=== PATIENT | female | born 1935 | race Caucasian/White ===

== ENCOUNTER 2017-10-02 20:32 | Inpatient (IN) | payer MEDICARE ==
[2017-10-02] MEDS ORDERED: Meclizine TAB* 12.5 MG PO PRN (23:34)
[2017-10-02] MEDS ORDERED: CMCS: Melatonin (NF) 3 MG TAB PO PRN (23:41)
[2017-10-02] MEDS ORDERED: Albuterol 2.5 MG/3 ML NEB.SOL* (0.083%) INH PRN (23:43)
[2017-10-02] MEDS ORDERED: Acetaminophen TAB* 325 MG PO PRN (23:43)
--- NOTE | 2017-10-03 03:09 | HP ---
CC: Dr. Rojelio Mcnulty * HISTORY AND PHYSICAL: DATE OF ADMISSION: 10/02/17 PRIMARY CARE PROVIDER: Dr. Rojelio Mcnulty. ATTENDING PHYSICIAN: Dr. Blanca Handley * (dictated by Renate Mathews NP). CHIEF COMPLAINT: Not feeling well, intermittent chest discomfort for several weeks. HISTORY OF PRESENT ILLNESS: Ms. 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 She decribes this chest discomfort as a "heavy feeling". She also reported right lateral rib discomfort. She decided to call Dr. Lo's office, who recommended she be seen by her primary care provider. She was unable to get into her primary care provider's office, but was able to get into the walk-in clinic at [facility]. She presented to the walk-in clinic at [facility], she was found to be afebrile with no leukocytosis, but had a chest x-ray showing a right upper and lower lobe pneumonia and a new small right-sided pleural effusion. Due to these findings, it was decided to admit the patient for IV antibiotics for her pneumonia. She received ceftriaxone and azithromycin. While at [facility], the patient reported complaints of a sternal chest discomfort. It was suspected this was likely indigestion, they checked an EKG and found that she was in an atrial fibrillation with an RVR. The patient also had troponins checked and her initial troponin was 0.1 followed by a repeat troponin of 3.1. Due to this, it was decided to have the patient via direct admit transfer to [facility]. The patient reports that intermittently for the past few weeks, she has been having intermittent sternal chest discomfort most notably after meals. She states she uses a CPAP at home with 2 - 3 L of oxygen. She reports intermittently having a fluttering feeling in her chest over the last few weeks and states that she has had some subjective fevers, chills. She has an occasional cough. She has had shortness of breath with exertion since yesterday. She denies any nausea, vomiting, diarrhea, diaphoresis, or urinary symptoms. PAST MEDICAL HISTORY: 1. Obstructive sleep apnea, on CPAP, with 2 to 3 L of oxygen. 2. Hypertension. 3. Mitral valve regurgitation. 4. COPD. 5. Hyperlipidemia. 6. Osteoarthritis. PAST SURGICAL HISTORY: Status post back surgeries x2. MEDICATIONS: The patient is not clear on all of her home medications, but states she is taking the following medications accordingly: 1. Aspirin 81 mg oral daily. 2. Biotin 10 mg oral daily. 3. Calcium 500 plus D3 two tablets oral twice daily. 4. Carvedilol 25 mg oral twice daily. 5. Colace 240 mg oral daily at bedtime. 6. Lexapro 20 mg oral daily. 7. Lactobacillus 2 capsules oral every morning. 8. Lisinopril 10 mg oral every morning. 9. Meclizine 25 to 50 mg orally every 6 hours as needed for vertigo. 10. Spiriva Respimat 2 puffs inhalation every morning. 11. CoQ10 200 mg oral daily. Current medications from [facility] include: 1. Lexapro 20 mg oral daily. 2. Colace 200 mg oral daily at bedtime. 3. Sertraline 250 mg oral twice daily. 4. Lovenox 60 mg subcutaneous every 12 hours. 5. Nitroglycerin 0.4 mg sublingual every 5 minutes as needed for chest pain. 6. Prilosec 20 mg oral daily. 7. Lisinopril 10 mg oral daily. 8. Carvedilol 25 mg oral twice daily. 9. Aspirin 81 mg oral daily. 10. Melatonin 1 mg oral at bedtime as needed for sleep. 11. Fleet Enema as needed for constipation daily. 12. Solu-Medrol 60 mg IV every 6 hours. 13. Milk of magnesia 30 mL oral daily as needed for constipation. 14. Mucinex 1200 mg oral every 12 hours. 15. Ceftriaxone 1 g IV every 24 hours. 16. Dulcolax suppository 10 mg per rectum daily as needed for constipation. 17. Tessalon Perles 200 mg oral every 6 hours as needed for cough. 18. Azithromycin 500 mg IV every 24 hours. 19. Albuterol/ipratropium nebs every 4 hours inhalation as needed for shortness of breath or wheeze. 20. Acetaminophen 650 mg oral every 4 hours as needed for fever or pain. ALLERGIES: NIACIN. FAMILY HISTORY: The patient's father had a history of coronary artery disease. The patient's brother passed at age 49 from an SD. Her mother had a history of a cerebrovascular accident. She denies any family history of diabetes mellitus and she had a grandfather with a history of renal carcinoma. SOCIAL HISTORY: The patient is a former smoker. She reports quitting 30 to 40 years ago. Prior to that, she had a 15- to 20-year 1- to 5-oqiy-i-day smoking history. She occasionally drinks alcohol. She denies recreational drug use. Her , Garry Baxter, will be her surrogate decision maker in the event she is unable to make decisions for herself. REVIEW OF SYSTEMS: I performed an 11-point review of systems. All the pertinent positives and negatives are mentioned in the history of present illness and remaining review of systems is negative. PHYSICAL EXAMINATION GENERAL APPEARANCE: The patient is alert, pleasant, and appears to be in no acute distress. HEENT: Normocephalic, atraumatic. Pupils are equal and reactive to light. Extraocular movements are intact. RESPIRATORY: There is no accessory muscle use. The lungs are clear to auscultation on the left side and on the right, she has crackles scattered throughout. CARDIOVASCULAR: Regular rate and rhythm. S1, S2 present. There are no murmurs , rubs, or gallops heard. ABDOMEN: Soft, nontender, nondistended. Bowel sounds present x4. EXTREMITIES: There is no lower extremity edema. DP and PT pulses are 2+ and symmetric. MUSCULOSKELETAL: There is no clubbing or cyanosis noted. The patient exhibits good strength in all extremities. NEUROLOGIC: The patient is alert and oriented x4. Cranial nerves II through XII are grossly intact. PSYCHOLOGICAL: The patient is calm and cooperative. SKIN: There are no rashes or abnormalities seen. DIAGNOSTIC STUDIES/LAB DATA: From today at [facility] revealed a white blood cell count of 4.6, hemoglobin 11.8, hematocrit 37, platelet count 252. She had a troponin of 0.10 followed by 3.133. TSH of 0.26. EKG from [facility] shows an atrial fibrillation rate of 123. There is ST depression in leads V3 through V6 and T-wave insertion in V2. When compared to previous EKG in our system from 06/19/17, all of the ST depression is new with the exception of in lead V5, which was previously present and the patient was in sinus rhythm at that time. IMPRESSION: Ms. Baxter is an 82-year-old female with past medical history significant for obstructive sleep apnea, hypertension, mitral valve regurgitation, chronic obstructive pulmonary disease, hyperlipidemia, and osteoarthritis, who initially presented to [facility] with complaints of heavy feeling in her chest and right lateral rib pain. She was admitted there for pneumonia and she had complaints of chest pain, was found to be in a new atrial fibrillation with elevated troponins. The patient was then transferred to as a direct admission to [facility]. She was admitted at [facility] as an inpatient for pneumonia and chest pain. ASSESSMENT/PLAN: 1. Hypertroponinemia. I question if this is secondary to demand ischemia in the setting of pneumonia and atrial fibrillation with rapid ventricular response. At this time, the patient is currently chest pain free. I am going to start to continue to retrend her troponin here. We will trend them until they peak. She will be placed on telemetry. I am going to hold off on a stress test in the setting of her acute pneumonia. She should probably have stress test once she is recovered from her pneumonia. In the meantime though, I will get an echo to evaluate her heart wall motion for any abnormalities and continue her carvedilol. She is already on an aspirin. I am going to check her fasting lipids in the morning and start statin accordingly. 2. New-onset atrial fibrillation. Does not appear that the patient has a history of atrial fibrillation. We will get an echocardiogram in the morning, she will be continued on carvedilol. At this point, she has converted to sinus rhythm. For now, we will continue her on Lovenox 1 mg/kg every 12 hours. She has a CHADS-Vasc score of 4 points, placing her stroke risk at 4.8% per year for greater than 90,000 patients and 6.7% risk of stroke, TIAs, systemic embolus. This should be further discussed with the patient. As she has converted to sinus rhythm, she might not need to be anticoagulated, but again, this should be further discussed with the patient. 3. Right upper and lower lobe pneumonia. Continue the patient on ceftriaxone, azithromycin. Recheck a CBC in the morning as she is currently afebrile and had no leukocytosis at [facility]. I am going to hold on any further steroids as she does not have any wheezing. 4. Hypertension. The patient will be continued on her home carvedilol and lisinopril. 5. Obstructive sleep apnea. The patient will be continued on her home CPAP with oxygen. 6. Chronic obstructive pulmonary disease. I do not believe the patient has chronic obstructive pulmonary disease exacerbation, we will continue her on her home Spiriva. She will have albuterol nebulizers available as needed for her shortness of breath. 7. Hyperlipidemia. The patient is not currently on any medications that she is aware of. We will check a fasting lipid in the morning and start a statin accordingly. 8. Fluids, electrolytes, and nutrition. The patient will be on a heart- healthy diet. 9. Code status. Do not resuscitate. The patient's will bring in her MOLST from home tomorrow. 10. DVT prophylaxis. The patient is at highest risk. She will have TEDs and be continued on Lovenox for now. DISPOSITION: Inpatient. TIME SPENT: Time for this admission was approximately 60 minutes, greater than half of that was spent with the patient discussing medications, past medical history, and the events leading up to her arrival today and performing physical examination. The case has been reviewed with the attending, Dr. Handley, who agrees with the plan of care. Reviewed by DIEGO MARTINEZ 10/08/17 1819 [id number]/[facility] #: [id number] AKASH
[2017-10-03] MEDS ORDERED: LORazepam TAB(*) 0.5 MG PO ONE (04:57)
[2017-10-03] MEDS: Omeprazole CAP* 20 MG PO SCH (05:04)
[2017-10-03 06:35] LABS: ABS Basophils 0 10^3/ul (0-0.2); ABS Eosinophils 0 10^3/ul (0-0.6); ABS Lymphocytes 0.9 10^3/ul (1.0-4.8); ABS Monocytes 0.5 10^3/ul (0-0.8); ABS Neutrophils 10.3 10^3/ul (1.5-7.7); ABS Nucleated RBC 0 10^3/ul; Eosinophil % 0 % (0-6); Hematocrit 35 % (35-47); Hemoglobin 11.4 g/dl (12.0-16.0); Lymphocyte % 7.5 % (25-47); Mean Corpuscular HGB Conc 33 g/dl (31-36); Mean Corpuscular Hemoglobin 31 pg (27-31); Mean Corpuscular Volume 95 fL (80-97); Mean Platelet Volume 8 um3 (7.4-10.4); Nucleated Red Blood Cells % 0; Platelet Count 310 10^3/ul (150-450); Red Blood Count 3.66 10^6/ul (4.0-5.4); Red Cell Distribution Width 15 % (10.5-15); White Blood Count 11.6 10^3/ul (3.5-10.8)
[2017-10-03 06:55] LABS: EGFR Non-African American 77.5 (>60)
[2017-10-03] MEDS: Enoxaparin(*) 60 MG/0.6 ML SYR SUBCUT SCH ×2 (08:15→20:41)
[2017-10-03] MEDS: CMCS: Escitalopram (NF) 10 MG TAB PO SCH (08:16)
[2017-10-03] MEDS: guaiFENesin ER TAB 600 MG PO SCH ×2 (08:17→20:42)
[2017-10-03] MEDS: Lisinopril TAB* 10 MG PO SCH (08:17)
[2017-10-03] MEDS: Aspirin Low Dose CHEW TAB* 81 MG PO SCH (08:17)
[2017-10-03] MEDS: Docusate CAP* 100 MG PO SCH (08:17)
[2017-10-03] MEDS: Carvedilol TAB* 25 MG PO SCH ×2 (08:17→20:42)
[2017-10-03] MEDS ORDERED: predniSONE TAB* 50 MG PO SCH (09:00)
[2017-10-03] MEDS ORDERED: Aspirin Low Dose CHEW TAB* 81 MG PO ONE (12:17)
--- NOTE | 2017-10-03 12:17 | ECHO ---
Patient: HARMEET ADLER [facility] Rec#: [id number] : 1935 Date: 10/03/2017 Age: 82y Height: 154.9 cm / 61.0 in Weight: 60.8 kg / 134.0 lbs Sex: F BSA: 1.59 Room#: ICU 11 Admit Date#: 10/02/2017 Type: Inpatient Referring: Renate Cintron NP Reading: Yogi Lo MD Mix Maker: Mikaela Coleman RN RDCS CC: Rojelio Mcnulty DO Transthoracic Echocardiogram Indication: New A. fib, chest pain BP: 174/92 HR: 80 Rhythm: NSR Findings History: HTN, mitral regurgitation, HLD, YONY, COPD, former smoker Technical Comments: The study quality is fair. The study is technically limited due to the patient's history of COPD. The study is technically limited due to the patient's smoking history. The study was technically limited due to the patient's inability to lay in the left lateral decubitus position. Completed at 0935. Left Ventricle: There is no left ventricular hypertrophy. There is a focal wall motion abnormality present.basal inferior wall hypokinesis. There is mild to moderately decreased left ventricular systolic function. The estimated ejection fraction is 40-45%. Abnormal left ventricular diastolic function is observed. The patient was unable to perform a Valsalva maneuver. Left Atrium: The left atrium is mildly dilated. Right Ventricle: The right ventricular cavity size is normal. The right ventricular global systolic function is low normal. Right Atrium: The right atrium is mildly dilated. Aortic Valve: The aortic valve is trileaflet. The aortic valve leaflets are mildly thickened. There is mild to moderate aortic regurgitation. There is no evidence of aortic stenosis. Mitral Valve: The mitral valve leaflets are mildly thickened. There is moderate to severe mitral regurgitation. There is no evidence of mitral stenosis. Tricuspid Valve: The tricuspid valve leaflets are normal. There is mild tricuspid regurgitation. There is evidence of severe pulmonary hypertension. There is no tricuspid stenosis. Pulmonic Valve: The pulmonic valve structure is not well visualized. There is mild pulmonic regurgitation. There is no pulmonic stenosis. Pericardium: There is no significant pericardial effusion. A pericardial fat pad is visualized. Aorta: There is no dilatation of the ascending aorta. The aortic arch is not well visualized. There is no dilation of the aortic root. Pulmonary Artery: The main pulmonary artery is not well visualized. Venous: The inferior vena cava appears normal in size. There is less than 50% respiratory change in the inferior vena cava dimension. Summary: There are changes noted when compared to the previous study done on 06/18/2017, LV EF is borderline less now, AI is mild-moderate instead of mild then. Conclusions The study is technically limited due to the patient's history of COPD. There is a focal wall motion abnormality present.basal inferior wall hypokinesis. There is mild to moderately decreased left ventricular systolic function. The estimated ejection fraction is 40-45%. The left atrium is mildly dilated. The right atrium is mildly dilated. There is mild to moderate aortic regurgitation. There is moderate to severe mitral regurgitation. There is mild tricuspid regurgitation. There is mild pulmonic regurgitation. Measurements Name Value Normal Range RVDdMajor (2D) 2.3 cm (2.2 - 4.4) RAd ISD 4CH 5.3 cm (3.4 - 4.9) RA (A4C)W 3.9 cm (2.9 - 4.6) IVSd (2D) 0.9 cm (0.6 - 1) LVPWd (2D) 1 cm (0.6 - 1) LVIDd (2D) 4.8 cm (3.6 - 5.4) LVIDs (2D) 3.7 cm - LV FS (2D) 23 % (25 - 45) EF Teichholz (2D) 46 % - Aortic Annulus 2 cm (1.4 - 2.6) Ao root diameter (2D) 2.5 cm (2.1 - 3.5) Ascending Ao 2.6 cm (2.1 - 3.4) LA dimension (AP) 2D 4 cm (2.3 - 3.8) LAd ISD 4CH 5.9 cm (2.9 - 5.3) LA ISD 4CH W 4 cm (2.5 - 4.5) Aortic root diameter (2D1.28 cm/m2 - Name Value Normal Range LA ESV SP 4CH (A/L) 54 ml - LA ESV SP 2CH (A/L) 64 ml - LA ESV BP (A/L) 61 ml - LA ESV BP (A/L) index 38 ml/m2 - LA ESV SP 4CH (MOD) 52 ml - LA ESV SP 2CH (MOD) 62 ml - Name Value Normal Range MV E-wave Vmax 1.7 m/sec - MV deceleration time 139 msec - MV A-wave Vmax 0.54 m/sec - MV E:A ratio 3.1 ratio - LV septal e' Vmax 0.05 m/sec - LV lateral e' Vmax 0.09 m/sec - LV E:e' septal ratio 34 ratio - LV E:e' lateral ratio 18.9 ratio - Name Value Normal Range AV Vmax 1.2 m/sec - AV VTI 22.9 cm - AV peak gradient 5.6 mmHg - AV mean gradient 3.2 mmHg - LVOT Vmax 1 m/sec - LVOT VTI 17.2 cm - LVOT peak gradient 4.2 mmHg - LVOT mean gradient 2.1 mmHg - DOI (VTI) 0.76 ratio - DOI (Vmax) 0.87 ratio - AR PHT 400 msec - Name Value Normal Range MV Vmax 1.7 m/sec - MV VTI 31 cm - MV peak gradient 12 mmHg - MV mean gradient 3.5 mmHg - MV PHT 61 msec - MR Vmax 5.76 m/sec - MR VTI 175 cm - MR volume (PISA) 29.75 ml - MR flow (PISA) 98 ml/sec - MR ERO 0.17 cm2 - MR PISA radius 0.7 cm - MR alias Vmax 32 cm/sec - MVA (PHT) 3.6 cm2 - Name Value Normal Range TR Vmax 4 m/sec - TR peak gradient 64 mmHg - RAP 8 mmHg - RVSP 72 mmHg - IVC diameter 2 cm - Name Value Normal Range PV Vmax 0.58 m/sec -
[2017-10-03] MEDS ORDERED: Ondansetron INJ* 2 MG/ML VIAL ONE (13:07)
[2017-10-03] MEDS: Ondansetron INJ* 2 MG/ML VIAL IV PRN ×2 (13:10→19:40)
--- NOTE | 2017-10-03 14:06 | RAD ---
HISTORY: Pneumonia COMPARISONS: June 19, 2017 VIEWS: 1: frontal portable view of the chest at 12:20 PM FINDINGS: LINES AND TUBES: None. CARDIOMEDIASTINAL SILHOUETTE: The cardiomediastinal silhouette is stable. PLEURA: There is blunting of the costophrenic angles bilaterally. LUNG PARENCHYMA: There is patchy alveolar opacification of the right upper lung and left lower lung ABDOMEN: The upper abdomen is clear. There is no subphrenic gas. BONES AND SOFT TISSUES: No bone or soft tissue abnormalities are noted. IMPRESSION: BILATERAL MULTIFOCAL CONSOLIDATION WITH SMALL BILATERAL PLEURAL EFFUSIONS. RECOMMEND FOLLOW-UP UNTIL RESOLUTION TO EXCLUDE UNDERLYING PULMONARY PARENCHYMAL PATHOLOGY.
[2017-10-03] MEDS ORDERED: cefTRIAXone(*) 1 GM in NS 0.9% 50 ML* 50 ML IVPB SCH (17:00)
[2017-10-03] MEDS ORDERED: Atorvastatin* 40 MG TAB PO SCH (17:00)
[2017-10-03] MEDS: Atorvastatin* 80 MG TAB PO SCH (17:37)
[2017-10-03] MEDS: Spironolactone TAB* 25 MG PO SCH (17:37)
[2017-10-03] MEDS: Azithromycin IV(*) 500 MG in NS 0.9% 250 ML* 250 ML IVPB SCH (18:30)
--- NOTE | 2017-10-03 19:16 | PN ---
Subjective Date of Service: 10/03/17 Interval History: "Anxiety" attack in AM, improved with ativan. Shortness of breath and nausea. Trop peaked at 6.2. ST depressions inferiorly. Denies current chest pressure. Aspirin full dose, statin added. Cardiology consulted. Consideration for LHC. on lovenox 1mg/kg. ECHO EF 40-45% with moderate to severe MVR, inferior wall motion abnormalities. reportedly left heart cath about 15 years ago at [facility]. Objective Active Medications: Acetaminophen (Tylenol Tab*) 650 mg PO Q4H PRN PRN Reason: FEVER/PAIN Albuterol (Ventolin 2.5 Mg/3 Ml Neb.Tatyana*) 2.5 mg INH Q4H PRN PRN Reason: SOB/WHEEZING Last Admin: 10/03/17 00:26 Dose: 2.5 mg Aspirin (Aspirin Low Dose Tab*) 81 mg PO DAILY [facility] Last Admin: 10/03/17 08:17 Dose: 81 mg Atorvastatin Calcium (Lipitor*) 80 mg PO 1700 [facility] Last Admin: 10/03/17 17:37 Dose: 80 mg Carvedilol (Coreg Tab*) 25 mg PO BID [facility] Last Admin: 10/03/17 08:17 Dose: 25 mg Docusate Sodium (Colace Cap*) 100 mg PO DAILY [facility] Last Admin: 10/03/17 08:17 Dose: 100 mg Enoxaparin Sodium (Lovenox(*)) 60 mg SUBCUT Q12H [facility] Last Admin: 10/03/17 08:15 Dose: 60 mg Escitalopram Oxalate (Lexapro (Nf)) 20 mg PO DAILY [facility] Last Admin: 10/03/17 08:16 Dose: 20 mg Furosemide (Lasix Tab*) 20 mg PO 1800 [facility] Guaifenesin (Mucinex*) 600 mg PO BID [facility] Last Admin: 10/03/17 08:17 Dose: 600 mg Azithromycin 500 mg/ Sodium (Chloride) 250 mls @ 250 mls/hr IVPB Q24H [facility] Last Admin: 10/03/17 18:30 Dose: 250 mls/hr Ceftriaxone Sodium 1 gm/ (Sodium Chloride) 50 mls @ 200 mls/hr IVPB Q24H [facility] Last Admin: 10/03/17 17:37 Dose: 200 mls/hr Isosorbide Dinitrate (Isordil Tab*) 5 mg PO TID [facility] Lisinopril (Prinivil Tab*) 10 mg PO DAILY [facility] Last Admin: 10/03/17 08:17 Dose: 10 mg Lorazepam (Ativan Tab(*)) 0.5 mg PO Q6H PRN PRN Reason: ANXIETY Meclizine HCl (Antivert Tab*) 25 mg PO Q6H PRN PRN Reason: DIZZINESS Melatonin (Melatonin (Nf)) 3 mg PO BEDTIME PRN PRN Reason: INSOMNIA Omeprazole (Prilosec Cap*) 20 mg PO 0600 [facility] Last Admin: 10/03/17 05:04 Dose: 20 mg Ondansetron HCl (Zofran Inj*) 4 mg IV Q4H PRN PRN Reason: NAUSEA Last Admin: 10/03/17 13:10 Dose: 4 mg Spironolactone (Aldactone Tab*) 25 mg PO 1700 [facility] Last Admin: 10/03/17 17:37 Dose: 25 mg Vital Signs - 8 hr 10/03/17 10/03/17 10/03/17 12:00 12:01 13:00 Temperature 97.2 F Pulse Rate 79 78 76 Respiratory 24 23 26 Rate Blood Pressure 153/93 161/91 (mmHg) O2 Sat by Pulse 92 93 91 Oximetry 10/03/17 10/03/17 10/03/17 13:01 14:00 14:01 Temperature Pulse Rate 77 75 76 Respiratory 26 22 23 Rate Blood Pressure 165/89 (mmHg) O2 Sat by Pulse 92 92 93 Oximetry 10/03/17 10/03/17 10/03/17 15:00 16:00 17:00 Temperature 98.3 F Pulse Rate 75 72 81 Respiratory 24 26 28 Rate Blood Pressure 150/92 165/98 (mmHg) O2 Sat by Pulse 93 93 93 Oximetry 10/03/17 10/03/17 17:01 18:00 Temperature Pulse Rate 76 78 Respiratory 23 30 Rate Blood Pressure 150/96 150/68 (mmHg) O2 Sat by Pulse 95 95 Oximetry Oxygen Devices in Use Now: Nasal Cannula Appearance: NAD, slightly anxious. Ears/Nose/Mouth/Throat: NL Teeth, Lips, Gums, Mucous Membranes Moist Neck: NL Appearance and Movements; NL JVP Respiratory: Symmetrical Chest Expansion and Respiratory Effort, - - coarse rhonchi at left base. Cardiovascular: NL Sounds; No Murmurs; No JVD, RRR Extremities: No Edema Skin: No Rash or Ulcers, No Nodules or Sclerosis Neurological: Alert and Oriented x 3, NL Sensation, NL Muscle Strength and Tone Nutrition: Taking PO's Result Diagrams: 10/03/17 06:05 10/03/17 06:05 Additional Lab and Data: Laboratory Results - last 24 hr 10/03/17 10/03/17 10/03/17 00:20 03:10 06:05 WBC 11.6 H RBC 3.66 L Hgb 11.4 L Hct 35 MCV 95 MCH 31 MCHC 33 RDW 15 Plt Count 310 MPV 8 Neut % (Auto) 88.5 H Lymph % (Auto) 7.5 L Mcdowell % (Auto) 3.9 Eos % (Auto) 0 Baso % (Auto) 0.1 Absolute Neuts (auto) 10.3 H Absolute Lymphs (auto) 0.9 L Absolute Monos (auto) 0.5 Absolute Eos (auto) 0 Absolute Basos (auto) 0 Absolute Nucleated RBC 0 Nucleated RBC % 0 Sodium Potassium Chloride Carbon Dioxide Anion Gap BUN Creatinine Est GFR ( Amer) Est GFR (Non-Af Amer) BUN/Creatinine Ratio Glucose Calcium Troponin I 6.20 H* 5.32 H* Triglycerides 116 Cholesterol 157 LDL Cholesterol 100 HDL Cholesterol 34.0 10/03/17 06:05 WBC RBC Hgb Hct MCV MCH MCHC RDW Plt Count MPV Neut % (Auto) Lymph % (Auto) Mcdowell % (Auto) Eos % (Auto) Baso % (Auto) Absolute Neuts (auto) Absolute Lymphs (auto) Absolute Monos (auto) Absolute Eos (auto) Absolute Basos (auto) Absolute Nucleated RBC Nucleated RBC % Sodium 135 Potassium 3.7 Chloride 105 Carbon Dioxide 21 L Anion Gap 9 BUN 26 H Creatinine 0.72 Est GFR ( Amer) 99.7 Est GFR (Non-Af Amer) 77.5 BUN/Creatinine Ratio 36.1 H Glucose 178 H Calcium 8.4 L Troponin I 3.69 H* Triglycerides Cholesterol LDL Cholesterol HDL Cholesterol Assess/Plan/Problems-Billing Assessment: 82 yo female PMH COPD, HTN, YONY on CPAP, HLD p/w LOMBARDI occ cough. Initially [place] pna 2/12 then chest pressure and NSTEMI (troponin peak 6.2, inferior depressions on EKG). EF 40-45% with inferior wma. Cardiology consulted, possible LHC 10/04. - Patient Problems (1) NSTEMI (non-ST elevated myocardial infarction) Current Visit: Yes Status: Acute Code(s): I21.4 - NON-ST ELEVATION (NSTEMI) MYOCARDIAL INFARCTION SNOMED Code(s): 122837770 Comment: Troponin peaked 6.2. Inferior ST depressions and deepening TWI. V6 ST depression. on lovenox 1mg/kg on admission. Continue aspirin 81mg daily, gave an extra 243mg today. Appreciate cardiology recs. Adding isodril continue coreg 25mg bid added atorvastatin 80mg daily. Possible LHC 10/04. will place npo midnight. (2) Acute respiratory failure with hypoxia Current Visit: No Status: Acute Code(s): J96.01 - ACUTE RESPIRATORY FAILURE WITH HYPOXIA SNOMED Code(s): 02986426 Comment: 5L. in setting of NSTEMI and possible pneumonia. CXR with b/l basilar consolidation. f/u cultures if any obtained at [place]. Will add sputum cx here. spiriva added back. lasix and spironolactone added. (3) COPD (chronic obstructive pulmonary disease) Current Visit: No Status: Acute Code(s): J44.9 - CHRONIC OBSTRUCTIVE PULMONARY DISEASE, UNSPECIFIED SNOMED Code(s): 53183931 Comment: not currently bronchospastic. continue ceftriaxone and azithromycin. restart spiriva. (4) CHF (congestive heart failure) Current Visit: Yes Status: Acute Code(s): I50.9 - HEART FAILURE, UNSPECIFIED SNOMED Code(s): 28817091 Comment: EF 40-45% with moderate to severe MVR. new wma. LHC diuresis as above. BB, ACEI (5) YONY (obstructive sleep apnea) Current Visit: No Status: Acute Code(s): G47.33 - OBSTRUCTIVE SLEEP APNEA ( ADULT) (PEDIATRIC) SNOMED Code(s): 75898986 Comment: CPAP (6) Pneumonia Current Visit: No Status: Acute Code(s): J18.9 - PNEUMONIA, UNSPECIFIED ORGANISM SNOMED Code(s): 706018564 Comment: plan as above. (7) Afib Current Visit: Yes Status: Acute Code(s): I48.91 - UNSPECIFIED ATRIAL FIBRILLATION SNOMED Code(s): 64456891 Comment: observed at [facility]. back to NSR here. replete lytes prn. in setting of infection and NSTEMI. Status and Disposition: medicine inpatient. Attending: Robinson Oneil
[2017-10-03] MEDS ORDERED: LORazepam TAB(*) 1 MG ONE (20:36)
[2017-10-03] MEDS: Isosorbide Dinitrate TAB* 5 MG PO SCH (20:42)
[2017-10-03] MEDS: LORazepam TAB(*) 0.5 MG PO PRN (20:43)
--- NOTE | 2017-10-03 23:08 | CONS ---
CC: Rojelio Mcnulty DO; Dr. Lo; Hospitalist * CARDIOLOGY CONSULTATION: DATE OF CONSULT: 10/03/17 REASON FOR CONSULT: Elevated troponins and chest pressure. CHIEF COMPLAINT: Shortness of breath and chest pressure. HISTORY OF PRESENT ILLNESS: Mrs. Baxter is an 82-year-old woman followed by my partner, Dr. Lo, with a history of mitral insufficiency, mild cardiomyopathy, atherosclerotic risk, and abnormal stress test in 2015. The patient had an episode of pneumonia in June. She was examined in the presence of family members and they all concurred that after the pneumonia, her breathing never really went back to baseline. She always sleeps with a head of the bed up, often has to get out of bed and sit in a chair at night. About 2 weeks ago, things seem to worsen again and she became progressively short of breath and yesterday, it was severe enough that she sought medical attention. She originally presented to [facility] and her troponins there were mildly elevated and started to rise, so she was transferred here to our center for further evaluation. The patient states her breathing is better than yesterday and the chest pressure has resolved, although earlier today she had some nausea, which responded to medication given by the nurses. PAST MEDICAL HISTORY: 1. 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 2. Valvular heart disease: Moderate to severe mitral insufficiency, mild aortic insufficiency. 3. Hypertension. 4. Dyslipidemia. 5. COPD. 6. Obstructive sleep apnea, wears CPAP and oxygen at night. 7. Degenerative arthritis. 8. Recurrent pneumonia. INPATIENT MEDICATIONS: Include: 1. Tylenol p.r.n. 2. Albuterol inhaler p.r.n. 3. Aspirin 81 mg a day. 4. Lipitor 40 mg a day. 5. Azithromycin IV. 6. Coreg 25 mg b.i.d. 7. Ceftriaxone. 8. Colace. 9. Lovenox 60 mg q.12 hours. 10. Lexapro 20 mg a day. 11. Mucinex 600 mg b.i.d. 12. Prinivil 10 mg a day. 13. Antivert p.r.n. 14. Melatonin 3 mg q.h.s. 15. Prilosec 20 mg a day. 16. Zofran p.r.n. nausea. ALLERGIES: She is allergic to NIACIN. FAMILY HISTORY: Positive for coronary artery disease, her brother of a heart attack at age 49, mother had a history of stroke. SOCIAL HISTORY: The patient is a former smoker, but quit 30 to 40 years ago, occasional alcohol intake. No history of recreational drug use. She lives with her , Mr. Garry Baxter, who is present. REVIEW OF SYSTEMS: Significant for recent chest pressure coming and going for 2 weeks, progressive dyspnea for 2 weeks, worsening of chronic orthopnea and PND for 2 weeks. She states her Prinivil dose was increased several months ago by Dr. Mcnulty. She admits to eating salty foods such as lunch meats and others, but does not add salt. The patient denies fevers, chills, sweats or productive sputum and there has been no recent travel. No change in bowel or bladder habits and all other 14- point review of systems unremarkable. PHYSICAL EXAM: The patient is 5 feet 1 inch, weighs 134 pounds, giving her a BMI of 26. Vitals: Blood pressure 165/89, pulse is 74 and regular, respiratory rate is 22, oxygen saturation on 2 L is 92%, T-max is 99.2. General Appearance: Elderly woman, seated in bed about 60 degrees, oxygen on, talking with her family, appears comfortable in this position. Psychologically , pleasant and cooperative. Neurologically, awake, alert, oriented to person and place, slightly hard of hearing, but cranial nerves are grossly intact. Speech is articulate. Comprehension is good and she follow commands well. Skin : Age appropriate changes, no appreciable cyanosis. HEENT: Pupils are equal and round. Mucous membranes moist. Neck without thyromegaly or lymphadenopathy. Breath sounds were diminished in the bases, but no wheezes, rales or rhonchi. Coronary: S1, S2. Regular without appreciable murmurs. Abdomen: Without appreciable hepatomegaly and lower extremities were free of edema and warm. DIAGNOSTIC STUDIES/LAB DATA: 1. A 12-lead ECG from 10/02/17 shows normal sinus rhythm, 80 beats a minute, QRS axis +30, normal AV and IV conduction times. Some mild sinus arrhythmia and ST depression in the inferior leads II, III, aVF and lateral leads V5, V6. When compared to her most recent EKG of 06/19/17, the ST depression is more pronounced and when compared with her EKG in the office 06/26/17, the ST depression in the inferior lateral leads is new. 2. The patient's chest x-ray from today shows bilateral multifocal consolidation with small bilateral pleural effusions. 3. Echocardiogram from today 10/03/17 shows an ejection fraction of 40% to 45% with the base of the inferior wall relatively hypokinetic and abnormal diastolic filling. Biatrial enlargement, mild to moderate aortic insufficiency. Moderate to severe mitral insufficiency, mild tricuspid and mild pulmonic insufficiency and PA pressure estimated at 72 mmHg, severe. 4. Outpatient studies include a nuclear study from 07/12/16 at [facility] showing stress-induced ischemia of the apical and mid anteroseptal segments, new compared with 2013. Labs show a white count 11.6, hemoglobin 11.4, hematocrit 35 and platelets 310. Sodium 135, potassium 3.7, chloride 105, bicarb 21, BUN 26, creatinine 0.72. Glucose 178. Total cholesterol 157, triglycerides 116, LDL cholesterol 100 and HDL cholesterol 34. Troponins via Shailesh initially minimally elevated, #2 was approximately 3, #4 was 6.20, #5 was 5.35, and #6 was 3.69. IMPRESSION AND PLAN: In summary, Areli Baxter is an 82-year-old woman presenting with a couple of weeks of intermittent chest pressure and progressive shortness of breath found to be in congestive heart failure by echo and chest x-ray with significant mitral insufficiency, elevated troponins and recurrent ischemic ST changes on her EKG. I am concerned that the patient's mitral insufficiency may have an ischemic component to it and she does appear to have underlying atherosclerotic heart disease. The patient has declined aggressive management in the past based on Dr. Lo's notes. I talked to the patient and the family today about undergoing a heart catheterization to determine if she has significant blockages in the blood vessels and if she did and if she would benefit from intervention and she and the family wanted to think about this, but were not completely negative. In terms of optimizing medical management, I would aim on optimizing ischemia. I would either double her Lipitor from 40 to 80 or start her on Crestor 40 to get her LDL at or below 70. I would continue her Coreg. I would initiate nitrates for symptomatic relief as well as ischemia. I would consider adding a low dose diuretics, perhaps alternating hydrochlorothiazide or a loop diuretic with Aldactone. I would optimize diet and medications if indicated for diabetes. Again even though the patient is elderly, her quality of life may benefit with heart cath and potential interventional management of any underlying ischemia, but we will follow up with the patient. In the interim, we will check EKGs and see how she fares with the above medical management. [id number]/[facility] #: [id number] AKASH
[2017-10-03] MEDS: TIOTROPIUM 2.5 MCG INH SCH (23:49)
[2017-10-04 06:34] LABS: ABS Basophils 0 10^3/ul (0-0.2); ABS Eosinophils 0 10^3/ul (0-0.6); ABS Monocytes 0.6 10^3/ul (0-0.8); ABS Neutrophils 8.5 10^3/ul (1.5-7.7); ABS Nucleated RBC 0 10^3/ul; Eosinophil % 0 % (0-6); Hematocrit 32 % (35-47); Hemoglobin 10.5 g/dl (12.0-16.0); Lymphocyte % 9.5 % (25-47); Mean Corpuscular HGB Conc 34 g/dl (31-36); Mean Corpuscular Hemoglobin 32 pg (27-31); Mean Corpuscular Volume 94 fL (80-97); Mean Platelet Volume 8 um3 (7.4-10.4); Nucleated Red Blood Cells % 0; Platelet Count 265 10^3/ul (150-450); Red Blood Count 3.34 10^6/ul (4.0-5.4); Red Cell Distribution Width 14 % (10.5-15); White Blood Count 10.1 10^3/ul (3.5-10.8)
[2017-10-04] MEDS: Omeprazole CAP* 20 MG PO SCH (06:36)
[2017-10-04] MEDS: TIOTROPIUM 2.5 MCG INH SCH (08:06)
[2017-10-04] MEDS: Ondansetron INJ* 2 MG/ML VIAL IV PRN (08:08)
[2017-10-04] MEDS: Carvedilol TAB* 25 MG PO SCH ×2 (08:45→20:03)
[2017-10-04] MEDS: CMCS: Escitalopram (NF) 10 MG TAB PO SCH (08:45)
[2017-10-04] MEDS: Aspirin Low Dose CHEW TAB* 81 MG PO SCH (08:45)
[2017-10-04] MEDS: Lisinopril TAB* 10 MG PO SCH (08:46)
[2017-10-04] MEDS: Isosorbide Dinitrate TAB* 5 MG PO SCH ×3 (08:46→20:03)
[2017-10-04] MEDS ORDERED: Aspirin Low Dose CHEW TAB* 81 MG PO SCH (09:00)
[2017-10-04 11:18] LABS: EGFR Non-African American 88.8 (>60)
[2017-10-04] MEDS: guaiFENesin ER TAB 600 MG PO SCH ×2 (11:23→20:03)
[2017-10-04] MEDS: Docusate CAP* 100 MG PO SCH (11:23)
[2017-10-04] MEDS: Enoxaparin(*) 60 MG/0.6 ML SYR SUBCUT SCH ×2 (11:24→20:03)
[2017-10-04] MEDS ORDERED: cefTRIAXone(*) 1 GM in D5W 50 ML BAG* 50 ML IVPB SCH (12:16)
--- NOTE | 2017-10-04 12:16 | PN ---
Subjective Date of Service: 10/04/17 Interval History: was npo for potential catheterization. However Dr. Lo and patient have decided to not pursue at this time. no productive cough. Afebrile. I called [facility] and no blood cultures or sputum cultures were ordered. Initial WBC there was 6.5 Tmax 99.0 Objective Active Medications: Acetaminophen (Tylenol Tab*) 650 mg PO Q4H PRN PRN Reason: FEVER/PAIN Albuterol (Ventolin 2.5 Mg/3 Ml Neb.Tatyana*) 2.5 mg INH Q4H PRN PRN Reason: SOB/WHEEZING Last Admin: 10/03/17 00:26 Dose: 2.5 mg Aspirin (Aspirin Low Dose Tab*) 81 mg PO DAILY [facility] Last Admin: 10/04/17 08:45 Dose: 81 mg Atorvastatin Calcium (Lipitor*) 80 mg PO 1700 [facility] Last Admin: 10/03/17 17:37 Dose: 80 mg Carvedilol (Coreg Tab*) 25 mg PO BID [facility] Last Admin: 10/04/17 08:45 Dose: 25 mg Docusate Sodium (Colace Cap*) 100 mg PO DAILY [facility] Last Admin: 10/04/17 11:23 Dose: 100 mg Enoxaparin Sodium (Lovenox(*)) 60 mg SUBCUT Q12H [facility] Last Admin: 10/04/17 11:24 Dose: 60 mg Escitalopram Oxalate (Lexapro (Nf)) 20 mg PO DAILY [facility] Last Admin: 10/04/17 08:45 Dose: 20 mg Furosemide (Lasix Tab*) 20 mg PO 1800 [facility] Guaifenesin (Mucinex*) 600 mg PO BID [facility] Last Admin: 10/04/17 11:23 Dose: 600 mg Azithromycin 500 mg/ Sodium (Chloride) 250 mls @ 250 mls/hr IVPB Q24H [facility] Last Admin: 10/03/17 18:30 Dose: 250 mls/hr Ceftriaxone Sodium 1 gm/ (Sodium Chloride) 50 mls @ 200 mls/hr IVPB Q24H [facility] Last Admin: 10/03/17 17:37 Dose: 200 mls/hr Isosorbide Dinitrate (Isordil Tab*) 5 mg PO TID [facility] Last Admin: 10/04/17 08:46 Dose: 5 mg Lisinopril (Prinivil Tab*) 10 mg PO DAILY [facility] Last Admin: 10/04/17 08:46 Dose: 10 mg Lorazepam (Ativan Tab(*)) 0.5 mg PO Q6H PRN PRN Reason: ANXIETY Last Admin: 10/03/17 20:43 Dose: 0.5 mg Meclizine HCl (Antivert Tab*) 25 mg PO Q6H PRN PRN Reason: DIZZINESS Melatonin (Melatonin (Nf)) 3 mg PO BEDTIME PRN PRN Reason: INSOMNIA Last Admin: 10/03/17 20:42 Dose: 3 mg Omeprazole (Prilosec Cap*) 20 mg PO 0600 [facility] Last Admin: 10/04/17 06:36 Dose: 20 mg Ondansetron HCl (Zofran Inj*) 4 mg IV Q4H PRN PRN Reason: NAUSEA Last Admin: 10/04/17 08:08 Dose: 4 mg Spironolactone (Aldactone Tab*) 25 mg PO 1700 [facility] Last Admin: 10/03/17 17:37 Dose: 25 mg Tiotropium [place] (Spiriva Respimat 2.5 Mcg(Nf)) 2 puff INH DAILY [facility] Last Admin: 10/04/17 08:06 Dose: Not Given Vital Signs - 8 hr 10/04/17 10/04/17 10/04/17 05:00 06:00 06:01 Temperature Pulse Rate 70 71 72 Respiratory 22 18 20 Rate Blood Pressure 153/73 149/86 (mmHg) O2 Sat by Pulse 95 95 94 Oximetry 10/04/17 10/04/17 10/04/17 07:00 07:01 07:58 Temperature 98.6 F Pulse Rate 72 73 Respiratory 22 23 Rate Blood Pressure 152/88 (mmHg) O2 Sat by Pulse 96 98 Oximetry 10/04/17 10/04/17 10/04/17 08:00 09:00 09:51 Temperature Pulse Rate 73 71 Respiratory 27 25 22 Rate Blood Pressure 156/88 147/77 (mmHg) O2 Sat by Pulse 99 97 Oximetry 10/04/17 10/04/17 10/04/17 10:00 10:02 11:00 Temperature Pulse Rate 73 73 67 Respiratory 29 21 23 Rate Blood Pressure 113/89 (mmHg) O2 Sat by Pulse 90 93 94 Oximetry 10/04/17 11:01 Temperature Pulse Rate 67 Respiratory 21 Rate Blood Pressure 130/61 (mmHg) O2 Sat by Pulse 96 Oximetry Oxygen Devices in Use Now: Nasal Cannula Appearance: NAD Respiratory: - - coarse rhonchi left base. no wheezing. Cardiovascular: NL Sounds; No Murmurs; No JVD, RRR Abdominal: NL Sounds; No Tenderness; No Distention, No Hepatosplenomegaly Extremities: - - trace edema Skin: No Rash or Ulcers, No Nodules or Sclerosis Neurological: Alert and Oriented x 3, NL Sensation, NL Muscle Strength and Tone Result Diagrams: 10/04/17 06:15 10/04/17 06:15 Additional Lab and Data: Laboratory Results - last 24 hr 10/04/17 10/04/17 10/04/17 06:15 06:15 06:15 WBC 10.1 RBC 3.34 L Hgb 10.5 L Hct 32 L MCV 94 MCH 32 H MCHC 34 RDW 14 Plt Count 265 MPV 8 Neut % (Auto) 83.9 H Lymph % (Auto) 9.5 L [place] % (Auto) 6.4 Eos % (Auto) 0 Baso % (Auto) 0.2 Absolute Neuts (auto) 8.5 H Absolute Lymphs (auto) 1.0 Absolute Monos (auto) 0.6 Absolute Eos (auto) 0 Absolute Basos (auto) 0 Absolute Nucleated RBC 0 Nucleated RBC % 0 Sodium 135 Potassium 4.1 Chloride 105 Carbon Dioxide 25 Anion Gap 5 BUN 30 H Creatinine 0.64 Est GFR ( Amer) 114.3 Est GFR (Non-Af Amer) 88.8 BUN/Creatinine Ratio 46.9 H Glucose 136 H Calcium 8.5 L B-Natriuretic Peptide 1368 H Assess/Plan/Problems-Billing Assessment: 82 yo female PMH COPD, HTN, YONY on CPAP, HLD p/w LOMBARDI occ cough. Initially to Shailesh and thought had pna (though no cultures drawn, afebrile, no leukocytosis) 2/ then chest pressure and NSTEMI (troponin peak 6.2, inferior depressions on EKG). EF 40-45% (slightly worse from 45-50%) with new inferior wma. moderate to severe MVR. Cardiology consulted, decided no LHC at this juncture - Patient Problems (1) NSTEMI (non-ST elevated myocardial infarction) Current Visit: Yes Status: Acute Code(s): I21.4 - NON-ST ELEVATION (NSTEMI) MYOCARDIAL INFARCTION SNOMED Code(s): 009632088 Comment: Troponin peaked 6.2. new Inferior ST depressions and deepening TWI. V6 ST depression. on lovenox 1mg/kg on admission. Continue aspirin 81mg daily, gave an extra 243mg yesterday. Appreciate cardiology recs. Dr. Lo does not recommend LHC at this time. continue isodril continue coreg 25mg bid continue atorvastatin 80mg daily. (2) Acute respiratory failure with hypoxia Current Visit: No Status: Acute Code(s): J96.01 - ACUTE RESPIRATORY FAILURE WITH HYPOXIA SNOMED Code(s): 15098701 Comment: 5L. wean as tolerated. in setting of NSTEMI and possible pneumonia. CXR with b/l basilar consolidation. BNP elevated at 1368. Diurese started. no cultures obtained at [place]. Will add sputum cx here but no productive cough. spiriva added back. continue lasix and spironolactone (3) COPD (chronic obstructive pulmonary disease) Current Visit: No Status: Acute Code(s): J44.9 - CHRONIC OBSTRUCTIVE PULMONARY DISEASE, UNSPECIFIED SNOMED Code(s): 42897137 Comment: not currently bronchospastic. continue ceftriaxone and azithromycin for now. continue spiriva. (4) CHF (congestive heart failure) Current Visit: Yes Status: Acute Code(s): I50.9 - HEART FAILURE, UNSPECIFIED SNOMED Code(s): 21209710 Comment: EF 40-45% with moderate to severe MVR. new inferior wma. no LHC planned. diuresis as above. BB, ACEI (5) YONY (obstructive sleep apnea) Current Visit: No Status: Acute Code(s): G47.33 - OBSTRUCTIVE SLEEP APNEA ( ADULT) (PEDIATRIC) SNOMED Code(s): 15907363 Comment: CPAP (6) Pneumonia Current Visit: No Status: Acute Code(s): J18.9 - PNEUMONIA, UNSPECIFIED ORGANISM SNOMED Code(s): 317455273 Comment: plan as above. acute CHF may be more likely (7) Afib Current Visit: Yes Status: Acute Code(s): I48.91 - UNSPECIFIED ATRIAL FIBRILLATION SNOMED Code(s): 29004574 Comment: observed at [facility]. back to NSR here. replete lytes prn. in setting of infection and NSTEMI. Status and Disposition: medicine inpatient. transferred from ICU. Attending: Robinson Oneil
[2017-10-04] MEDS: Furosemide TAB* 20 MG PO SCH (13:48)
[2017-10-04] MEDS: Atorvastatin* 80 MG TAB PO SCH (16:48)
[2017-10-04] MEDS: cefTRIAXone(*) 1 GM in D5W 50 ML BAG* 50 ML IVPB SCH (16:48)
[2017-10-04] MEDS: Spironolactone TAB* 25 MG PO SCH (16:48)
[2017-10-04] MEDS ORDERED: Furosemide TAB* 20 MG PO SCH (18:00)
[2017-10-04] MEDS: Azithromycin IV(*) 500 MG in NS 0.9% 250 ML* 250 ML IVPB SCH (18:05)
[2017-10-05] MEDS: Omeprazole CAP* 20 MG PO SCH (05:17)
[2017-10-05 05:57] LABS: ABS Basophils 0 10^3/ul (0-0.2); ABS Eosinophils 0 10^3/ul (0-0.6); ABS Lymphocytes 1.2 10^3/ul (1.0-4.8); ABS Monocytes 0.5 10^3/ul (0-0.8); ABS Neutrophils 5.3 10^3/ul (1.5-7.7); ABS Nucleated RBC 0 10^3/ul; Eosinophil % 0.6 % (0-6); Hematocrit 31 % (35-47); Hemoglobin 10.4 g/dl (12.0-16.0); Mean Corpuscular HGB Conc 34 g/dl (31-36); Mean Corpuscular Hemoglobin 32 pg (27-31); Mean Corpuscular Volume 94 fL (80-97); Mean Platelet Volume 8 um3 (7.4-10.4); Nucleated Red Blood Cells % 0; Platelet Count 257 10^3/ul (150-450); Red Blood Count 3.26 10^6/ul (4.0-5.4); Red Cell Distribution Width 14 % (10.5-15); White Blood Count 7.1 10^3/ul (3.5-10.8)
[2017-10-05 06:18] LABS: EGFR Non-African American 92.2 (>60)
[2017-10-05] MEDS: TIOTROPIUM 2.5 MCG INH SCH (08:42)
[2017-10-05] MEDS: Lisinopril TAB* 10 MG PO SCH (09:34)
[2017-10-05] MEDS: Enoxaparin(*) 60 MG/0.6 ML SYR SUBCUT SCH ×2 (09:34→20:45)
[2017-10-05] MEDS: Carvedilol TAB* 25 MG PO SCH ×2 (09:34→20:46)
[2017-10-05] MEDS: Furosemide TAB* 20 MG PO SCH (09:34)
[2017-10-05] MEDS: Aspirin Low Dose CHEW TAB* 81 MG PO SCH (09:34)
[2017-10-05] MEDS: Docusate CAP* 100 MG PO SCH (09:34)
[2017-10-05] MEDS: Isosorbide Dinitrate TAB* 5 MG PO SCH ×3 (09:34→20:48)
[2017-10-05] MEDS: guaiFENesin ER TAB 600 MG PO SCH ×2 (09:34→20:46)
[2017-10-05] MEDS: CMCS: Escitalopram (NF) 10 MG TAB PO SCH (09:34)
--- NOTE | 2017-10-05 12:31 | RAD ---
INDICATION: CHF versus pneumonia, chronic hypoxic respiratory failure. COMPARISON: Comparison is made with a prior chest x-ray study from October 03, 2017. TECHNIQUE: Dual-energy PA and lateral views of the chest were obtained. FINDINGS: The heart is moderately enlarged and unchanged. There is mild prominence of the interstitial markings with more focal infiltrates in the right upper lobe and left perihilar regions. There is slight improvement from the prior exam. There is a small to moderate size right pleural effusion and a small left pleural effusion. The right effusion has increased slightly in size. IMPRESSION: FINDINGS MOST CONSISTENT WITH CONGESTIVE HEART FAILURE LESS LIKELY PNEUMONIA DEMONSTRATING SLIGHT IMPROVEMENT.
[2017-10-05] MEDS: cefTRIAXone(*) 1 GM in D5W 50 ML BAG* 50 ML IVPB SCH (17:31)
[2017-10-05] MEDS: Spironolactone TAB* 25 MG PO SCH (17:31)
[2017-10-05] MEDS: Atorvastatin* 80 MG TAB PO SCH (17:31)
--- NOTE | 2017-10-05 18:58 | PN ---
Subjective Date of Service: 10/05/17 Interval History: Per RN felt a little worse today. Did not get [employer] clearance for discharge today. Walked well with physical therapy. Did not sleep well in bed. No SOB. Afebrile. not coughing repeat CXR: most consistent with CHF, less likely pna. net negative 335 NSR Objective Active Medications: Acetaminophen (Tylenol Tab*) 650 mg PO Q4H PRN PRN Reason: FEVER/PAIN Last Admin: 10/04/17 17:33 Dose: 650 mg Albuterol (Ventolin 2.5 Mg/3 Ml Neb.Tatyana*) 2.5 mg INH Q4H PRN PRN Reason: SOB/WHEEZING Last Admin: 10/03/17 00:26 Dose: 2.5 mg Aspirin (Aspirin Low Dose Tab*) 81 mg PO DAILY [facility] Last Admin: 10/05/17 09:34 Dose: 81 mg Atorvastatin Calcium (Lipitor*) 80 mg PO 1700 [facility] Last Admin: 10/05/17 17:31 Dose: 80 mg Carvedilol (Coreg Tab*) 25 mg PO BID [facility] Last Admin: 10/05/17 09:34 Dose: 25 mg Docusate Sodium (Colace Cap*) 100 mg PO DAILY [facility] Last Admin: 10/05/17 09:34 Dose: 100 mg Enoxaparin Sodium (Lovenox(*)) 60 mg SUBCUT Q12H [facility] Last Admin: 10/05/17 09:34 Dose: 60 mg Escitalopram Oxalate (Lexapro (Nf)) 20 mg PO DAILY [facility] Last Admin: 10/05/17 09:34 Dose: 20 mg Furosemide (Lasix Tab*) 20 mg PO DAILY [facility] Last Admin: 10/05/17 09:34 Dose: 20 mg Guaifenesin (Mucinex*) 600 mg PO BID [facility] Last Admin: 10/05/17 09:34 Dose: 600 mg Azithromycin 500 mg/ Sodium (Chloride) 250 mls @ 250 mls/hr IVPB Q24H [facility] Last Admin: 10/04/17 18:05 Dose: 250 mls/hr Ceftriaxone Sodium 1 gm/ (Dextrose) 50 mls @ 200 mls/hr IVPB 1700 [facility] Last Admin: 10/05/17 17:31 Dose: 200 mls/hr Isosorbide Dinitrate (Isordil Tab*) 5 mg PO TID [facility] Last Admin: 02/16/18 14:26 Dose: 5 mg Lisinopril (Prinivil Tab*) 10 mg PO DAILY [facility] Last Admin: 10/05/17 09:34 Dose: 10 mg Lorazepam (Ativan Tab(*)) 0.5 mg PO Q6H PRN PRN Reason: ANXIETY Last Admin: 10/03/17 20:43 Dose: 0.5 mg Meclizine HCl (Antivert Tab*) 25 mg PO Q6H PRN PRN Reason: DIZZINESS Melatonin (Melatonin (Nf)) 3 mg PO BEDTIME PRN PRN Reason: INSOMNIA Last Admin: 10/03/17 20:42 Dose: 3 mg Omeprazole (Prilosec Cap*) 20 mg PO 0600 [facility] Last Admin: 10/05/17 05:17 Dose: 20 mg Ondansetron HCl (Zofran Inj*) 4 mg IV Q4H PRN PRN Reason: NAUSEA Last Admin: 10/04/17 08:08 Dose: 4 mg Spironolactone (Aldactone Tab*) 25 mg PO 1700 [facility] Last Admin: 10/05/17 17:31 Dose: 25 mg Tiotropium [place] (Spiriva Respimat 2.5 Mcg(Nf)) 2 puff INH DAILY [facility] Last Admin: 10/05/17 08:42 Dose: 2 puff Vital Signs - 8 hr 10/05/17 10/05/17 11:45 15:56 Temperature 97.9 F 97.5 F Pulse Rate 63 66 Respiratory 18 16 Rate Blood Pressure 136/55 134/58 (mmHg) O2 Sat by Pulse 96 98 Oximetry Oxygen Devices in Use Now: Nasal Cannula Appearance: NAD. Ears/Nose/Mouth/Throat: NL Teeth, Lips, Gums Respiratory: Symmetrical Chest Expansion and Respiratory Effort - less rhonchi at left base, - Cardiovascular: RRR, - - JVD to ears. Abdominal: NL Sounds; No Tenderness; No Distention, No Hepatosplenomegaly Extremities: - - trace edema Skin: No Rash or Ulcers, No Nodules or Sclerosis Neurological: Alert and Oriented x 3, NL Sensation, NL Muscle Strength and Tone Nutrition: Taking PO's Result Diagrams: 10/05/17 05:43 10/05/17 05:43 Additional Lab and Data: Laboratory Results - last 24 hr 10/05/17 10/05/17 05:43 05:43 WBC 7.1 RBC 3.26 L Hgb 10.4 L Hct 31 L MCV 94 MCH 32 H MCHC 34 RDW 14 Plt Count 257 MPV 8 Neut % (Auto) 75.4 Lymph % (Auto) 17.0 L [place] % (Auto) 6.6 Eos % (Auto) 0.6 Baso % (Auto) 0.4 Absolute Neuts (auto) 5.3 Absolute Lymphs (auto) 1.2 Absolute Monos (auto) 0.5 Absolute Eos (auto) 0 Absolute Basos (auto) 0 Absolute Nucleated RBC 0 Nucleated RBC % 0 Sodium 136 Potassium 3.6 Chloride 105 Carbon Dioxide 27 Anion Gap 4 BUN 24 Creatinine 0.62 Est GFR ( Amer) 118.5 Est GFR (Non-Af Amer) 92.2 BUN/Creatinine Ratio 38.7 H Glucose 114 H Calcium 8.0 L Microbiology and Other Data: Microbiology 10/04/17 15:11 Legionella Urinary Antigen - Final Urine Negative Legionella Streptococcus pneumoniae Ag Screen - Final Negative S. pneumo Antigen Assess/Plan/Problems-Billing Assessment: 82 yo female PMH COPD, HTN, YONY on CPAP, HLD p/w LOMBARDI occ cough. Initially to [facility] and thought had pna (though no cultures drawn, afebrile, no leukocytosis) 10/01 then chest pressure and NSTEMI (troponin peak 6.2, inferior depressions on EKG). EF 40-45% (slightly worse from 45-50%) with new inferior wma. moderate to severe MVR. Cardiology consulted, decided no LHC at this juncture - Patient Problems (1) NSTEMI (non-ST elevated myocardial infarction) Current Visit: Yes Status: Acute Code(s): I21.4 - NON-ST ELEVATION (NSTEMI) MYOCARDIAL INFARCTION SNOMED Code(s): 327205345 Comment: Troponin peaked 6.2. new Inferior ST depressions and deepening TWI. V6 ST depression. on lovenox 1mg/kg since admission. Continue aspirin 81mg daily, gave an extra 243mg 10/03. Appreciate cardiology recs. Dr. Lo does not recommend LHC at this time. Does not clear for discharge 10/05 continue isodril continue coreg 25mg bid continue atorvastatin 80mg daily. (2) Acute respiratory failure with hypoxia Current Visit: No Status: Acute Code(s): J96.01 - ACUTE RESPIRATORY FAILURE WITH HYPOXIA SNOMED Code(s): 69433485 Comment: 2-3L. back to baseline in setting of NSTEMI and possible pneumonia. CXR with b/l basilar consolidation. BNP elevated at 1368. Diurese. no cultures obtained at [place]. sputum cx ordered here but no productive cough. spiriva added back. continue lasix and spironolactone (3) COPD (chronic obstructive pulmonary disease) Current Visit: No Status: Acute Code(s): J44.9 - CHRONIC OBSTRUCTIVE PULMONARY DISEASE, UNSPECIFIED SNOMED Code(s): 41122876 Comment: not currently bronchospastic. continue ceftriaxone. stop azithromycin. continue spiriva. (4) CHF (congestive heart failure) Current Visit: Yes Status: Acute Code(s): I50.9 - HEART FAILURE, UNSPECIFIED SNOMED Code(s): 43187759 Comment: EF 40-45% with moderate to severe MVR. new inferior wma. no LHC planned as patient too frail per Dr. Lo. diuresis as above. BB, ACEI (5) YONY (obstructive sleep apnea) Current Visit: No Status: Acute Code(s): G47.33 - OBSTRUCTIVE SLEEP APNEA ( ADULT) (PEDIATRIC) SNOMED Code(s): 64997419 Comment: CPAP (6) Pneumonia Current Visit: No Status: Acute Code(s): J18.9 - PNEUMONIA, UNSPECIFIED ORGANISM SNOMED Code(s): 719226439 Comment: plan as above. acute CHF more likely (7) Afib Current Visit: Yes Status: Acute Code(s): I48.91 - UNSPECIFIED ATRIAL FIBRILLATION SNOMED Code(s): 96150597 Comment: observed at [facility]. back to NSR here. replete lytes prn. in setting of infection and NSTEMI. Status and Disposition: medicine inpatient. transferred from ICU.
[2017-10-05] MEDS: Azithromycin IV(*) 500 MG in NS 0.9% 250 ML* 250 ML IVPB SCH (19:47)
[2017-10-05] MEDS ORDERED: Senna TAB PO PRN (20:09)
[2017-10-05] MEDS ORDERED: Docusate CAP* 100 MG PO PRN (20:09)
[2017-10-06] MEDS: Ondansetron INJ* 2 MG/ML VIAL IV PRN (00:29)
[2017-10-06] MEDS: Omeprazole CAP* 20 MG PO SCH (05:38)
[2017-10-06 06:19] LABS: ABS Basophils 0 10^3/ul (0-0.2); ABS Eosinophils 0.1 10^3/ul (0-0.6); ABS Lymphocytes 1.2 10^3/ul (1.0-4.8); ABS Monocytes 0.4 10^3/ul (0-0.8); ABS Neutrophils 4.7 10^3/ul (1.5-7.7); ABS Nucleated RBC 0 10^3/ul; Eosinophil % 1.6 % (0-6); Hematocrit 32 % (35-47); Hemoglobin 10.6 g/dl (12.0-16.0); Lymphocyte % 18.6 % (25-47); Mean Corpuscular HGB Conc 33 g/dl (31-36); Mean Corpuscular Hemoglobin 31 pg (27-31); Mean Corpuscular Volume 95 fL (80-97); Mean Platelet Volume 8 um3 (7.4-10.4); Nucleated Red Blood Cells % 0; Platelet Count 267 10^3/ul (150-450); Red Blood Count 3.36 10^6/ul (4.0-5.4); Red Cell Distribution Width 15 % (10.5-15); White Blood Count 6.5 10^3/ul (3.5-10.8)
[2017-10-06 06:35] LABS: EGFR Non-African American 87.3 (>60)
[2017-10-06] MEDS: guaiFENesin ER TAB 600 MG PO SCH (07:55)
[2017-10-06] MEDS: Furosemide TAB* 20 MG PO SCH (07:55)
[2017-10-06] MEDS: Lisinopril TAB* 10 MG PO SCH (07:56)
[2017-10-06] MEDS: Docusate CAP* 100 MG PO SCH (07:56)
[2017-10-06] MEDS: Aspirin Low Dose CHEW TAB* 81 MG PO SCH (07:56)
[2017-10-06] MEDS: CMCS: Escitalopram (NF) 10 MG TAB PO SCH (07:56)
[2017-10-06] MEDS: Carvedilol TAB* 25 MG PO SCH (07:56)
[2017-10-06] MEDS: Enoxaparin(*) 60 MG/0.6 ML SYR SUBCUT SCH (07:57)
[2017-10-06] MEDS: Isosorbide Dinitrate TAB* 5 MG PO SCH ×2 (07:57→12:55)
[2017-10-06] MEDS: LORazepam TAB(*) 0.5 MG PO PRN (08:00)
[2017-10-06] MEDS: TIOTROPIUM 2.5 MCG INH SCH (08:04)
--- NOTE | 2017-10-06 12:38 | PN ---
Subjective Date of Service: 10/06/17 - CC: LOMBARDI Interval History: Breathing improved, walked well yesterday. Awakes panicky and feels anxiety a problem, worried about going home. Medications Active Medications: Acetaminophen (Tylenol Tab*) 650 mg PO Q4H PRN PRN Reason: FEVER/PAIN Last Admin: 10/04/17 17:33 Dose: 650 mg Albuterol (Ventolin 2.5 Mg/3 Ml Neb.Tatyana*) 2.5 mg INH Q4H PRN PRN Reason: SOB/WHEEZING Last Admin: 10/03/17 00:26 Dose: 2.5 mg Aspirin (Aspirin Low Dose Tab*) 81 mg PO DAILY [facility] Last Admin: 10/06/17 07:56 Dose: 81 mg Atorvastatin Calcium (Lipitor*) 80 mg PO 1700 [facility] Last Admin: 10/05/17 17:31 Dose: 80 mg Carvedilol (Coreg Tab*) 25 mg PO BID [facility] Last Admin: 10/06/17 07:56 Dose: 25 mg Docusate Sodium (Colace Cap*) 100 mg PO DAILY [facility] Last Admin: 10/06/17 07:56 Dose: 100 mg Docusate Sodium (Colace Cap*) 100 mg PO BID PRN PRN Reason: CONSTIPATION Enoxaparin Sodium (Lovenox(*)) 60 mg SUBCUT Q12H [facility] Last Admin: 10/06/17 07:57 Dose: 60 mg Escitalopram Oxalate (Lexapro (Nf)) 20 mg PO DAILY [facility] Last Admin: 10/06/17 07:56 Dose: 20 mg Furosemide (Lasix Tab*) 20 mg PO DAILY [facility] Last Admin: 10/06/17 07:55 Dose: 20 mg Guaifenesin (Mucinex*) 600 mg PO BID [facility] Last Admin: 10/06/17 07:55 Dose: 600 mg Azithromycin 500 mg/ Sodium (Chloride) 250 mls @ 250 mls/hr IVPB Q24H [facility] Last Admin: 10/05/17 19:47 Dose: 250 mls/hr Ceftriaxone Sodium 1 gm/ (Dextrose) 50 mls @ 200 mls/hr IVPB 1700 [facility] Last Admin: 10/05/17 17:31 Dose: 200 mls/hr Isosorbide Dinitrate (Isordil Tab*) 5 mg PO TID [facility] Last Admin: 10/06/17 07:57 Dose: 5 mg Lisinopril (Prinivil Tab*) 10 mg PO DAILY [facility] Last Admin: 10/06/17 07:56 Dose: 10 mg Lorazepam (Ativan Tab(*)) 0.5 mg PO Q6H PRN PRN Reason: ANXIETY Last Admin: 10/06/17 08:00 Dose: 0.5 mg Meclizine HCl (Antivert Tab*) 25 mg PO Q6H PRN PRN Reason: DIZZINESS Melatonin (Melatonin (Nf)) 3 mg PO BEDTIME PRN PRN Reason: INSOMNIA Last Admin: 10/03/17 20:42 Dose: 3 mg Omeprazole (Prilosec Cap*) 20 mg PO 0600 [facility] Last Admin: 10/06/17 05:38 Dose: 20 mg Ondansetron HCl (Zofran Inj*) 4 mg IV Q4H PRN PRN Reason: NAUSEA Last Admin: 10/06/17 00:29 Dose: 4 mg Senna (Senokot Tab*) 2 tab PO BEDTIME PRN PRN Reason: CONSTIPATION Last Admin: 10/05/17 20:46 Dose: 2 tab Spironolactone (Aldactone Tab*) 25 mg PO 1700 [facility] Last Admin: 10/05/17 17:31 Dose: 25 mg Tiotropium [place] (Spiriva Respimat 2.5 Mcg(Nf)) 2 puff INH DAILY [facility] Last Admin: 10/06/17 08:04 Dose: 2 puff Objective Vital Signs: Temp Pulse Resp BP Pulse Ox 98.8 F 63 20 131/57 97 10/06/17 11:44 10/06/17 11:44 10/06/17 11:44 10/06/17 11:44 10/06/17 11:44 Oxygen Devices in Use Now: Nasal Cannula Appearance: elederly female seated, O2 on, comfortable. Family ( and daughter) present. Eyes: No Scleral Icterus, PERRLA Ears/Nose/Mouth/Throat: Clear Oropharnyx, Mucous Membranes Moist Neck: NL Appearance and Movements; NL JVP Respiratory: Symmetrical Chest Expansion and Respiratory Effort - distant breath sounds/diminished. Cardiovascular: RRR - no murmer appeciated. Abdominal: NL Sounds; No Tenderness; No Distention Extremities: No Edema, No Clubbing, Cyanosis Skin: No Rash or Ulcers Neurological: Alert and Oriented x 3, NL Muscle Strength and Tone Lines/Tubes/Other Access: Clean, Dry and Intact Peripheral IV Nutrition: Taking PO's Laboratory Results: 10/06/17 05:31 10/06/17 05:31 B-Natriuretic Peptide 1368 pg/mL (-100) H 10/04/17 06:15 Triglycerides 116 mg/dL 10/03/17 03:10 Cholesterol 157 mg/dL 10/03/17 03:10 LDL Cholesterol 100 mg/dL 10/03/17 03:10 HDL Cholesterol 34.0 mg/dL 10/03/17 03:10 10/03/17 10/03/17 10/03/17 00:20 03:10 06:05 Troponin I 6.20 H* 5.32 H* 3.69 H* Diagnostic Imaging: ECHO 08/02/18: EF 45%, IW hypokinesis, AI, mod-sev MR, PA pr 72 mmHg. EKG Data: SR, 70 bpm Assessment/Plan 82 yo female with MR, pulmonary HTN admitted with SOB, new ST depression, elevated troponins and CP. Pt does not want cath/aggressive approach and confirmed this today. She is worried about recurrent symptoms at home. SOB may be etiology of panicking. Consider adding nitrates I recommend doubling aldactone to 50 mg/day for SOB, diuresis, K+ 3.7, but need to follow K+ levels carefully. manager provider relations I discussed that this would progress not improve. High risk patient heading towards end stage.
[2017-10-06] MEDS ORDERED: Furosemide IV* 10 MG/ML VIAL (40 MG) IV ONE (14:40)
--- NOTE | 2017-10-06 15:51 | DS ---
DISCHARGE SUMMARY: DATE OF ADMISSION: 10/02/17. DATE OF DISCHARGE: 10/06/17. ADMITTING PROVIDER: Renate Brown NP. PRIMARY CARE PHYSICIAN: Dr. Rojelio Mcnulty. ATTENDING PHYSICIAN: Robinson Oneil MD. CONSULTING SOFTWARE INTEGRATION DEVELOPER: Ariadna Porras MD, and primary concrete stone finisher, Dr. Pretty Lo. CHIEF COMPLAINT: Chest discomfort, shortness of breath. PRINCIPAL DIAGNOSES: Inferior NSTEMI, medically managed given goals of care; progressive ischemic and valvular CHF in acute exacerbation. 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 She had right lateral rib discomfort. At [place], she was found to be afebrile with no leukocytosis. Chest x-ray was initially concerning for right sided pneumonia and a small right sided pleural effusion, and was started on ceftriaxone and azithromycin. She again complained of sternal and chest discomfort and her EKG at the time reportedly was in atrial fibrillation with RVR. Initial troponin had been 0.1, but repeat was 3.1 and was transferred directly [facility] ICU for further management. She was in normal sinus rhythm by the time she was at [facility]. Given the atrial fibrillation and increased troponin, she was given Lovenox 1 mg/kg q. 12 hours. Echocardiogram cardiac consultation were required. Her troponins continued to rise and peaked at 6.20 shoe lacer of 10/03/17. Her EKGs were notable for ST depressions in the inferior lead and with progressive evolution of T-wave inversions, by day prior to discharge. Her echocardiogram was notable for slight worsening of her ejection fraction to 40% to 45%, evidence of diastolic dysfunction, and continued [id number] mitral valve regurgitation. There was focal wall motion abnormalities present in the basal inferior wall, it was hypokinetic. Dr. Porras evaluated the patient the next morning and a left heart catheterization was recommended for the next day. In the meanwhile, medical optimization with atorvastatin 80 mg was given. Patient was given additional 324 mg total of aspirin a day. Isordil, spironolactone, and Lasix were also added and her Coreg 25 mg b.i.d. was continued. She was on strict I's and O's, and daily weights. Patient was noted to be DNR/DNI and consultation between silk brusher Dr. Poon and primary concrete stone finisher Dr. Lo was done. Dr. Lo discussed with patient the morning of the planned left heart catheterization and decided that patient's comorbidities and goals of care was such that it was not recommended at this time to have a left heart catheterization and continued medical treatment was pursued. Patient's chest pressure had largely resolved. She worked with Physical Therapy, was able to ambulate well, back on her home doses of oxygen. Her prognosis was explained to be worsening to the patient and . Patient is being recommended to follow up with Dr. Lo and Dr. Mcnulty to discuss further her goals of care and evaluate her medical management of her inferior NSTEMI. Of course, it is entirely likely that she will have recurrence of these symptoms at some point. Patient had a slight leukocytosis of 11.6 on admission and her chest x-ray was difficult to interpret. A repeat one was thought to be more consistent with CHF exacerbation. She had a strep and legionella urine antigens that were negative and she did not have a productive cough. She was continued on ceftriaxone and azithromycin for 3 days while inpatient. We will give her a short course of doxycycline to cover potential pneumonia, although etiology seems more likely acute exacerbation of her heart failure in the setting of an inferior NSTEMI and [id number] mitral valve regurgitation. Discharge weight of note is 58.3 kg down from 61.2 on admission. She was asked to record her weights daily. DISCHARGE MEDICATIONS: Include: 1. Atorvastatin 80 mg p.o. daily (new). 2. Aspirin 81 mg daily. 3. Carvedilol 25 mg p.o. b.i.d. 4. Docusate 100 mg daily. 5. Lasix 20 mg daily (new). 6. Isosorbide dinitrate 5 mg tab t.i.d. (new). 7. Lexapro 20 mg p.o. daily. 8. Lisinopril 10 mg p.o. daily (old). 9. Meclizine 25 to 50 mg p.o. q. 6 hours p.r.n. (old). 10. Spiriva 2 puffs inhaled daily (old). 11. Byetta 10 mg p.o. q. p.m. 12. Doxycycline 100 mg p.o. b.i.d. for 4 days (new). 13. Nitroglycerin 0.4 mg sublingual q. 5 minutes p.r.n. (new). 14. Spironolactone 50 mg p.o. daily (new). 15. Coenzyme Q10 200 mg p.o. daily (old). 16. Xopenex 45 mcg inhaled b.i.d. (old). DISCHARGE DIET: Heart healthy, no restrictions. ACTIVITY LEVEL: Patient was advised to avoid heavy lifting or other strenuous activities such as shoveling snow given her worsening coronary artery disease, that is being medically managed. FOLLOWUP: Please follow up with Dr. Rojelio Mcnulty within 5 days of discharge and with Dr. Lo within 1 week of discharge. Of note, additional goals of care discussion should be had with the patient and her is not entirely clear that they understand the implications of the decision not to catheterize or the etiology of her chest pain, despite frequent discussions of this with this provider and presumably with the concrete stone finisher. TIME SPENT: Time spent on discharge is 45 minutes. [id number]/[facility] #: [id number] AKASH
[2017-10-06 16:06] VITALS: BP 133/63
== END 2017-10-06 17:05 | disposition home or self-care (01) | DRG 280 ==
LOC: ICU 21:06 → MEDTELE 10-04 11:51
PROVIDERS: ADMIT Nurse Practitioner Family; ATTEND Internal Medicine
DX: I21.4 Non-ST elevation (NSTEMI) myocardial infarction (principal); I50.23 Acute on chronic systolic (congestive) heart failure; J96.21 Acute and chronic respiratory failure with hypoxia; J18.9 Pneumonia, unspecified organism; Z99.81 Dependence on supplemental oxygen; I11.0 Hypertensive heart disease with heart failure; I48.91 Unspecified atrial fibrillation; I34.0 Nonrheumatic mitral (valve) insufficiency; J44.9 Chronic obstructive pulmonary disease, unspecified; G47.33 Obstructive sleep apnea (adult) (pediatric); E78.5 Hyperlipidemia, unspecified; M19.90 Unspecified osteoarthritis, unspecified site; Z66 Do not resuscitate; Z79.82 Long term (current) use of aspirin; Z79.899 Other long term (current) drug therapy; Z88.8 Allergy status to other drugs, medicaments and biological substances; Z82.49 Family history of ischemic heart disease and other diseases of the circulatory system; Z82.3 Family history of stroke; Z80.51 Family history of malignant neoplasm of kidney; Z87.891 Personal history of nicotine dependence
CPT/HCPCS: 36415; 71045; 71046; 80048; 80061; 83880; 84484; 85025; 87899; 93005; 93306; 94640; 94760; A9270-GY; J0456; J0696; J1650; J1940; J2405

== ENCOUNTER 2018-06-06 13:40 | Emergency (ER) | payer MEDICARE ==
[2018-06-06] MEDS ORDERED: NS 0.9% 1000 ML* 1,000 ML IV ONE (13:55)
[2018-06-06] MEDS ORDERED: Ondansetron INJ* 2 MG/ML VIAL IV ONE (13:55)
[2018-06-06 14:27] LABS: ABS Basophils 0 10^3/ul (0-0.2); ABS Eosinophils 0.1 10^3/ul (0-0.6); ABS Lymphocytes 2.5 10^3/ul (1.0-4.8); ABS Monocytes 0.5 10^3/ul (0-0.8); ABS Neutrophils 4.4 10^3/ul (1.5-7.7); ABS Nucleated RBC 0 10^3/ul; Eosinophil % 1.3 % (0-6); Hematocrit 37 % (35-47); Hemoglobin 12.7 g/dl (12.0-16.0); Lymphocyte % 33.3 % (25-47); Mean Corpuscular HGB Conc 34 g/dl (31-36); Mean Corpuscular Hemoglobin 33 pg (27-31); Mean Corpuscular Volume 97 fL (80-97); Nucleated Red Blood Cells % 0.1; Platelet Count 245 10^3/ul (150-450); Red Blood Count 3.85 10^6/ul (4.00-5.40); Red Cell Distribution Width 14 % (10.5-15); White Blood Count 7.5 10^3/ul (3.5-10.8)
--- NOTE | 2018-06-06 14:31 | ED ---
Abdominal Pain/Female - HPI Summary HPI Summary: This patient is an 83 year old F presenting to [facility] accompanied by her and daughter with a chief complaint of N/V since 1300. She endorses cardiac history but denies CP. She endorses that her hands feel swollen, nausea , emesis, chills, and feeling bloated. She denies urinary sx, abd pain, and abd SHx. - History of Current Complaint Chief Complaint: EDNauseaVomitDiarrh Stated Complaint: VERTIGO/DIFF BREATHING Time Seen by Provider: 06/06/18 13:53 Hx Obtained From: Patient Onset/Duration: Sudden Onset, Lasting Hours, Still Present Timing: Constant Severity Initially: Moderate Severity Currently: Moderate Pain Intensity: 0 Pain Scale Used: 0-10 Numeric Location: Diffuse Radiates: No Character: Not Applicable Aggravating Factor(s): Nothing Alleviating Factor(s): Nothing Associated Signs and Symptoms: Positive: Nausea, Vomiting, Other: - chills. Negative: Fever, Chest Pain, Urinary Symptoms Allergies/Adverse Reactions: Allergies Allergy/AdvReac Type Severity Reaction Status Date / Time niacin Allergy Intermediate Rash Verified 10/03/17 09:10 Home Medications: Home Medications Aspirin EC TAB* [Ecotrin EC Low Dose 81 MG*] 81 mg PO DAILY 06/06/18 [History Confirmed 06/06/18] Atorvastatin* [Lipitor*] 80 mg PO DAILY 06/06/18 [History Confirmed 06/06/18] Calcium Carbonate/Vitamin D3 [Calcium 600 + Vit D Tablet] 2 each PO BID WITH MEALS 06/06/18 [History Confirmed 06/06/18] Carvedilol TAB* [Coreg TAB*] 3.125 mg PO BID 06/06/18 [History Confirmed ] Escitalopram (NF) [Lexapro 20 mg (NF)] 20 mg PO DAILY 06/06/18 [History Confirmed 06/06/18] Furosemide TAB* [Lasix TAB*] 20 mg PO DAILY 06/06/18 [History Confirmed 06/06/18 ] Lactobacillus Acidophilus [Probiotic] 2 cap PO DAILY 06/06/18 [History Confirmed 06/06/18] Lisinopril TAB* [Prinivil TAB*] 5 mg PO DAILY 06/06/18 [History Confirmed ] Nitroglycerin 0.1 mg/Hr PATCH* [Nitroglycerin 2.5 MG PATCH*] 1 patch TRANSDERM DAILY 06/06/18 [History Confirmed 06/06/18] Nitroglycerin TAB 0.4 MG* 0.4 mg SL Q5M PRN 06/06/18 [History Confirmed 06/06/18 ] Spironolactone TAB* [Aldactone TAB*] 25 mg PO DAILY WITH MEAL 06/06/18 [History Confirmed 06/06/18] Tiotropium [place] [Spiriva Respimat] 2 puff INH DAILY 06/06/18 [History Confirmed 06/06/18] PMH/Surg Hx/FS Hx/Imm Hx Endocrine/Hematology History: Reports: Other Endocrine/Hematological Disorders - anemia Denies: Hx Diabetes Cardiovascular History: Reports: Hx Angina, Hx Congestive Heart Failure, Hx Hypercholesterolemia, Hx Hypertension, Hx Valvular Heart Disease, Other Cardiovascular Problems/Disorders - A FIB, EF 40-45, mitral reurgitation, cardiomyopathy Denies: Hx Coronary Artery Disease, Hx Myocardial Infarction, Hx Pacemaker/ ICD Respiratory History: Reports: Hx Asthma, Hx Chronic Obstructive Pulmonary Disease (COPD) - 2 - 3 L O2 @home, Hx Pneumonia, Hx Sleep Apnea - cpap 2-3L GI History: Reports: Hx Gastroesophageal Reflux Disease Musculoskeletal History: Reports: Hx Arthritis Sensory History: Reports: Hx Contacts or Glasses Denies: Hx Hearing Aid Opthamlomology History: Reports: Hx Contacts or Glasses Neurological History: Reports: Other Neuro Impairments/Disorders - peripheral neuroptathy Psychiatric History: Reports: Hx Anxiety Denies: Hx Panic Disorder - Surgical History Surgery Procedure, Year, and Place: 2 BACK SURGERIES (SPINAL STENOSIS), CATARACT Hx Anesthesia Reactions: No Infectious Disease History: No Infectious Disease History: Denies: Traveled Outside the [place] in Last 30 Days - Family History Known Family History: Positive: Cardiac Disease - Social History Occupation: Retired Lives: With Family Alcohol Use: None Substance Use Type: Reports: None Smoking Status (MU): Former Smoker Review of Systems Positive: Chills. Negative: Fever Negative: Chest Pain Positive: Vomiting, Nausea. Negative: Abdominal Pain Positive: no symptoms reported All Other Systems Reviewed And Are Negative: Yes Physical Exam - Summary Physical Exam Summary: Appearance: Well-appearing, Well-nourished, lying in bed comfortably Skin: Warm, dry, no obvious rash Eyes: sclera anicteric, no conjunctival pallor ENT: mucous membranes moist, pharynx appears normal Neck: Supple, nontender Respiratory: Clear to auscultation, no signs of respiratory distress Cardiovascular: Normal S1, S2. No murmurs. Normal distal pulses in tibial and radial bilaterally. Abdomen: Soft, mildly diffuse abd tenderness without peritoneal signs, normal active bowel sounds present Musculoskeletal: Normal, Strength/ROM Intact Neurological: A&Ox3, awake and alert, mentation is normal, speech is fluent and appropriate Psychiatric: affect is normal, does not appear anxious or depressed Triage Information Reviewed: Yes Vital Signs On Initial Exam: Initial Vitals Temp Pulse Resp BP Pulse Ox 96.9 F 61 16 146/52 98 06/06/18 14:05 06/06/18 14:05 06/06/18 14:05 06/06/18 14:05 06/06/18 14:05 Vital Signs Reviewed: Yes Diagnostics - Vital Signs Vital Signs Temp Pulse Resp BP Pulse Ox 06/06/18 14:05 96.9 F 61 16 146/52 98 - Laboratory Result Diagrams: 06/06/18 14:09 06/06/18 14:09 Lab Statement: Any lab studies that have been ordered have been reviewed, and results considered in the medical decision making process. - EKG 1404 Cardiac Rate: Bradycardia - 54 EKG Rhythm: Sinus Bradycardia Ectopy: None EKG Interpretation: Flipped Twave V6 with ST depression EKG Comparison: No Significant Change - from 10/07/17 tracing Abdominal Pain Fem Course/Dx - Course Course Of Treatment: An 83-year-old F presents to the ED with a CC of sudden onset N/V since 1300. (+) Chills. (-) urinary sx, abd pain, CP, fever. PMHx cardiac, endorses very sudden onset sx and severe chills. An EKG reveals sinus bradycardia at 54 BPM with T wave inversion and ST depression in V6. In the ED course, pt was given nl saline, zofran. Pt labs show low RBC, high MCH, low MPV. - Diagnoses Provider Diagnoses: Nausea and vomiting Discharge - Sign-Out/Discharge Documenting (check all that apply): Patient Departure - discharge - Discharge Plan Condition: Good Disposition: HOME Prescriptions: Prochlorperazine TAB* [Compazine Tab*] 10 mg PO Q6H PRN #8 tab PRN Reason: Nausea Referrals: Fontenelle,Rojelio J, DO [Primary Care Provider] - - Attestation Statements Document Initiated by Scribe: Yes Documenting Scribe: Zeeshan Edge Provider For Whom Scribe is Documenting (Include Credential): Dr. Yuan Ho MD Scribe Attestation: Zeeshan Sohok, scribed for Dr. Yuan Ho MD on 06/06/18 at 1921.
[2018-06-06] MEDS ORDERED: PROCHLORPERAZINE INJ 5 MG/ML 2 ML VIAL IV ONE (14:32)
[2018-06-06] MEDS ORDERED: Calcium Carbonate CHEW TAB* 500 MG (TUMS) PO ONE (16:28)
[2018-06-06 17:52] LABS: Urine Appearance Cloudy; Urine Blood Negative (Negative); Urine Color Yellow; Urine Ketones Trace (Negative); Urine Protein Negative (Negative); Urine Specific Gravity 1.011 (1.010-1.030); Urine Urobilinogen Negative (Negative)
[2018-06-06 19:48] VITALS: BP 138/79
== END 2018-06-06 19:48 | disposition home or self-care (01) ==
LOC: ED 13:40
DX: R11.2 Nausea with vomiting, unspecified (principal); Z87.891 Personal history of nicotine dependence; I50.9 Heart failure, unspecified; J44.9 Chronic obstructive pulmonary disease, unspecified; K21.9 Gastro-esophageal reflux disease without esophagitis
CPT/HCPCS: 36415; 80053; 81003; 83605; 83690; 84484; 85025; 93005; 96361; 96374; 96375; 99282; J0780; J2405

== ENCOUNTER 2018-07-19 09:01 | Observation (INO) | payer MEDICARE ==
[2018-07-19] MEDS ORDERED: NS 0.9% 500 ML* 500 ML IV ONE (09:40)
[2018-07-19 09:55] LABS: ABS Basophils 0 10^3/ul (0-0.2); ABS Eosinophils 0.2 10^3/ul (0-0.6); ABS Lymphocytes 1.4 10^3/ul (1.0-4.8); ABS Monocytes 0.5 10^3/ul (0-0.8); ABS Neutrophils 4.7 10^3/ul (1.5-7.7); ABS Nucleated RBC 0 10^3/ul; Eosinophil % 2.8 %; Hematocrit 38 % (35-47); Hemoglobin 12.7 g/dl (12.0-16.0); Mean Corpuscular HGB Conc 33 g/dl (31-36); Mean Corpuscular Hemoglobin 32 pg (27-31); Mean Corpuscular Volume 96 fL (80-97); Mean Platelet Volume 6.6 fL (7.4-10.4); Nucleated Red Blood Cells % 0.1; Platelet Count 275 10^3/ul (150-450); Red Blood Count 3.97 10^6/ul (4.00-5.40); Red Cell Distribution Width 14 % (10.5-15); White Blood Count 6.8 10^3/ul (3.5-10.8)
[2018-07-19 10:12] LABS: EGFR Non-African American 51.8 (>60)
--- NOTE | 2018-07-19 10:30 | ED ---
HPI Chest Pain - HPI Summary HPI Summary: Patient presents with abrupt onset shortness of breath with central chest pressure that started this morning. She reports she got up out of bed and was sitting at the kitchen table sipping coffee when she noticed the symptoms. She only had a few sips of coffee at this point. Denies nausea, vomiting, sweating , headache, visual change, abdominal pain, numbness, tingling, weakness during this episode. She's not sure how long it lasted however she reports SOB continues to happen intermittently. She did take a nitroglycerin at home prior to arrival which she reports alleviated her chest pressure. She has a history of "leaky heart" and follows with Dr. Lo. Chart reveals h/o A FIB, EF 40- 45%, mitral regurgitation, cardiomyopathy, HTN, angina, CHF, valvular d/o. Admits she was seen last week at [facility] with same symptoms. Workup there was negative per family. She has not had follow-up with cardiology nor PCP since. Additionally, she admits to a history of COPD. Uses spiriva daily however does not have any rescue inhalers. She does not feel like she's having a COPD exacerbation nor pneumonia. No URI symptoms or cough recently and denies fevers , chills, chest tightness or wheezing. History of smoking but has not smoked in years. - History of Current Complaint Chief Complaint: EDShortnessOfBreath Time Seen by Provider: 07/19/18 09:24 Hx Obtained From: Patient, Family/Linotype Mechanic - family Pain Intensity: 2 - Additional Pertinent History Primary Care Physician: JEYSON - Allergy/Home Medications Allergies/Adverse Reactions: Allergies Allergy/AdvReac Type Severity Reaction Status Date / Time niacin Allergy Intermediate Rash Verified 07/19/18 09:15 PMH/Surg Hx/FS Hx/Imm Hx Previously Healthy: Yes Endocrine/Hematology History: Reports: Other Endocrine/Hematological Disorders - anemia Denies: Hx Diabetes Cardiovascular History: Reports: Hx Angina, Hx Congestive Heart Failure, Hx Hypercholesterolemia, Hx Hypertension, Hx Valvular Heart Disease, Other Cardiovascular Problems/Disorders - A FIB, EF 40-45, mitral reurgitation, cardiomyopathy Denies: Hx Coronary Artery Disease, Hx Myocardial Infarction, Hx Pacemaker/ ICD Respiratory History: Reports: Hx Asthma, Hx Chronic Obstructive Pulmonary Disease (COPD) - 2 - 3 L O2 @home, Hx Pneumonia, Hx Sleep Apnea - cpap 2-3L GI History: Reports: Hx Gastroesophageal Reflux Disease Musculoskeletal History: Reports: Hx Arthritis Sensory History: Reports: Hx Contacts or Glasses Denies: Hx Hearing Aid Opthamlomology History: Reports: Hx Contacts or Glasses Neurological History: Reports: Other Neuro Impairments/Disorders - peripheral neuroptathy Psychiatric History: Reports: Hx Anxiety Denies: Hx Panic Disorder - Surgical History Surgery Procedure, Year, and Place: 2 BACK SURGERIES (SPINAL STENOSIS), CATARACT Hx Anesthesia Reactions: No Infectious Disease History: No Infectious Disease History: Denies: Traveled Outside the [place] in Last 30 Days - Family History Known Family History: Positive: Cardiac Disease - Social History Alcohol Use: None Hx Substance Use: No Substance Use Type: Reports: None Hx Tobacco Use: Yes - not currently Smoking Status (MU): Former Smoker Review of Systems Constitutional: Negative Negative: Fever, Chills, Fatigue Eyes: Negative ENT: Negative Positive: Chest Pain Positive: Shortness Of Breath. Negative: Cough Gastrointestinal: Negative Positive: no symptoms reported Musculoskeletal: Negative Skin: Negative Neurological: Negative Positive: Anxious All Other Systems Reviewed And Are Negative: Yes Physical Exam Triage Information Reviewed: Yes Vital Signs On Initial Exam: Initial Vitals Temp Pulse Resp BP Pulse Ox 99.4 F 69 18 171/87 97 07/19/18 09:07 07/19/18 09:07 07/19/18 09:07 07/19/18 09:07 07/19/18 09:07 Vital Signs Reviewed: Yes Appearance: Positive: Well-Appearing, Well-Nourished, Pain Distress - appears concerned, anxious but cooperative Skin: Positive: Warm, Skin Color Reflects Adequate Perfusion, Dry Head/Face: Positive: Normal Head/Face Inspection Eyes: Positive: Normal, EOMI, TUCKER, Conjunctiva Clear ENT: Positive: Normal ENT inspection, Hearing grossly normal, Pharynx normal, TMs normal. Negative: Nasal congestion, Nasal drainage Neck: Positive: Supple, Nontender, No Lymphadenopathy Respiratory/Lung Sounds: Positive: Clear to Auscultation, Breath Sounds Present , Other - nasal canula in place - intermittent tachypnea. Negative: Rales, Rhonchi, Stridor, Tracheal Deviation, Wheezes, Unable to speak in full sentences , Fatigue Cardiovascular: Positive: Pulses are Symmetrical in both Upper and Lower Extremities, Other - ECG shows intermittent PAC, S1, S2. Negative: Murmur, Rub , Leg Edema Left, Leg Edema Right Abdomen Description: Positive: Nontender, No Organomegaly, Soft Bowel Sounds: Positive: Present Musculoskeletal: Positive: Normal, Strength/ROM Intact Neurological: Positive: Normal, Sensory/Motor Intact, Alert, Oriented to Person Place, Time, CN Intact II-III Psychiatric: Positive: Anxious - mild Diagnostics - Vital Signs Vital Signs Temp Pulse Resp BP Pulse Ox 07/19/18 09:43 70 167/76 99 07/19/18 09:23 72 21 120/91 99 07/19/18 09:11 68 98 07/19/18 09:08 98 07/19/18 09:07 99.4 F 65 18 171/87 98 - Laboratory Lab Results: Lab Results 07/19/18 07/19/18 07/19/18 Range/Units 09:48 09:48 09:49 WBC 6.8 (3.5-10.8) 10^3/ul RBC 3.97 L (4.00-5.40) 10^6/ul Hgb 12.7 (12.0-16.0) g/dl Hct 38 (35-47) % MCV 96 (80-97) fL MCH 32 H (27-31) pg MCHC 33 (31-36) g/dl RDW 14 (10.5-15) % Plt Count 275 (150-450) 10^3/ul MPV 6.6 L (7.4-10.4) fL Neut % (Auto) 69.1 % Lymph % (Auto) 20.0 % [place] % (Auto) 7.4 % Eos % (Auto) 2.8 % Baso % (Auto) 0.7 % Absolute Neuts (auto) 4.7 (1.5-7.7) 10^3/ul Absolute Lymphs (auto) 1.4 (1.0-4.8) 10^3/ul Absolute Monos (auto) 0.5 (0-0.8) 10^3/ul Absolute Eos (auto) 0.2 (0-0.6) 10^3/ul Absolute Basos (auto) 0 (0-0.2) 10^3/ul Absolute Nucleated RBC 0 10^3/ul Nucleated RBC % 0.1 Sodium 135 (135-145) mmol/L Potassium 4.1 (3.5-5.0) mmol/L Chloride 102 (101-111) mmol/L Carbon Dioxide 23 (22-32) mmol/L Anion Gap 10 (2-11) mmol/L BUN 19 (6-24) mg/dL Creatinine 1.02 H (0.51-0.95) mg/dL Est GFR ( Amer) 62.6 (>60) Est GFR (Non-Af Amer) 51.8 (>60) BUN/Creatinine Ratio 18.6 (8-20) Glucose 108 H (70-100) mg/dL Lactic Acid 1.3 (0.5-2.0) mmol/L Calcium 9.6 (8.6-10.3) mg/dL Magnesium 2.0 (1.9-2.7) mg/dL Total Bilirubin 0.50 (0.2-1.0) mg/dL AST 19 (13-39) U/L ALT 14 (7-52) U/L Alkaline Phosphatase 56 (34-104) U/L CK-MB (CK-2) 1.8 (0.6-6.3) ng/mL Troponin I 0.01 (<0.04) ng/mL Total Protein 6.8 (6.4-8.9) g/dL Albumin 4.0 (3.2-5.2) g/dL Globulin 2.8 (2-4) g/dL Albumin/Globulin Ratio 1.4 (1-3) TSH Pending Result Diagrams: 07/19/18 09:48 07/20/18 05:13 Lab Statement: Any lab studies that have been ordered have been reviewed, and results considered in the medical decision making process. Chest Pain Course/Dx - Course Course Of Treatment: Patient's chest x-ray shows hyperinflation but no acute findings. ECG is normal sinus rhythm with 1 PAC. Otherwise unchanged from . Labs are unremarkable. Due to patient's cardiac history and second event of chest pressure w/ SOB within the week, will admit for further cardiac workup , telemetry monitoring and possibly echocardiogram. Discussed case with Dr. Ramirez who agrees to admit. Patient in stable condition at time of transition of care. - Diagnoses Provider Diagnoses: Chest pressure, Shortness of breath Discharge - Sign-Out/Discharge Documenting (check all that apply): Patient Departure - Discharge Plan Condition: Stable Disposition: ADMITTED TO [facility] - Billing Disposition and Condition Condition: STABLE Disposition: Admitted to [facility]
[2018-07-19 10:44] LABS: INR 0.94 (0.77-1.02)
[2018-07-19] MEDS ORDERED: Acetaminophen TAB* 325 MG PO PRN (13:16)
[2018-07-19] MEDS ORDERED: Albuterol 2.5 MG/3 ML NEB.SOL* (0.083%) INH PRN (13:16)
[2018-07-19] MEDS ORDERED: Al Hydrox/Mg Hydrox/Simet LIQ* 30 ML UDC PO PRN (13:16)
[2018-07-19] MEDS ORDERED: Docusate CAP* 100 MG PO PRN (13:20)
[2018-07-19] MEDS ORDERED: Nitroglycerin TAB 0.4 MG* 0.4 MG TAB SL PRN (13:40)
[2018-07-19] MEDS ORDERED: ESCITALOPRAM 20 MG PO SCH (15:01)
[2018-07-19] MEDS: Heparin VIAL(*) 5000 UNITS/ML VIAL (FIVE THOUSAND) SUBCUT SCH ×2 (15:50→21:00)
[2018-07-19] MEDS: Nitroglycerin 0.1 mg/Hr PATCH* (2.5 MG) TRANSDERM SCH (15:51)
[2018-07-19] MEDS: Furosemide TAB* 20 MG PO SCH (15:52)
[2018-07-19] MEDS: CMCS:Escitalopram (NF) 10 MG TAB PO SCH (15:52)
[2018-07-19] MEDS: Lisinopril TAB* 5 MG PO SCH (15:52)
[2018-07-19] MEDS: Carvedilol TAB* 3.125 MG PO SCH (20:59)
[2018-07-19] MEDS ORDERED: Nitro Patch/OINT Remove PATCH OFF SCH (21:00)
--- NOTE | 2018-07-19 21:17 | HP ---
CC: Dr. Rojelio Mcnulty.* HISTORY AND PHYSICAL: DATE OF ADMISSION: 07/19/18 PROVIDER: Maddie Finch NP PRIMARY CARE PROVIDER: Dr. Rojelio Mcnulty. ATTENDING PHYSICIAN WHILE IN THE HOSPITAL: Dr. Marsha Ramirez * (dictated by Maddie Finch NP). CHIEF COMPLAINT: 1. Chest pain. 2. Shortness of breath. HISTORY OF PRESENT ILLNESS: Ms. Baxter is an 83-year-old female with past medical history significant for hypertension, mitral regurgitation, moderate-to - severe hyperlipidemia, obstructive sleep apnea and COPD, who presented to emergency room today complaining of left-sided chest heaviness and labored breathing. The patient reports that she was at [place] approximately 2 weeks with the same symptoms and seen in the emergency room. They ruled her out for coronary syndrome and discharged her home. She again re-presented to our emergency room today again with chest pain and heaviness and shortness of breath for further evaluation. She denies any vomiting. She does report nausea. Denies any diaphoresis. Denies any recent fever or chills. : Denies any hematuria or dysuria. Denies any focal weakness or sensory loss. She denies any visual complaints. Denies any dysphagia. Denies any arthralgias or myalgias. Denies fever or chills. Denies any rashes or lesions. Denies any psychosis or anxiety. Given her symptoms of shortness of breath and left- sided chest heaviness, we were asked to see and evaluate her for admission. PAST MEDICAL HISTORY: 1. Hypertension. 2. Mitral regurgitation, [id number] on echo. 3. Hyperlipidemia. 4. Obstructive sleep apnea 5. COPD. PAST SURGICAL HISTORY: Back surgery x2. HOME MEDICATIONS: 1. CoQ10 200 mg p.o. daily. 2. Spiriva Respimat 2 puffs daily. 3. Aldactone 25 mg daily with meals. 4. Compazine 10 mg p.o. q.6 hours as needed for nausea. 5. Nitro 0.4 mg subcu sublingual q.5 minutes as needed for chest pain. 6. Nitro 0.1 mg per hour patch 1 patch transdermally daily. 7. Meclizine 25 to 50 mg p.o. q.6 hours as needed for dizziness. 8. Lisinopril 5 mg p.o. daily. 9. Lactobacillus 2 capsules p.o. daily. 10. Furosemide 20 mg p.o. daily. 11. Lexapro 20 mg p.o. daily. 12. Colace 100 mg p.o. daily p.r.n. 13. Carvedilol 3.125 p.o. b.i.d. 14. Calcium with vitamin D 2 tablets b.i.d. with meals. 15. Biotin 10 mg p.o. q.p.m. 16. Atorvastatin 80 mg. 17. Aspirin 81 mg. ALLERGIES TO MEDICATIONS: NIACIN. FAMILY HISTORY: Father with an AR at 69. Brother with an AR at 69, both . Diabetes, none. No reported history of cancer. SOCIAL HISTORY: She reports quit smoking 30 years ago. Occasional alcohol use. Denies any illicit drug use. Her , Garry Baxter, is her surrogate decision maker in the event she is unable to maker her own decisions. She is a full code. REVIEW OF SYSTEMS: There is no documented fever. There has been no significant weight change. There was no double vision. No ear discharge. No rhinorrhea. No sore throat. The patient does report chest pain as she describes it as heaviness and labored breathing. She denies any orthopnea, or nocturnal dyspnea. She does report that heaviness as intermittent and not exacerbated by exertion. She denies any abdominal pain, nausea, vomiting or diarrhea. Denies any urinary frequency or urgency. No seizures or loss of consciousness. No pruritus or skin ulceration. A review of 14 systems was completed and all others are negative. PHYSICAL EXAMINATION GENERAL: At this time, Ms. Baxter is an 83-year-old female, sitting on the stretcher in the emergency room. She does not appear to be in acute distress. VITAL SIGNS: Temperature was 99.4, heart rate was 74, respirations 22, O2 saturation 95%, blood pressure 169/68. HEENT: Head is atraumatic, normocephalic. Eyes: EOMs are intact. Sclerae anicteric and not pale. Oral mucosa appear to be moist. No oropharyngeal erythema. NECK: Supple. LUNGS: Clear, but diminished bilaterally in the bases. No wheezes, rales, or rhonchi. CARDIAC: S1, S2. Has a regular rate and rhythm. There is a murmur. No rubs or gallops. ABDOMEN: Soft and nontender. Bowel sounds are present x4. EXTREMITIES: Pulses are +2 bilaterally. No edema. She is able to move all 4 extremities with 5/5 strength. NEUROLOGIC: She is awake, alert, and oriented x3. Speech is clear. Thought process is intact. There is no gross neuro deficits. SKIN: Intact. DIAGNOSTIC STUDIES/LAB DATA: WBCs are 6.8, RBCs 3.97, hemoglobin 12.7, hematocrit was 38, platelet count was 275. INR was 0.94. APTT was 30.2. D- dimer was less than 200. Sodium 135, potassium 4.1, chloride 102, carbon dioxide was 23, anion gap was 10, BUN was 19, creatinine 1.02, glucose was 108, lactic acid 1.3, calcium 9.6, magnesium 2.0. BNP was 105. Troponin is 0.01 x2. TSH was 0.59. Urine is pending. She had a chest x-ray. Radiologist's impression: Hyperinflation. No active cardiopulmonary disease. She had an electrocardiogram, which showed sinus rhythm at a rate of 66 with PAC. ASSESSMENT AND PLAN: Ms. Baxter is an 83-year-old female who presented to the emergency room today with complaints of left-sided chest heaviness and labored breathing. We were asked to see and evaluate her due to these symptoms. She will be admitted under observation for: 1. Chest pain. We will continue to rule out for an acute coronary syndrome. The patient does have a history of [id number] mitral regurgitation. No aortic stenosis. Mpoz-[id number] aortic regurgitation with an EF of 40% to 45 % on her last echo from September of 2017. The patient does NOT want any intervention for her chest pain. She is refusing stress test or cardiac catheterization if necessary. She would like to just continue with optimal medication management and no further aggressive therapy. We will get a repeat echo and trend her troponins as the patient is agreeable to this. We will continue her aspirin 81 mg p.o. daily, atorvastatin 80 mg p.o. daily, carvedilol 3.125 mg p.o. b.i.d., and spironolactone with meals. I will also continue her nitro patch transdermally and she can have nitro 0.4 mg sublingual as needed for severe chest pain. 2. Shortness of breath. The patient does not have any clinical signs of pneumonia or congestive heart failure. At this time, we will continue her with supportive care of oxygen as needed for shortness of breath and monitor her respiratory status. I suspect this could be related to her underlying COPD. 3. Hypertension. We will continue her on lisinopril as previously prescribed. We will also continue her furosemide and Aldactone as previously prescribed. 4. Chronic obstructive pulmonary disease. We will continue her on Spiriva and she can have albuterol neb as needed for severe shortness of breath. 5. Code status. She is a full code. 6. DVT prophylaxis. I will place her on heparin subcu. 7. Fluid, electrolytes, and nutrition. She can have a heart-healthy, decaf okay diet. TIME SPENT: Time spent on this admission was 60 minutes, greater than half that time was spent [id number] with the patient obtaining my history and physical, the other half the time was spent going over my plan of care and implementing my plan of care. I have discussed this with my attending, Dr. Marsha Ramirez; she is in agreement with my plan. MADDIE FINCH, MARKETING COMMUNICATIONS LEADER [id number]/[facility] #: [id number] AKASH
[2018-07-19] MEDS: NF:Tiotropium Respimt 2.5 mcg(NF) 1 PUFF MDI INH SCH (23:30)
[2018-07-20] MEDS: Heparin VIAL(*) 5000 UNITS/ML VIAL (FIVE THOUSAND) SUBCUT SCH ×2 (05:40→14:14)
[2018-07-20 05:45] LABS: EGFR Non-African American 55.5 (>60)
--- NOTE | 2018-07-20 06:55 | ECHO ---
Patient: HARMEET ADLER [facility] Rec#: [id number] : 1935 Date: 07/19/2018 Age: 83y Height: 155 cm / 61.0 in Weight: 54.4 kg / 119.9 lbs Sex: F BSA: 1.5 Room#: 435 Admit Date#: 07/19/2018 Type: Inpatient Referring: Maddie Finch Reading: Junaid Grover DO Building Construction Engineer: Mikaela Coleman RN RDCS CC: Rojelio Mcnulty DO CC: Yogi Lo MD Transthoracic Echocardiogram Indication: Chest pain BP: 132/78 HR: 70 Rhythm: NSR with PVCs Findings History: HTN, HLD, A. fib, mitral regurgitation, YONY, COPD, former smoker Technical Comments: The study is technically limited due to the patient's history of COPD. The study is technically limited due to the patient's smoking history. Left Ventricle: The left ventricular chamber size is normal. Mild concentric left ventricular hypertrophy is observed. There is a focal wall motion abnormality present. Left ventricular systolic function is at the lower limits of normal. The estimated ejection fraction is 50-55%. Abnormal left ventricular diastolic filling is observed, consistent with impaired relaxation. The basal inferior, and mid inferior wall segments are hypokinetic (score 2). Overall wallmotion score index is 2.00 Left Atrium: The left atrium is mildly dilated. Right Ventricle: The right ventricular chamber size and systolic function are within normal limits. Right Atrium: The right atrial cavity size is normal. Aortic Valve: The aortic valve is trileaflet. The aortic valve leaflets are mildly thickened. Mild aortic leaflet calcification is visualized. There is mild aortic regurgitation. There is borderline aortic stenosis present. The mean gradient of the aortic valve is 8 mmHg. The peak instantaneous gradient of the aortic valve is 15 mmHg. Mitral Valve: The mitral valve leaflets are moderately thickened. Mild mitral leaflet calcification is visualized. There is moderate mitral regurgitation. E wave not dominant, ERO 12 mm2, RVOL 24 ml. There is no evidence of mitral stenosis. Tricuspid Valve: The tricuspid valve leaflets are normal. There is trace to mild tricuspid regurgitation. Unable to estimate the right ventricular systolic pressure. There is no tricuspid stenosis. Pulmonic Valve: The pulmonic valve structure is not well visualized. There is trace to mild pulmonic regurgitation. There is no pulmonic stenosis. Pericardium: There is no significant pericardial effusion. Aorta: There is no dilatation of the ascending aorta. The aortic arch is not well visualized. There is no dilation of the aortic root. Pulmonary Artery: The main pulmonary artery is not well visualized. Venous: The inferior vena cava appears normal in size. There is an approximate 50% respiratory change in the inferior vena cava dimension. Conclusions The left ventricular chamber size is normal. Mild concentric left ventricular hypertrophy is observed. Left ventricular systolic function is at the lower limits of normal. The estimated ejection fraction is 50-55%. The basal inferior, and mid inferior wall segments are hypokinetic The left atrium is mildly dilated. The right ventricular chamber size and systolic function are within normal limits. There is borderline aortic stenosis present. There is moderate mitral regurgitation as per in report Unable to estimate the right ventricular systolic pressure. Compared to prior study from 11/2017, the LVEF has improved from mildly reduced and MR improved from severe Measurements Name Value Normal Range RVIDd (AP) 2D 2.4 cm (0.9 - 2.6) RVDdMajor (2D) 3.2 cm (2.2 - 4.4) RAd ISD 4CH 4.3 cm (3.4 - 4.9) RA (A4C)W 3.2 cm (2.9 - 4.6) IVSd (2D) 1.1 cm (0.6 - 1) LVPWd (2D) 1.1 cm (0.6 - 1) LVIDd (2D) 4.6 cm (3.6 - 5.4) LVIDs (2D) 3.6 cm - LV FS (2D) 22 % (25 - 45) Aortic Annulus 2 cm (1.4 - 2.6) Ao root diameter (2D) 2.6 cm (2.1 - 3.5) Ascending Ao 2.8 cm (2.1 - 3.4) LA dimension (AP) 2D 3.7 cm (2.3 - 3.8) LAd ISD 4CH 4.4 cm (2.9 - 5.3) LA ISD 4CH W 4.2 cm (2.5 - 4.5) Name Value Normal Range LA ESV BP (A/L) index 32.2 ml/m2 - Name Value Normal Range MV E-wave Vmax 0.87 m/sec - MV deceleration time 289 msec - MV A-wave Vmax 1.2 m/sec - MV E:A ratio 0.7 ratio - LV septal e' Vmax 0.05 m/sec - LV lateral e' Vmax 0.07 m/sec - LV E:e' septal ratio 17.4 ratio - LV E:e' lateral ratio 12.4 ratio - Name Value Normal Range AV Vmax 2 m/sec - AV VTI 44.3 cm - AV peak gradient 15 mmHg - AV mean gradient 8 mmHg - LVOT diameter 2 cm - LVOT Vmax 1.1 m/sec - LVOT VTI 23.3 cm - LVOT peak gradient 5 mmHg - LVOT mean gradient 3 mmHg - DOI (VTI) 0.53 ratio - DOI (Vmax) 0.55 ratio - TOBIAS (continuity Vmax) 1.7 cm2 - TOBIAS (continuity VTI) 1.7 cm2 - AR PHT 392 msec - Name Value Normal Range MV Vmax 1.3 m/sec - MV VTI 30.7 cm - MV peak gradient 6 mmHg - MV mean gradient 2 mmHg - MV PHT 88 msec - MR Vmax 5.86 m/sec - MR VTI 199 cm - MR volume (continuity VT24 ml - MR ERO 0.12 cm2 - MR PISA radius 0.6 cm - MR alias Vmax 30.8 cm/sec - MVA (PHT) 2.5 cm2 - MVA (continuity VTI) 2.4 cm2 - Name Value Normal Range IVC diameter 1 cm - Wallmotion BAS Not Seen BA Not Seen BAL Not Seen RITESH Not Seen BI Hypokinetic BIS Not Seen MAS Not Seen MA Not Seen MAL Not Seen MIL Not Seen DE Hypokinetic MIS Not Seen Not Seen AA Not Seen AL Not Seen AI Not Seen APEX Not Seen
[2018-07-20] MEDS: NF:Tiotropium Respimt 2.5 mcg(NF) 1 PUFF MDI INH SCH (07:47)
[2018-07-20] MEDS ORDERED: Spironolactone TAB* 25 MG PO SCH (08:30)
[2018-07-20] MEDS: Lisinopril TAB* 5 MG PO SCH (08:39)
[2018-07-20] MEDS: Furosemide TAB* 20 MG PO SCH (08:39)
[2018-07-20] MEDS: CMCS:Escitalopram (NF) 10 MG TAB PO SCH (08:39)
[2018-07-20] MEDS: Carvedilol TAB* 3.125 MG PO SCH (08:39)
[2018-07-20] MEDS: Nitroglycerin 0.1 mg/Hr PATCH* (2.5 MG) TRANSDERM SCH (08:40)
[2018-07-20] MEDS ORDERED: Aspirin EC TAB* 81 MG TAB.EC PO SCH (09:00)
[2018-07-20] MEDS ORDERED: Atorvastatin* 80 MG TAB PO SCH (09:00)
[2018-07-20] MEDS ORDERED: Escitalopram (NF) 20 MG TAB PO SCH (09:00)
[2018-07-20 11:29] VITALS: BP 119/49
--- NOTE | 2018-07-21 01:52 | DS ---
AMENDED REPORT NOW INCLUDES DESIGNATED COSIGNER CC: Dr. Rojelio Mcnulty; Dr. Yogi Lo, Cardiology * DISCHARGE SUMMARY: DATE OF ADMISSION: 07/19/18 DATE OF DISCHARGE: 07/20/18 PRIMARY CARE PROVIDER: Dr. Rojelio Mcnulty. MY ATTENDING FOR TODAY: Dr. Robinson Oneil.* (DICTATED BY SLICK LOPEZ, MAN) CHIEF COMPLAINT: Chest pain, shortness of breath. HOSPITAL COURSE: Please refer to full H and P dictated yesterday by Maddie Finch, but in short, this is an 83-year-old female patient with past medical history significant for hypertension, mitral regurgitation, hyperlipidemia, obstructive sleep apnea, and COPD, who presented to the emergency department with complaint of increased shortness of breath. She was complaining of dyspnea with exertion and some chest pressure and heaviness on the left side. The patient states that she does feel a component of anxiety is also contributing to her symptoms. However, she also reported that 2 weeks ago, she had similar episode for which she went to [facility], was worked up for chest pain. Cardiac workup at that point did not reveal any NSTEMI; however, it was recommended that patient should have a stress test and/or a cardiac cath. This was also recommended earlier in the year. The patient has persistently declined having any additional intervention preferring optimization with medical management for her cardiac conditions instead. However, the patient came to the emergency department again with very similar symptoms 2 weeks ago. Her troponins were negative and her symptoms resolved spontaneously. She is already optimized with nitrates, beta jim, statin, DENZEL inhibitor, and diuretics. However, the patient stated that these resolved overnight and she is feeling well this morning. Today, she is not having any shortness of breath. She is ambulating unassisted. She does not have any exertionally-induced dyspnea and troponins were negative. We discussed at length the utility of the patient having additional cardiac diagnostics. Again , she has declined to have this in the past and earlier this year. She did agree to have an echocardiogram of the heart. Her echo dated, 07/19/18, shows left ventricular chamber size normal, mild concentric left ventricular hypertrophy, left ventricular systolic function is at the lower limits of normal. Estimated ejection fraction is 50% to 55%, which is improved. The basal inferior and mid inferior wall segments are hypokinetic. Left atrium mildly dilatated. The right ventricular chamber size and systolic function are within normal limits. There is borderline aortic stenosis. There is moderate mitral regurgitation and unable to estimate the right ventricular systolic pressure. When compared to the prior study of 12/07/17, the LVEF has improved from mildly reduced and MR has improved from severe to moderate. Again, I had a lengthy discussion with the patient and her family who are all bedside. We discussed her staying for a cardiac stress test, which would not be able to be obtained until Sunday. The patient does not wish to stay for another day waiting for stress test as her symptoms have completely resolved. 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 We discussed at length how cardiac cath is performed, what the benefits would be. If she did have ischemic heart disease, which it looks from her records in earlier this year when she had an NSTEMI that there does seem to be ischemic disease there, she may benefit from additional work up and intervention. Given that her echo does look improved from earlier this year that medical optimization is helping, but she is questioning her quality of life at this point. If she continues to get dyspnea with exertion, she feels it will negatively impact her life. So, at this point, I agreed to discharge the patient to home provided she sees Cardiology this week and also Dr. Mcnulty, her primary care provider, for any additional medical needs. The patient and her family did also describe significant amount of anxiety that she has had right now. I agreed to trial her on a low-dose of Ativan at home that she may take as needed for anxiety or for insomnia. She does seem to be very anxious about potentially having new procedure but again I direct her to sitting with Cardiology and discussing what her options are and what would be best course of action for her given her current status. The patient and family were agreeable to close cardiac followup. I also stressed to them that if the patient had any additional shortness of breath or chest pain that she should come directly back to the emergency room or call 911. I am concerned given her history earlier this year of NSTEMI that even though troponins were negative now that could change very quickly and that she should come back for further evaluation if that was to happen after she gets back home. The patient and her family are in complete agreement with this plan. I also walked with the patient around the floor. She did not have any shortness of breath. She had no chest pain. She walked unassisted and did not produce any symptoms during that time. As such, we felt comfortable discharging her today with close outpatient followup. DISCHARGE DIAGNOSES: 1. Shortness of breath and chest pain, rule out acute coronary syndrome. 2. History of chronic obstructive pulmonary disease. 3. History of obstructive sleep apnea, on CPAP. 4. Hyperlipidemia. 5. Moderate mitral regurgitation. 6. Hypertension. MEDICATIONS FOR DISCHARGE: There have been no changes made to her meds. Her current home medication regimen is: 1. CoQ10 200 mg p.o. daily. 2. Spiriva Respimat 2 puffs daily. 3. Aldactone 25 mg daily. 4. Compazine 10 mg p.o. q.6 hours as needed. 5. Nitroglycerin 0.4 mg sublingual q.5 minutes as needed for chest pain. 6. Nitro 0.1 mg per hour patch, 1 patch transdermal daily. 7. Meclizine 25 mg p.o. q.6 hours as needed for dizziness. 8. Lisinopril 5 mg p.o. daily. 9. Lactobacillus 2 capsules p.o. daily. 10. Furosemide 20 mg daily. 11. Lexapro 20 mg daily. 12. Colace 100 mg p.o. daily. 13. Carvedilol 3.125 mg p.o. b.i.d. 14. Calcium with vitamin D 2 tablets 2 times a day. 15. Biotin 10 mg in the evening. 16. Atorvastatin 80 mg daily. 17. Aspirin 81 mg daily. Added to her regimen is Ativan 0.5 mg 1 tablet q.2 hours as needed for anxiety or insomnia. REVIEW OF SYSTEMS: Ten-point review of systems is negative except as noted in the HPI. PHYSICAL EXAM ON THE DAY OF DISCHARGE: Vital signs are blood pressure 119/49; heart rate 66, regular sinus rhythm; respiratory rate 20; O2 saturation 95% on room air; temperature is 98.5. HEENT: The patient is atraumatic, normocephalic. PERRLA with nonicteric sclerae. Oral mucosa is moist. Tongue is midline. Neck is supple, nontender. No JVD noted. No carotid bruit auscultated. Cardiovascular: S1, S2 present. No murmurs, gallops, or rubs noted. Rate and rhythm are regular. Lungs are clear at the apices bilaterally, diminished at the bases with no appreciable wheezing, rhonchi, or rales noted. Abdomen is soft, nontender, nondistended. Positive bowel sounds in all 4 quadrants. is deferred. Musculoskeletal: There is no clubbing, no cyanosis. There is no pedal edema. She has +2 distal pulses palpable. Steady gait. Full range of motion. Gross motor and sensation are intact. Neurologic : Grossly intact. No focal deficits noted. Psychiatric. She is cooperative and appropriate. LABORATORY DATA: WBC 6.8, RBC is 3.97, hemoglobin 12.7, hematocrit 38, platelets 275. Sodium 136, potassium 4.0, chloride 106, CO2 25, BUN 17, creatinine 0.96, GFR 55.5, glucose 102, lactic acid 1.3, calcium 8.8, magnesium 2.0. Liver function within normal limits. BNP 105. Troponins are negative at 0.01 x3. TSH is 0.59. Echocardiogram as described above. Chest x-ray dated 07/19/18 showed some hyperinflation with no active cardiopulmonary disease. DISPOSITION: The patient will be discharged to home in care of her family. DIET: She can have a heart healthy, low-sodium diet. ACTIVITY: No strenuous activity until seen by Cardiology. FOLLOWUP: The patient was instructed to follow up with Dr. Lo of Cardiology in the next week preferably in the next 4 to [address] Rojelio Mcnulty, her primary care provider, in the next 1 to 2 weeks. The patient was discharged in stable condition. All questions were answered, the patient and her family stated their understanding of her followups, medications , and discharge instructions. TIME SPENT: Approximately 35 minutes counseling the patient and her family on her plan of care and discharge plan. SLICK LOPEZ NP [id number]/[facility] #: [id number] [facility]EN'S HOSPITALEduardo
== END 2018-07-20 16:00 | disposition home or self-care (01) ==
LOC: ED 09:01 → MEDTELE 13:16
PROVIDERS: ADMIT Internal Medicine; ATTEND Internal Medicine
DX: R07.9 Chest pain, unspecified (principal); R06.02 Shortness of breath; J44.9 Chronic obstructive pulmonary disease, unspecified; G47.33 Obstructive sleep apnea (adult) (pediatric); E78.5 Hyperlipidemia, unspecified; I34.0 Nonrheumatic mitral (valve) insufficiency; I10 Essential (primary) hypertension; Z79.82 Long term (current) use of aspirin
CPT/HCPCS: 36415; 71045; 80048; 80053; 82553; 83605; 83735; 83880; 84443; 84484; 85025; 85379; 85610; 85730; 93005; 93306; 96372; 99284; A9270-GY; G0378; J1644

== ENCOUNTER 2018-07-27 01:31 | Emergency (ER) | payer MEDICARE ==
[2018-07-27 02:39] LABS: ABS Basophils 0 10^3/ul (0-0.2); ABS Eosinophils 0.2 10^3/ul (0-0.6); ABS Lymphocytes 1.9 10^3/ul (1.0-4.8); ABS Monocytes 0.6 10^3/ul (0-0.8); ABS Neutrophils 5.4 10^3/ul (1.5-7.7); ABS Nucleated RBC 0 10^3/ul; Eosinophil % 2.5 %; Hematocrit 34 % (35-47); Hemoglobin 11.4 g/dl (12.0-16.0); Lymphocyte % 23.7 %; Mean Corpuscular HGB Conc 34 g/dl (31-36); Mean Corpuscular Hemoglobin 33 pg (27-31); Mean Corpuscular Volume 96 fL (80-97); Mean Platelet Volume 6.9 fL (7.4-10.4); Nucleated Red Blood Cells % 0.1; Platelet Count 238 10^3/ul (150-450); Red Blood Count 3.51 10^6/ul (4.00-5.40); Red Cell Distribution Width 13 % (10.5-15); White Blood Count 8.2 10^3/ul (3.5-10.8)
[2018-07-27 02:44] LABS: INR 0.98 (0.77-1.02)
[2018-07-27 02:55] LABS: EGFR Non-African American 47.9 (>60)
--- NOTE | 2018-07-27 03:49 | ED ---
HPI Chest Pain - HPI Summary HPI Summary: Patient is a 83 y/o F presenting to ED via ambulance with complaints of chest pressure as patient was going to bed the night of 07/26/18. Pressure was mid sternal with no radiation and has resolved by this time. N/V and diaphoresis are denied. , who was present in the room, reports that patient was burping a bit and SOB. 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 Patient reports that she was here at [facility] [place] similar Sx last week and was admitted for observation. She states that she did not have stress test, is currently not scheduled for one. 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 Lo's PA next week. On triage, pain is rated 3/10, nothing is noted to aggravate/alleviate Sx. Home medications and allergies are reviewed. - History of Current Complaint Chief Complaint: EDChestPainROMI Time Seen by Provider: 07/27/18 01:38 Hx Obtained From: Patient, Family/Credit Reporting Clerk - Onset/Duration: Started Hours Ago, Resolved Timing: Constant, Lasting Hours Initial Severity: Mild Current Severity: None Pain Intensity: 0 Pain Scale Used: 0-10 Numeric - 0/10 Chest Pain Location: Mid Sternal Chest Pain Radiates: No Character: Tightness Aggravating Factor(s): Nothing Alleviating Factor(s): NTG 123, Oxygen, OTC Meds - ASA Associated Signs and Symptoms: Positive: Chest Pain, Shortness of Breath, Other : - burping. Negative: Diaphoresis, Nausea, Vomiting - Additional Pertinent History Primary Care Physician: JEYSON - Allergy/Home Medications Allergies/Adverse Reactions: Allergies Allergy/AdvReac Type Severity Reaction Status Date / Time niacin Allergy Intermediate Rash Verified 07/19/18 09:15 PMH/Surg Hx/FS Hx/Imm Hx Endocrine/Hematology History: Reports: Other Endocrine/Hematological Disorders - anemia Denies: Hx Diabetes Cardiovascular History: Reports: Hx Angina, Hx Congestive Heart Failure, Hx Hypercholesterolemia, Hx Hypertension, Hx Valvular Heart Disease, Other Cardiovascular Problems/Disorders - A FIB, EF 40-45, mitral reurgitation, cardiomyopathy Denies: Hx Coronary Artery Disease, Hx Myocardial Infarction, Hx Pacemaker/ ICD Respiratory History: Reports: Hx Asthma, Hx Chronic Obstructive Pulmonary Disease (COPD) - 2 - 3 L O2 @home, Hx Pneumonia, Hx Sleep Apnea - cpap 2-3L GI History: Reports: Hx Gastroesophageal Reflux Disease Musculoskeletal History: Reports: Hx Arthritis Sensory History: Reports: Hx Contacts or Glasses Denies: Hx Hearing Aid Opthamlomology History: Reports: Hx Contacts or Glasses Neurological History: Reports: Other Neuro Impairments/Disorders - peripheral neuroptathy Psychiatric History: Reports: Hx Anxiety Denies: Hx Panic Disorder - Surgical History Surgery Procedure, Year, and Place: 2 BACK SURGERIES (SPINAL STENOSIS), CATARACT Hx Anesthesia Reactions: No Infectious Disease History: No Infectious Disease History: Denies: Traveled Outside the [place] in Last 30 Days - Family History Known Family History: Positive: Cardiac Disease - Social History Alcohol Use: None Hx Substance Use: No Substance Use Type: Reports: None Hx Tobacco Use: Yes - not currently Smoking Status (MU): Former Smoker Review of Systems Positive: Other - POSITIVE - BURPING . Negative: Skin Diaphoresis Positive: Chest Pain Positive: Shortness Of Breath Negative: Vomiting, Nausea All Other Systems Reviewed And Are Negative: Yes Physical Exam - Summary Physical Exam Summary: VITAL SIGNS: Reviewed. GENERAL: Patient is a well-developed and nourished female who is lying comfortable in the stretcher. Patient is not in any acute respiratory distress. HEAD AND FACE: No signs of trauma. No ecchymosis, hematomas or skull depressions. No sinus tenderness. EYES: PERRLA, EOMI x 2, No injected conjunctiva, no nystagmus. EARS: Hearing grossly intact. Ear canals and tympanic membranes are within normal limits. MOUTH: Oropharynx within normal limits. NECK: Supple, trachea is midline, no adenopathy, no JVD, no carotid bruit, no c- spine tenderness, neck with full ROM. CHEST: Symmetric, no tenderness at palpation LUNGS: Clear to auscultation bilaterally. No wheezing or crackles. CVS: Regular rate and rhythm, S1 and S2 present, no murmurs or gallops appreciated. ABDOMEN: Soft, non-tender. No signs of distention. No rebound no guarding, and no masses palpated. Bowel sounds are normal. EXTREMITIES: FROM in all major joints, no edema, no cyanosis or clubbing. NEURO: Alert and oriented x 3. No acute neurological deficits. Speech is normal and follows commands. SKIN: Dry and warm Triage Information Reviewed: Yes Vital Signs On Initial Exam: Initial Vitals Temp Pulse Resp BP Pulse Ox 98.3 F 58 15 167/66 97 07/27/18 01:35 07/27/18 01:35 07/27/18 01:35 07/27/18 01:35 07/27/18 01:35 Vital Signs Reviewed: Yes Diagnostics - Vital Signs Vital Signs Temp Pulse Resp BP Pulse Ox 07/27/18 01:35 98.3 F 58 15 167/66 97 - Laboratory Lab Results: Lab Results 07/27/18 07/27/18 07/27/18 Range/Units 02:25 02:25 02:25 WBC 8.2 (3.5-10.8) 10^3/ul RBC 3.51 L (4.00-5.40) 10^6/ul Hgb 11.4 L (12.0-16.0) g/dl Hct 34 L (35-47) % MCV 96 (80-97) fL MCH 33 H (27-31) pg MCHC 34 (31-36) g/dl RDW 13 (10.5-15) % Plt Count 238 (150-450) 10^3/ul MPV 6.9 L (7.4-10.4) fL Neut % (Auto) 66.2 % Lymph % (Auto) 23.7 % [place] % (Auto) 7.0 % Eos % (Auto) 2.5 % Baso % (Auto) 0.6 % Absolute Neuts (auto) 5.4 (1.5-7.7) 10^3/ul Absolute Lymphs (auto) 1.9 (1.0-4.8) 10^3/ul Absolute Monos (auto) 0.6 (0-0.8) 10^3/ul Absolute Eos (auto) 0.2 (0-0.6) 10^3/ul Absolute Basos (auto) 0 (0-0.2) 10^3/ul Absolute Nucleated RBC 0 10^3/ul Nucleated RBC % 0.1 INR (Anticoag Therapy) 0.98 (0.77-1.02) Sodium 132 L (135-145) mmol/L Potassium 3.8 (3.5-5.0) mmol/L Chloride 101 (101-111) mmol/L Carbon Dioxide 23 (22-32) mmol/L Anion Gap 8 (2-11) mmol/L BUN 23 (6-24) mg/dL Creatinine 1.09 H (0.51-0.95) mg/dL Est GFR ( Amer) 58.0 (>60) Est GFR (Non-Af Amer) 47.9 (>60) BUN/Creatinine Ratio 21.1 H (8-20) Glucose 106 H (70-100) mg/dL Calcium 9.9 (8.6-10.3) mg/dL Total Bilirubin 0.30 (0.2-1.0) mg/dL AST 19 (13-39) U/L ALT 12 (7-52) U/L Alkaline Phosphatase 57 (34-104) U/L Troponin I 0.02 (<0.04) ng/mL Total Protein 6.2 L (6.4-8.9) g/dL Albumin 3.7 (3.2-5.2) g/dL Globulin 2.5 (2-4) g/dL Albumin/Globulin Ratio 1.5 (1-3) Result Diagrams: 07/27/18 02:25 07/27/18 02:25 Lab Statement: Any lab studies that have been ordered have been reviewed, and results considered in the medical decision making process. - Radiology CXR Radiology Interpretation Completed By: ED Physician Summary of Radiographic Findings: CXR SHOWED NO ACUTE DISEASE, PENDING OFFICIAL REPORT. - EKG 0205 Cardiac Rate: Bradycardia - rate of 58 BPM EKG Rhythm: Sinus Bradycardia Summary of EKG Findings: EKG showed sinus bradycardia with rate of 58 BPM, non- specific ST-T wave changes. Re-Evaluation - Re-Evaluation First Eval Re-Evaluation Time: 05:20 Change: Worse Comment: Patient reports feeling nausea, Zofran to be given. Second Eval Re-Evaluation Time: 05:50 Change: Worse Comment: Patient states she is now experiencing chest tightness. GI cocktail to be given. Third Eval Re-Evaluation Time: 06:18 Change: Improved Comment: Patient reports relief in Sx after GI cocktail. She will be discharged to home and is instructed to keep her letter sorting machine operator appointment. She is agreeable with this plan. Chest Pain Course/Dx - Course Course Of Treatment: Patient is a 83 y/o F presenting to ED via ambulance with complaints of chest pressure as patient was going to bed the night of 12/7/18. Pressure was mid sternal with no radiation and has resolved by this time. N/V and diaphoresis are denied. , who was present in the room, reports that patient was burping a bit and SOB. 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 Patient reports that she was here at [facility] [place] similar Sx last week and was admitted for observation. She states that she did not have stress test, is currently not scheduled for one. 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 Lo's PA next week. Physical exam is normal. EKG showed sinus bradycardia with rate of 58 BPM, non-specific ST-T wave changes. Abnormal labs included RBC 3.51, Hgb 11.4, Hct 34, MCH 33, MPV 6.9 , sodium 132, creatinine 1.09, BUN/creatinine ratio 21.1, glucose 106, and total protein 6.2. Trop was 0. CXR SHOWED NO ACUTE DISEASE. During ED stay, patient began to experience nausea, Zofran was given. She later began to experience chest tightness once more, was given GI cocktail of viscous lidocaine and Maalox which alleviated Sx. Therefore, Sx could be secondary to GERD. Results and labs were discussed with patient, she will be dishcarged to home and is instructed to keep her letter sorting machine operator appointment. She is agreeable with this. - Diagnoses Provider Diagnoses: Chest pain, GERD (gastroesophageal reflux disease) Discharge - Sign-Out/Discharge Documenting (check all that apply): Patient Departure - discharge - Discharge Plan Condition: Stable Disposition: HOME Prescriptions: Pantoprazole TAB (NF) [Protonix TAB (NF)] 40 mg PO DAILY #30 tab Patient Education Materials: Chest Pain (ED), Gastroesophageal Reflux Disease ( ED) Referrals: Yogi Lo MD [Medical Doctor] - 1 Week Additional Instructions: RETURN TO THE EMERGENCY DEPARTMENT FOR CHANGING OR WORSENING SYMPTOMS. KEEP YOUR SCHEDULED IT AUDITOR APPOINTMENT FOR NEXT WEEK. - Attestation Statements Document Initiated by Scribe: Yes Documenting Scribe: JAMES GREENE Provider For Whom Scribe is Documenting (Include Credential): ALEXIA BEST MD Scribe Attestation: IJAMES , scribed for ALEXIA BEST MD on 07/27/18 at 0626. Status of Scribe Document: Ready
[2018-07-27] MEDS ORDERED: Ondansetron INJ* 2 MG/ML VIAL ONE (05:20)
[2018-07-27] MEDS ORDERED: Ondansetron INJ* 2 MG/ML VIAL IV ONE (05:23)
[2018-07-27] MEDS ORDERED: Al Hydrox/Mg Hydrox/Simet LIQ* 30 ML UDC PO ONE (05:46)
[2018-07-27] MEDS ORDERED: Lidocaine 2% VISCOUS* 15 ML UDC PO ONE (05:47)
[2018-07-27 06:46] VITALS: BP 126/69
== END 2018-07-27 06:45 | disposition home or self-care (01) ==
LOC: ED 01:31
DX: R07.89 Other chest pain (principal); K21.9 Gastro-esophageal reflux disease without esophagitis; R00.1 Bradycardia, unspecified; J44.9 Chronic obstructive pulmonary disease, unspecified; Z99.81 Dependence on supplemental oxygen; Z88.8 Allergy status to other drugs, medicaments and biological substances; Z87.891 Personal history of nicotine dependence
CPT/HCPCS: 36415; 71045; 80053; 84484; 85025; 85610; 93005; 96374; 99283; A9270-GY; J2405

== ENCOUNTER 2018-08-08 10:36 | Observation (INO) | payer MEDICARE ==
[2018-08-08] MEDS ORDERED: NS 0.9% 1000 ML* 1,000 ML IV SCH ×2 (11:00→14:26)
[2018-08-08 11:37] LABS: BUN/Creatinine Ratio 20.6 (8-20); Calcium 9.7 mg/dL (8.6-10.3); EGFR Non-African American 51.8 (>60); Potassium 4.3 mmol/L (3.5-5.0)
[2018-08-08] MEDS ORDERED: fentaNYL* 50 MCG/ML 2 ML VIAL (100 MCG VIAL) ONE (12:26)
[2018-08-08] MEDS ORDERED: Heparin(*) 1000 UNIT/ML 10 ML VIAL CATH LAB IV ONE ×2 (12:26→13:11)
[2018-08-08] MEDS ORDERED: VERAPAMIL 2.5 MG/ML 2 ML VIAL ** 5 mg/2 ml ONE (12:26)
[2018-08-08] MEDS ORDERED: Midazolam* 1 MG/ML 10 ML VIAL (10 MG) ONE (12:26)
[2018-08-08] MEDS ORDERED: Heparin 2 UNITS/ML IVPREMIX* 3,000 ML IV ONE (12:27)
[2018-08-08] MEDS ORDERED: nitroGLYCERIN DRIP* 25,000 MCG/250 ML BTL ONE ×2 (12:27→13:19)
[2018-08-08] MEDS ORDERED: Lidocaine 1% INJ* 10 MG/ML 30 ML SDV ONE (12:27)
[2018-08-08] MEDS ORDERED: Iodixanol 320 (CONTRAST) 100 ML SDV ONE ×2 (12:28→13:51)
[2018-08-08] MEDS ORDERED: Ticagrelor* 90 MG TAB PO ONE (13:05)
[2018-08-08] MEDS ORDERED: Bivalirudin(*) 250 MG VIAL ONE (13:08)
[2018-08-08] MEDS ORDERED: Docusate CAP* 100 MG PO PRN (14:19)
[2018-08-08] MEDS ORDERED: Acetaminophen TAB* 325 MG PO PRN (14:19)
[2018-08-08] MEDS ORDERED: Ondansetron INJ* 2 MG/ML VIAL IV PRN (14:19)
[2018-08-08] MEDS ORDERED: Meclizine TAB* 12.5 MG PO PRN (14:26)
[2018-08-08] MEDS ORDERED: Levalbuterol HFA INHALER* 1 PUFF MDI INH PRN (14:26)
[2018-08-08] MEDS ORDERED: Prochlorperazine TAB* 10 MG PO PRN (14:26)
[2018-08-08] MEDS ORDERED: LORazepam TAB(*) 0.5 MG PO PRN (14:26)
[2018-08-08] MEDS ORDERED: Nitroglycerin TAB 0.4 MG* 0.4 MG TAB SL PRN (14:26)
[2018-08-08] MEDS: Nitroglycerin 0.2 MG/HR PATCH* (5 MG) TRANSDERM SCH (16:18)
[2018-08-08] MEDS ORDERED: Atorvastatin* 20 MG TAB PO SCH (17:00)
[2018-08-08] MEDS: Docusate CAP* 100 MG PO SCH (21:39)
[2018-08-08] MEDS: Carvedilol TAB* 3.125 MG PO SCH (21:39)
[2018-08-08] MEDS: Ticagrelor* 90 MG TAB PO SCH (21:40)
[2018-08-09] MEDS ORDERED: Furosemide IV* 10 MG/ML 2 ML VIAL (20 MG) ONE (05:33)
[2018-08-09] MEDS: Nitroglycerin TAB 0.4 MG* 0.4 MG TAB SL PRN ×2 (05:35→05:42)
[2018-08-09] MEDS ORDERED: Furosemide IV* 10 MG/ML 2 ML VIAL (20 MG) IV ONE (06:00)
[2018-08-09 06:10] LABS: Albumin 3.4 g/dL (3.2-5.2); Albumin/Globulin Ratio 1.5 (1-3); BUN/Creatinine Ratio 16.7 (8-20); Calcium 8.9 mg/dL (8.6-10.3); EGFR Non-African American 59.8 (>60); Globulin 2.3 g/dL (2-4); HDL Cholesterol 40.6 mg/dL; Potassium 4.2 mmol/L (3.5-5.0); Total Bilirubin 0.4 mg/dL (0.2-1.0); Total Protein 5.7 g/dL (6.4-8.9)
[2018-08-09 07:44] LABS: ABS Basophils 0 10^3/ul (0-0.2); ABS Eosinophils 0.1 10^3/ul (0-0.6); ABS Lymphocytes 1.4 10^3/ul (1.0-4.8); ABS Monocytes 0.5 10^3/ul (0-0.8); ABS Neutrophils 5.7 10^3/ul (1.5-7.7); ABS Nucleated RBC 0 10^3/ul; Eosinophil % 1.8 %; Hematocrit 37 % (35-47); Hemoglobin 12.3 g/dl (12.0-16.0); Lymphocyte % 18.4 %; Mean Corpuscular HGB Conc 33 g/dl (31-36); Mean Corpuscular Hemoglobin 32 pg (27-31); Mean Corpuscular Volume 97 fL (80-97); Mean Platelet Volume 6.6 fL (7.4-10.4); Nucleated Red Blood Cells % 0.1; Platelet Count 221 10^3/ul (150-450); Red Blood Count 3.81 10^6/ul (4.00-5.40); Red Cell Distribution Width 13 % (10.5-15); White Blood Count 7.9 10^3/ul (3.5-10.8)
[2018-08-09] MEDS: Nitroglycerin 0.2 MG/HR PATCH* (5 MG) TRANSDERM SCH (08:53)
[2018-08-09] MEDS: Docusate CAP* 100 MG PO SCH (08:53)
[2018-08-09] MEDS: Carvedilol TAB* 3.125 MG PO SCH (08:53)
[2018-08-09] MEDS: Ticagrelor* 90 MG TAB PO SCH (08:53)
--- NOTE | 2018-08-09 08:54 | CATH ---
CC: Dr. Yogi Lo of [facility]; Rojelio Mcnulty, DO; Hernan Bell MD, [place], [place] * CARDIAC CATHETERIZATION REPORT AND INTERVENTIONAL REPORT: DATE OF PROCEDURE: 08/09/18 - ROOM #ICU-05 INDICATION FOR PROCEDURE: The patient with progressive symptoms of chest discomfort with exertion with prior history of a non-STEMI earlier in 2018, now for assessment for the presence of significant underlying coronary artery disease. PROCEDURE: Coronary arteriography, unsuccessful attempts at percutaneous coronary intervention to mid and distal right coronary artery lesions. CONSENT: The patient was interviewed and examined in the holding area where the risks and benefits were explained. The patient understood them and wished to proceed. PRE-CARDIAC CATHETERIZATION LABORATORY RESULTS: Hemoglobin and hematocrit of 11.4 and 34 with a platelet count of 238,000. BUN and creatinine of 21 and 1.0. INR 0.9. Sodium 135, potassium 4.3, chloride 103, bicarb 25. MEDICATIONS GIVEN DURING THE WEBSITE DESIGNER PROCEDURE: Included: 1. 0.5 mg of Versed. 2. 180 mg of Brilinta. 3. A radial artery cocktail with 3000 units of heparin, 300 mcg of nitroglycerin, and verapamil 3 mg intra-arterially. 4. Additional heparin bolus with ACT guidance. 5. Nitroglycerin intravenous drip for blood pressure control. EQUIPMENT UTILIZED: 1. Right radial artery sheath - a 6-Cameroonian Glidesheath. 2. Diagnostic coronary catheter for coronary arteriography - a 5-Cameroonian TIG4 curved catheter. 3. Diagnostic guidewire - a 260 length Gamino curved wire initially, a 145 length Wholey wire was utilized to negotiate tortuosity in the brachial artery area. 4. Guide catheter - a 6-Cameroonian right coronary artery bypass graft catheter. 5. Interventional wires utilized included a BMW regular length, an All-Star exchange length, a run-through exchange length. 6. Support device utilized was a 6-Cameroonian guideliner V3 catheter. 7. Balloon angioplasty catheter attempted included a 1.5 x 8 mm long Emerge over- the-wire push balloon and a 1.2 x 8 mm long Emerge rapid exchange wire. APPROACH TO THE RIGHT RADIAL ARTERY: The right radial artery was ultrasounded in the holding area and was found to be acceptable for an approach. (Of note, the patient had decreased pulse on the left femoral area with a bruit. There was a pulse on the right femoral area with a bruit and distal pulses were by Doppler to the lower extremities). DESCRIPTION OF PROCEDURE: The patient was brought into the cardiovascular laboratory and formal time- out was performed. She was prepped and draped in sterile fashion and under ultrasound guidance, the right radial artery was cannulated and sheath was placed. The radial artery cocktail was administered. Coronary arteriography was carried out. Following this, the decision was made to try to intervene into the right coronary artery. The guiding catheter was placed. The ACT was checked and additional heparin bolus was given. Attempts were made to deliver initially a [employer] wire which was unsuccessful to cross the mid to distal right coronary artery lesion. This was then exchanged for an exchange length Dumont wire with utilizing a 1.5 x 8 mm long Emerge push balloon. The wire was eventually able to be crossed but the balloon could not cross. The balloon was removed and the guideliner was placed for extra support. Despite this, the balloon could not cross the first of the two sequential lesions in the right coronary artery. A smaller balloon was attempted unsuccessfully. Following this, wires were utilized to try to pass the first of the two lesions from a different angle and these were unsuccessful to cross as well. At this point in time, the procedure was aborted. Injection was made with the wire removed and found to be patent with TREV-3 flow but the critical lesions still existing. A Vasc Band was placed and the reverse Barbeau was AB. The total contrast utilized was 130 cc of Visipaque dye. The radiation exposure included 24 minutes of fluoro time. The air kerma radiation was 2372 mGy. The DAP radiation was 12,257 microgray per meter squared. RESULTS: CORONARY ARTERIOGRAPHY: A. Left coronary artery: 1. Left main. There was calcification seen in the distal left main with a degree of luminal reduction noted to be approximately 15% to 20%. 2. Left anterior descending artery. The left anterior descending artery had calcification seen in its proximal to mid portion. The mid portion of the LAD had a narrowing of approximately 60% involving the second septal standards analyst. Collateral blood flow was seen through the septal perforators to the right-sided posterior descending artery with competitive flow seen at its most proximal portion of the posterior descending artery. Multiple diagonal branches were noted to be small in caliber throughout the course of the vessel. The third diagonal branch, which originated from the 60% lesion in the mid LAD had 85% stenosis but was approximately 1 mm in caliber and not an interventional vessel. It was short in nature as well. 3. Circumflex artery - a nondominant vessel supplying a thin first and second obtuse marginal branch with a moderate third obtuse marginal branch extending to the infra-apical region. There was calcium seen in its proximal to mid portion with a degree of luminal reduction approximately noted to be 35% to 40% with calcium around it. B. Right coronary artery - a dominant vessel supplying multiple acute marginal branches. The PDA was not visualized but two posterior left ventricular branches were seen. Competitive flow could be seen into the distal right coronary artery where the PDA was. There was diffuse calcification seen throughout the proximal and mid portion of the vessel. There was ulceration seen proximally with a long segment of luminal reduction of 35% to 40%. As the artery turned, just prior to turning on to the inferior surface of the heart was an 85% to 90% blockage followed by a 95% blockage before the posterior descending artery. There was mild disease seen elsewhere. The ostium of the right coronary artery had a 25% to 30% obstruction seen. INTERVENTIONAL ATTEMPT TO MID AND DISTAL RIGHT CORONARY ARTERY LESIONS: Unsuccessful ability to deliver any balloon across the mid lesion in the right coronary artery despite aggressive support as described above. Final injection showed TREV-3 flow with critical lesions still present as described above. OVERALL ASSESSMENT: Significant coronary artery disease involving the mid and distal right coronary artery as described above, moderate disease in the mid LAD area as well. At this point in time, a discussion will be made with the family as to potential treatment at a tertiary center with the ability to perhaps utilize rotational atherectomy given the heavy calcification and the inability to cross the lesions with balloon therapy. I discussed the case at length with Dr. Hernan Bell, interventionalist at [facility], who felt the lesions were amenable to an attempt at intervention with possible rotational atherectomy. The patient will be admitted overnight to make sure she is stable throughout the night and further management will be decided in the morning as to whether or not she should be transferred to [facility] or whether or not she could go as an outpatient next week. [id number]/[facility] #: [id number] [facility]
[2018-08-09] MEDS ORDERED: Lisinopril TAB* 5 MG PO SCH (09:00)
[2018-08-09] MEDS ORDERED: Tiotropium Respimt 2.5 mcg(NF) 1 PUFF MDI INH SCH (09:00)
[2018-08-09] MEDS ORDERED: Furosemide TAB* 20 MG PO SCH (09:00)
[2018-08-09] MEDS ORDERED: Aspirin EC TAB* 81 MG TAB.EC PO SCH (09:00)
[2018-08-09] MEDS ORDERED: Spironolactone TAB* 25 MG PO SCH (09:00)
[2018-08-09] MEDS ORDERED: Aspirin 81 mg CHEW TAB* 81 MG TAB.CHEW PO SCH (09:00)
--- NOTE | 2018-08-09 12:20 | DS ---
CC: Dr. Pretty Lo; Rojelio Mcnulty DO; Dr. Hernan Bell [facility] at [facility] DISCHARGE SUMMARY: DATE OF ADMISSION: 08/08/18 DATE OF DISCHARGE: 08/09/18 FINAL DIAGNOSES: 1. Progressive angina pectoris. 2. Stenotic coronary artery disease. 3. Chronic obstructive lung disease. 4. Moderate mitral regurgitation. 5. Mild aortic stenosis. 6. Hyperlipidemia. 7. Essential hypertension. 8. Sleep apnea. 9. Arthritis. DISCHARGE MEDICATIONS: Include: 1. Aspirin 81 mg a day. 2. Calcium twice a day. 3. Carvedilol 6.25 mg twice a day. 4. Docusate 10 mg twice a day. 5. Lexapro 20 mg a day. 6. Furosemide 20 mg a day. 7. Lactobacillus 2 capsules daily. 8. Inhaler, Xopenex 2 puffs q.6 hours. 9. Lisinopril 5 mg daily. 10. Meclizine p.r.n. 11. Nitroglycerin patch 0.2 mg transdermally daily. 12. Spironolactone 25 mg a day. 13. Spiriva inhaler 2 puffs daily. 14. Vitamins 1 chewable twice a day. 15. Atorvastatin 20 mg a day. 16. P.r.n. lorazepam. 17. Nitroglycerin sublingually as needed. 18. Ticagrelor 90 mg twice a day. 19. Compazine as needed, 10 mg q.6 hours. HOSPITAL COURSE: The patient is a pleasant 83-year-old female, who underwent cardiac catheterization on 08/08/18, to assess progressive symptoms of angina pectoris with exertion and shortness of breath . The patient is a patient of Dr. Pretty Lo and had a non-ST elevation inferior wall myocardial i nfarction back in September 2017. Because of progressive symptomatology, I was asked to perform cardi ac catheterization on her. I performed coronary arteriography on her on 08/08/18 revealing calcium t hroughout her proximal and mid LAD and proximal circumflex, as well as calcium throughout the proxima l and [id number] right coronary artery. She had a 60% mid LAD lesion at the takeoff of the second septal ammunition officer. Of note, there was collateral blood flow seen briskly from the left anterior shyanne cending artery, through the septal perforators, to the right-sided posterior descending artery. Ther e was competitive flow seen at the proximal portion of the right-sided posterior descending artery fr om the [place] right coronary artery. The [place] right coronary artery had significant disease with a critical 85% to 90% calcified lesion just prior to artery turning on to the inferior surface of the heart, followed by 95% lesion past this point prior to where the competitive flow was seen into the P DA. Attempts were made to try to wire across these lesions and were finally successful with much effort. Unfortunately, no balloon could make it across the initial proximal lesion. Multiple other wires we re attempted to try a different approach to that lesion, to see whether or not that wire was just sub intimal in nature, but no other wire could be advanced successfully through other approaches. The pr ocedure was then aborted and injections were made to assess patency of the vessel with the wire remov ed, and it was found to be patent still with the critical blockages. At that point in time, a discussion was had with Dr. Hernan Bell, an harness cutter at [facility], who graciously reviewed the films, and felt that perhaps an approach up at [place] could be attempted with rotational atherectomy given the heavy calcification. Given that, the patient remained in the hospital overnight, did reasonably well, was up and about and had a chest x-ray performed in light of some shortness of breath; however, she has chronic obstructi ve lung disease and the chest x-ray showed no congestive heart failure, but demonstrated chronic obst ructive lung disease. We also recommended taking caffeine 30 minutes before the Brilinta to help wit h any of that sensation. She had a repeat echocardiogram performed, the final results of which were pending at the time of her discharge, but in reviewing it, it revealed an ejection fraction probably in the 40% to 45% range with moderate mitral regurgitation. That is slightly less than she was just last month when it was perhaps closer to 50%. She walked the intensive care unit with no production of chest discomfort or shortness of breath and as such she was discharged home to await a phone call by [facility] to electively come up for interventional attempt within the next week. I reviewed her medications with her, the new medications including the Brilinta and her atorvastatin. Further management will be made under [facility]'s guidance as an outpatient proced ure within the next 7 days. [id number]/[facility] #: [id number]
[2018-08-09 12:36] VITALS: BP 136/74
--- NOTE | 2018-08-09 17:53 | ECHO ---
Patient: HARMEET ADLER [facility] Rec#: [id number] : 1935 Date: 08/09/2018 Age: 83y Height: 155 cm / 61.0 in Weight: 58 kg / 127.8 lbs Sex: F BSA: 1.56 Room#: ICU5 Admit Date#: 08/08/2018 Type: Inpatient Referring: Tavo Poon MD Reading: Toño Mera MD Pure Culture Operator: Nanda Lacy RDCS CC: Rojelio Mcnulty DO CC: Yogi Lo MD Transthoracic Echocardiogram Indication: CP/SOB BP: 139/61 Rhythm: NSR Findings History: NSTEMI,HTN,HLD,MR,YONY,COPD,former smoker. Technical Comments: The study quality is good. Completed at 0842. The study is technically limited due to the patient's history of COPD. Left Ventricle: The left ventricular chamber size is normal. There is mild to moderately decreased left ventricular systolic function. The estimated ejection fraction is 40-45%. Abnormal left ventricular diastolic function is observed. Abnormal left ventricular diastolic filling is observed, consistent with impaired relaxation. The basal inferior, basal inferoseptal, mid inferior, mid inferoseptal, and apical septal wall segments are hypokinetic (score 2). Overall wallmotion score index is 1.31 Left Atrium: The left atrium is normal in size. Right Ventricle: The right ventricle wall thickness is mildly increased. The right ventricular cavity size is normal. The right ventricular global systolic function is normal. Right Atrium: The right atrial cavity size is normal. Aortic Valve: The aortic valve structure is not well visualized. The aortic valve is trileaflet. The aortic valve leaflets are mildly thickened. There is mild aortic regurgitation. Mitral Valve: The mitral valve leaflets are moderately thickened. There is moderate mitral regurgitation. There is no evidence of mitral stenosis. Tricuspid Valve: The tricuspid valve leaflets are normal. There is trace tricuspid regurgitation. Unable to estimate the right ventricular systolic pressure. There is evidence that pulmonary hypertension may be underestimated. There is no tricuspid stenosis. Pulmonic Valve: The pulmonic valve appears normal. There is a trace pulmonic regurgitation. There is no pulmonic stenosis. Pericardium: The pericardium appears normal. Aorta: There is no dilatation of the ascending aorta. The aortic arch is not well visualized. There is no dilation of the aortic root. Pulmonary Artery: The main pulmonary artery appears normal. Venous: The inferior vena cava appears normal in size. There is a greater than 50% respiratory change in the inferior vena cava dimension. Conclusions The estimated ejection fraction is 40-45%. There is mild to moderately decreased left ventricular systolic function. Abnormal left ventricular diastolic filling is observed, consistent with impaired relaxation. The right ventricle wall thickness is mildly increased. There is mild aortic regurgitation. There is moderate mitral regurgitation. There is trace tricuspid regurgitation. Interval decrease in EF c/t 07/19/ from 50-55% then to 40-45% now. Inferior hypokinesis was also noted then. Measurements Name Value Normal Range RVIDd (AP) 2D 2.6 cm (0.9 - 2.6) RVDdMajor (2D) 2.1 cm (2.2 - 4.4) RAd ISD 4CH 3.4 cm (3.4 - 4.9) RA (A4C)W 2.3 cm (2.9 - 4.6) IVSd (2D) 1 cm (0.6 - 1) LVPWd (2D) 1 cm (0.6 - 1) LVIDd (2D) 4.4 cm (3.6 - 5.4) LVIDs (2D) 3.7 cm - LV FS (2D) 16 % (25 - 45) Aortic Annulus 1.7 cm (1.4 - 2.6) Ao root diameter (2D) 2.5 cm (2.1 - 3.5) Ascending Ao 2.6 cm (2.1 - 3.4) LA dimension (AP) 2D 3.5 cm (2.3 - 3.8) LAd ISD 4CH 4.5 cm (2.9 - 5.3) LA ISD 4CH W 2.6 cm (2.5 - 4.5) Name Value Normal Range MV E-wave Vmax 0.8 m/sec - MV deceleration time 317 msec - MV A-wave Vmax 1 m/sec - MV E:A ratio 0.8 ratio - LV septal e' Vmax 0.05 m/sec - LV lateral e' Vmax 0.09 m/sec - LV E:e' septal ratio 16 ratio - LV E:e' lateral ratio 8.89 ratio - Name Value Normal Range AV Vmax 1.5 m/sec - AV VTI 33.1 cm - AV peak gradient 9 mmHg - AV mean gradient 4 mmHg - LVOT Vmax 0.7 m/sec - LVOT VTI 15.6 cm - LVOT peak gradient 2 mmHg - LVOT mean gradient 1 mmHg - AR PHT 596 msec - Name Value Normal Range MR Vmax 5 m/sec - MR VTI 179 cm - Name Value Normal Range IVC diameter 1.5 cm - Name Value Normal Range PV Vmax 0.6 m/sec - PV peak gradient 1 mmHg - Wallmotion BAS Normal BA Normal BAL Normal RITESH Normal BI Hypokinetic BIS Hypokinetic MAS Normal MA Normal MAL Normal MIL Normal SC Hypokinetic MIS Hypokinetic Hypokinetic AA Normal AL Normal AI Normal APEX Normal
== END 2018-08-09 12:37 | disposition home or self-care (01) ==
LOC: CHICATH 10:36 → ICU 14:21
PROVIDERS: ADMIT Internal Medicine Cardiovascular Disease; ATTEND Internal Medicine Cardiovascular Disease
DX: R07.9 Chest pain, unspecified (principal); I25.119 Atherosclerotic heart disease of native coronary artery with unspecified angina pectoris; I21.4 Non-ST elevation (NSTEMI) myocardial infarction; J44.9 Chronic obstructive pulmonary disease, unspecified; I35.0 Nonrheumatic aortic (valve) stenosis; E78.5 Hyperlipidemia, unspecified; I10 Essential (primary) hypertension; G47.30 Sleep apnea, unspecified; M19.90 Unspecified osteoarthritis, unspecified site; Z79.82 Long term (current) use of aspirin
CPT/HCPCS: 36415; 71046; 76937; 80048; 80053; 80061; 85025; 85347; 85730; 87641; 93005; 93306; 93458; 96374; 96375; A9270-GY; C1725; C1769; C1887; G0378; J0583; J1644; J1940; J2250; J3010

== ENCOUNTER 2018-08-14 08:59 | Emergency (ER) | payer MEDICARE ==
--- OUTSIDE RECORDS SUMMARY | 2018-08-14 09:11 | XMS REPORT | Continuity of Care Document ---
:1935 External Reference #:[id number] Author Name aHrish Melvin Care Team Providers Name Role Phone Rojelio Mcnulty D.O. Primary Care Physician Unavailable Payers Type Date Identification Numbers Payment Provider Subscriber Policy Number: [id number] Medicare Blue Ppo Areli Baxter Group Number: [id number] [address] [address] PayID: [id number] [place] [address] Advance Directives Description No Information Available Problems Date Description Provider Status Onset: 04/18/2013 Restrictive cardiomyopathy Cardiology Doctor Loc 39 Active secondary to granulomas Onset: 04/18/2013 Mitral valve disorder Cardiology Doctor [facility] 39 Active Onset: 04/18/2013 Electrocardiogram abnormal Cardiology Doctor Loc 39 Active Onset: 04/18/2013 Hyperlipidemia Cardiology Doctor Loc 39 Active Onset: 04/18/2013 Chest pain Cardiology Doctor Loc 39 Active Onset: 04/18/2013 Aortic valve disorder Cardiology Doctor Loc 39 Active Onset: 10/30/2016 Obstructive sleep apnea syndrome Polly Bruno DNP, RN, Active GRAPHITE GRINDER- Onset: 07/19/2018 Chronic obstructive lung disease Maddie Finch NP Active Onset: 07/19/2018 Essential hypertension Maddie Finch NP Active Onset: 07/19/2018 Dyspnea Maddie Finch NP Active Family History Date Family Member(s) Problem(s) Comments Father due to [place] () - 69 Mother Hypothyroidism Mother due to Stroke () First Son TX First Son Atrial Fibrillation First Daughter Alive And Well Siblings 2 Siblings 1 dec with [place] at 39 (brother) 1 sister dec of MS First Brother due to [place] () - 49 First Sister due to MS () - 50's Social History Type Date Description Comments Sex Unknown Marital Status Lives With Occupation Retired ETOH Use Rarely consumes alcohol Tobacco Use Start: Unknown End: Patient is a former 30 years 2 PPD Unknown smoker Recreational Drug Use Denies Drug Use Tobacco Use Start: Unknown End: Patient is a former quit 1986 Unknown smoker Smoking Status Reviewed: 08/02/18 Patient is a former quit 1987 smoker Exercise Type/Frequency Exercises regularly active, cleans, garden, walks around Allergies, Adverse Reactions, Alerts Date Description Reaction Status Severity Comments 04/16/2013 Niacin rash Active Medications Medication Date Status Form Strength Qnty SIG Indications Ordering Provider Nitro-Dur 08/02 Active Patches 0.2mg/HR 30uni apply 1 R06. Lorene S. 24HR ts daily and Foster, remove at N.P. bedtime Carvedilol 08/02 Active Tablets 6.25mg 60tab 1 tablet by R06.02 s mouth in in Foster, the morning N.P. and 1 tab in at night Lisinopril 11/28 Active Tablets 5mg 90tab 1 by mouth I42.9 Lorene . s every day Foster, N.P. Aspirin Active Tablets 81mg 1 po qd Unknown /0000 Probiotic Active Capsules 30cap 2 capsules Unknown /0000 s every am Lexapro Active Tablets 20mg 90tab 1 po qd Unknown / s Meclizine HCL Active Tablets 25mg 90tab 1 po tid Unknown /0000 s prn Ocuvite Active Tablets twice daily Unknown / Colace Active Capsules 1 po bid Unknown /0000 Cpap Active Device at hs Unknown /0000 Oxygen Active Misc please use Unknown /0000 o2 at 2l/min hs Furosemide Active Tablets 20mg 1 by mouth Unknown /0000 every day Aldactone Active Tablets 25mg 1 by mouth Unknown /0000 every day Spiriva Respimat Active Aerosol 2.5mcg/Ac 2 puffs Unknown /0000 t every day Calcium Citrate + Active Tablets 315-200mg 1 tablet Unknown D /0000 with meals orally bid Xopenex HFA Active Aerosol 45mcg/Act 2 puffs Unknown /0000 inhaled every 6h as needed for shortness of breath. Spironolactone Active Tablets 25mg 1 by mouth Unknown /0000 every day Nitroglycerin Active Tablets 0.4mg 1 sl q5mins Unknown / Sub x3 as needed for chest pain Pantoprazole Active Tablets DR 40mg 1 by mouth Unknown Sodium / every day Prochlorperazine Active Tablets 10mg Unknown Maleate /0000 Nitro-Dur 11/28 Hx Patches 0.1mg/HR 30uni apply 1 I42.9 Lorene S. 24HR ts patch daily Foster, - 12 hours N.P. 08/02 and at bedtime. Lisinopril 06/26 Hx Tablets 5mg 90tab 1 by mouth Qutayb s every day [place] 10/29 [place] Carvedilol 10/29 Hx Tablets 25mg 1 tab by mouth twice - a day 10/29 Simvastatin Hx Tablets 20mg 90tab 1 po qd Unknown / s - 06/11 Coreg Hx Tablets 3.125 180ta 1 tab with Unknown / bs food bid - 08/02 Magnesium Hx Tablets 500mg 30tab 1 po qd Unknown / s - 06/11 Vitamin D-3 Hx Tablets 2000Unit 1 po qd Unknown / - 06/02 [place] 3 Hx Capsules 1000mg 100ca 3 po qd. Unknown / ps - 06/11 Symbicort Hx Aerosol 80-4.5mcg 1unit 2 puffs Unknown / /Act s inhaled bid - 10/29 Citracal Plus Hx Tablets Daily Unknown / - 04/18 Colace Hx Capsules 100mg 90cap 2 po qd Unknown / s - 06/12 Alpha Lipoic Acid Hx Capsules 200mg daily Unknown / - 06/11 Combivent Hx Aerosol 18-103mcg 1unit 2 puffs po Unknown / /Act s prn - 04/18 Xopenex HFA Hx Aerosol 45mcg/Act 1unit 2 puffs qid Unknown / s prn - 06/11 Co-Enzyme Q10 Hx Capsules 100mg po qd Unknown / - 06/02 Claritin Hx Tablets 10mg 30tab 1 po qd prn Unknown / s - 06/11 Biotin Hx Capsules 10mg 1 po qd Unknown / - 01/01 Carvedilol Hx Tablets 25mg 1 po bid Unknown / - 06/14 Coq10 Hx Capsules 200mg once daily Unknown / - 10/29 Escitalopram Hx Tablets 20mg 1 by mouth Unknown / every day - 06/14 Fluzone High-Dose Hx .5ml intramuscul Unknown / ar syringe - 03/21 Tumeric Hx 1 po qd prn / - 05/24 Vegetable Hx 1 po qd Unknown Laxative / - 11/27 Escitalopram Hx Tablets 10mg 2 by mouth Unknown Oxalate / daily - 03/21 Levalbuterol HCL Hx Nebulizer 1.25mg/3M as needed Unknown / L - 10/29 Lipitor Hx Tablets 80mg 1 by mouth Unknown /0000 every night - at bedtime 08/01 Isosorbide Hx Tablets 5mg 1 tab tid Unknown Dinitrate / - 11/28 Calcium 600 Hx Tablets 600mg 2 by mouth Unknown /0000 every day - 05/24 Lisinopril Hx Tablets 10mg 1 by mouth Unknown / every day - 11/28 Omeprazole Hx Capsules 20mg 1 by mouth Unknown /0000 DR every day - 08/01 Isordil Titradose Hx Tablets 5mg 1 tablet Unknown /0000 orally tid - 08/01 Immunizations Description No Information Available Vital Signs Date Vital Result Comment 08/02/2018 8:54am Height 61 inches 5'1" Weight 125.75 lb with shoes Heart Rate 72 /min lt radial, regular BP Systolic Sitting 140 mmHg lt arm BP Diastolic Sitting 65 mmHg lt arm O2 % BldC Oximetry 94 % room air BMI (Body Mass Index) 23.8 kg/m2 Ejection Fraction 50-55% echo 07/19/18 05/28/2018 8:58am Height 61 inches 5'1" Weight 128.25 lb Heart Rate 59 /min BP Systolic Sitting 128 mmHg BP Diastolic Sitting 60 mmHg Respiratory Rate 16 /min O2 % BldC Oximetry 96 % BMI (Body Mass Index) 24.2 kg/m2 01/02/2018 9:27am Height 61 inches 5'1" Weight 121.38 lb w/shoes Heart Rate 62 /min BP Systolic Sitting 116 mmHg L/A Reg Cuff BP Diastolic Sitting 56 mmHg L/A Reg Cuff BMI (Body Mass Index) 22.9 kg/m2 Ejection Fraction 40-45% echo 11/28/2017 10:17am Height 61 inches 5'1" Weight 120.00 lb w/shoes Heart Rate 60 /min BP Systolic Sitting 110 mmHg L/A reg cuff BP Diastolic Sitting 52 mmHg L/A reg cuff BMI (Body Mass Index) 22.7 kg/m2 Ejection Fraction 40-45% echo 11/21/2017 10/30/2017 9:45am Height 61 inches 5'1" Weight 121.75 lb w/shoes Heart Rate 60 /min BP Systolic 128 mmHg L/Arm Reg Cuff BP Diastolic 54 mmHg L/Arm Reg Cuff BMI (Body Mass Index) 23.0 kg/m2 Ejection Fraction 40-45% Echocardiogram 10/03/2017 07/11/2017 8:58am Height 61 inches 5'1" Heart Rate 56 /min BP Systolic 134 mmHg LA, reg cuff BP Diastolic 62 mmHg LA, reg cuff BP Systolic Sitting 140 mmHg Ra, reg cuff BP Diastolic Sitting 60 mmHg Ra, reg cuff BP Systolic Standing 130 mmHg LA, reg cuff BP Diastolic Standing 56 mmHg LA, reg cuff 06/26/2017 4:03pm Height 61 inches 5'1" Weight 125.00 lb with shoes Heart Rate 72 /min BP Systolic Sitting 148 mmHg LA reg cuff BP Diastolic Sitting 76 mmHg LA reg cuff BMI (Body Mass Index) 23.6 kg/m2 Ejection Fraction 45% - 50% echo 06/18/17 03/29/2017 10:09am Height 61 inches 5'1" Weight 125.00 lb Heart Rate 60 /min BP Systolic Sitting 124 mmHg BP Diastolic Sitting 64 mmHg Respiratory Rate 20 /min O2 % BldC Oximetry 95 % room air BMI (Body Mass Index) 23.6 kg/m2 03/22/2017 10:59am Height 61 inches 5'1" Weight 124.75 lb with shoes Heart Rate 58 /min BP Systolic Sitting 144 mmHg LA reg cuff BP Diastolic Sitting 76 mmHg LA reg cuff BMI (Body Mass Index) 23.6 kg/m2 Ejection Fraction 40% - 45% echo 07/19/16 10/30/2016 9:26am Height 61 inches 5'1" Weight 123.00 lb Heart Rate 58 /min BP Systolic 148 mmHg BP Diastolic 74 mmHg Respiratory Rate 14 /min O2 % BldC Oximetry 96 % BMI (Body Mass Index) 23.2 kg/m2 08/01/2016 3:23pm Height 61 inches 5'1" Weight 123.25 lb with shoes Heart Rate 62 /min BP Systolic Sitting 162 mmHg Ra reg cuff BP Diastolic Sitting 68 mmHg Ra reg cuff BMI (Body Mass Index) 23.3 kg/m2 Ejection Fraction 40% - 45% echo 07/19/16 06/15/2016 2:26pm Height 61 inches 5'1" Weight 120.00 lb with shoes Heart Rate 58 /min BP Systolic Sitting 148 mmHg LA reg cuff BP Diastolic Sitting 70 mmHg LA reg cuff BMI (Body Mass Index) 22.7 kg/m2 Ejection Fraction 35%-40% echo 04/10/13 04/18/2013 9:57am Height 61 inches 5'1" Weight 115.00 lb Heart Rate 72 /min BP Systolic Sitting 150 mmHg BP Diastolic Sitting 66 mmHg Respiratory Rate 16 /min BMI (Body Mass Index) 21.7 kg/m2 Results Description No Information Available Procedures Date Code Description Status 08/02/2018 89731 EKG Tracing & Interpretation Completed 11/21/2017 77175 ECHO Transthoracic, Real-Time 2D With Doppler And Color Completed Flow 11/21/2017 01680 ECHO Transthoracic, Real-Time 2D With Doppler And Color Completed Flow 10/30/2017 77667 EKG Tracing & Interpretation Completed 10/05/2017 26484 EKG, Interpretation Only Completed 10/04/2017 24328 EKG, Interpretation Only Completed 10/03/2017 52919 ECHO Transthorasic Realtime 2D W Doppler & Color Flow Hosp Completed 10/03/2017 33462 EKG, Interpretation Only Completed 10/02/2017 07477 EKG, Interpretation Only Completed 08/02/2017 36470 Echocardiogram, Limited Study Completed 08/02/2017 09167 Echocardiogram, Limited Study Completed 06/26/2017 44419 EKG Tracing & Interpretation Completed 06/19/2017 36382 EKG, Interpretation Only Completed 06/18/2017 73078 ECHO Transthorasic Realtime 2D W Doppler & Color Flow Hosp Completed 06/18/2017 26002 EKG, Interpretation Only Completed 03/27/2017 04987 Polysomnography Sleep Staging 4+ Parameters W/Cpap Completed 03/22/2017 31642 EKG Tracing & Interpretation Completed 07/19/2016 97443 ECHO Transthoracic, Real-Time 2D With Doppler And Color Completed Flow 07/12/2016 74840 Treadmill Interp/Report Only Completed 07/12/2016 13323 Stress Test Supervsn W/Out I/R Completed 07/05/2016 87827 Holter Monitor Review (24 hr)dr review & interp only Completed 07/05/2016 36190 Holter Monitor Review (24 hr)dr review & interp only Completed 07/05/2016 08495 ECG Monitor/Recording W/Visual Superimposition Scanning Completed 07/04/2016 07848 ECG Monitor/Recording W/Visual Superimposition Scanning Completed 06/15/2016 00625 EKG Tracing & Interpretation Completed 05/15/2013 69907 Treadmill Interp/Report Only Completed 05/15/2013 58441 Stress Test Supervsn W/Out I/R Completed 04/25/2013 45066 ECHO Stress Test Incl Perf Contiuous ekg Monitoring W/Phys Completed Superv 04/18/2013 64670 EKG Tracing & Interpretation Completed 04/10/2013 48600 Color Flow Doppler/Interp & Reprt Completed 04/10/2013 96881 Pulse Wave/Continuous-Interp.RPT Completed 04/10/2013 15711 ECHO Transthorasic Realtime 2D W Doppler & Color Flow Hosp Completed Encounters Type Date Location Provider Dx Diagnosis Office Visit 08/02/2018 [facility] Lorene Campbell, R07.9 Chest pain , 9:00a N.P. 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 R06.02 Shortness of breath I10 Essential (primary) hypertension J44.9 Chronic obstructive pulmonary disease, unspecified Office Visit 07/19/2018 [facility] Maddie R07.9 Chest pain, 10:50a Assoc,daniel Finch NP unspecified Hospitalists R06.02 Shortness of breath I10 Essential (primary) hypertension J44.9 Chronic obstructive pulmonary disease, unspecified Office Visit 05/28/2018 9:00a Pulmonology & Leanne J44.9 Chronic Sleep Services AT MD Isiah obstructive Shailesh pulmonary disease, unspecified G47.33 Obstructive sleep apnea (adult) (pediatric) Office Visit 01/02/2018 9:30a [facility] Lorene S. I34.0 Nonrheumatic mitral Adrian, N.P. (valve) insufficiency I42.9 Cardiomyopathy, unspecified G47.33 Obstructive sleep apnea (adult) (pediatric) E78.5 Hyperlipidemia, unspecified I25.2 Old myocardial infarction Office Visit 11/28/2017 10:30a [facility] Lorene S. I27.20 Pulmonary Cardiology Adrian, N.P. hypertension, unspecified I34.0 Nonrheumatic mitral (valve) insufficiency I50.9 Heart failure, unspecified I42.9 Cardiomyopathy, unspecified G47.33 Obstructive sleep apnea (adult) (pediatric) E78.5 Hyperlipidemia, unspecified I25.2 Old myocardial infarction Office Visit 10/30/2017 [facility] Yogi S. I27.20 Pulmonary 10:00a Cardiology M[place] Lo hypertension, unspecified I34.0 Nonrheumatic mitral (valve) insufficiency I50.9 Heart failure, unspecified I42.9 Cardiomyopathy, unspecified R06.02 Shortness of breath G47.33 Obstructive sleep apnea (adult) (pediatric) R94.31 Abnormal electrocardiogram [ECG] [EKG] Office Visit 10/06/2017 8:32a [facility] Robinson Oneil, I21.4 Non-St elevation daniel Sinha MD (Nstemi) Hospitalists myocardial infarction I50.21 Acute systolic (congestive) heart failure R07.9 Chest pain, unspecified I34.0 Nonrheumatic mitral (valve) insufficiency Office Visit 10/06/2017 [facility] Porras, I27.20 Pulmonary 1:54p Cardiology Of M.D. hypertension, [employer] Worker unspecified I34.0 Nonrheumatic mitral (valve) insufficiency Office Visit 10/05/2017 8:29a [facility] Robinson Oneil, I21.4 Non-St elevation daniel Sinha MD (Nstemi) Hospitalists myocardial infarction I50.21 Acute systolic (congestive) heart failure R07.9 Chest pain, unspecified I34.0 Nonrheumatic mitral (valve) insufficiency Office Visit 10/05/2017 3:00p [facility] Yogi Miranda I50.9 Heart failure, Cardiology [place] Lo unspecified I34.0 Nonrheumatic mitral (valve) insufficiency I42.9 Cardiomyopathy, unspecified J18.9 Pneumonia, unspecified organism Z66 Do not resuscitate Office Visit 10/04/2017 8:28a [facility] Robinson Oneil, I21.4 Non-St elevation daniel Sinha MD (Nstemi) Hospitalists myocardial infarction I34.0 Nonrheumatic mitral (valve) insufficiency I50.21 Acute systolic (congestive) heart failure R07.9 Chest pain, unspecified Office Visit 10/04/2017 [facility] Yogi SSathya I42.9 Cardiomyopathy, 2:54p Cardiology [place] Lo unspecified I34.0 Nonrheumatic mitral (valve) insufficiency I21.4 Non-St elevation (Nstemi) myocardial infarction I50.9 Heart failure, unspecified Office Visit 10/03/2017 1:53p [facility] Ariadna Porras, I50.9 Heart failure, Of Fabiana Camarena unspecified I34.0 Nonrheumatic mitral (valve) insufficiency R94.31 Abnormal electrocardiogram [ECG] [EKG] Office Visit 10/03/2017 8:27a [facility] Robinson Oneil MD R74.8 Abnormal levels Assoc,pc of other serum Hospitalists enzymes R07.9 Chest pain, unspecified I48.0 Paroxysmal atrial fibrillation J18.9 Pneumonia, unspecified organism Office Visit 10/02/2017 8:25a [facility] Renate Roberts R74.8 Abnormal Assoc,pc Reid, MAN levels of Hospitalists other serum enzymes R07.9 Chest pain, unspecified I48.0 Paroxysmal atrial fibrillation J18.9 Pneumonia, unspecified organism Office Visit 07/11/2017 [facility] Nurse Visit cc I42.9 Cardiomyopathy, 9:00a Cardiology unspecified Office Visit 06/26/2017 [facility] Yogi Miranda G47.33 Obstructive sleep 4:20p Cardiology michael Lo (adult) Migue (pediatric) I42.9 Cardiomyopathy, unspecified I34.0 Nonrheumatic mitral (valve) insufficiency E78.5 Hyperlipidemia, unspecified R94.31 Abnormal electrocardiogram [ECG] [EKG] Office Visit 06/22/2017 6:59a [facility] J96.01 Acute respiratory Assoc,daniel Heard, D.O. failure with Hospitalists hypoxia J18.9 Pneumonia, unspecified organism J44.9 Chronic obstructive pulmonary disease, unspecified R74.8 Abnormal levels of other serum enzymes Office Visit 06/21/2017 6:58a [facility] J96.01 Acute respiratory Assoc,pc Félix, D.O. failure with Hospitalists hypoxia J18.9 Pneumonia, unspecified organism R74.8 Abnormal levels of other serum enzymes J44.9 Chronic obstructive pulmonary disease, unspecified Office Visit 06/20/2017 6:58a [facility] J96.01 Acute respiratory Assoc,pc Félix, D.O. failure with Hospitalists hypoxia J18.9 Pneumonia, unspecified organism J44.9 Chronic obstructive pulmonary disease, unspecified R74.8 Abnormal levels of other serum enzymes Office Visit 06/19/2017 [facility] Ruslan Dueks I50.31 Acute diastolic 6:57a Assoc,daniel RIZZO M.D. (congestive) Hospitalists heart failure R74.8 Abnormal levels of other serum enzymes J18.9 Pneumonia, unspecified organism J44.9 Chronic obstructive pulmonary disease, unspecified Office Visit 06/18/2017 6:56a [facility] J18.9 Pneumonia, Assoc,pc Félix, D.O. unspecified Hospitalists organism R74.8 Abnormal levels of other serum enzymes J44.9 Chronic obstructive pulmonary disease, unspecified F32.9 Major depressive disorder, single episode, unspecified Office Visit 03/29/2017 10:00a Pulmonology & Leanne G47.33 Obstructive sleep Sleep Services AT MD michael Joyce (adult) Shailesh (pediatric) Office Visit 03/22/2017 11:20a [facility] Qutaybeh S. G47.33 Obstructive sleep michael Lo (adult) Migue (pediatric) I42.9 Cardiomyopathy, unspecified I34.0 Nonrheumatic mitral (valve) insufficiency E78.5 Hyperlipidemia, unspecified R94.31 Abnormal electrocardiogram [ECG] [EKG] I35.1 Nonrheumatic aortic (valve) insufficiency Office Visit 10/30/2016 Pulmonology And Polly G47.33 Obstructive sleep 9:15a Sleep Services Of Kiana, CORTNEY, RN, apnea (adult) [facility]- (pediatric) Office Visit 08/01/2016 [facility] Dillonybnam S. I42.9 Cardiomyopathy , 3:40p [place] Lo unspecified I34.0 Nonrheumatic mitral (valve) insufficiency E78.5 Hyperlipidemia, unspecified Office Visit 06/15/2016 [facility] Yogi S. I42.9 Cardiomyopathy, 3:00p Cardiology [place] Lo unspecified R94.31 Abnormal electrocardiogram [ECG] [EKG] R07.9 Chest pain, unspecified I34.0 Nonrheumatic mitral (valve) insufficiency I10 Essential (primary) hypertension R00.1 Bradycardia, unspecified Office Visit 05/15/2013 [facility] Yogi S. 425.9 Cardiomyopathy 9:30a Cardiology [place] Lo Secondary Unspecified 794.31 Electrocardiogram (ECG) (EKG) Abnormal 786.50 Pain Chest Unspec Office Visit 04/25/2013 [facility] 425.9 Cardiomyopathy 10:20a Cardiology Doctor Loc 39 Secondary Unspecified 424.0 Mitral Valve Disorder 794.31 Electrocardiogram (ECG) (EKG) Abnormal 272.4 Hyperlipidemia Other Unspec 786.50 Pain Chest Unspec Office Visit 04/18/2013 [facility] 425.9 Cardiomyopathy 9:45a Cardiology Doctor Loc 39 Secondary Unspecified 424.0 Mitral Valve Disorder 794.31 Electrocardiogram (ECG) (EKG) Abnormal 272.4 Hyperlipidemia Other Unspec 786.50 Pain Chest Unspec 424.1 Aortic Valve Disorder Plan of Treatment Future Appointment(s):08/23/2018 9:00 am - Lorene Campbell, N.P. at [facility]08/15/2018 11:00 am - Junaid Grover DO FACC at [facility]08/02/2018 - Lorene Campbell, N.P.R07.9 Chest pain, unspecifiedNew Orders: Stress Test, Pharmacologic Nuclear (Lexiscan), Scheduled: 08/02/18R06.02 Shortness of breathNew Medication:Nitro-Dur 0.2 mg/HR - apply 1 daily and remove at bedtimeCarvedilol 6.25 mg - 1 tablet by mouth in in the morning and 1 tab in at nightFollow up:f/u begining of August Lorene.Recommendations:Increase nitro patch to 0.2mg/hr Increase carvedilol to 2 tabs (3.125mg)twice daily. New script sent for both.I10 Essential (primary) nwbehqbhioctY82.0 Nonrheumatic mitral (valve) ubcipbnmmnsetC38.5 Hyperlipidemia, unspecified
[2018-08-14] MEDS ORDERED: Aspirin 81 mg CHEW TAB* 81 MG TAB.CHEW PO ONE (09:40)
--- NOTE | 2018-08-14 09:41 | ED ---
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 Associated sx: CP described more so as "pressure". CP rated as 5 out of 10 at bedside. Pt has taken two nitro, one baby aspirin and Lorazepam this AM ELECTRICAL ASSISTANT which mildly alleviated the sx. Otherwise, she has not taken her morning medications. Denies fever, cough. Alleviating factor: lying down. Pt had a heart cath on 08/08/18 which was unsuccessful for placement of stents. Pt was referred to Dr. Bell, interventional cardiology, at [facility], for possible rotational atherectomy and is scheduled for 08/27/18. Patient uses home O2, and has been wearing it daily. She was recently started on Brilinta. No PMHx of DVT, PE. Pt had a non STEMI in Sep 2017. Discussed end-of-life wishes with patient with family present and pt wishes to remain a full code. Vitals at bedside: 60bpm, HR: 158/73. Home Medications Medication Instructions Recorded Confirmed Type Docusate CAP* [Colace Cap*] 100 mg PO BID 10/02/17 08/08/18 History Meclizine TAB* [Antivert 12.5 TAB*] 25 mg PO Q6H PRN 10/02/17 08/08/18 History Aspirin EC TAB* [Ecotrin EC Low 81 mg PO DAILY 06/06/18 08/08/18 History Dose 81 MG*] Calcium Carbonate/Vitamin D3 1 each PO BID WITH MEALS 06/06/18 08/08/18 History [Calcium 600 + Vit D Tablet] Carvedilol TAB* [Coreg TAB*] 6.25 mg PO BID 06/06/18 08/08/18 History Escitalopram (NF) [Lexapro 20 mg 20 mg PO DAILY 06/06/18 08/08/18 History (NF)] Furosemide TAB* [Lasix TAB*] 20 mg PO DAILY 06/06/18 08/08/18 History Lactobacillus Acidophilus 2 cap PO DAILY 06/06/18 08/08/18 History [Probiotic] Lisinopril TAB* [Prinivil TAB 5 5 mg PO DAILY 06/06/18 08/08/18 History MG*] Nitroglycerin TAB 0.4 MG* 0.4 mg SL Q5M PRN 06/06/18 08/08/18 History Prochlorperazine TAB* [Compazine 10 mg PO Q6H PRN #8 tab 06/06/18 08/08/18 Rx Tab*] Spironolactone TAB* [Aldactone TAB 25 mg PO DAILY 06/06/18 08/08/18 History 25 MG*] Tiotropium [place] [Spiriva 2 puff INH DAILY 06/06/18 08/08/18 History Respimat] LORazepam [Ativan 0.5 MG TAB] 0.5 mg PO BID PRN #21 tablet MDD 2 07/20/18 Rx tab Levalbuterol HFA INHALER* [Xopenex 2 puff INH Q6H PRN 08/07/18 08/08/18 History Hfa Inhaler*] Nitroglycerin 0.2 MG/HR PATCH* 1 patch TRANSDERM DAILY 08/07/18 08/08/18 History [Nitroglycerin 5 MG PATCH*] Vit C/E/Zinc/Lutein/Zeaxanthin 1 chw PO BID 08/07/18 08/08/18 [facility] Atorvastatin* [Lipitor 20 MG*] 20 mg PO 1700 #30 tab 08/09/18 Rx Nitroglycerin TAB 0.4 MG* 0.4 mg SL Q5M PRN tab 08/09/18 Rx Ticagrelor* [Brilinta 90 MG*] 90 mg PO BID #60 tab 08/09/18 Rx - History of Current Complaint Chief Complaint: EDChestPainROMI Time Seen by Provider: 08/14/18 09:40 Hx Obtained From: Patient, Family/Laboratory Scientist - , daughters (one who works at [employer] [employer] [employer]), Medical Records Onset/Duration: Started Hours Ago, Atraumatic, Still Present Timing: Constant Initial Severity: Moderate Current Severity: None Pain Intensity: 0 Pain Scale Used: 0-10 Numeric Chest Pain Location: Diffuse Chest Pain Radiates: No Character: Pressure/Squeezing Aggravating Factor(s): Nothing Alleviating Factor(s): Position - lying down, Medication - lorazepam, prescribed , NTG 123, OTC Meds - baby aspirin Associated Signs and Symptoms: Positive: Chest Pain, Shortness of Breath. Negative: Fever, Cough Related History: Similar Episode/Dx as: - unstable angina - Additional Pertinent History Primary Care Physician: JEYSON - Allergy/Home Medications Allergies/Adverse Reactions: Allergies Allergy/AdvReac Type Severity Reaction Status Date / Time niacin Allergy Intermediate Rash Verified 07/19/18 09:15 PMH/Surg Hx/FS Hx/Imm Hx Previously Healthy: No Endocrine/Hematology History: Reports: Hx Anticoagulant Therapy - ASA, Brilinta Denies: Hx Diabetes Comment Only: Other Endocrine/Hematological Disorders - anemia Cardiovascular History: Reports: Hx Angina, Hx Congestive Heart Failure, Hx Coronary Artery Disease - non STEMI 09/2017, Hx Hypercholesterolemia, Hx Hypertension, Hx Valvular Heart Disease, Other Cardiovascular Problems/ Disorders - mitral reurgitation, cardiomyopathy Denies: Hx Myocardial Infarction, Hx Pacemaker/ICD Respiratory History: Reports: Hx Chronic Obstructive Pulmonary Disease (COPD) - 2 - 3 L O2 @home, Hx Pneumonia - ary 2017, Hx Sleep Apnea - cpap 2-3L Denies: Hx Asthma GI History: Reports: Hx Diverticulosis, Hx Gastroesophageal Reflux Disease Musculoskeletal History: Reports: Hx Arthritis - hands and neck, Hx Back Problems - 2 back surgeries 2002, spinal stenosis, Hx Osteoporosis Sensory History: Reports: Hx Contacts or Glasses, Hx Macular Degeneration, Hx Deafness - R ear Denies: Hx Hearing Aid Opthamlomology History: Reports: Hx Contacts or Glasses, Hx Macular Degeneration Neurological History: Reports: Hx Dementia - short term memory issue, Other Neuro Impairments/Disorders - peripheral neuroptathy Psychiatric History: Reports: Hx Anxiety Denies: Hx Panic Disorder - Surgical History Surgery Procedure, Year, and Place: 2 BACK SURGERIES (SPINAL STENOSIS), CATARACT Hx Anesthesia Reactions: No Infectious Disease History: No Infectious Disease History: Denies: Traveled Outside the [place] in Last 30 Days - Family History Known Family History: Positive: Cardiac Disease - Social History Occupation: Retired Lives: With Family Alcohol Use: Rare Hx Substance Use: No Substance Use Type: Reports: None Hx Tobacco Use: Yes - not currently Smoking Status (MU): Former Smoker Review of Systems Negative: Fever Positive: Chest Pain Positive: Shortness Of Breath. Negative: Cough Gastrointestinal: Negative Positive: no symptoms reported Skin: Negative Neurological: Negative Psychological: Normal All Other Systems Reviewed And Are Negative: Yes Physical Exam - Summary Physical Exam Summary: Appearance: Well-appearing, moderate pain distress, well-nourished Skin: Warm, color reflects adequate perfusion, dry Head: Normal Head/Face inspection, atraumatic Eyes: Conjunctiva clear ENT: Normal inspection Neck: Supple, no nodes, no JVD Respiratory: Lungs clear, normal breath sounds, no respiratory distress Cardio: RRR, No murmur, pulses normal, brisk capillary refill Abdomen: Soft, nontender Bowel sounds: Present Musculoskeletal: Strength Intact/ROM intact, no calf tenderness, no edema. Psychological: Normal Neuro: Alert, muscle tone normal, no focal deficit Triage Information Reviewed: Yes Vital Signs On Initial Exam: Initial Vitals Temp Pulse Resp BP Pulse Ox 98.6 F 62 16 176/71 96 08/14/18 09:12 08/14/18 09:12 08/14/18 09:12 08/14/18 09:12 08/14/18 09:12 Vital Signs Reviewed: Yes Diagnostics - Vital Signs Vital Signs Temp Pulse Resp BP Pulse Ox 08/14/18 09:12 98.6 F 62 16 176/71 96 - Laboratory Result Diagrams: 08/14/18 09:54 08/14/18 09:54 Lab Statement: Any lab studies that have been ordered have been reviewed, and results considered in the medical decision making process. - Radiology CXR Radiology Interpretation Completed By: Radiologist Summary of Radiographic Findings: IMPRESSION: HYPERINFLATION. NO ACTIVE CARDIOPULMONARY DISEASE. ED provider has reviewed this report. - EKG 0945 Cardiac Rate: NL - 60bpm EKG Rhythm: Sinus Rhythm ST Segment: Non-Specific - No acute changes EKG Comparison: No Significant Change - from 08/11/18 other than T-waves now more upright in V4, V5 Summary of EKG Findings: EKG at 0945 reveals nml AVIVCT, normal QTc, left axis ( -17). Re-Evaluation - Re-Evaluation 1 Re-Evaluation Time: 11:11 Change: Improved Comment: Discussing with pt and family cardio consult with Dr. Mera, and plan for transfer to [facility]. They are agreeable to this plan. She has no chest pressure at this time. Vitals at bedside: 64 bpm; BP: 149/94; 99%, respiration rate: 16. Second Eval Re-Evaluation Time: 12:45 Change: Unchanged Comment: Awaiting acceptance by bull ladle tender at [facility]. Pt remains NPO and pain free. Family at bedside. BP 151/74, HR 65, R 15, O2 sat 97% 3 Re-Evaluation Time: 14:07 Change: Unchanged Comment: Updating patient and family on status of transfer, pt accepted at [facility], is going directly to cardiac tree tapping laborer. Pt ambulated from bathroom, and remains without chest pain. Chest Pain Course/Dx - Course Course Of Treatment: Pt is an 83 y/o F presenting with SOB and CP described as pressure. 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 Pt had a cardiac cath on 08/08/18 [place] [facility] and stents were unable to be placed and wire could not be passed. She was referred to Dr. Bell, cardiology, at [facility], and scheduled for atherotomy on . Patient uses home O2, and has been wearing it daily. She was recently started on Brilinta. Pt had a non-STEMI in Sep 2017. CXR shows " HYPERINFLATION. NO ACTIVE CARDIOPULMONARY DISEASE." Lab work is WNL except low RBC; and elevated creatinine, BNP, and BUN/C ratio. UA reviewed and unremarkable. EKG at 0945 reveals SR at 60bpm, nml AVIVCT, normal QTc, left axis (-17), no acute changes, similar as compared with 08/11/18 except T-waves are more upright now in V4, V5. Allergies noted, high blood pressure noted. Pt medications reviewed this visit. Consulted with Dr. Mera, cardiology, who agrees with plan to transfer patient to [facility]. Pt will be transferred to [facility]. Accepted by Dr. Lindsey Lewis, hospitalist, who accepts patient on behalf of Dr. Adamson, cardiology, at [facility]. 1407 : Pt accepted directly to cardiac cath, remains pain free in the ED. Toponins x 2 are negative 0.02 and 0.03. ASA 243 given in ED (took one ASA at home.). Pt on Brilinta. Emergent ALS transfer, with morphine and NTG prn and continuous O2 2L NC and IVNS 50 cc/hr. - Diagnoses Provider Diagnoses: Unstable angina, Hypertension, poor control - Provider Notifications Discussed Care Of Patient With: Toño Mera - cardio Time Discussed With Above Provider: 11:09 Instructed by Provider To: Other - Agrees patient should be transferred to [facility]. - Critical Care Time Critical Care Time: 30-74 min - 30 mins Discharge - Sign-Out/Discharge Documenting (check all that apply): Patient Departure - TRANSFER - Discharge Plan Condition: Stable Disposition: TRANS HIGHER LVL OF CARE FAC Referrals: Rojelio Mcnulty DO [Primary Care Provider] - - Billing Disposition and Condition Condition: STABLE Disposition: Trans Higher Lvl of Care Fac - Attestation Statements Document Initiated by Scribe: Yes Documenting Scribe: Elida Fuchs Provider For Whom Scribe is Documenting (Include Credential): Dr. Breana Giraldo MD Scribe Attestation: I, Elida Fuchs, scribed for Dr. Breana Giraldo MD on 08/14/18 at 1408. Scribe Documentation Reviewed: Yes Provider Attestation: The documentation as recorded by the scribe, Elida Fuchs accurately reflects the service I personally performed and the decisions made by ut, Dr. Breana Giraldo MD Status of Scribe Document: Viewed Consult Consult: At 1132: Spoke with transfer center at [facility] Will contact on-call cardiology At 1151: Spoke with Dr. Doherty, ED physician at [facility] Will consult with interventional cardiology at [facility]. No acceptance at this time. At 1240: Spoke with Transfer Center picker packer at [place] is performing cath currently, will continue to attempt to contact. At 1335: Spoke with Dr. Marco Lewis, hospitalist at [facility] Keep patient NPO. Accepts patient for transfer to floor at [facility] on Dr. Adamson's, cardiology, behalf. 1407: Pt accepted directly to tree tapping laborer, keep pt NPO.
[2018-08-14] MEDS ORDERED: Nitroglycerin TAB 0.4 MG* 0.4 MG TAB SL ONE (09:46)
[2018-08-14 10:15] LABS: ABS Basophils 0 10^3/ul (0-0.2); ABS Eosinophils 0.1 10^3/ul (0-0.6); ABS Lymphocytes 1.2 10^3/ul (1.0-4.8); ABS Monocytes 0.4 10^3/ul (0-0.8); ABS Neutrophils 6.2 10^3/ul (1.5-7.7); ABS Nucleated RBC 0 10^3/ul; Eosinophil % 1.2 %; Hematocrit 36 % (35-47); Hemoglobin 12.1 g/dl (12.0-16.0); Lymphocyte % 15.3 %; Mean Corpuscular HGB Conc 34 g/dl (31-36); Mean Corpuscular Hemoglobin 33 pg (27-31); Mean Corpuscular Volume 97 fL (80-97); Mean Platelet Volume 6.7 fL (7.4-10.4); Nucleated Red Blood Cells % 0; Platelet Count 237 10^3/ul (150-450); Red Cell Distribution Width 13 % (10.5-15)
[2018-08-14 10:23] LABS: Activated Partial Thrombo Time 30.3 seconds (26.0-36.3); INR 0.94 (0.77-1.02)
[2018-08-14 10:34] LABS: Albumin 3.9 g/dL (3.2-5.2); Albumin/Globulin Ratio 1.6 (1-3); BUN/Creatinine Ratio 20.8 (8-20); Calcium 9.4 mg/dL (8.6-10.3); EGFR Non-African American 49.5 (>60); Globulin 2.5 g/dL (2-4); Magnesium 2.2 mg/dL (1.9-2.7); Potassium 4.4 mmol/L (3.5-5.0); Total Bilirubin 0.4 mg/dL (0.2-1.0); Total Protein 6.4 g/dL (6.4-8.9)
[2018-08-14 10:51] LABS: Urine Appearance Cloudy; Urine Bilirubin Negative (Negative); Urine Blood Negative (Negative); Urine Color Yellow; Urine Glucose Negative (Negative); Urine Ketones Negative (Negative); Urine Nitrite Negative (Negative); Urine Protein Negative (Negative); Urine Specific Gravity 1.011 (1.010-1.030); Urine Urobilinogen Negative (Negative)
[2018-08-14 11:02] LABS: TSH (Thyroid Stimulating Horm) 1.3 mcIU/mL (0.34-5.60)
[2018-08-14] MEDS ORDERED: Ondansetron INJ* 2 MG/ML VIAL IV ONE (14:16)
[2018-08-14] MEDS ORDERED: Acetaminophen TAB* 325 MG PO ONE (14:24)
[2018-08-14 15:19] VITALS: BP 133/64
== END 2018-08-14 15:18 | disposition short-term general hospital (02) ==
LOC: ED 08:59
DX: I20.0 Unstable angina (principal); I10 Essential (primary) hypertension; R06.02 Shortness of breath; Z88.8 Allergy status to other drugs, medicaments and biological substances; Z79.02 Long term (current) use of antithrombotics/antiplatelets; Z79.82 Long term (current) use of aspirin; J44.9 Chronic obstructive pulmonary disease, unspecified; Z99.81 Dependence on supplemental oxygen; Z82.49 Family history of ischemic heart disease and other diseases of the circulatory system; Z87.891 Personal history of nicotine dependence
CPT/HCPCS: 36415; 71045; 80053; 81003; 82550; 82553; 83605; 83735; 83880; 84436; 84443; 84484; 85025; 85379; 85610; 85730; 93005; 96374; 99285; A9270-GY; J2405

== ENCOUNTER 2018-08-22 12:52 | Inpatient (IN) | payer MEDICARE ==
--- NOTE | 2018-08-22 13:34 | ED ---
Complex/Multi-Sys Presentation - HPI Summary HPI Summary: This pt is an 83 y/o female presenting to [facility] via EMS for chills, sweats, dizziness today. Pt reports she began feeling cold, chills, and shivering this morning. Daughter states pt was sitting in the kitchen table visiting her friend when daughter began calling the pt's name and she was not responding. Per daugher, pt had slurred speech. Pt does not remember this episode. Per family member pt had slurred speech for about 1 minute today and had one episode of emesis. Daughter notes pt had SOB today also. Pt has been coughing but states it's because she is a former smoker. Cough is productive with yellow/ green sputum. Denies runny nose, body aches, diarrhea, chest pain, pain down arms or up to her jaw, weight loss. Pt was [place] [facility] [place] and transferred to [facility] by Dr. Poon. She had a cardiac stent placed at [facility] on 08/15/18. PMHx: arthritis, pneumonia, COPD, CHF. She is anticoagulated. - History Of Current Complaint Chief Complaint: EDGeneral Time Seen by Provider: 08/22/18 13:10 Hx Obtained From: Patient, Family/Key Account Manager Onset/Duration: Sudden Onset, Still Present Timing: Constant Severity Currently: Moderate Aggravating Factor(s): nothing Alleviating Factor(s): nothing Associated Signs And Symptoms: Positive: Dizziness, SOB, Cough, Nausea, Vomiting - one episode, Other - POS: chills, feeling cold, shivering, syncope, slurred speech for 1 minute. NEG: constant cough, runny nose, body aches.. Negative: Chest Pain, Diarrhea, Fever - Allergies/Home Medications Allergies/Adverse Reactions: Allergies Allergy/AdvReac Type Severity Reaction Status Date / Time niacin Allergy Intermediate Rash Verified 07/19/18 09:15 PMH/Surg Hx/FS Hx/Imm Hx Endocrine/Hematology History: Reports: Hx Anticoagulant Therapy - ASA, Brilinta Denies: Hx Diabetes Comment Only: Other Endocrine/Hematological Disorders - anemia Cardiovascular History: Reports: Hx Angina, Hx Congestive Heart Failure, Hx Coronary Artery Disease - non STEMI 09/2017, Hx Hypercholesterolemia, Hx Hypertension, Hx Valvular Heart Disease, Other Cardiovascular Problems/ Disorders - mitral reurgitation, cardiomyopathy Denies: Hx Myocardial Infarction, Hx Pacemaker/ICD Respiratory History: Reports: Hx Chronic Obstructive Pulmonary Disease (COPD) - 2 - 3 L O2 @home, Hx Pneumonia - feburary 2018, Hx Sleep Apnea - cpap 2-3L Denies: Hx Asthma GI History: Reports: Hx Diverticulosis, Hx Gastroesophageal Reflux Disease Musculoskeletal History: Reports: Hx Arthritis - hands and neck, Hx Back Problems - 2 back surgeries 2002, spinal stenosis, Hx Osteoporosis Sensory History: Reports: Hx Contacts or Glasses, Hx Macular Degeneration, Hx Deafness - R ear Denies: Hx Hearing Aid Opthamlomology History: Reports: Hx Contacts or Glasses, Hx Macular Degeneration Neurological History: Reports: Hx Dementia - short term memory issue, Other Neuro Impairments/Disorders - peripheral neuroptathy Psychiatric History: Reports: Hx Anxiety Denies: Hx Panic Disorder - Surgical History Surgery Procedure, Year, and Place: 2 BACK SURGERIES (SPINAL STENOSIS), CATARACT Hx Anesthesia Reactions: No Infectious Disease History: No Infectious Disease History: Denies: Traveled Outside the [place] in Last 30 Days - Family History Known Family History: Positive: Cardiac Disease - Social History Alcohol Use: Rare Hx Substance Use: No Substance Use Type: Reports: None Hx Tobacco Use: Yes - not currently Smoking Status (MU): Former Smoker Review of Systems Constitutional: Other - POS: shivering Positive: Chills. Negative: Fever, Other - NEG: weight loss Negative: Erythema Negative: Sore Throat, Nasal Discharge Negative: Chest Pain Positive: Shortness Of Breath, Cough Positive: Vomiting - one episode. Negative: Abdominal Pain, Diarrhea, Nausea Negative: dysuria, hematuria Negative: Myalgia, Edema Negative: Rash Neurological: Other - POS: dizziness, episode of slurred speech Positive: Paresthesia - in hands, Syncope All Other Systems Reviewed And Are Negative: Yes Physical Exam - Summary Physical Exam Summary: Constitutional: Well-developed, Well-nourished, Alert. (-) Distressed Skin: Warm, Dry. Large amount of ecchymosis extending from the right groin to just about the right knee. No erythema, no induration, no flunctuance. HENT: Normocephalic; Atraumatic Eyes: Conjunctiva normal Neck: Musculoskeletal ROM normal neck. (-) JVD, (-) Stridor, (-) Tracheal deviation Cardio: Rhythm regular, rate normal, Heart sounds normal; Intact distal pulses; The pedal pulses are 2+ and symmetric. Radial pulses are 2+ and symmetric. (-) Murmur Pulmonary/Chest wall: Effort normal. Crackles in the left lower lung field. Abd: Soft, (-) Tenderness, (-) Distension, (-) Guarding, (-) Rebound Musculoskeletal: (-) Edema Lymph: (-) Cervical adenopathy Neuro: Alert, Oriented x3 Psych: Mood and affect Normal Triage Information Reviewed: Yes Vital Signs On Initial Exam: Initial Vitals Temp Pulse Resp BP Pulse Ox 97.5 F 62 12 149/58 99 08/22/18 13:00 08/22/18 13:00 08/22/18 13:00 08/22/18 13:00 08/22/18 13:00 Vital Signs Reviewed: Yes Diagnostics - Vital Signs Vital Signs Temp Pulse Resp BP Pulse Ox 08/22/18 13:00 97.5 F 62 12 149/58 99 - Laboratory Result Diagrams: 08/22/18 13:56 08/22/18 13:56 Lab Statement: Any lab studies that have been ordered have been reviewed, and results considered in the medical decision making process. - Radiology Chest XR Radiology Interpretation Completed By: Radiologist Summary of Radiographic Findings: IMPRESSION: Hyperinflation. Linear atelectasis of the right lung base. Dr. Sanchez has reviewed this report. - EKG 14:51 Cardiac Rate: NL - at 60 bpm EKG Rhythm: Sinus Rhythm Summary of EKG Findings: New biphasic T-waves lateral. No STEMI. 18:08 Cardiac Rate: NL - at 86 bpm EKG Rhythm: Sinus Rhythm Summary of EKG Findings: No STEMI. Re-Evaluation - Re-Evaluation First Eval Re-Evaluation Time: 18:08 Change: Worse Comment: Pt became dizzy and nauseous. Blood pressure is 90 systolic. Reglan was ordered. Second Eval Re-Evaluation Time: 18:54 Comment: Chest pressure was reported to the hospitalist. Pt was given nitro and heparin. Chest pressure has resolved. Complex Multi-Symp Course/Dx Assessment/Plan: Pt is an 83 y/o female who presents to the ED via EMS for chills, sweats, dizziness, productive cough, syncopal episode. Pt had an episode of emesis and. I obtained records from [facility]. Pt was sent to [facility] for unstable angina. Pt was discharged on 08/16/18. She had a successful rotablation from the PCI to the right coronary artery on . Chest XR shows hyperinflation. Linear atelectasis of the right lung base. In the ED course the pt was given Cefepime, Ciprofloxacin. I discussed the case with Dr. Lo, carpenter helper, who reports that given the negative troponing, no EKG changes and syncope in the setting of productive cough he does not believe transfer to [facility] is indicated. I have no indication of stent thrombosis for this presentation. Discussed with Dr. Heard, hospitalist , who accepted the pt for admission. - Diagnoses Provider Diagnoses: Syncope, Healthcare-associated pneumonia - Physician Notifications Discussed Care Of Patient With: Yogi Lo Time Discussed With Above Provider: 15:58 Instructed by Provider To: Other - I discussed the case with Dr. Lo, carpenter helper, who reports that given the negative troponing, no EKG changes and syncope in the setting of productive cough he does not believe transfer to [facility] is indicated. [16:06] Discussed with Dr. Heard, hospitalist, who accepted the pt for admission. Discharge - Sign-Out/Discharge Documenting (check all that apply): Patient Departure - Ad[place] to [facility] - Discharge Plan Condition: Stable Disposition: ADMITTED TO [facility] - Attestation Statements Document Initiated by Scribe: Yes Documenting Scribe: Latrice Bush Provider For Whom Scribe is Documenting (Include Credential): Chavo Sanchez MD Scribe Attestation: I, Latrice Bush, scribed for Chavo Sanchez MD on 08/22/18 at 1854. Status of Scribe Document: Ready
[2018-08-22 14:24] LABS: Urine Appearance Cloudy; Urine Bilirubin Negative (Negative); Urine Blood Negative (Negative); Urine Color Yellow; Urine Glucose Negative (Negative); Urine Ketones Negative (Negative); Urine Nitrite Negative (Negative); Urine Protein Negative (Negative); Urine Urobilinogen Negative (Negative)
[2018-08-22 14:33] LABS: ABS Basophils 0.1 10^3/ul (0-0.2); ABS Eosinophils 0.1 10^3/ul (0-0.6); ABS Lymphocytes 1.1 10^3/ul (1.0-4.8); ABS Monocytes 0.5 10^3/ul (0-0.8); ABS Neutrophils 6.7 10^3/ul (1.5-7.7); ABS Nucleated RBC 0 10^3/ul; Eosinophil % 1.2 %; Hematocrit 30 % (35-47); Hemoglobin 10.6 g/dl (12.0-16.0); Lymphocyte % 12.7 %; Mean Corpuscular HGB Conc 35 g/dl (31-36); Mean Corpuscular Hemoglobin 34 pg (27-31); Mean Corpuscular Volume 97 fL (80-97); Nucleated Red Blood Cells % 0; Platelet Count 289 10^3/ul (150-450); Red Blood Count 3.13 10^6/ul (4.00-5.40); Red Cell Distribution Width 13 % (10.5-15); White Blood Count 8.4 10^3/ul (3.5-10.8)
[2018-08-22 14:38] LABS: Activated Partial Thrombo Time 26.6 seconds (26.0-36.3); INR 1.01 (0.77-1.02)
[2018-08-22 14:41] LABS: Albumin 3.9 g/dL (3.2-5.2); Albumin/Globulin Ratio 1.3 (1-3); BUN/Creatinine Ratio 20.6 (8-20); Calcium 9.7 mg/dL (8.6-10.3); Globulin 3.1 g/dL (2-4); Potassium 3.9 mmol/L (3.5-5.0); Total Bilirubin 0.7 mg/dL (0.2-1.0)
[2018-08-22] MEDS ORDERED: Cefepime 2 GM in Dextrose(*) 2 GM/50 ML BAG IV ONE (15:55)
[2018-08-22] MEDS ORDERED: Ciprofloxacin 400MG IVPREMIX(* 400 MG/200 ML BAG IVPB ONE (15:55)
[2018-08-22 16:34] LABS: TSH (Thyroid Stimulating Horm) 1.79 mcIU/mL (0.34-5.60)
[2018-08-22] MEDS ORDERED: Ondansetron INJ* 2 MG/ML VIAL IV PRN (16:36)
[2018-08-22] MEDS ORDERED: Acetaminophen TAB* 325 MG PO PRN (16:36)
[2018-08-22 16:38] LABS: Free T4 0.79 ng/dL (0.61-1.12)
[2018-08-22] MEDS ORDERED: LORazepam TAB(*) 0.5 MG PO PRN (16:39)
[2018-08-22] MEDS ORDERED: Prochlorperazine TAB* 10 MG PO PRN (16:39)
[2018-08-22] MEDS: Atorvastatin* 20 MG TAB PO SCH (17:05)
[2018-08-22] MEDS: Levalbuterol 1.25MG/0.5ML NEB INH SCH ×2 (17:11→21:58)
[2018-08-22] MEDS: Calcium/Vitamin D TAB 250/125* TAB PO SCH (17:20)
[2018-08-22 17:29] LABS: C Reactive Protein 9.59 mg/L (<8.01)
[2018-08-22] MEDS ORDERED: Metoclopramide IV* 5 MG/ML 2 ML VIAL IV SLOW PU ONE (18:08)
[2018-08-22] MEDS: Nitroglycerin TAB 0.4 MG* 0.4 MG TAB SL PRN ×2 (18:28→18:39)
[2018-08-22] MEDS ORDERED: Aspirin TAB* 325 MG PO STA (18:42)
[2018-08-22] MEDS ORDERED: Heparin DRIP 25,000 UNITS(*) 25,000 UNITS/500 ML BAG IV SCH (18:45)
[2018-08-22] MEDS ORDERED: Heparin VIAL(*) 5000 UNITS/ML VIAL (FIVE THOUSAND) IV PRN (18:47)
[2018-08-22] MEDS ORDERED: Aspirin 81 mg CHEW TAB* 81 MG TAB.CHEW ONE (18:57)
[2018-08-22] MEDS ORDERED: Aspirin 81 mg CHEW TAB* 81 MG TAB.CHEW PO ONE (18:59)
--- NOTE | 2018-08-22 21:39 | HP ---
CC: Dr. Rojelio Mcnulty; Dr. Yogi Lo * ADMISSION HISTORY AND PHYSICAL: DATE OF ADMISSION: 08/22/18. PRIMARY CARE PROVIDER: Rojelio Mcnulty D.O. OUTPATIENT FREIGHT SHIPPING AGENT: Dr. Yogi Lo. MY ATTENDING WHILE IN THE HOSPITAL: Dr. Allison Heard.* (DICTATED BY DAMARIS PATRICIO) CHIEF COMPLAINT: Syncope. HISTORY OF PRESENT ILLNESS: Ms. Baxter is an 83-year-old female with a past medical history significant for coronary artery disease, status post recent stent placement and atherectomy in her RCA on 08/15/18, in [facility] as well as hypertension, hyperlipidemia, YONY, and COPD as well as mitral regurgitation, who presents to the emergency department with an episode that lasted several minutes associated with nausea, dizziness, confusion, and slurring of her speech that came on suddenly, lasted about 5 minutes, and then dissipated. The patient had no associated chest pain or shortness of breath. The patient has a chronic cough, which has not been any worse. The patient has no recent illness. The patient recently had her carvedilol increased from 3.125 mg twice daily to 6.25 mg twice daily approximately a month ago. The patient has been feeling well this morning and the patient has not put on her nitroglycerin patch. The patient had no recent illness. The patient did have an episode similar to this on 08/17/18, soon after we discharged from the hospital, in which she became primarily nauseous and then felt dizzy and was given Compazine and has resolved. The patient today cannot say whether her nausea preceded her dizziness or the other way around. The patient has not eaten anything of the ordinary. The patient has not been having shortness of breath in association with her Brilinta. The patient had no other associated focal neurologic deficits with her slurred speech. The patient did not have any hypotension in the emergency department or other concerning symptoms. The patient is not diabetic. The patient never had an episode like this before last 2 days. In the emergency department, the patient had a chest x-ray, which showed linear atelectasis at the right lung base and was noted to have an abnormal lung exam by the emergency room physician, so we were asked to evaluate the patient for admission for syncope with concern for possible pneumonia. PAST MEDICAL HISTORY: 1. CAD, status post stent and atherectomy in the RCA on 08/15/18. 2. Hypertension. 3. Mitral regurgitation. 4. Hyperlipidemia. 5. Obstructive sleep apnea, on CPAP. 6. COPD. PAST SURGICAL HISTORY: 1. Catheterization x2. 2. Two back surgeries in the remote past. MEDICATIONS: 1. Aspirin 81 mg p.o. daily. 2. Atorvastatin 20 mg p.o. daily. 3. Biotin 1 mg p.o. daily. 4. Carvedilol 6.125 mg p.o. twice daily. 5. Co-enzyme Q10 10 mg p.o. daily. 6. Lexapro 20 mg p.o. daily. 7. Furosemide 20 mg p.o. daily. 8. Atrovent nasal spray 1 spray both nares as needed. 9. Xopenex nebulizer 1.25 mg per 3 L every 4 hours as needed. 10. Lisinopril 5 mg p.o. daily. 11. Lorazepam 0.5 mg p.o. daily. 12. Meclizine 25 mg p.o. q.8 hours as needed. 13. Singulair 5 mg p.o. daily. 14. Nitroglycerin patch 0.2 mg per hour during the day. 15. Nitroglycerin 0.4 mg sublingually every 5 minutes as needed. 16. Ocuvite tab 150 mg p.o. daily. 17. Pantoprazole 40 mg p.o. daily. 18. Spironolactone 25 mg p.o. daily. 19. Brilinta 90 mg p.o. b.i.d. 20. Spiriva 18 mcg p.o. daily. ALLERGIES: NIACIN. FAMILY HISTORY: The patient's father and brother of [place]. The patient's mother of an aneurysm in an unknown place in her body. The patient's sister from complications of hydrocephalus, possibly from a stroke. SOCIAL HISTORY: The patient quit smoking 30 years ago. The patient drinks occasional alcohol. The patient denies illicit drug use. 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 The patient is and has 7 children , 2 biological with no health problems. The patient's surrogate decision maker is her , Neno Baxter. REVIEW OF SYSTEMS: A 14-point review of systems was reviewed and is negative, except as above in the HPI. PHYSICAL EXAMINATION GENERAL: The patient is an 83-year-old female, who appears stated age and is sitting comfortably on bed, in no acute distress. VITAL SIGNS: At the time of evaluation, temperature 98.1, pulse rate 62, respiratory rate 19, oxygen saturation 98% on room air, blood pressure 132/72. HEENT: Head: Normocephalic, atraumatic. Sclerae anicteric. No conjunctival injection. Nasal mucosa moist. Oral mucosa moist. No pharyngeal erythema, discharge or exudate. NECK: Supple, nontender. No lymphadenopathy. No carotid bruits auscultated. No JVD. RESPIRATORY: Clear to auscultation bilaterally. No wheezes, rales or rhonchi. Good air exchange bilaterally. CARDIAC: Regular rate and rhythm. No clicks, murmurs, gallops or rubs. Pulses are 2+ in the bilateral dorsalis pedis, posterior tibialis, and radial areas. No bilateral lower extremity edema noted. No bilateral calf tenderness. ABDOMEN: Soft, nontender, nondistended. Bowel sounds present and normoactive in all 4 quadrants. No hepatosplenomegaly. No abdominal bruits auscultated. No hepatojugular reflux. GENITOURINARY: No suprapubic or CVA tenderness. NEUROLOGIC: Cranial nerves II through XII intact. No focal deficits. Alert and oriented x3. PSYCHIATRIC: Pleasant and cooperative. SKIN: Clean, dry, and intact. No rash. DIAGNOSTIC STUDIES/LAB DATA: White blood cell count of 8.4, hemoglobin 10.6, platelet count 289, INR 1.01, aPTT 26.6. Sodium 132, potassium 3.9, chloride 98 , carbon dioxide 28, anion gap 6, BUN 22, creatinine 1.07, glucose 120, lactic acid 0.8, calcium 9.7. Bilirubin 0.7, AST 23, ALT 14, alkaline phosphatase 51. Troponin I of 0.01. Protein 7.0, albumin 3.9, globulin 3.1. TSH 1.79, T4 of 0.79. Urine: Yellow, cloudy, pH of 8, otherwise benign. Influenza A and B are negative. Studies: Chest x-ray read as linear atelectasis at the right lung base. Electrocardiogram shows normal sinus rhythm, no ST segment abnormalities, left axis deviation, rate of 60, QTc of 437, no other abnormalities, unchanged from previous exam. ASSESSMENT AND PLAN: Ms. Baxter is an 83-year-old female with past medical history significant for coronary artery disease with recent stent placement in her right coronary artery, hypertension, hyperlipidemia, obstructive sleep apnea , and chronic obstructive pulmonary disease, who presents to the emergency department with approximately a 5-minute episode of decreased consciousness with nausea, diaphoresis, and slurred speech with concern for transient episode of hypotension of unknown cause. The patient will be admitted to the hospital for close monitoring. The patient also has an abnormal lung exam per the emergency department provider and will be treated empirically for community- acquired pneumonia until such a time as her drugs may be stopped. 1. Syncope, possible hypotension. The patient has had 2 episodes since discharging from the hospital, which consist of dizziness, nausea, and diaphoresis, 1 of which lasted longer, and also had an episode of slurred speech. The patient has no other focal neurologic deficits and given other symptoms, these are very unlikely to represent a cerebrovascular accident. These likely represent transient hypotension, which could be related to vagal response to nausea. It could also, however, be related to a transient arrhythmia. The patient had a recent echocardiogram, which will not be repeated at this time. The patient will have serial troponins and EKGs to document any possible ischemia. The patient has no ischemic changes at this time. The patient recently had her carvedilol increased, this will be decreased to its previous level. The patient will have orthostatic vital signs. Due to patient's recently diagnosed decreased ejection fraction, the patient will not have fluids. The patient was given cefepime and ciprofloxacin while in the emergency department. The patient will be transitioned to ceftriaxone and azithromycin starting tomorrow. The patient will have a CRP to her current labs and have 1 repeated in the morning. If these are persistently low and the patient has a repeat chest x-ray not definitely consistent with pneumonia, that should be consideration for discontinuing the patient's antibiotics as she has no other objective signs of pneumonia. The patient has had no fevers, tachycardia, hypotension or other signs of infection. Cardiology consultation should be considered if the patient has any episodes concerning for ischemia or persistent symptoms despite decreasing her antihypertensive medications. 2. Hypertension. The patient will have her carvedilol decreased as above. The patient is currently normotensive, the patient will have orthostatic vital signs drawn. If these are positive, decreasing the patient's diuretics and giving the patient a trial of fluid should be considered. 3. Hyperlipidemia. Continue statin. 4. Obstructive sleep apnea. The patient will be continued on CPAP while in the hospital. 5. Chronic obstructive pulmonary disease. The patient is not currently in exacerbation. We will continue the patient's tiotropium and Xopenex as needed. 6. DVT prophylaxis: The patient will have heparin subcu. 7. Fluids, electrolytes, and nutrition: The patient will not have fluids as above. The patient will have a heart-healthy diet without caffeine. 8. Code status. The patient will be a full code. The patient's surrogate decision maker will be her , Neno Baxter as above. 9. Disposition. The patient will be admitted for observation. TIME SPENT: Approximately 60 minutes was spent on the admission of this patient , 30 of which was spent [id number] with the patient obtaining history and physical and discussing treatment plan. This plan was discussed with my attending, Dr. Allison Heard, and she is in agreement. ADDENDUM: I was called to reexamine the patient while she was still in the ED. Patient developed sudden onset chest pain radiating to her neck with associated severe shortness of breath. Repeat EKG showed worsening T wave inversions and ST depression in the anterior leads. Patient was given nitroglycerin x2 with complete resolution of her chest pain. Patient was discussed with Dr. Junaid Grover of Cardiology who will see the patient in consultation and recommended ICU admission and heparin drip with ongoing serial troponins. DAMARIS PATRICIO [id number]/[facility] #: [id number] AKASH
[2018-08-22] MEDS: Docusate CAP* 100 MG PO SCH (21:54)
[2018-08-22] MEDS: Carvedilol TAB* 3.125 MG PO SCH (21:54)
[2018-08-22] MEDS: Ticagrelor* 90 MG TAB PO SCH (21:54)
[2018-08-22] MEDS ORDERED: Heparin VIAL(*) 5000 UNITS/ML VIAL (FIVE THOUSAND) SUBCUT SCH (22:00)
[2018-08-23] MEDS: Levalbuterol 1.25MG/0.5ML NEB INH SCH ×3 (00:02→07:38)
[2018-08-23 04:29] LABS: ABS Basophils 0 10^3/ul (0-0.2); ABS Eosinophils 0 10^3/ul (0-0.6); ABS Monocytes 0.4 10^3/ul (0-0.8); ABS Neutrophils 4.3 10^3/ul (1.5-7.7); ABS Nucleated RBC 0 10^3/ul; Eosinophil % 0.7 %; Hematocrit 29 % (35-47); Hemoglobin 9.9 g/dl (12.0-16.0); Mean Corpuscular HGB Conc 34 g/dl (31-36); Mean Corpuscular Hemoglobin 33 pg (27-31); Mean Corpuscular Volume 97 fL (80-97); Mean Platelet Volume 6.8 fL (7.4-10.4); Nucleated Red Blood Cells % 0; Platelet Count 281 10^3/ul (150-450); Red Blood Count 2.98 10^6/ul (4.00-5.40); Red Cell Distribution Width 14 % (10.5-15); White Blood Count 5.8 10^3/ul (3.5-10.8)
[2018-08-23 04:45] LABS: BUN/Creatinine Ratio 18.2 (8-20); C Reactive Protein 8.46 mg/L (<8.01); Calcium 9.3 mg/dL (8.6-10.3); EGFR Non-African American 47.4 (>60); Magnesium 2.4 mg/dL (1.9-2.7); Potassium 4.4 mmol/L (3.5-5.0)
[2018-08-23] MEDS ORDERED: cefTRIAXone(*) 1 GM in NS 0.9% 50 ML* 50 ML IVPB SCH (05:00)
[2018-08-23] MEDS ORDERED: Azithromycin IV(*) 500 MG in NS 0.9% 250 ML* 250 ML IVPB SCH (05:30)
[2018-08-23] MEDS ORDERED: Levalbuterol 1.25MG/0.5ML NEB INH PRN (07:32)
[2018-08-23] MEDS: Docusate CAP* 100 MG PO SCH ×2 (08:37→20:38)
[2018-08-23] MEDS: Lactobacillus Acidophilus* 1 TAB PO SCH (08:39)
[2018-08-23] MEDS: Aspirin EC TAB* 81 MG TAB.EC PO SCH (08:40)
[2018-08-23] MEDS: Spironolactone TAB* 25 MG PO SCH (08:40)
[2018-08-23] MEDS: Ticagrelor* 90 MG TAB PO SCH (08:40)
[2018-08-23] MEDS: Calcium/Vitamin D TAB 250/125* TAB PO SCH ×2 (08:40→18:38)
[2018-08-23] MEDS: Furosemide TAB* 20 MG PO SCH (08:40)
[2018-08-23] MEDS: Carvedilol TAB* 3.125 MG PO SCH ×2 (08:40→20:37)
[2018-08-23] MEDS ORDERED: Nitroglycerin 0.2 MG/HR PATCH* (5 MG) TRANSDERM SCH (09:00)
[2018-08-23] MEDS ORDERED: Aspirin 81 mg CHEW TAB* 81 MG TAB.CHEW PO SCH (09:00)
[2018-08-23] MEDS ORDERED: Lisinopril TAB* 5 MG PO SCH (09:00)
[2018-08-23] MEDS: Tiotropium Respimt 2.5 mcg(NF) 1 PUFF MDI INH SCH (12:12)
[2018-08-23] MEDS: CMCS:Escitalopram (NF) 10 MG TAB PO SCH (12:12)
[2018-08-23 13:02] LABS: ABS Basophils 0.1 10^3/ul (0-0.2); ABS Eosinophils 0.1 10^3/ul (0-0.6); ABS Lymphocytes 1.1 10^3/ul (1.0-4.8); ABS Monocytes 0.5 10^3/ul (0-0.8); ABS Neutrophils 3.9 10^3/ul (1.5-7.7); ABS Nucleated RBC 0 10^3/ul; Eosinophil % 1.3 %; Hematocrit 29 % (35-47); Hemoglobin 10.1 g/dl (12.0-16.0); Mean Corpuscular HGB Conc 34 g/dl (31-36); Mean Corpuscular Hemoglobin 34 pg (27-31); Mean Corpuscular Volume 98 fL (80-97); Mean Platelet Volume 6.9 fL (7.4-10.4); Nucleated Red Blood Cells % 0; Platelet Count 303 10^3/ul (150-450); Red Cell Distribution Width 14 % (10.5-15); White Blood Count 5.6 10^3/ul (3.5-10.8)
[2018-08-23 13:14] LABS: Activated Partial Thrombo Time 45.5 seconds (26.0-36.3); INR 1.05 (0.77-1.02)
[2018-08-23 13:17] LABS: EGFR Non-African American 51.2 (>60)
--- NOTE | 2018-08-23 15:57 | CONS ---
CONSULTATION REPORT: DATE OF CONSULT: 08/23/18 PRIMARY RESIDENCE LEASING AGENT: Dr. Lo. REASON FOR CONSULT: Increased complaints of shortness of breath in the setting of being status post right coronary artery intervention on 08/16/18 at [facility]. HISTORY OF PRESENT ILLNESS: This is a pleasant 83-year-old female patient who belongs to Dr. Lo of our practice with a known history of coronary artery disease, who recently underwent rotational atherectomy with drug-eluting stent placement to the right coronary artery on 08/16/18 due to unstable angina in addition to COPD with nightly oxygen use, obstructive sleep apnea with CPAP use, hyperlipidemia, heart failure with moderate reduction in EF, and moderate- to-severe mitral insufficiency. The patient presented to [facility] on 08/22/18 due to complaints of increased shortness of breath with increased oxygen use since percutaneous coronary intervention on 08/16/18. Unfortunately, the patient has difficulty recalling information. Thus, information provided for history of present illness was obtained by her 2 daughters and , all of whom are at her bedside. According to her , on 08/17/18, the day after being discharged from [facility], she had a 20- minute episode of increased shortness of breath , nausea that was resolved with administration of sublingual nitroglycerin. Throughout the week this past week, she has had periods of increased O2 use during the day time due to shortness of breath. He states yesterday around noon before having lunch, she "felt awful" with shortness of breath, diaphoresis , increased oxygen use, anxiousness to the point of being inconsolable. Thus, they called 911. She denies any recurrent chest pressure which was her anginal equivalent since the intervention on 08/16/18. While being evaluated in the emergency department, she was started on IV cefepime and ciprofloxacin therapy and was admitted to the ICU for further evaluation. Given her recent percutaneous coronary intervention and presentation, we were asked to see her in consultation. She denies any fever, chills, productive sputum, or infectious symptomatology. She denies bleeding complications such as lower abdominal pain, right groin pain, hematuria, hematochezia, or melena. She also reports compliance with cardiac medications. Last echocardiogram was on 08/09/18. At that time, LVEF was 40% to 45% with basal inferior, basal inferoseptal, mid inferior, mid inferoseptal, apical septal wall hypokinesis; moderate mitral regurgitation; no mitral stenosis; mild aortic insufficiency. Last ischemic evaluation was via left heart catheterization on 08/09/18 due to unstable angina. At that time, left main had 15% to 20% stenosis. 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 Collateral blood flow was seen through the septal perforators to the right-sided PDA with competitive flows seen at its most proximal portion of the PDA. Multiple diagonal branches were noted, small in caliber, throughout the course of the vessel. The third diagonal, which originated from the 60% lesion of the mid LAD had 85% stenosis. However, it was approximately 1 mm in caliber and not an interventional vessel. In addition, it was short. Circumflex was nondominant. Proximal to mid 35% to 40% stenosis. Right coronary artery was a dominant vessel. PDA was not visualized, but 2 posterior left ventricular branches were seen. Competitive flow could be seen into the distal RCA where the PDA was. There was diffuse calcification throughout the proximal mid portion of the vessel. There was ulceration seen proximally with a long segment of luminal reduction of 35% to 40%. As the artery turned, just prior to turning on to the inferior surface of the heart, there was an 85% to 90% blockage. Dr. Lim was unsuccessful in intervening upon the 85% to 90% RCA lesion. Thus, the patient was transferred to [facility] where she reportedly underwent rotational atherectomy with drug-eluting stent placement. I will request cath report. PAST MEDICAL HISTORY: Includes: 1. NSTEMI in September of 2017, treated medically. 2. Moderate mitral regurgitation. 3. Hypertension. 4. Obstructive sleep apnea. 5. Hyperlipidemia. 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 7. Coronary artery disease. 8. COPD, on nocturnal O2 use. 9. Obstructive sleep apnea, compliant with CPAP therapy. PAST SURGICAL HISTORY: Includes: 1. Rotational atherectomy. 2. Drug-eluting stent placement to RCA 08/16/18 at [facility]. 3. Prior back surgeries in 2002. HOME MEDICATIONS: 1. Aspirin 81 mg a day. 2. Brilinta 90 mg p.o. b.i.d. 3. Aldactone 25 mg a day. 4. Spiriva as directed. 5. Compazine as directed. 6. Sublingual nitroglycerin as directed. 7. Meclizine 25 mg p.o. q.6h. p.r.n. 8. Lisinopril 5 mg a day. 9. Xopenex as directed. 10. Lasix 20 mg p.o. daily. 11. Lexapro 20 mg a day. 12. Colace 100 mg p.o. b.i.d. 13. Carvedilol 6.25 mg p.o. b.i.d. 14. Atorvastatin 20 mg q.h.s. 15. Calcium with vitamin D3 as directed. ALLERGIES: Include NIACIN which reportedly causes rash. Denies allergy to contrast dye, iodine, or shellfish. FAMILY HISTORY: Father of myocardial infarction at the age of 69. Brother at the age of 49 due to myocardial infarction. Her son was diagnosed with an arrhythmia in his 40s. Unfortunately, she does not know the arrhythmia type. SOCIAL HISTORY: The patient is a former tobacco user, quit 30 years ago. However, she smoked less than a pack per day for 30 to 35 years. Drinks alcohol socially. She is and lives at home with her . She walks independently without assistive device. REVIEW OF SYSTEMS: All systems have been reviewed and otherwise negative except as above mentioned in the HPI. PHYSICAL EXAM: Vital Signs: Temperature 98.6, respirations 19, pulse 54, blood pressure 131/55, 2 L nasal cannula oxygen 99%. General: The patient is alert; oriented to person and place, not time; has difficulty recalling events. No apparent distress. Family at bedside. HEENT: Head is atraumatic, normocephalic. Oral mucosa is moist. Tongue is midline. Neck: Supple. Trachea midline. No JVD. Positive right carotid bruit. No thyromegaly. Lungs : Auscultated posteriorly, diminished throughout. Otherwise, no other adventitious breath sounds auscultated. Cardiac: Normal S1, S2. Regular rate and rhythm. There is a grade 2/5 mitral murmur auscultated under the left axilla. No gallop or rub. /GI: Abdomen is soft, nontender, nondistended. Normoactive bowel sounds throughout. Extremities: Right groin access site was inspected. Positive ecchymosis. No evidence of hematoma noted. No pulsatile mass. 2+ right femoral pulse palpated, 2+ right dorsalis pedis pulse palpated. Skin: Intact. No evidence of lesions. Again, positive ecchymosis surrounding right groin access site. Peripheral vascular 2+ brachial pulse palpated bilaterally and symmetrically, 2+ dorsalis pedis pulse palpated bilaterally and symmetrically, 2+ right femoral pulse palpated. DIAGNOSTIC STUDIES/LAB DATA: Blood work: White count is 5.8, hemoglobin 9.9, hematocrit 29, platelets 281. INR 1.0. Sodium 133, potassium 4.4, chloride 102 , carbon dioxide 25. BUN is 18.2, glucose 122. Influenza A and B are negative. EKG from 08/14/18 from prior admit reviewed. She is in normal sinus rhythm with slight ST abnormality noted in V6. EKG on 08/16/18 was reviewed. The patient had lateral biphasic T-wave abnormalities in addition to slight ST segment depression in lead II, less than 1 mm. Sinus rhythm 63. EKG upon this admission, 08/22/18 at 1451 was reviewed. She is normal sinus rhythm with lateral ST segment abnormalities, which appear to be exacerbation of her underlying known lateral ST biphasic T-wave abnormalities. Chest x-ray on 08/22/18 hyperinflation, linear atelectasis of the right lung. ASSESSMENT AND PLAN: 1. Complaints of increased shortness of breath, increased oxygen use with periods of nausea and diaphoresis. She had an episode on 08/17/18 that resolved with administration of sublingual nitroglycerin. She denies any symptomatology of an infectious process such as productive cough, fever, or chills. It appears that she was diaphoretic yesterday in the setting of being anxious due to her shortness of breath that was not responding to increased oxygen. Given known moderate 60% mid LAD lesion, I think it is reasonable to do a stress test to see whether or not this is hemodynamically significant given symptoms resolved with administration of nitroglycerin on 08/17/18. She also has known moderate to severe mitral insufficiency, which could certainly be an etiology in addition to her underlying COPD. She states her breathing is back to baseline at this current time. Troponin has been negative x4. She has known lateral biphasic T-wave abnormalities based on 08/09/18 EKG. Thus, EKG abnormalities during this admission appears to be exacerbation of those known lateral T-wave abnormalities. Another etiology is that this all appears to be new since she was placed on Brilinta which could be exacerbating her known tendency towards shortness of breath. Thus, we will transition her to Plavix therapy tonight with loading dose. She denies any history of stroke. 2. History of coronary artery disease, currently on aspirin, statin, beta- jim, and Brilinta therapy, to be transitioned Plavix therapy given increased shortness of breath since PCI. For continuity of care, we will request cath report from [facility] to identify stent diameter and information surrounding PCI. She denies anginal equivalent, which is chest pressure and cardiac enzymes have been negative x4. 3. History of [id number] mitral insufficiency. She appears compensated on physical examination. I will discuss with Dr. Lo about repeating echo to evaluate gradients given historically mitral insufficiency was assessed as severe in quality and then most recent echo 08/09/18 stated mitral insufficiency was moderate in quality. 4. Positive right carotid bruit on physical examination. We will check duplex. 5. History of hyperlipidemia. LDL goal is less than 70. She is only on 20 mg of atorvastatin. Would recommend moderate to high intensity statin therapy unless otherwise contraindicated. 6. History of moderate reduction in LVEF; LVEF 40% to 45% on 08/09/18. She is compensated on physical examination. Would continue carvedilol, lisinopril, Lasix, and Aldactone therapy. Given increased O2 requirements with increased shortness of breath since PCI, I would not up-titrate carvedilol at this time. I will, however, increase lisinopril to 10 mg a day. Would recommend repeating BNP in 1 week to ensure electrolytes and renal function are stable. 7. Disposition pending course. We will speak to Dr. Lo about repeating echocardiogram to reclassify mitral insufficiency. She will need a Lexiscan nuclear stress test to assess hemodynamic significance of residual LAD lesion. We will transition to Plavix therapy. I personally discussed plan of care with Dr. Lo who agrees with the above assessment and plan. Please do not hesitate to contact our service for any questions or concerns. YOSSI BENAVIDES NP [id number]/[facility] #: [id number] AKASH
--- NOTE | 2018-08-23 17:17 | PN ---
Subjective Date of Service: 08/23/18 Interval History: Pt seen and examined. Meds and labs reviewed. CC: N/A ROS: Denied WILSON/dizziness, F/C, N/V, CP, SOB, increased cough, sputum production , abd pain, diarrhea, constipation, dysuria, myalgias, arthralgias, throat pain , and new skin lesions. The rest of the 14 point ROS are unremarkable. PHYSICAL EXAM: GEN APPEARANCE: Awake, not in acute distress, not oriented to person and time--- mentions she has poor memory HEENT: NC/AT, PERRLA, moist oral mucosa, (-) throat erythema NECK: Soft, supple, (-) cervical LAD, (-)JVD HEART: S1S2 WNL, RRR, No MRG CHEST: CTA, BL, GAE, No W/R/R ABD: Soft, ND/NT, NABS 4x Q EXT: No C/C/E SKIN: Warm to touch PSYCH: No active psychosis, hallucinations, depression, SI/HI Objective Active Medications: Acetaminophen (Tylenol Tab*) 650 mg PO Q6H PRN PRN Reason: FEVER/PAIN Aspirin (Aspirin Ec Tab*) 81 mg PO DAILY [facility] Last Admin: 08/23/18 08:40 Dose: 81 mg Atorvastatin Calcium (Lipitor*) 20 mg PO 1700 [facility] Last Admin: 08/22/18 17:05 Dose: 20 mg Calcium/Vitamin D (Oscal D Tab 250/125*) 1 tab PO BID WITH MEALS [facility] Last Admin: 08/23/18 08:40 Dose: 1 tab Carvedilol (Coreg Tab*) 3.125 mg PO BID [facility] Last Admin: 08/23/18 08:40 Dose: 3.125 mg Clopidogrel Bisulfate (Plavix Tab*) 300 mg PO ONCE ONE Stop: 08/23/18 21:01 Clopidogrel Bisulfate (Plavix Tab*) 75 mg PO DAILY [facility] Docusate Sodium (Colace Cap*) 100 mg PO BID [facility] Last Admin: 08/23/18 08:37 Dose: 100 mg Escitalopram Oxalate (Lexapro (Nf)) 20 mg PO DAILY [facility] Last Admin: 08/23/18 12:12 Dose: Not Given Furosemide (Lasix Tab*) 20 mg PO DAILY [facility] Last Admin: 08/23/18 08:40 Dose: 20 mg Heparin Sodium (Porcine) (Heparin Vial(*)) 5,000 units SUBCUT Q12HR [facility] Lactobacillus Rhamnosus (Lactobacillus Acidophilus*) 2 tab PO DAILY [facility] Last Admin: 08/23/18 08:39 Dose: 2 tab Lisinopril (Prinivil Tab*) 10 mg PO DAILY [facility] Lorazepam (Ativan Tab(*)) 0.5 mg PO BID PRN PRN Reason: ANXIETY Nitroglycerin (Nitroglycerin Tab 0.4 Mg*) 0.4 mg SL Q5M PRN PRN Reason: ANGINA Last Admin: 08/22/18 18:39 Dose: 0.4 mg Ondansetron HCl (Zofran Inj*) 4 mg IV Q6H PRN PRN Reason: NAUSEA Prochlorperazine (Compazine Tab*) 10 mg PO Q6H PRN PRN Reason: NAUSEA Spironolactone (Aldactone Tab*) 25 mg PO DAILY [facility] Last Admin: 08/23/18 08:40 Dose: 25 mg Tiotropium [place] (Spiriva Respimat 2.5 Mcg(Nf)) 2 puff INH DAILY [facility] Last Admin: 08/23/18 12:12 Dose: Not Given Vital Signs - 8 hr 08/23/18 08/23/18 08/23/18 09:16 09:30 09:45 Temperature Pulse Rate 70 66 64 Respiratory 20 15 19 Rate Blood Pressure 118/76 131/48 123/49 (mmHg) O2 Sat by Pulse 97 97 Oximetry 08/23/18 08/23/18 08/23/18 10:00 10:15 10:31 Temperature Pulse Rate 66 67 68 Respiratory 15 21 11 Rate Blood Pressure 140/45 148/56 132/87 (mmHg) O2 Sat by Pulse 97 96 99 Oximetry 08/23/18 08/23/18 08/23/18 10:51 11:00 11:15 Temperature Pulse Rate 79 80 59 Respiratory 21 14 17 Rate Blood Pressure 64/46 121/54 (mmHg) O2 Sat by Pulse 97 96 97 Oximetry 08/23/18 08/23/18 08/23/18 11:30 11:45 12:00 Temperature 99.1 F Pulse Rate 59 63 70 Respiratory 17 18 18 Rate Blood Pressure 122/55 116/49 122/63 (mmHg) O2 Sat by Pulse 97 98 98 Oximetry 08/23/18 08/23/18 08/23/18 12:15 12:30 12:45 Temperature Pulse Rate 63 56 62 Respiratory 15 13 Rate Blood Pressure 115/52 106/52 113/52 (mmHg) O2 Sat by Pulse 98 98 97 Oximetry 08/23/18 08/23/18 08/23/18 12:59 13:00 13:16 Temperature 99.1 F Pulse Rate 65 65 Respiratory 14 22 Rate Blood Pressure 118/50 (mmHg) O2 Sat by Pulse 99 98 Oximetry 08/23/18 08/23/18 08/23/18 13:31 13:45 14:00 Temperature Pulse Rate 74 69 69 Respiratory 18 21 20 Rate Blood Pressure 113/56 123/54 (mmHg) O2 Sat by Pulse 98 98 Oximetry 08/23/18 08/23/18 08/23/18 14:02 14:15 14:30 Temperature Pulse Rate 70 65 66 Respiratory 25 20 19 Rate Blood Pressure 133/23 104/54 107/48 (mmHg) O2 Sat by Pulse 99 96 97 Oximetry 08/23/18 14:45 Temperature Pulse Rate 67 Respiratory 19 Rate Blood Pressure 113/60 (mmHg) O2 Sat by Pulse 97 Oximetry Oxygen Devices in Use Now: Nasal Cannula Result Diagrams: 08/23/18 12:15 08/23/18 12:15 Microbiology and Other Data: Microbiology 08/22/18 17:01 Aerobic Blood Culture - Preliminary Blood Venous No Growth Day 1 Anaerobic Blood Culture - Preliminary No Growth Day 1 08/22/18 13:56 Aerobic Blood Culture - Preliminary Blood Venous No Growth Day 1 Anaerobic Blood Culture - Preliminary No Growth Day 1 08/22/18 14:11 Influenza Types A,B Antigen - Final Nasal Specimen received for Influenza A/B Molecular testing Assess/Plan/Problems-Billing Assessment: - Patient Problems (1) Syncope Current Visit: Yes Status: Acute Code(s): R55 - SYNCOPE AND COLLAPSE SNOMED Code(s): 248466328 Comment: -Given known CAD and presenting symptoms, pt for stress test -D/W Kennedi earlier and metioned about Brilinta that will be changed to Effient , however, what was ordered was Clopidogrel?? Will defer with Cards/Dr. Coe. -Appreciate cards eval -No ICA stenosis on carotid dopplers -D/Cd Heparin gtt (2) Thyroid nodule Current Visit: Yes Status: Acute Code(s): E04.1 - NONTOXIC SINGLE THYROID NODULE SNOMED Code(s): 741167018 Comment: -For thyroid U/S -For TSH level in AM (3) CAD (coronary artery disease) Current Visit: Yes Status: Acute Code(s): I25.10 - ATHSCL HEART DISEASE OF [place] CORONARY ARTERY W/O ANG PCTRS SNOMED Code(s): 86961763 Comment: -Continue ASA, Plavix, Carvedilol, atorvastatin, Lisinopril, and Spirinolactone (4) HTN (hypertension) Current Visit: Yes Status: Acute Code(s): I10 - ESSENTIAL (PRIMARY) HYPERTENSION SNOMED Code(s): 72987370 Comment: -Well-controlled -Continue meds as described above (5) YONY (obstructive sleep apnea) Current Visit: Yes Status: Acute Code(s): G47.33 - OBSTRUCTIVE SLEEP APNEA ( ADULT) (PEDIATRIC) SNOMED Code(s): 11299254 Comment: -Continue CPAP qHS (6) COPD (chronic obstructive pulmonary disease) Current Visit: Yes Status: Acute Code(s): J44.9 - CHRONIC OBSTRUCTIVE PULMONARY DISEASE, UNSPECIFIED SNOMED Code(s): 02182776 Comment: -Not in acute exacerbation -Continue Tiotropium (7) DVT prophylaxis Current Visit: No Status: Acute Code(s): XWQ9177 - SNOMED Code(s): 964652798 Comment: SQ heparin Status and Disposition: -As above -For PT eval
[2018-08-23] MEDS: Atorvastatin* 20 MG TAB PO SCH (18:37)
[2018-08-23] MEDS: Heparin VIAL(*) 5000 UNITS/ML VIAL (FIVE THOUSAND) SUBCUT SCH (20:37)
[2018-08-23] MEDS ORDERED: Clopidogrel TAB* 300 MG PO ONE (21:00)
[2018-08-23] MEDS ORDERED: Nitro Patch/OINT Remove PATCH OFF SCH (21:00)
[2018-08-23] MEDS ORDERED: Prasugrel (NF) 10 MG PO ONE ×2 (21:00)
[2018-08-24 05:27] LABS: ABS Basophils 0 10^3/ul (0-0.2); ABS Eosinophils 0.2 10^3/ul (0-0.6); ABS Lymphocytes 1.6 10^3/ul (1.0-4.8); ABS Monocytes 0.5 10^3/ul (0-0.8); ABS Neutrophils 3.6 10^3/ul (1.5-7.7); ABS Nucleated RBC 0 10^3/ul; Eosinophil % 2.6 %; Hematocrit 30 % (35-47); Hemoglobin 10.1 g/dl (12.0-16.0); Lymphocyte % 26.3 %; Mean Corpuscular HGB Conc 34 g/dl (31-36); Mean Corpuscular Hemoglobin 33 pg (27-31); Mean Corpuscular Volume 98 fL (80-97); Mean Platelet Volume 6.9 fL (7.4-10.4); Nucleated Red Blood Cells % 0; Platelet Count 275 10^3/ul (150-450); Red Blood Count 3.07 10^6/ul (4.00-5.40); Red Cell Distribution Width 14 % (10.5-15); White Blood Count 5.9 10^3/ul (3.5-10.8)
[2018-08-24 05:58] LABS: Albumin 3.8 g/dL (3.2-5.2); Albumin/Globulin Ratio 1.5 (1-3); BUN/Creatinine Ratio 21.2 (8-20); Calcium 9.4 mg/dL (8.6-10.3); EGFR Non-African American 43.7 (>60); Globulin 2.5 g/dL (2-4); Magnesium 2.3 mg/dL (1.9-2.7); Phosphorus 3.8 mg/dL (2.5-5.0); Potassium 4.2 mmol/L (3.5-5.0); Total Bilirubin 0.6 mg/dL (0.2-1.0); Total Protein 6.3 g/dL (6.4-8.9)
[2018-08-24] MEDS ORDERED: PRASUGREL 5 MG PO SCH (09:00)
[2018-08-24] MEDS: Spironolactone TAB* 25 MG PO SCH (09:11)
[2018-08-24] MEDS: Carvedilol TAB* 3.125 MG PO SCH ×2 (09:11→20:32)
[2018-08-24] MEDS: Lactobacillus Acidophilus* 1 TAB PO SCH (09:11)
[2018-08-24] MEDS: Furosemide TAB* 20 MG PO SCH (09:11)
[2018-08-24] MEDS: Clopidogrel TAB* 75 MG PO SCH (09:11)
[2018-08-24] MEDS: Aspirin EC TAB* 81 MG TAB.EC PO SCH (09:12)
[2018-08-24] MEDS: Calcium/Vitamin D TAB 250/125* TAB PO SCH ×2 (09:12→18:15)
[2018-08-24] MEDS: Lisinopril TAB* 10 MG PO SCH (09:12)
[2018-08-24] MEDS: Docusate CAP* 100 MG PO SCH ×2 (09:12→20:32)
[2018-08-24] MEDS: Heparin VIAL(*) 5000 UNITS/ML VIAL (FIVE THOUSAND) SUBCUT SCH ×2 (09:13→20:32)
[2018-08-24] MEDS: CMCS:Escitalopram (NF) 10 MG TAB PO SCH (09:14)
--- NOTE | 2018-08-24 10:18 | PN ---
Subjective Date of Service: 08/24/18 - CC: shakey, nausea, chest pressure. Interval History: The patient was seen with her daughter. No recurrence of symptoms of shakiness, weakness, nausea and SS chest pressure. Ate breakfast and now problems. The daughter stated her symptoms were typical of symptoms she had been having prior to her coronary stent. The daughter also stated that on her Mother's NTG patch had been forgotten inadvertently. Medications Active Medications: Acetaminophen (Tylenol Tab*) 650 mg PO Q6H PRN PRN Reason: FEVER/PAIN Aspirin (Aspirin Ec Tab*) 81 mg PO DAILY [facility] Last Admin: 08/24/18 09:12 Dose: 81 mg Atorvastatin Calcium (Lipitor*) 20 mg PO 1700 [facility] Last Admin: 08/23/18 18:37 Dose: 20 mg Calcium/Vitamin D (Oscal D Tab 250/125*) 1 tab PO BID WITH MEALS [facility] Last Admin: 08/24/18 09:12 Dose: 1 tab Carvedilol (Coreg Tab*) 3.125 mg PO BID [facility] Last Admin: 08/24/18 09:11 Dose: 3.125 mg Clopidogrel Bisulfate (Plavix Tab*) 75 mg PO DAILY [facility] Last Admin: 08/24/18 09:11 Dose: 75 mg Docusate Sodium (Colace Cap*) 100 mg PO BID [facility] Last Admin: 08/24/18 09:12 Dose: Not Given Escitalopram Oxalate (Lexapro (Nf)) 20 mg PO DAILY [facility] Last Admin: 08/24/18 09:14 Dose: 20 mg Furosemide (Lasix Tab*) 20 mg PO DAILY [facility] Last Admin: 08/24/18 09:11 Dose: 20 mg Heparin Sodium (Porcine) (Heparin Vial(*)) 5,000 units SUBCUT Q12HR [facility] Last Admin: 08/24/18 09:13 Dose: 5,000 units Lactobacillus Rhamnosus (Lactobacillus Acidophilus*) 2 tab PO DAILY [facility] Last Admin: 08/24/18 09:11 Dose: 2 tab Lisinopril (Prinivil Tab*) 10 mg PO DAILY [facility] Last Admin: 08/24/18 09:12 Dose: 10 mg Lorazepam (Ativan Tab(*)) 0.5 mg PO BID PRN PRN Reason: ANXIETY Nitroglycerin (Nitroglycerin Tab 0.4 Mg*) 0.4 mg SL Q5M PRN PRN Reason: ANGINA Last Admin: 08/22/18 18:39 Dose: 0.4 mg Ondansetron HCl (Zofran Inj*) 4 mg IV Q6H PRN PRN Reason: NAUSEA Prochlorperazine (Compazine Tab*) 10 mg PO Q6H PRN PRN Reason: NAUSEA Spironolactone (Aldactone Tab*) 25 mg PO DAILY [facility] Last Admin: 08/24/18 09:11 Dose: 25 mg Tiotropium [place] (Spiriva Respimat 2.5 Mcg(Nf)) 2 puff INH DAILY [facility] Last Admin: 08/23/18 12:12 Dose: Not Given Objective Vital Signs: Temp Pulse Resp BP Pulse Ox 98.5 F 53 16 112/35 98 08/24/18 07:43 08/24/18 06:00 08/24/18 06:00 08/24/18 06:00 08/24/18 06:00 Oxygen Devices in Use Now: Nasal Cannula Appearance: elderly female, seated, breakfast tray nearly empty. Appears comfortable. Eyes: No Scleral Icterus, PERRLA Ears/Nose/Mouth/Throat: NL Teeth, Lips, Gums, Clear Oropharnyx, Mucous Membranes Moist Neck: NL Appearance and Movements; NL JVP, Trachea Midline, No Thyroid Enlargement, Masses Respiratory: Symmetrical Chest Expansion and Respiratory Effort, Clear to Auscultation Cardiovascular: NL Sounds; No Murmurs; No JVD, RRR Abdominal: NL Sounds; No Tenderness; No Distention, No Hepatosplenomegaly Extremities: No Edema Skin: No Rash or Ulcers Neurological: Alert and Oriented x 3 Laboratory Results: 08/24/18 05:15 08/24/18 05:15 INR (Anticoag Therapy) 1.05 (0.77-1.02) H 08/23/18 12:15 APTT 45.5 seconds (26.0-36.3) H 08/23/18 12:15 Total Bilirubin 0.60 mg/dL (0.2-1.0) 08/24/18 05:15 AST 20 U/L (13-39) 08/24/18 05:15 ALT 13 U/L (7-52) 08/24/18 05:15 Alkaline Phosphatase 39 U/L (34-104) 08/24/18 05:15 Total Protein 6.3 g/dL (6.4-8.9) L 08/24/18 05:15 Albumin 3.8 g/dL (3.2-5.2) 08/24/18 05:15 Globulin 2.5 g/dL (2-4) 08/24/18 05:15 Albumin/Globulin Ratio 1.5 (1-3) 08/24/18 05:15 TSH 0.79 mcIU/mL (0.34-5.60) 08/24/18 05:15 08/22/18 08/22/18 08/22/18 13:56 17:01 22:50 Troponin I 0.01 0.01 0.02 08/23/18 01:04 Troponin I 0.02 Diagnostic Imaging: Echo 08/09/18: EF 40-45%, mild AI Cath July 2018: LM 15-20%, LAD 60%, D3 85% (too small for interventio), Cx 35%, RCA 90% to rotablation and DELTA EKG Data: ECGs, none today, reviewed serially, mild ST depression laterally, NSR. Assessment/Plan 83 yo female with O2 dependent COPD, CAD with recent crescendo angina and DELTA to tight RCA lesion 08/16/18, tight branch vessel disease, mild to moderat CM pre stent who presented with shaking and weakness concerning for possible infection and also recurrence of anginal symptoms. Troponins unremarkable and ECG did not show acute changes. CAD+angina: I agree with plans for myoview stress Sunday. The patient is at risk for angina from tight diagonal lesion, medical management for this, consider resuming NTG patch or adding Norvasc. Continue Statin, Coreg, Plavix, ACEI (lisinopril) I will recheck lipids, they were not optimal in July. She is only on 20 mg atorvastatin, recommend empirically increasing to 80 mg with recent stent/ ischemia and can titrate as outpatient unless she had problems with higher doses in the past. If triglyerides still high then adjust diet/education. CM: Continue Coreg and ACEI and Spironolactone and on lasix. Anemia: Noted, chronic. COPD: Per hospitalist. I did not appreciate new COPD meds that could have led to symptoms, but spriva will lead to shakiness in some individuals.
[2018-08-24] MEDS: Tiotropium Respimt 2.5 mcg(NF) 1 PUFF MDI INH SCH (11:20)
[2018-08-24 14:06] LABS: HDL Cholesterol 41.8 mg/dL
[2018-08-24] MEDS: Atorvastatin* 20 MG TAB PO SCH (18:15)
--- NOTE | 2018-08-24 19:24 | PN ---
Subjective Date of Service: 08/24/18 Interval History: Pt seen and examined. Meds and labs reviewed. CC: N/A ROS: Denied WILSON/dizziness, F/C, N/V, CP, SOB, increased cough, sputum production , abd pain, diarrhea, constipation, dysuria, myalgias, arthralgias, throat pain , and new skin lesions. The rest of the 14 point ROS are unremarkable. PHYSICAL EXAM: GEN APPEARANCE: Awake, not in acute distress, not oriented to person and time--- mentions she has poor memory HEENT: NC/AT, PERRLA, moist oral mucosa, (-) throat erythema NECK: Soft, supple, (-) cervical LAD, (-)JVD HEART: S1S2 WNL, RRR, No MRG CHEST: CTA, BL, GAE, No W/R/R ABD: Soft, ND/NT, NABS 4x Q EXT: No C/C/E SKIN: Warm to touch PSYCH: No active psychosis, hallucinations, depression, SI/HI Objective Active Medications: Acetaminophen (Tylenol Tab*) 650 mg PO Q6H PRN PRN Reason: FEVER/PAIN Last Admin: 08/24/18 11:20 Dose: 650 mg Aspirin (Aspirin Ec Tab*) 81 mg PO DAILY [facility] Last Admin: 08/24/18 09:12 Dose: 81 mg Atorvastatin Calcium (Lipitor*) 80 mg PO 1700 [facility] Last Admin: 08/24/18 18:15 Dose: 80 mg Calcium/Vitamin D (Oscal D Tab 250/125*) 1 tab PO BID WITH MEALS [facility] Last Admin: 08/24/18 18:15 Dose: 1 tab Carvedilol (Coreg Tab*) 3.125 mg PO BID [facility] Last Admin: 08/24/18 09:11 Dose: 3.125 mg Clopidogrel Bisulfate (Plavix Tab*) 75 mg PO DAILY [facility] Last Admin: 08/24/18 09:11 Dose: 75 mg Docusate Sodium (Colace Cap*) 100 mg PO BID [facility] Last Admin: 08/24/18 09:12 Dose: Not Given Escitalopram Oxalate (Lexapro (Nf)) 20 mg PO DAILY [facility] Last Admin: 08/24/18 09:14 Dose: 20 mg Furosemide (Lasix Tab*) 20 mg PO DAILY [facility] Last Admin: 08/24/18 09:11 Dose: 20 mg Heparin Sodium (Porcine) (Heparin Vial(*)) 5,000 units SUBCUT Q12HR [facility] Last Admin: 08/24/18 09:13 Dose: 5,000 units Lactobacillus Rhamnosus (Lactobacillus Acidophilus*) 2 tab PO DAILY [facility] Last Admin: 08/24/18 09:11 Dose: 2 tab Lisinopril (Prinivil Tab*) 10 mg PO DAILY [facility] Last Admin: 08/24/18 09:12 Dose: 10 mg Lorazepam (Ativan Tab(*)) 0.5 mg PO BID PRN PRN Reason: ANXIETY Nitroglycerin (Nitroglycerin Tab 0.4 Mg*) 0.4 mg SL Q5M PRN PRN Reason: ANGINA Last Admin: 08/22/18 18:39 Dose: 0.4 mg Ondansetron HCl (Zofran Inj*) 4 mg IV Q6H PRN PRN Reason: NAUSEA Prochlorperazine (Compazine Tab*) 10 mg PO Q6H PRN PRN Reason: NAUSEA Spironolactone (Aldactone Tab*) 25 mg PO DAILY [facility] Last Admin: 08/24/18 09:11 Dose: 25 mg Tiotropium [place] (Spiriva Respimat 2.5 Mcg(Nf)) 2 puff INH DAILY [facility] Last Admin: 08/24/18 11:20 Dose: Not Given Vital Signs - 8 hr 08/24/18 08/24/18 08/24/18 12:00 13:00 13:01 Temperature 99.2 F Pulse Rate 66 73 65 Respiratory 16 21 15 Rate Blood Pressure 119/44 132/52 (mmHg) O2 Sat by Pulse 94 91 94 Oximetry 08/24/18 08/24/18 08/24/18 14:00 14:01 15:00 Temperature Pulse Rate 68 77 67 Respiratory 16 20 20 Rate Blood Pressure 115/99 104/49 (mmHg) O2 Sat by Pulse 93 93 95 Oximetry 08/24/18 08/24/18 08/24/18 16:00 17:00 18:00 Temperature 97.8 F Pulse Rate 63 65 66 Respiratory 21 19 20 Rate Blood Pressure 117/52 110/52 (mmHg) O2 Sat by Pulse 95 92 96 Oximetry Oxygen Devices in Use Now: Nasal Cannula Result Diagrams: 08/24/18 05:15 08/24/18 05:15 Microbiology and Other Data: Microbiology 08/22/18 17:01 Aerobic Blood Culture - Preliminary Blood Venous No Growth Day 1 Anaerobic Blood Culture - Preliminary No Growth Day 1 08/22/18 13:56 Aerobic Blood Culture - Preliminary Blood Venous No Growth Day 1 Anaerobic Blood Culture - Preliminary No Growth Day 1 08/22/18 14:11 Influenza Types A,B Antigen - Final Nasal Specimen received for Influenza A/B Molecular testing Assess/Plan/Problems-Billing Assessment: - Patient Problems (1) Syncope Current Visit: Yes Status: Acute Code(s): R55 - SYNCOPE AND COLLAPSE SNOMED Code(s): 129089958 Comment: -Given known CAD and presenting symptoms, pt for stress test -D/W Kennedi earlier and metioned about Brilinta that will be changed to Effient , however, what was ordered was Clopidogrel?? Will defer with Cards/Dr. Coe. -Appreciate cards eval -No ICA stenosis on carotid dopplers -Head CT done today shows possible left maxillary sinusitis, however, will observe for now given pt was not complaining of sinus symptoms and could be incidental finding -For Myoview stress on Sunday (2) Thyroid nodule Current Visit: Yes Status: Acute Code(s): E04.1 - NONTOXIC SINGLE THYROID NODULE SNOMED Code(s): 653716359 Comment: -Thyroid U/S suggests BL thyroid nodules -TSH WNL -May benefit from Endocrinology referral to see if repeat U/S in 1 year is sufficient vs. confirmation of presumed cold nodules due to normal TSH (3) CAD (coronary artery disease) Current Visit: Yes Status: Acute Code(s): I25.10 - ATHSCL HEART DISEASE OF [place] CORONARY ARTERY W/O ANG PCTRS SNOMED Code(s): 10905940 Comment: -Continue ASA, Plavix, Carvedilol, Lisinopril, and Spirinolactone -Increased Atorvastatin per cards reccs especially given LDL >60 (4) HTN (hypertension) Current Visit: Yes Status: Acute Code(s): I10 - ESSENTIAL (PRIMARY) HYPERTENSION SNOMED Code(s): 93607007 Comment: -Well-controlled -Continue meds as described above (5) YONY (obstructive sleep apnea) Current Visit: Yes Status: Acute Code(s): G47.33 - OBSTRUCTIVE SLEEP APNEA ( ADULT) (PEDIATRIC) SNOMED Code(s): 92855256 Comment: -Continue CPAP qHS (6) COPD (chronic obstructive pulmonary disease) Current Visit: Yes Status: Acute Code(s): J44.9 - CHRONIC OBSTRUCTIVE PULMONARY DISEASE, UNSPECIFIED SNOMED Code(s): 76307780 Comment: -Not in acute exacerbation -Continue Tiotropium---although given its anticholinergic effects can cause shakiness, reconsider if continues although pt has not complained of this since admission -Continue watchful waiting (7) DVT prophylaxis Current Visit: No Status: Acute Code(s): HVG2210 - SNOMED Code(s): 074347081 Comment: SQ heparin Status and Disposition: -As above -Appreciate PT eval; D/C home when W/U done and continues to be hemodynamically stable
[2018-08-25 06:00] LABS: Hematocrit 30 % (35-47); Mean Corpuscular HGB Conc 34 g/dl (31-36); Mean Corpuscular Hemoglobin 33 pg (27-31); Mean Corpuscular Volume 98 fL (80-97); Mean Platelet Volume 7.1 fL (7.4-10.4); Platelet Count 280 10^3/ul (150-450); Red Blood Count 3.04 10^6/ul (4.00-5.40); Red Cell Distribution Width 13 % (10.5-15); White Blood Count 5.4 10^3/ul (3.5-10.8)
[2018-08-25 06:13] LABS: BUN/Creatinine Ratio 25.5 (8-20); Calcium 9.3 mg/dL (8.6-10.3); EGFR Non-African American 47.4 (>60); Potassium 4.2 mmol/L (3.5-5.0)
[2018-08-25] MEDS ORDERED: hydrOXYzine HCL TAB* 50 MG PO PRN (09:06)
[2018-08-25] MEDS ORDERED: hydrOXYzine HCL TAB* 50 MG PO STA (09:07)
[2018-08-25] MEDS: Calcium/Vitamin D TAB 250/125* TAB PO SCH ×2 (09:13→18:18)
[2018-08-25] MEDS: Clopidogrel TAB* 75 MG PO SCH (09:13)
[2018-08-25] MEDS: Spironolactone TAB* 25 MG PO SCH (09:13)
[2018-08-25] MEDS: Aspirin EC TAB* 81 MG TAB.EC PO SCH (09:13)
[2018-08-25] MEDS: Docusate CAP* 100 MG PO SCH ×2 (09:14→20:37)
[2018-08-25] MEDS: Carvedilol TAB* 3.125 MG PO SCH ×2 (09:14→20:37)
[2018-08-25] MEDS: Furosemide TAB* 20 MG PO SCH (09:15)
[2018-08-25] MEDS: Lisinopril TAB* 10 MG PO SCH (09:15)
[2018-08-25] MEDS: CMCS:Escitalopram (NF) 10 MG TAB PO SCH (09:15)
[2018-08-25] MEDS: Heparin VIAL(*) 5000 UNITS/ML VIAL (FIVE THOUSAND) SUBCUT SCH ×2 (09:15→20:37)
[2018-08-25] MEDS: Lactobacillus Acidophilus* 1 TAB PO SCH (09:15)
--- NOTE | 2018-08-25 11:46 | PN ---
Subjective Date of Service: 08/25/18 - CC: chest pressure. SOB improved. Interval History: The patient was seen with a different daughter, son in law and her . Her stated the biggest issue on presentation was SOB and tachypnea. No recurrence of symptoms of shakiness, weakness, nausea or SOB. The pt did have some mild SS chest pressure getting OOB to chair this AM. The patient is very forgetful per family and nursing confirms. Nursing mentions OS dizziness. Medications Active Medications: Acetaminophen (Tylenol Tab*) 650 mg PO Q6H PRN PRN Reason: FEVER/PAIN Last Admin: 08/24/18 11:20 Dose: 650 mg Aspirin (Aspirin Ec Tab*) 81 mg PO DAILY [facility] Last Admin: 08/25/18 09:13 Dose: 81 mg Atorvastatin Calcium (Lipitor*) 80 mg PO 1700 [facility] Last Admin: 08/24/18 18:15 Dose: 80 mg Calcium/Vitamin D (Oscal D Tab 250/125*) 1 tab PO BID WITH MEALS [facility] Last Admin: 08/25/18 09:13 Dose: 1 tab Carvedilol (Coreg Tab*) 3.125 mg PO BID [facility] Last Admin: 08/25/18 09:14 Dose: 3.125 mg Clopidogrel Bisulfate (Plavix Tab*) 75 mg PO DAILY [facility] Last Admin: 08/25/18 09:13 Dose: 75 mg Docusate Sodium (Colace Cap*) 100 mg PO BID [facility] Last Admin: 08/25/18 09:14 Dose: 100 mg Escitalopram Oxalate (Lexapro (Nf)) 20 mg PO DAILY [facility] Last Admin: 08/25/18 09:15 Dose: 20 mg Furosemide (Lasix Tab*) 20 mg PO DAILY [facility] Last Admin: 08/25/18 09:15 Dose: 20 mg Heparin Sodium (Porcine) (Heparin Vial(*)) 5,000 units SUBCUT Q12HR [facility] Last Admin: 08/25/18 09:15 Dose: 5,000 units Hydroxyzine HCl (Atarax Tab*) 50 mg PO Q6H PRN PRN Reason: ANXIETY Lactobacillus Rhamnosus (Lactobacillus Acidophilus*) 2 tab PO DAILY [facility] Last Admin: 08/25/18 09:15 Dose: 2 tab Lisinopril (Prinivil Tab*) 10 mg PO DAILY [facility] Last Admin: 08/25/18 09:15 Dose: 10 mg Lorazepam (Ativan Tab(*)) 0.5 mg PO BID PRN PRN Reason: ANXIETY Nitroglycerin (Nitroglycerin Tab 0.4 Mg*) 0.4 mg SL Q5M PRN PRN Reason: ANGINA Last Admin: 08/22/18 18:39 Dose: 0.4 mg Ondansetron HCl (Zofran Inj*) 4 mg IV Q6H PRN PRN Reason: NAUSEA Prochlorperazine (Compazine Tab*) 10 mg PO Q6H PRN PRN Reason: NAUSEA Spironolactone (Aldactone Tab*) 25 mg PO DAILY [facility] Last Admin: 08/25/18 09:13 Dose: 25 mg Tiotropium [place] (Spiriva Respimat 2.5 Mcg(Nf)) 2 puff INH DAILY [facility] Last Admin: 08/24/18 11:20 Dose: Not Given Objective Vital Signs: Temp Pulse Resp BP Pulse Ox 99.1 F 51 12 128/56 96 08/25/18 08:00 08/25/18 06:00 08/25/18 06:00 08/25/18 06:00 08/25/18 06:00 Oxygen Devices in Use Now: Nasal Cannula Appearance: elderly female, seated, talking with family. Appears comfortable. Eyes: No Scleral Icterus, PERRLA Ears/Nose/Mouth/Throat: NL Teeth, Lips, Gums, Clear Oropharnyx, Mucous Membranes Moist Neck: NL Appearance and Movements; NL JVP, Trachea Midline, No Thyroid Enlargement, Masses Respiratory: Symmetrical Chest Expansion and Respiratory Effort - rare crackles bases. Cardiovascular: NL Sounds; No Murmurs; No JVD, RRR Abdominal: NL Sounds; No Tenderness; No Distention, No Hepatosplenomegaly Extremities: No Edema Skin: No Rash or Ulcers Neurological: - - Anwers questions, not accurate per family, follows commands. Laboratory Results: 08/25/18 05:42 08/25/18 05:42 INR (Anticoag Therapy) 1.05 (0.77-1.02) H 08/23/18 12:15 APTT 45.5 seconds (26.0-36.3) H 08/23/18 12:15 Total Bilirubin 0.60 mg/dL (0.2-1.0) 08/24/18 05:15 AST 20 U/L (13-39) 08/24/18 05:15 ALT 13 U/L (7-52) 08/24/18 05:15 Alkaline Phosphatase 39 U/L (34-104) 08/24/18 05:15 Total Protein 6.3 g/dL (6.4-8.9) L 08/24/18 05:15 Albumin 3.8 g/dL (3.2-5.2) 08/24/18 05:15 Globulin 2.5 g/dL (2-4) 08/24/18 05:15 Albumin/Globulin Ratio 1.5 (1-3) 08/24/18 05:15 Triglycerides 166 mg/dL 08/24/18 05:15 Cholesterol 152 mg/dL 08/24/18 05:15 LDL Cholesterol 77 mg/dL 08/24/18 05:15 HDL Cholesterol 41.8 mg/dL 08/24/18 05:15 TSH 0.79 mcIU/mL (0.34-5.60) 08/24/18 05:15 08/22/18 08/22/18 08/22/18 13:56 17:01 22:50 Troponin I 0.01 0.01 0.02 08/23/18 08/25/18 01:04 09:20 Troponin I 0.02 0.02 Diagnostic Imaging: Echo 08/09/18: EF 40-45%, mild AI Cath July 2018: LM 15-20%, LAD 60%, D3 85% (too small for interventio), Cx 35%, RCA 90% to rotablation and DELTA CXR 08/25/18: mild infiltrate vs effusion left base. EKG Data: ECGs, none today, reviewed serially, mild ST depression laterally, NSR. Assessment/Plan 83 yo female with O2 dependent COPD, CAD with recent crescendo angina and DELTA to tight RCA lesion 08/16/18, tight branch vessel disease, mild to moderat CM pre stent who presented with shaking and weakness concerning for possible infection and also recurrence of anginal symptoms. Troponins unremarkable and ECG did not show acute changes. Today's history from the patient's is that her presenting CC was SOB. Her Brilinta has been changed to Plavix since admission. CAD+angina: I agree with plans for myoview stress Sami. The patient is at risk for angina from tight diagonal lesion, medical management for this, consider resuming NTG patch or adding Norvasc. Continue Statin, Coreg, Plavix, ACEI (lisinopril) Increased Lipator yesterday, LDL close to target. CM: Continue Coreg and ACEI and Spironolactone and on lasix. For orthostatic symptoms and intermittent low BP with mild elevation in BUN, consider changing diuretics to alternating Lasix and Aldactone, QOD each. Anemia: Noted, chronic. COPD: Per hospitalist From a cardiology standpoint OK to go to floor bed.
[2018-08-25] MEDS ORDERED: Tiotropium CAP.INH* CAP.INH/18 MCG (USE ORDER SET !) INH SCH (14:03)
[2018-08-25] MEDS: Atorvastatin* 20 MG TAB PO SCH (18:18)
--- NOTE | 2018-08-25 19:00 | PN ---
Subjective Date of Service: 08/25/18 Interval History: Pt seen and examined. Meds and labs reviewed. CC: N/A ROS: Denied WILSON/dizziness, F/C, N/V, CP, SOB, increased cough, sputum production , abd pain, diarrhea, constipation, dysuria, myalgias, arthralgias, throat pain , and new skin lesions. The rest of the 14 point ROS are unremarkable. PHYSICAL EXAM: GEN APPEARANCE: Awake, not in acute distress, HEENT: NC/AT, PERRLA, moist oral mucosa, (-) throat erythema NECK: Soft, supple, (-) cervical LAD, (-)JVD HEART: S1S2 WNL, RRR, No MRG CHEST: CTA, BL, GAE, No W/R/R ABD: Soft, ND/NT, NABS 4x Q EXT: No C/C/E SKIN: Warm to touch PSYCH: No active psychosis, hallucinations, depression, SI/HI Objective Active Medications: Acetaminophen (Tylenol Tab*) 650 mg PO Q6H PRN PRN Reason: FEVER/PAIN Last Admin: 08/24/18 11:20 Dose: 650 mg Aspirin (Aspirin Ec Tab*) 81 mg PO DAILY [facility] Last Admin: 08/25/18 09:13 Dose: 81 mg Atorvastatin Calcium (Lipitor*) 80 mg PO 1700 [facility] Last Admin: 08/25/18 18:18 Dose: 80 mg Calcium/Vitamin D (Oscal D Tab 250/125*) 1 tab PO BID WITH MEALS [facility] Last Admin: 08/25/18 18:18 Dose: 1 tab Carvedilol (Coreg Tab*) 3.125 mg PO BID [facility] Last Admin: 08/25/18 09:14 Dose: 3.125 mg Clopidogrel Bisulfate (Plavix Tab*) 75 mg PO DAILY [facility] Last Admin: 08/25/18 09:13 Dose: 75 mg Device (Tiotropium Inhaler Device*) 1 each INH 0900 ONE Stop: 08/26/18 09:01 Docusate Sodium (Colace Cap*) 100 mg PO BID [facility] Last Admin: 08/25/18 09:14 Dose: 100 mg Escitalopram Oxalate (Lexapro (Nf)) 20 mg PO DAILY [facility] Last Admin: 08/25/18 09:15 Dose: 20 mg Furosemide (Lasix Tab*) 20 mg PO DAILY [facility] Last Admin: 08/25/18 09:15 Dose: 20 mg Heparin Sodium (Porcine) (Heparin Vial(*)) 5,000 units SUBCUT Q12HR [facility] Last Admin: 08/25/18 09:15 Dose: 5,000 units Hydroxyzine HCl (Atarax Tab*) 50 mg PO Q6H PRN PRN Reason: ANXIETY Lactobacillus Rhamnosus (Lactobacillus Acidophilus*) 2 tab PO DAILY [facility] Last Admin: 08/25/18 09:15 Dose: 2 tab Lisinopril (Prinivil Tab*) 10 mg PO DAILY [facility] Last Admin: 08/25/18 09:15 Dose: 10 mg Lorazepam (Ativan Tab(*)) 0.5 mg PO BID PRN PRN Reason: ANXIETY Last Admin: 08/25/18 14:17 Dose: 0.5 mg Nitroglycerin (Nitroglycerin Tab 0.4 Mg*) 0.4 mg SL Q5M PRN PRN Reason: ANGINA Last Admin: 08/22/18 18:39 Dose: 0.4 mg Ondansetron HCl (Zofran Inj*) 4 mg IV Q6H PRN PRN Reason: NAUSEA Prochlorperazine (Compazine Tab*) 10 mg PO Q6H PRN PRN Reason: NAUSEA Spironolactone (Aldactone Tab*) 25 mg PO DAILY [facility] Last Admin: 08/25/18 09:13 Dose: 25 mg Tiotropium [place] (Spiriva Cap.Inh*) 1 cap INH DAILY [facility] Vital Signs - 8 hr 08/25/18 08/25/18 08/25/18 11:00 11:01 12:00 Temperature 99.8 F Pulse Rate 68 65 71 Respiratory 22 20 20 Rate Blood Pressure 111/54 123/57 (mmHg) O2 Sat by Pulse 97 98 96 Oximetry 08/25/18 08/25/18 08/25/18 13:00 13:01 14:00 Temperature Pulse Rate 83 72 78 Respiratory 23 19 27 Rate Blood Pressure 134/59 (mmHg) O2 Sat by Pulse 93 92 94 Oximetry 08/25/18 08/25/18 14:01 14:17 Temperature Pulse Rate 78 Respiratory 17 20 Rate Blood Pressure 111/60 (mmHg) O2 Sat by Pulse 94 Oximetry Oxygen Devices in Use Now: Nasal Cannula Result Diagrams: 08/25/18 05:42 08/25/18 05:42 Microbiology and Other Data: Microbiology 08/22/18 17:01 Aerobic Blood Culture - Preliminary Blood Venous No Growth Day 1 Anaerobic Blood Culture - Preliminary No Growth Day 1 08/22/18 13:56 Aerobic Blood Culture - Preliminary Blood Venous No Growth Day 1 Anaerobic Blood Culture - Preliminary No Growth Day 1 08/22/18 14:11 Influenza Types A,B Antigen - Final Nasal Specimen received for Influenza A/B Molecular testing Assess/Plan/Problems-Billing Assessment: - Patient Problems (1) Syncope Current Visit: Yes Status: Acute Code(s): R55 - SYNCOPE AND COLLAPSE SNOMED Code(s): 565229878 Comment: -Given known CAD and presenting symptoms, pt for stress test -D/W Kennedi earlier and metioned about Brilinta that will be changed to Effient , however, what was ordered was Clopidogrel?? Will defer with Cards/Dr. Coe. -Appreciate cards eval -No ICA stenosis on carotid dopplers -Head CT done today shows possible left maxillary sinusitis, however, will observe for now given pt was not complaining of sinus symptoms and could be incidental finding -For Myoview stress tommorow (2) Thyroid nodule Current Visit: Yes Status: Acute Code(s): E04.1 - NONTOXIC SINGLE THYROID NODULE SNOMED Code(s): 652847223 Comment: -Thyroid U/S suggests BL thyroid nodules -TSH WNL -May benefit from Endocrinology referral to see if repeat U/S in 1 year is sufficient vs. confirmation of presumed cold nodules due to normal TSH (3) CAD (coronary artery disease) Current Visit: Yes Status: Acute Code(s): I25.10 - ATHSCL HEART DISEASE OF [place] CORONARY ARTERY W/O ANG PCTRS SNOMED Code(s): 33899025 Comment: -Continue ASA, Plavix, Carvedilol, Lisinopril, and Spirinolactone -Increased Atorvastatin per cards reccs especially given LDL >60 (4) HTN (hypertension) Current Visit: Yes Status: Acute Code(s): I10 - ESSENTIAL (PRIMARY) HYPERTENSION SNOMED Code(s): 61186096 Comment: -Well-controlled -Continue meds as described above (5) YONY (obstructive sleep apnea) Current Visit: Yes Status: Acute Code(s): G47.33 - OBSTRUCTIVE SLEEP APNEA ( ADULT) (PEDIATRIC) SNOMED Code(s): 99567256 Comment: -Continue CPAP qHS (6) COPD (chronic obstructive pulmonary disease) Current Visit: Yes Status: Acute Code(s): J44.9 - CHRONIC OBSTRUCTIVE PULMONARY DISEASE, UNSPECIFIED SNOMED Code(s): 46229729 Comment: -Not in acute exacerbation -Continue Tiotropium---although given its anticholinergic effects can cause shakiness, reconsider if continues although pt has not complained of this since admission -Continue watchful waiting (7) DVT prophylaxis Current Visit: No Status: Acute Code(s): WGP3003 - SNOMED Code(s): 320392474 Comment: SQ heparin Status and Disposition: -As above -Appreciate PT eval; D/C home when W/U done and continues to be hemodynamically stable -Awaiting result of scheduled stress test -For transfer to if w/tele-bed availability
[2018-08-26 04:27] LABS: ABS Basophils 0.1 10^3/ul (0-0.2); ABS Eosinophils 0.2 10^3/ul (0-0.6); ABS Lymphocytes 2.3 10^3/ul (1.0-4.8); ABS Monocytes 0.6 10^3/ul (0-0.8); ABS Neutrophils 3.9 10^3/ul (1.5-7.7); ABS Nucleated RBC 0 10^3/ul; Hematocrit 34 % (35-47); Hemoglobin 11.2 g/dl (12.0-16.0); Lymphocyte % 32.6 %; Mean Corpuscular HGB Conc 33 g/dl (31-36); Mean Corpuscular Hemoglobin 33 pg (27-31); Mean Corpuscular Volume 100 fL (80-97); Mean Platelet Volume 6.8 fL (7.4-10.4); Nucleated Red Blood Cells % 0.1; Platelet Count 330 10^3/ul (150-450); Red Blood Count 3.39 10^6/ul (4.00-5.40); Red Cell Distribution Width 14 % (10.5-15); White Blood Count 7.1 10^3/ul (3.5-10.8)
[2018-08-26 04:34] LABS: Activated Partial Thrombo Time 35.6 seconds (26.0-36.3); INR 0.96 (0.77-1.02)
[2018-08-26 04:41] LABS: Albumin 3.8 g/dL (3.2-5.2); Calcium 9.3 mg/dL (8.6-10.3); Magnesium 2.3 mg/dL (1.9-2.7); Potassium 4.6 mmol/L (3.5-5.0); Total Bilirubin 0.5 mg/dL (0.2-1.0)
[2018-08-26 04:47] LABS: Albumin/Globulin Ratio 1.3 (1-3); BUN/Creatinine Ratio 28.1 (8-20); EGFR Non-African American 42.5 (>60); Globulin 2.9 g/dL (2-4); Phosphorus 4.2 mg/dL (2.5-5.0); Total Protein 6.7 g/dL (6.4-8.9)
[2018-08-26] MEDS: Lactobacillus Acidophilus* 1 TAB PO SCH (08:05)
[2018-08-26] MEDS: Furosemide TAB* 20 MG PO SCH (08:05)
[2018-08-26] MEDS: Heparin VIAL(*) 5000 UNITS/ML VIAL (FIVE THOUSAND) SUBCUT SCH (08:05)
[2018-08-26] MEDS: Clopidogrel TAB* 75 MG PO SCH (08:05)
[2018-08-26] MEDS: Docusate CAP* 100 MG PO SCH (08:05)
[2018-08-26] MEDS: Aspirin EC TAB* 81 MG TAB.EC PO SCH (08:05)
[2018-08-26] MEDS: Spironolactone TAB* 25 MG PO SCH (08:05)
[2018-08-26] MEDS: Calcium/Vitamin D TAB 250/125* TAB PO SCH (08:06)
[2018-08-26] MEDS: Tiotropium Respimt 2.5 mcg(NF) 1 PUFF MDI INH SCH (08:19)
[2018-08-26] MEDS: Carvedilol TAB* 3.125 MG PO SCH (08:20)
[2018-08-26] MEDS: CMCS:Escitalopram (NF) 10 MG TAB PO SCH (08:22)
[2018-08-26] MEDS: Lisinopril TAB* 10 MG PO SCH (08:22)
[2018-08-26] MEDS ORDERED: Spiriva Inhaler DEVICE* 1 EACH DEVICE INH ONE (09:00)
[2018-08-26] MEDS ORDERED: Regadenoson* 0.4 MG/5 ML SYRINGE ONE (11:03)
[2018-08-26 16:02] VITALS: BP 116/62
== END 2018-08-26 16:32 | disposition home or self-care (01) | DRG 312 ==
LOC: ED 12:52 → MEDTELE 16:37 → ICU 19:58 → OBSVTOIN 08-24 13:15
PROVIDERS: ADMIT Hospitalist; ATTEND Internal Medicine
DX: R55 Syncope and collapse (principal); I42.5 Other restrictive cardiomyopathy; J44.9 Chronic obstructive pulmonary disease, unspecified; I11.0 Hypertensive heart disease with heart failure; I50.9 Heart failure, unspecified; E78.5 Hyperlipidemia, unspecified; G47.33 Obstructive sleep apnea (adult) (pediatric); I25.119 Atherosclerotic heart disease of native coronary artery with unspecified angina pectoris; D64.9 Anemia, unspecified; E04.1 Nontoxic single thyroid nodule; I34.0 Nonrheumatic mitral (valve) insufficiency; Z95.5 Presence of coronary angioplasty implant and graft; Z99.81 Dependence on supplemental oxygen; Z79.82 Long term (current) use of aspirin; Z79.899 Other long term (current) drug therapy; Z88.8 Allergy status to other drugs, medicaments and biological substances; Z82.49 Family history of ischemic heart disease and other diseases of the circulatory system; Z87.891 Personal history of nicotine dependence
CPT/HCPCS: 36415; 70450; 71045; 76536; 78452; 80048; 80053; 80061; 81003; 82565; 83605; 83735; 84100; 84439; 84443; 84484; 84520; 85025; 85027; 85610; 85730; 86140; 87040; 93005; 93017; 93880; 94640; 94660; 99285; A9270-GY; A9502; G0378; G8978-GP-CI; G8979-GP-CI; G8980-GP-CI; J0692; J0744; J1644; J2405; J2765; J2785

== ENCOUNTER 2018-11-11 19:36 | Observation (INO) | payer MEDICARE ==
[2018-11-11] MEDS ORDERED: Aspirin 81 mg CHEW TAB* 81 MG TAB.CHEW PO ONE (19:54)
[2018-11-11 20:12] LABS: ABS Basophils 0.1 10^3/ul (0-0.2); ABS Eosinophils 0.1 10^3/ul (0-0.6); ABS Lymphocytes 1.8 10^3/ul (1.0-4.8); ABS Monocytes 0.6 10^3/ul (0-0.8); ABS Nucleated RBC 0 10^3/ul; Eosinophil % 1.7 %; Hematocrit 34 % (33-41); Hemoglobin 11.2 g/dL (12.0-16.0); Mean Corpuscular HGB Conc 34 g/dL (31-36); Mean Corpuscular Hemoglobin 32 pg (27-31); Mean Corpuscular Volume 96 fL (80-97); Mean Platelet Volume 6.8 fL (7.4-10.4); Nucleated Red Blood Cells % 0; Platelet Count 236 10^3/uL (150-450); Red Blood Count 3.48 10^6 /uL (3.70-4.87); Red Cell Distribution Width 14 % (10.5-15); White Blood Count 6.6 10^3/uL (3.5-10.8)
[2018-11-11 20:27] LABS: INR 0.98 (0.77-1.02)
[2018-11-11 20:31] LABS: Troponin I 0.03 ng/mL (<0.04)
[2018-11-11 20:32] LABS: Albumin 3.9 g/dL (3.2-5.2); Albumin/Globulin Ratio 1.7 (1-3); BUN/Creatinine Ratio 18.6 (8-20); Calcium 9.3 mg/dL (8.6-10.3); EGFR African American 66.4 (>60); EGFR Non-African American 54.8 (>60); Globulin 2.3 g/dL (2-4); Magnesium 2.1 mg/dL (1.9-2.7); Potassium 3.8 mmol/L (3.5-5.0); Total Bilirubin 0.3 mg/dL (0.2-1.0); Total Protein 6.2 g/dL (6.4-8.9)
--- NOTE | 2018-11-11 20:36 | ED ---
HPI Chest Pain - HPI Summary HPI Summary: Pt is an 83 y/o F presenting to the ED with a chief complaint of localized chest pressure onset around 1600 in her L anterior chest. It lasted about an hour, alleviated for a while, and is now intermittent. She denies radiation to any other place on her body, sob, diaphoresis, vomiting, or hx of DC. She reports slight nausea. She had a stress test done in August and had a stent placed in the beginning of September in 2018 at [facility]. - History of Current Complaint Chief Complaint: EDChestPainROMI Time Seen by Provider: 11/11/18 20:24 Hx Obtained From: Patient Onset/Duration: Started Hours Ago, Still Present Timing: Intermittent, Lasting Hours Initial Severity: Moderate Current Severity: Mild Pain Intensity: 2 Pain Scale Used: 0-10 Numeric Chest Pain Location: Left Anterior Chest Pain Radiates: No Character: Pressure/Squeezing - pressure Aggravating Factor(s): Nothing Alleviating Factor(s): Nothing Associated Signs and Symptoms: Positive: Chest Pain, Nausea. Negative: Shortness of Breath, Diaphoresis, Vomiting - Additional Pertinent History Primary Care Physician: JEYSON - Allergy/Home Medications Allergies/Adverse Reactions: Allergies Allergy/AdvReac Type Severity Reaction Status Date / Time niacin Allergy Intermediate Rash Verified 11/11/18 19:46 PMH/Surg Hx/FS Hx/Imm Hx Previously Healthy: No Endocrine/Hematology History: Reports: Hx Anticoagulant Therapy - ASA, Brilinta Denies: Hx Diabetes Comment Only: Other Endocrine/Hematological Disorders - anemia Cardiovascular History: Reports: Hx Angina, Hx Congestive Heart Failure, Hx Coronary Artery Disease, Hx Hypercholesterolemia, Hx Hypertension, Hx Syncope, Other Cardiovascular Problems/Disorders - mitral regurgitation, cardiomyopathy Denies: Hx Myocardial Infarction, Hx Pacemaker/ICD, Hx Valvular Heart Disease Respiratory History: Reports: Hx Chronic Obstructive Pulmonary Disease (COPD) - 2 - 3 L O2 @home, Hx Pneumonia - feburary 2017, Hx Sleep Apnea - cpap 2-3L Denies: Hx Asthma GI History: Reports: Hx Diverticulosis, Hx Gastroesophageal Reflux Disease Musculoskeletal History: Reports: Hx Arthritis - hands and neck, Hx Back Problems - 2 back surgeries 2002, spinal stenosis, Hx Osteoporosis Sensory History: Reports: Hx Contacts or Glasses, Hx Macular Degeneration, Hx Deafness - R ear Denies: Hx Hearing Aid Opthamlomology History: Reports: Hx Contacts or Glasses, Hx Macular Degeneration Neurological History: Reports: Hx Dementia - short term memory issue, Other Neuro Impairments/Disorders - peripheral neuroptathy Psychiatric History: Reports: Hx Anxiety Denies: Hx Panic Disorder - Surgical History Surgery Procedure, Year, and Place: 2 BACK SURGERIES (SPINAL STENOSIS). CATARACT. CARDIAC CATHETERIZATION Hx Anesthesia Reactions: No - Immunization History Date of Tetanus Vaccine: utd Date of Influenza Vaccine: fall 2017 Infectious Disease History: No Infectious Disease History: Denies: Traveled Outside the [place] in Last 30 Days - Family History Known Family History: Positive: Cardiac Disease - Social History Alcohol Use: Rare Hx Substance Use: No Substance Use Type: Reports: None Hx Tobacco Use: Yes - not currently Smoking Status (MU): Former Smoker Type: Cigarettes Have You Smoked in the Last Year: No Review of Systems Negative: Skin Diaphoresis Positive: Chest Pain Negative: Shortness Of Breath Positive: Nausea. Negative: Vomiting All Other Systems Reviewed And Are Negative: Yes Physical Exam - Summary Physical Exam Summary: VITAL SIGNS: Reviewed. GENERAL: Patient is a well-developed and nourished female who is lying comfortable in the stretcher. Patient is not in any acute respiratory distress. HEAD AND FACE: No signs of trauma. No ecchymosis, hematomas or skull depressions. No sinus tenderness. EYES: PERRLA, EOMI x 2, No injected conjunctiva, no nystagmus. EARS: Hearing grossly intact. Ear canals and tympanic membranes are within normal limits. MOUTH: Oropharynx within normal limits. NECK: Supple, trachea is midline, no adenopathy, no JVD, no carotid bruit, no c- spine tenderness, neck with full ROM. CHEST: Symmetric, no tenderness at palpation LUNGS: Clear to auscultation bilaterally. No wheezing or crackles. CVS: Regular rate and rhythm, S1 and S2 present, no murmurs or gallops appreciated. ABDOMEN: Soft, non-tender. No signs of distention. No rebound no guarding, and no masses palpated. Bowel sounds are normal. EXTREMITIES: FROM in all major joints, no edema, no cyanosis or clubbing. NEURO: Alert and oriented x 3. No acute neurological deficits. Speech is normal and follows commands. SKIN: Dry and warm Triage Information Reviewed: Yes Vital Signs On Initial Exam: Initial Vitals Temp Pulse Resp BP Pulse Ox 98.7 F 62 16 157/61 96 11/11/18 19:45 11/11/18 19:45 11/11/18 19:45 11/11/18 19:45 11/11/18 19:45 Vital Signs Reviewed: Yes Diagnostics - Vital Signs Vital Signs Temp Pulse Resp BP Pulse Ox 11/11/18 20:00 61 20 95 11/11/18 19:52 62 17 160/79 97 11/11/18 19:51 14 11/11/18 19:45 98.7 F 62 16 157/61 96 - Laboratory Lab Results: Lab Results 11/11/18 11/11/18 11/11/18 Range/Units 20:05 20:05 20:05 WBC 6.6 (3.5-10.8) 10^3/uL RBC 3.48 L (3.70-4.87) 10^6 /uL Hgb 11.2 L (12.0-16.0) g/dL Hct 34 (33-41) % MCV 96 (80-97) fL MCH 32 H (27-31) pg MCHC 34 (31-36) g/dL RDW 14 (10.5-15) % Plt Count 236 (150-450) 10^3/uL MPV 6.8 L (7.4-10.4) fL Neut % (Auto) 60.8 % Lymph % (Auto) 28.0 % [place] % (Auto) 8.6 % Eos % (Auto) 1.7 % Baso % (Auto) 0.9 % Absolute Neuts (auto) 4.0 (1.5-7.7) 10^3/ul Absolute Lymphs (auto) 1.8 (1.0-4.8) 10^3/ul Absolute Monos (auto) 0.6 (0-0.8) 10^3/ul Absolute Eos (auto) 0.1 (0-0.6) 10^3/ul Absolute Basos (auto) 0.1 (0-0.2) 10^3/ul Absolute Nucleated RBC 0 10^3/ul Nucleated RBC % 0 INR (Anticoag Therapy) 0.98 (0.77-1.02) Sodium 138 (135-145) mmol/L Potassium 3.8 (3.5-5.0) mmol/L Chloride 106 (101-111) mmol/L Carbon Dioxide 24 (22-32) mmol/L Anion Gap 8 (2-11) mmol/L BUN 18 (6-24) mg/dL Creatinine 0.97 H (0.51-0.95) mg/dL Est GFR ( Amer) 66.4 (>60) Est GFR (Non-Af Amer) 54.8 (>60) BUN/Creatinine Ratio 18.6 (8-20) Glucose 104 H (70-100) mg/dL Lactic Acid (0.5-2.0) mmol/L Calcium 9.3 (8.6-10.3) mg/dL Magnesium 2.1 (1.9-2.7) mg/dL Total Bilirubin 0.30 (0.2-1.0) mg/dL AST 22 (13-39) U/L ALT 17 (7-52) U/L Alkaline Phosphatase 55 (34-104) U/L Troponin I 0.03 (<0.04) ng/mL Total Protein 6.2 L (6.4-8.9) g/dL Albumin 3.9 (3.2-5.2) g/dL Globulin 2.3 (2-4) g/dL Albumin/Globulin Ratio 1.7 (1-3) 03/25/19 Range/Units 20:05 WBC (3.5-10.8) 10^3/uL RBC (3.70-4.87) 10^6 /uL Hgb (12.0-16.0) g/dL Hct (33-41) % MCV (80-97) fL MCH (27-31) pg MCHC (31-36) g/dL RDW (10.5-15) % Plt Count (150-450) 10^3/uL MPV (7.4-10.4) fL Neut % (Auto) % Lymph % (Auto) % [place] % (Auto) % Eos % (Auto) % Baso % (Auto) % Absolute Neuts (auto) (1.5-7.7) 10^3/ul Absolute Lymphs (auto) (1.0-4.8) 10^3/ul Absolute Monos (auto) (0-0.8) 10^3/ul Absolute Eos (auto) (0-0.6) 10^3/ul Absolute Basos (auto) (0-0.2) 10^3/ul Absolute Nucleated RBC 10^3/ul Nucleated RBC % INR (Anticoag Therapy) (0.77-1.02) Sodium (135-145) mmol/L Potassium (3.5-5.0) mmol/L Chloride (101-111) mmol/L Carbon Dioxide (22-32) mmol/L Anion Gap (2-11) mmol/L BUN (6-24) mg/dL Creatinine (0.51-0.95) mg/dL Est GFR ( Amer) (>60) Est GFR (Non-Af Amer) (>60) BUN/Creatinine Ratio (8-20) Glucose (70-100) mg/dL Lactic Acid 1.0 (0.5-2.0) mmol/L Calcium (8.6-10.3) mg/dL Magnesium (1.9-2.7) mg/dL Total Bilirubin (0.2-1.0) mg/dL AST (13-39) U/L ALT (7-52) U/L Alkaline Phosphatase (34-104) U/L Troponin I (<0.04) ng/mL Total Protein (6.4-8.9) g/dL Albumin (3.2-5.2) g/dL Globulin (2-4) g/dL Albumin/Globulin Ratio (1-3) Result Diagrams: 11/11/18 20:05 11/11/18 20:05 Lab Statement: Any lab studies that have been ordered have been reviewed, and results considered in the medical decision making process. - Radiology CXR Radiology Interpretation Completed By: ED Physician Summary of Radiographic Findings: No acute process. Pending official radiology report. - EKG 1940 Cardiac Rate: Bradycardia - 57bpm EKG Rhythm: Sinus Bradycardia ST Segment: Non-Specific Ectopy: None EKG Comparison: No Significant Change - from 08/25/18 Chest Pain Course/Dx - Course Course Of Treatment: Pt is an 83 y/o F presenting to the ED with a chief complaint of localized chest pressure onset around 1600 in her L anterior chest. She denies radiation to any other place on her body, sob, diaphoresis, vomiting, or hx of DC. She reports slight nausea. An EKG shows sinus bradycardia at 57bpm with nonspecific ST changes and no significant change from 08/25/18. CXR shows no acute process. The pt's troponin I is 0.03. Spoke with Dr. Rogers who will be accepting the [place] [facility] [place] Discharge - Sign-Out/Discharge Documenting (check all that apply): Patient Departure - Discharge Plan Referrals: Rojelio Mcnulty, [Primary Care Provider] - - Attestation Statements Document Initiated by Scribe: Yes Documenting Scribe: Blanca Salinas Provider For Whom Scribe is Documenting (Include Credential): Viral Lepe MD. Scribe Attestation: Blanca Shook, scribed for Viral Lepe MD. on 11/11/18 at 2131. Consult Consult: 2112 - Spoke with Dr. Rogers who will be accepting the pt to [facility] [place].
--- NOTE | 2018-11-12 00:25 | ADMNOTE ---
Subjective Date of Service: 11/11/18 Interval History: HISTORY AND PHYSICAL PCP: Lindsey Moore Sql Dba: Dr. Lo CC: chest pain HPI: Patient is an 83 year old woman with known CAD who developed chest pain at rest this evening. It felt like a pressure and was rated 3-4/10 level. The pain was intermittent, not respirophasic. It was not associated with nausea, vomiting, diaphoresis, or radiation; it was located substernally. Patient took TNG four times w/o relief, and decided to call 911. Last admitted 08/22/18 with syncope. This has not recurred. Had cardiac cath with Dr. Poon in July, had complex lesions that led to transfer to [facility], roto-atherotomy, and stent to [facility]. 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, , 2 biological children plus 3 adopted, quit tobacco 30 yrs ago, occasional alcohol, no drug use Past Medical History: Findings - PMH: hypertension, hyperlipidemia, YONY on BiPAP , CAD as above, mitral regurgitation Review of Systems - Measurements Intake and Output: Intake and Output Last 24 Hours 11/09/18 11/10/18 11/11/18 11/12/18 06:59 06:59 06:59 06:59 Weight 54.431 kg - Review of Systems Constitutional Symptoms: Negative: Weight Gain, Weight Loss Dermatology: Positive: Normal HEENT: Positive: Normal Eyes: Positive: Normal Thyroid: Positive: Normal Pulmonary: Positive: Normal Cardiology: Positive: Chest Pain Negative: Shortness of Breath, Palpitations, Edema Gastroenterology: Positive: Normal Genital - Urinary: Positive: Normal Genitourinay - Female: Positive: Menopause Endocrinology: Positive: Normal Hematologic/Lymphatic: Negative: Anemia Neurology: Positive: Normal Psychiatry: Positive: Normal Objective Active Medications: Home Meds: Docusate CAP* [Colace Cap*] 100 mg PO BID 10/02/17 Meclizine TAB* [Antivert 12.5 TAB*] 25 mg PO Q8H PRN 10/02/17 Aspirin EC TAB* [Ecotrin EC Low Dose 81 MG*] 81 mg PO DAILY 06/06/18 Calcium Carbonate/Vitamin D3 [Calcium 600 + Vit D Tablet] 1 each PO BID WITH MEALS 06/06/18 Carvedilol TAB* [Coreg TAB*] 6.25 mg PO BID 06/06/18 Escitalopram * [Lexapro 20 mg (NF)] 20 mg PO DAILY 06/06/18 Furosemide TAB* [Lasix TAB*] 20 mg PO SEE INSTRUCTIONS 06/06/18 Lactobacillus Acidophilus [Probiotic] 2 cap PO DAILY 06/06/18 Lisinopril TAB* [Prinivil TAB 5 MG*] 5 mg PO DAILY 06/06/18 Prochlorperazine TAB* [Compazine Tab*] 10 mg PO Q6H PRN #8 tab 06/06/18 Spironolactone TAB* [Aldactone TAB 25 MG*] 25 mg PO SEE INSTRUCTIONS 06/06/18 Tiotropium [place] [Spiriva Respimat] 2 puff INH DAILY 06/06/18 LORazepam [Ativan 0.5 MG TAB] 0.5 mg PO BID PRN #21 tablet MDD 2 tab 07/20/18 Levalbuterol HFA INHALER* [Xopenex Hfa Inhaler*] 2 puff INH Q6H PRN 08/07/18 Vit C/E/Zinc/Lutein/Zeaxanthin [Quosis [facility]] 1 chw PO BID 08/07 Atorvastatin* [Lipitor 20 MG*] 20 mg PO 1700 #30 tab 08/09/18 Nitroglycerin TAB 0.4 MG* 0.4 mg SL Q5M PRN tab 08/09/18 Clopidogrel TAB* [Plavix TAB*] 75 mg PO DAILY #30 tab 08/26/18 Ezetimibe 1 tab PO DAILY 11/11/18 Vital Signs - 8 hr 11/11/18 11/11/18 11/11/18 21:00 21:23 21:52 Temperature Pulse Rate 59 63 62 Respiratory 11 18 13 Rate Blood Pressure 168/69 168/80 (mmHg) O2 Sat by Pulse 95 95 94 Oximetry 11/11/18 11/11/18 11/11/18 23:05 23:23 23:52 Temperature Pulse Rate 76 64 71 Respiratory 9 17 18 Rate Blood Pressure 167/78 138/62 (mmHg) O2 Sat by Pulse 92 94 94 Oximetry Oxygen Devices in Use Now: None Appearance: alert, no distress Eyes: No Scleral Icterus Ears/Nose/Mouth/Throat: NL Teeth, Lips, Gums Neck: NL Appearance and Movements; NL JVP Respiratory: Symmetrical Chest Expansion and Respiratory Effort, Clear to Auscultation Cardiovascular: RRR, No Edema, - - 1/6 systolic murmur, DP pulses trace bilat Abdominal: NL Sounds; No Tenderness; No Distention Lymphatic: No Cervical Adenopathy Extremities: No Edema Skin: No Rash or Ulcers Neurological: Alert and Oriented x 3 Lines/Tubes/Other Access: Clean, Dry and Intact Peripheral IV Nutrition: Taking PO's Result Diagrams: 11/11/18 20:05 11/11/18 20:05 Additional Lab and Data: Laboratory Tests 11/11/18 11/11/18 11/11/18 20:05 20:05 20:05 INR (Anticoag Therapy) 0.98 Glucose 104 H Lactic Acid 1.0 AST 22 ALT 17 Troponin I 0.03 B-Natriuretic Peptide Total Protein 6.2 L 11/11/18 11/11/18 20:05 23:09 INR (Anticoag Therapy) Glucose Lactic Acid AST ALT Troponin I 0.03 B-Natriuretic Peptide 141 H Total Protein Diagnostic Imaging: CXR: no infiltrates EKG Data: NSR, normal axis, ST depressions V5-V6 Assess/Plan/Problems-Billing Assessment: 83 year old woman with known CAD, recent stent to RCA, here with chest pain - Patient Problems (1) Angina at rest Current Visit: Yes Status: Acute Priority: High Code(s): I20.8 - OTHER FORMS OF ANGINA PECTORIS SNOMED Code(s): 532812893 Comment: -Differential of chest pain would include coronary spasm or infarct , pericarditis, anxiety, costochondritis, LV strain from hypertension. -Will admit for OBV, follow on telemetry, trend troponins. -Adding amlodipine to lower BP and possibly act as anti-anginal. -Should have cardiology consult in AM. -Consider adding long-acting nitrates or Ranexa. (2) DVT prophylaxis Current Visit: No Status: Acute Priority: Low Code(s): OVP7926 - SNOMED Code(s): 352605433 Comment: SQ heparin Status and Disposition: observation
[2018-11-12] MEDS ORDERED: Meclizine TAB* 12.5 MG PO PRN (00:34)
[2018-11-12] MEDS ORDERED: Levalbuterol HFA INHALER* 1 PUFF MDI INH PRN (00:34)
[2018-11-12] MEDS ORDERED: LORazepam TAB(*) 0.5 MG PO PRN (00:34)
[2018-11-12] MEDS ORDERED: Prochlorperazine TAB* 10 MG PO PRN (00:34)
[2018-11-12] MEDS ORDERED: Nitroglycerin TAB 0.4 MG* 0.4 MG TAB SL PRN (00:34)
[2018-11-12] MEDS ORDERED: Spironolactone TAB* 25 MG PO SCH ×2 (00:45→09:00)
[2018-11-12] MEDS: amLODIPine TAB* 5 MG PO SCH ×2 (01:31→07:14)
[2018-11-12] MEDS: Heparin VIAL(*) 5000 UNITS/ML VIAL (FIVE THOUSAND) SUBCUT SCH ×3 (05:48→21:13)
[2018-11-12 06:18] LABS: ABS Basophils 0 10^3/ul (0-0.2); ABS Eosinophils 0.2 10^3/ul (0-0.6); ABS Lymphocytes 2.3 10^3/ul (1.0-4.8); ABS Monocytes 0.5 10^3/ul (0-0.8); ABS Neutrophils 3.3 10^3/ul (1.5-7.7); ABS Nucleated RBC 0 10^3/ul; Eosinophil % 2.7 %; Hematocrit 34 % (33-41); Hemoglobin 11.3 g/dL (12.0-16.0); Lymphocyte % 35.9 %; Mean Corpuscular HGB Conc 33 g/dL (31-36); Mean Corpuscular Hemoglobin 32 pg (27-31); Mean Corpuscular Volume 97 fL (80-97); Mean Platelet Volume 6.7 fL (7.4-10.4); Nucleated Red Blood Cells % 0.1; Platelet Count 245 10^3/uL (150-450); Red Blood Count 3.53 10^6 /uL (3.70-4.87); Red Cell Distribution Width 14 % (10.5-15); White Blood Count 6.3 10^3/uL (3.5-10.8)
[2018-11-12 06:37] LABS: BUN/Creatinine Ratio 18.2 (8-20); EGFR African American 64.8 (>60); EGFR Non-African American 53.6 (>60); Potassium 3.9 mmol/L (3.5-5.0)
[2018-11-12] MEDS: Tiotropium Respimt 2.5 mcg(NF) 1 PUFF MDI INH SCH (07:18)
[2018-11-12] MEDS: Clopidogrel TAB* 75 MG PO SCH (08:48)
[2018-11-12] MEDS: Ezetimibe TAB* 10 MG PO SCH (08:48)
[2018-11-12] MEDS: Lisinopril TAB* 5 MG PO SCH (08:49)
[2018-11-12] MEDS: Carvedilol TAB* 6.25 MG PO SCH ×2 (08:49→21:13)
[2018-11-12] MEDS: Aspirin EC TAB* 81 MG TAB.EC PO SCH (08:49)
[2018-11-12] MEDS: Docusate CAP* 100 MG PO SCH ×2 (08:49→21:13)
[2018-11-12] MEDS: ESCITALOPRAM 20 MG PO SCH (08:49)
[2018-11-12] MEDS: Isosorbide Mononitrate ER TAB* 30 MG PO SCH (10:28)
[2018-11-12] MEDS: Acetaminophen TAB* 325 MG PO PRN ×2 (10:53→16:25)
--- NOTE | 2018-11-12 13:05 | CONS ---
Amended report to enter co-signing physician. CONSULTATION REPORT: DATE OF CONSULT: 11/12/18 ATTENDING PHYSICIAN: Bashir joshi MD* (dictated by Kennedi Camargo NP). REASON FOR CONSULT: Complaints of chest pain, status post intervention to right coronary artery at [facility] in September 2018. PRIMARY DIESEL ENGINE TESTER: Dr. Lo. CHIEF COMPLAINT: Chest pain. HISTORY OF PRESENT ILLNESS: This is a pleasant 83-year-old female patient with a notable history of coronary artery disease with rotational atherectomy, drug- eluding stent placement July of 2018; COPD; obstructive sleep apnea, compliant with CPAP use; hyperlipidemia; and heart failure with moderate reduction in EF, [id number] mitral insufficiency. The patient [place] [facility] [place] due to complaints of chest pain described as pressure like in quality with dyspnea on exertion. I spoke to both the patient and her in regards to symptomatology. Apparently, the patient has been doing well, participating in cardiac rehab on Tuesdays and with no complaints of chest pain during physical exercise. Yesterday , around 6 p.m., she developed chest pain located on her left side that was pressure like in quality with no radiation. Episode was ongoing. Subsequently , she took sublingual nitroglycerin x4 with no improvement in symptoms. She states that it is not unusual for her to develop chest pressure. In fact, she has been getting intermittent chest pressure since intervention at [facility]. However, episode appeared to be lasting longer than usual which is why she presented to [facility]. Upon further enquiry, apparently she was active yesterday cleaning her house with mild dyspnea on exertion which was new for her. Otherwise, no other symptoms. No complaints of dizziness, syncope, palpitations, sensation of heart racing, edema, fever, chills, nausea, vomiting , or diarrhea. Last episode of chest pain was when she was evaluated in the emergency department. No reoccurrence since then. Isoenzymes are negative x3. ECG does not demonstrate any ST segment changes compared to prior ECGs that are available. She reports compliance with medications. PAST MEDICAL HISTORY: Includes: 1. N-STEMI in September of 2017. 2. Moderate to severe mitral regurgitation. 3. Hypertension. 4. Obstructive sleep apnea. 5. Hyperlipidemia. 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 7. Coronary artery disease. 8. COPD, on nocturnal O2 use. PAST SURGICAL HISTORY: Includes: 1. Rotational atherectomy with stent to RCA, 08/16/18, at [facility]. 2. Prior back surgery in 2002. MEDICATIONS: Home medications include: 1. Aspirin 81 mg a day. 2. Zetia 10 mg a day. 3. Lexapro 20 mg a day. 4. Lasix 20 mg p.o. daily p.r.n. 5. Plavix 75 mg a day. 6. Colace 100 mg p.o. b.i.d. 7. Coreg 6.25 mg p.o. b.i.d. 8. Lipitor 20 mg p.o. at bedtime. 9. Nitroglycerin sublingual p.r.n. 10. Aldactone 25 mg a day. 11. Compazine 10 mg p.o. q.6h. p.r.n. 12. Xopenex inhaler. 13. Lisinopril 5 mg a day. 14. Ativan 0.5 mg p.o. b.i.d. p.r.n. ALLERGIES: Include NIACIN which apparently causes a rash. FAMILY HISTORY: Father of myocardial infarction at the age of 69. Brother at the age of 49 due to myocardial infarction. Her son was diagnosed with an arrhythmia in his 4th decade, unfortunately she does not know what type of arrhythmia. SOCIAL HISTORY: The patient is , lives at home with her . She is retired. Former tobacco user, quit 30 years ago. Denies drug use or alcohol use. REVIEW OF SYSTEMS: All systems have been reviewed and otherwise negative except as mentioned in the HPI. PHYSICAL EXAM: Temperature 97.8, pulse 64, respirations 20, oxygenation 95% on room air, blood pressure 145/56. General: The patient is alert and oriented x3 , cooperative with exam, appears well nourished, in no apparent distress. However, she does have difficulty recalling information which her is more than willing to supplement for. HEENT: Head is atraumatic, normocephalic. Oral mucosa is moist. Tongue is midline. Neck is supple. Trachea midline. No JVD, no carotid bruits. Cardiac: Normal S1, S2. Regular rate and rhythm. Positive diastolic mitral murmur, otherwise no gallop or rub. Lungs are auscultated posteriorly. No evidence of adventitious breath sounds auscultated. /GI: Abdomen soft, nontender, nondistended. Positive bowel sounds throughout. Extremities: No pedal edema. No clubbing, no cyanosis. Peripheral Vascular: 2+ brachial and dorsalis pedis pulse palpated bilaterally and symmetrically. DIAGNOSTIC STUDIES/LAB DATA: Blood Work: Obtained 11/12/18, white count 6.3, hemoglobin 11.3, hematocrit 34, platelets 245, INR 0.98. Sodium 140, potassium 3.9, chloride 107, carbon dioxide 25, BUN 18, creatinine 0.99. Troponin was negative x3. ECG obtained on 11/11/18, normal sinus rhythm, rate of 57 with known lateral T- wave abnormalities. No ST elevation or depression appreciated comparable to prior ECG. Chest x-ray was negative for acute cardiopulmonary process. Last echocardiogram was 08/09/18. At that time, LVEF was 40% to 45%. Basal inferior, basal inferoseptal, mid inferior, mid inferoseptal, and apical septal wall segments are hypokinetic. There was mild aortic insufficiency, moderate mitral regurgitation, trace tricuspid regurgitation. Last ischemic evaluation according to the patient was via left heart catheterization in September 2018. I did request medical records which is pending from [facility]. Last stress test was 08/24/18 via Lexiscan nuclear stress test. At that point in time, there was nondiagnostic regadenoson ECG portion. Myocardial perfusion imaging revealed no fixed or reversible regions of hypoperfusion; however, gated wall images were obtained at stress and demonstrated septal, inferior wall , and apical hypokinesis, EF 45%. ASSESSMENT AND PLAN: 1. Complaints of chest pain; chest pain appears to be ongoing since prior coronary intervention at [facility]. However, the patient states yesterday episode lasted longer than usual. Duration of episode was 1.5 hours. Symptoms did eventually resolve while in the emergency department. She has had no recurrence of symptoms since then. Troponin has been negative x3. No ST changes to suggest in- stent thrombosis. She reports recent coronary intervention in September of 2018 at [facility]. I did request these medical records which are pending. Given known moderate LAD lesion, we will start Imdur 30 mg a day. We will make formal recommendations after angiogram from [facility] has been sent for us to review. Continue aspirin, Plavix , statin, and beta-blockade therapy. 2. History of restrictive cardiomyopathy with moderate reduction in EF; LVEF 40 % to 45% in July of 2018. She states that Dr. Lo did repeat echo in the last 2 months. She is compensated on physical examination. Continue carvedilol 6.25 mg p.o. b.i.d., lisinopril 5 mg a day, and Aldactone therapy. 3. History of moderate mitral regurgitation, compensated on physical examination. Continue DENZEL inhibitor. 4. History of coronary artery disease, on aspirin, statin, Plavix, beta- blockade therapy. We will add Imdur. 5. Disposition: Pending course. Dr. Bashir Joshi aggress to the above assessment and plan. We will make formal recommendations after medical records have been sent to us from [facility]. KENNEDI CAMARGO, [place] [id number]/CPS #: [id number] See written note in chart for my details Bashir BUSTOS
--- NOTE | 2018-11-12 15:56 | PN ---
Subjective Date of Service: 11/12/18 Interval History: Patient seen and examined. Denies any further episodes of chest pain since admission. Denies SOB, no diaphoresis, nausea or vomiting. Tolerating PO. Family at bedside. 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25 mg Clopidogrel Bisulfate (Plavix Tab*) 75 mg PO DAILY [facility] Last Admin: 11/12/18 08:48 Dose: 75 mg Docusate Sodium (Colace Cap*) 100 mg PO BID [facility] Last Admin: 11/12/18 08:49 Dose: 100 mg Ezetimibe (Zetia Tab*) 10 mg PO DAILY [facility] Last Admin: 11/12/18 08:48 Dose: 10 mg Escitalopram Oxalate (Lexapro *) 20 mg PO DAILY [facility] Last Admin: 11/12/18 08:49 Dose: 20 mg Furosemide (Lasix Tab*) 20 mg PO MoWeFr [facility] Heparin Sodium (Porcine) (Heparin Vial(*)) 5,000 units SUBCUT Q8HR [facility] Last Admin: 11/12/18 13:37 Dose: 5,000 units Isosorbide Mononitrate (Imdur Er Tab*) 30 mg PO DAILY [facility] Last Admin: 11/12/18 10:28 Dose: 30 mg Levalbuterol HCl (Xopenex Hfa Inhaler*) 2 puff INH Q6H PRN PRN Reason: SHORTNESS OF BREATH Last Admin: 11/12/18 05:55 Dose: 2 puff Lisinopril (Prinivil Tab*) 5 mg PO DAILY [facility] Last Admin: 11/12/18 08:49 Dose: 5 mg Lorazepam (Ativan Tab(*)) 0.5 mg PO BID PRN PRN Reason: ANXIETY Meclizine HCl (Antivert Tab*) 25 mg PO Q8H PRN PRN Reason: DIZZINESS Nitroglycerin (Nitroglycerin Tab 0.4 Mg*) 0.4 mg SL Q5M PRN PRN Reason: ANGINA Prochlorperazine (Compazine Tab*) 10 mg PO Q6H PRN PRN Reason: NAUSEA Spironolactone (Aldactone Tab*) 25 mg PO SuTuThSa [facility] Last Admin: 11/12/18 08:48 Dose: 25 mg Tiotropium [place] (Spiriva Respimat 2.5 Mcg(Nf)) 2 puff INH DAILY [facility] Last Admin: 11/12/18 07:18 Dose: Not Given Vital Signs - 8 hr 11/12/18 11/12/18 11/12/18 07:59 08:09 08:25 Temperature 97.7 F 97.8 F Pulse Rate 63 64 Respiratory 16 20 20 Rate Blood Pressure 152/57 145/56 (mmHg) O2 Sat by Pulse 94 95 Oximetry 11/12/18 11/12/18 11:04 15:48 Temperature 97.3 F 98.5 F Pulse Rate 61 65 Respiratory 20 18 Rate Blood Pressure 133/51 106/35 (mmHg) O2 Sat by Pulse 93 95 Oximetry Oxygen Devices in Use Now: None Appearance: alert, NAD Eyes: No Scleral Icterus, PERRLA Ears/Nose/Mouth/Throat: NL Teeth, Lips, Gums, Clear Oropharnyx, Mucous Membranes Moist Neck: NL Appearance and Movements; NL JVP, Trachea Midline Respiratory: Symmetrical Chest Expansion and Respiratory Effort, Clear to Auscultation Cardiovascular: NL Sounds; No Murmurs; No JVD, RRR Abdominal: NL Sounds; No Tenderness; No Distention, No Hepatosplenomegaly Extremities: No Edema, No Clubbing, Cyanosis Skin: No Rash or Ulcers, No Nodules or Sclerosis Neurological: Alert and Oriented x 3, NL Sensation, NL Gait Nutrition: Taking PO's Result Diagrams: 11/12/18 05:57 11/12/18 05:57 Additional Lab and Data: Laboratory Tests 11/11/18 11/11/18 11/11/18 20:05 20:05 20:05 INR (Anticoag Therapy) 0.98 Glucose 104 H Lactic Acid 1.0 AST 22 ALT 17 Troponin I 0.03 B-Natriuretic Peptide Total Protein 6.2 L 11/11/18 11/11/18 20:05 23:09 INR (Anticoag Therapy) Glucose Lactic Acid AST ALT Troponin I 0.03 B-Natriuretic Peptide 141 H Total Protein Diagnostic Imaging: CXR: no infiltrates EKG Data: NSR, normal axis, ST depressions V5-V6 Assess/Plan/Problems-Billing Assessment: This is an 83 year old female with known CAD, recent stent to RCA at [facility] that presented to ED with unstable angina, refractory to SL nitro. - Patient Problems (1) Angina at rest Code(s): I20.8 - OTHER FORMS OF ANGINA PECTORIS SNOMED Code(s): 944774069 Comment: - Cardiology consult requested - Given known disease in LAD and recent PCI to RCA, would recommend long- acting nitrates as a part of her medication regimen, appreciate recs from cardiology regarding medication management (2) CAD (coronary artery disease) Code(s): I25.10 - ATHSCL HEART DISEASE OF [place] CORONARY ARTERY W/O ANG PCTRS SNOMED Code(s): 08112388 Comment: - Recent NSTEMI with PCI - Continue ASA, statin, plavix, carvedilol, lisinopril, and spirinolactone - Follows with Dr. Lo outpatient (3) COPD (chronic obstructive pulmonary disease) Code(s): J44.9 - CHRONIC OBSTRUCTIVE PULMONARY DISEASE, UNSPECIFIED SNOMED Code(s): 88938437 Comment: - Continue home inhalers, not in exacerbation (4) HTN (hypertension) Code(s): I10 - ESSENTIAL (PRIMARY) HYPERTENSION SNOMED Code(s): 17936526 Comment: - Mildly elevated at admission, now improved - Continue current meds (5) YONY (obstructive sleep apnea) Code(s): G47.33 - OBSTRUCTIVE SLEEP APNEA (ADULT) (PEDIATRIC) SNOMED Code(s): 38101543 Comment: - continue CPAP (6) DVT prophylaxis Code(s): PHV1754 - SNOMED Code(s): 716037885 Comment: - HSQ and Ambulate (7) DNR (do not resuscitate) Status and Disposition: continue obs for med management. Likely DC in AM
[2018-11-12] MEDS ORDERED: Atorvastatin* 20 MG TAB PO SCH (17:00)
[2018-11-13] MEDS: Heparin VIAL(*) 5000 UNITS/ML VIAL (FIVE THOUSAND) SUBCUT SCH (05:46)
[2018-11-13] MEDS: Tiotropium Respimt 2.5 mcg(NF) 1 PUFF MDI INH SCH (07:16)
[2018-11-13] MEDS: Aspirin EC TAB* 81 MG TAB.EC PO SCH (08:53)
[2018-11-13] MEDS: Isosorbide Mononitrate ER TAB* 30 MG PO SCH (08:54)
[2018-11-13] MEDS: Lisinopril TAB* 5 MG PO SCH (08:54)
[2018-11-13] MEDS: Carvedilol TAB* 6.25 MG PO SCH (08:54)
[2018-11-13] MEDS: ESCITALOPRAM 20 MG PO SCH (08:54)
[2018-11-13] MEDS: Clopidogrel TAB* 75 MG PO SCH (08:54)
[2018-11-13] MEDS: Docusate CAP* 100 MG PO SCH (08:54)
[2018-11-13] MEDS: Ezetimibe TAB* 10 MG PO SCH (08:54)
[2018-11-13] MEDS ORDERED: Furosemide TAB* 20 MG PO SCH (09:00)
[2018-11-13 12:27] VITALS: BP 107/50
[2018-11-13] MEDS: Acetaminophen TAB* 325 MG PO PRN (13:34)
--- NOTE | 2018-11-14 00:12 | DS ---
CC: Dr. Rojelio Mcnulty; Dr. Yogi Lo; Kennedi Camargo NP, at [facility]* DISCHARGE SUMMARY: DATE OF ADMISSION: 11/11/18 DATE OF DISCHARGE: 11/13/18 ATTENDING PHYSICIAN: Dr. Nayla Sims* (dictated by Slick Rivero NP ). PRIMARY CARE PROVIDER: Dr. Rojelio Mcnulty. HOSPITAL COURSE: Please refer to admitting H and P on 11/11/18; however, in short, this is an 83-year-old female patient known to us from previous admissions who presented to the emergency department with a complaint of chest pain. The patient states she took her nitroglycerin x4 doses with no relief and came to the emergency department for evaluation. Of significant note, the patient has had a complex cardiac history. She had a cardiac cath with Dr. Carrington in July 2018 that revealed complex lesions, that generated a transfer to [place] for stenting to the RCA and a roto atherectomy at [place]. The patient also had another admission in August for syncope; however, she does not report any symptoms of syncope at this time. The patient was admitted for observation. Her EKG did not show any acute changes, her troponins were negative, and Cardiology was consulted. Cardiology recommended a longer acting nitrate to assist the patient with her symptoms of angina at rest. She was started on Imdur 30 mg daily, which provided relief and she tolerated well. The patient did not have any chest pain in the last 24 hours and was readied for discharge this morning. DISCHARGE DIAGNOSES: Include: 1. Chest pain at rest. 2. History of coronary artery disease with recent [id number] myocardial infarction and percutaneous coronary intervention. 3. Chronic obstructive pulmonary disease, not in exacerbation. 4. Hypertension, stable. 5. Obstructive sleep apnea, on CPAP. DISCHARGE MEDICATIONS: Include: 1. Furosemide 20 mg p.o. daily. 2. Lexapro 20 mg p.o. daily. 3. Docusate 100 mg p.o. b.i.d. 4. Plavix 75 mg daily. 5. Calcium with vitamin D 1 tablet 2 times a day with meals. 6. Lipitor 20 mg p.o. daily. 7. Ezetimibe 1 tablet p.o. daily. 8. Aspirin 81 mg daily. 9. Carvedilol 6.25 mg p.o. b.i.d. 10. Probiotic 2 caps daily. 11. Ativan 0.5 mg p.o. b.i.d. 12. Lisinopril 5 mg p.o. daily. 13. Xopenex inhaler 2 puffs inhaled q.6 hours as needed. 14. Compazine 10 mg p.o. q.6 hours as needed. 15. Nitro tablet 0.4 mg sublingual q.4 hours as needed. 16. Meclizine 25 mg p.o. q.8 hours as needed. 17. Spiriva 2 puffs inhaled daily. 18. Spironolactone 25 mg daily. 19. [employer] Gummies 1 chew p.o. 2 times a day. New medication added to her regimen is isosorbide mononitrate ER 30 mg p.o. daily. REVIEW OF SYSTEMS: On the day of discharge, the patient is alert, well appearing, in no acute distress. She denies any chest pain. She denies any shortness of breath. No nausea, no vomiting, no diuresis, no fevers, no chills , no abdominal pains, and no further constitutional complaints. PHYSICAL EXAMINATION: As stated above, well appearing. Vital signs are blood pressure 157/63, heart rate 63, O2 saturation 94%, respiratory rate 16, and temperature of 98.4. HEENT: The patient is atraumatic, normocephalic. PERRLA. Nonicteric sclerae. Oral mucosa is moist. Tongue is midline. Dentition is somewhat poor. Neck is supple. No carotid bruit auscultated. No JVD noted. Lungs are clear bilaterally to auscultation with no wheezing, rhonchi or rales. Chest is benign. Cardiovascular: S1, S2 present. No murmurs , gallops, or rubs noted. Rate and rhythm are regular. Rhythm is regular on telemetry. Abdomen is soft, nontender, and nondistended. Positive bowel sounds in all 4 quadrants. : Deferred. Musculoskeletal: No clubbing, no cyanosis, no edema. She has +2 distal pulses palpable. Gross motor and sensation are intact. Neuro: Intact with no focal deficits. Psychiatric: Cooperative and appropriate. DIAGNOSTIC STUDIES/LABORATORY DATA: WBC 6.3, RBC 3.53, hemoglobin 11.3, hematocrit 34, platelets 245. Sodium 140, potassium 3.9, chloride 107, CO2 of 25, BUN 18, creatinine 0.99, GFR is 64.8, glucose 95, lactic acid was 1.0, calcium 9.0. Troponins were negative at 0.03 x3. BNP was 141. Imaging: Chest x-ray at admission, 11/11/18, shows likely some chronic changes in the right lung base and otherwise no acute pathology noted. DISPOSITION: The patient was discharged to home in stable condition. FOLLOWUP: The patient was instructed to follow up with Dr. Mcnulty, her primary care provider, in [address] to [address] Yogi Lo of Cardiology also in 4 to 7 days. ACTIVITY: As tolerated. DIET: Diabetic, heart healthy as tolerated. TIME SPENT: Approximately 35 minutes evaluating the patient and discussing plan of care for discharge. SLICK RIVERO NP [id number]/[facility] #: [id number] AKASH
== END 2018-11-13 13:55 | disposition home or self-care (01) ==
LOC: ED 19:36 → MEDTELE 23:39
PROVIDERS: ADMIT Internal Medicine; ATTEND Internal Medicine
DX: R07.9 Chest pain, unspecified (principal); I25.10 Atherosclerotic heart disease of native coronary artery without angina pectoris; I25.2 Old myocardial infarction; I10 Essential (primary) hypertension; J44.9 Chronic obstructive pulmonary disease, unspecified; G47.33 Obstructive sleep apnea (adult) (pediatric); Z79.82 Long term (current) use of aspirin; Z79.01 Long term (current) use of anticoagulants; Z79.899 Other long term (current) drug therapy; E78.5 Hyperlipidemia, unspecified; Z82.49 Family history of ischemic heart disease and other diseases of the circulatory system
CPT/HCPCS: 36415; 71045; 80048; 80053; 83605; 83735; 83880; 84484; 85025; 85610; 93005; 94640; 96372; 99284; A9270-GY; G0378; J1644

== ENCOUNTER 2018-12-21 18:56 | Inpatient (IN) | payer MEDICARE ==
--- NOTE | 2018-12-21 19:29 | ED ---
GI/ HPI - HPI Summary HPI Summary: This patient is a 83 year old female brought in by ambulance to [facility] with a chief complaint of N/V/D since several days ago. Patient was transferred from [facility] for evaluation of diverticulitis. Patient notes that she also has lower abd pain. The pain is rated 3/10 in severity. Symptoms aggravated by nothing. Symptoms alleviated by nothing. Patient additionally reports fever. Patient notes that she has a long hx of diverticulitis, but has not had to take medication in years because there was no flareup. - History of Current Complaint Chief Complaint: EDAbdPain Time Seen by Provider: 12/21/18 19:16 Stated Complaint: "ABDOMINAL PAIN PER EMS" Hx Obtained From: Patient Onset/Duration: Started Days Ago, Still Present Timing: Constant Current Severity: Moderate Pain Intensity: 3 Location of Pain: Other - Lower Associated Signs and Symptoms: Positive: Other: - nausea, vomiting, diarrhea, fever Aggravating Factor(s): Nothing Alleviating Factor(s): Nothing - Additional Pertinent History Primary Care Physician: JEYSON - Allergy/Home Medications Allergies/Adverse Reactions: Allergies Allergy/AdvReac Type Severity Reaction Status Date / Time niacin Allergy Intermediate Rash Verified 12/21/18 19:13 PMH/Surg Hx/FS Hx/Imm Hx Previously Healthy: No Endocrine/Hematology History: Reports: Hx Anticoagulant Therapy - ASA, Brilinta Denies: Hx Diabetes Comment Only: Other Endocrine/Hematological Disorders - anemia Cardiovascular History: Reports: Hx Angina, Hx Congestive Heart Failure, Hx Coronary Artery Disease, Hx Hypercholesterolemia, Hx Hypertension, Hx Syncope, Other Cardiovascular Problems/Disorders - mitral regurgitation, cardiomyopathy Denies: Hx Myocardial Infarction, Hx Pacemaker/ICD, Hx Valvular Heart Disease Respiratory History: Reports: Hx Chronic Obstructive Pulmonary Disease (COPD) - 2 - 3 L O2 @home, Hx Pneumonia - feburary 2017, Hx Sleep Apnea - cpap 2-3L Denies: Hx Asthma GI History: Reports: Hx Diverticulosis, Hx Gastroesophageal Reflux Disease Musculoskeletal History: Reports: Hx Arthritis - hands and neck, Hx Back Problems - 2 back surgeries 2002, spinal stenosis, Hx Osteoporosis Sensory History: Reports: Hx Contacts or Glasses, Hx Macular Degeneration, Hx Deafness - R ear Denies: Hx Hearing Aid Opthamlomology History: Reports: Hx Contacts or Glasses, Hx Macular Degeneration Neurological History: Reports: Hx Dementia - short term memory issue, Other Neuro Impairments/Disorders - peripheral neuroptathy Psychiatric History: Reports: Hx Anxiety Denies: Hx Panic Disorder - Surgical History Surgery Procedure, Year, and Place: 2 BACK SURGERIES (SPINAL STENOSIS). CATARACT. CARDIAC CATHETERIZATION Hx Anesthesia Reactions: No - Immunization History Date of Tetanus Vaccine: utd Date of Influenza Vaccine: fall 2017 Infectious Disease History: No Infectious Disease History: Denies: Traveled Outside the [place] in Last 30 Days - Family History Known Family History: Positive: Cardiac Disease - Social History Alcohol Use: None Hx Substance Use: No Substance Use Type: Reports: None Hx Tobacco Use: Yes - not currently Smoking Status (MU): Former Smoker Type: Cigarettes Have You Smoked in the Last Year: No Review of Systems Positive: Fever Positive: Abdominal Pain, Vomiting, Diarrhea, Nausea All Other Systems Reviewed And Are Negative: Yes Physical Exam - Summary Physical Exam Summary: Appearance: Well-appearing, Well-nourished, lying in bed comfortably Skin: Warm, dry, no obvious rash Eyes: sclera anicteric, no conjunctival pallor ENT: mucous membranes moist, pharynx appears normal Neck: Supple, nontender Respiratory: Clear to auscultation, no signs of respiratory distress Cardiovascular: Normal S1, S2. No murmurs. Normal distal pulses in tibial and radial bilaterally. Abdomen: LLQ abd tenderness without peritoneal signs Musculoskeletal: Normal, Strength/ROM Intact Neurological: A&Ox3, awake and alert, mentation is normal, speech is fluent and appropriate Psychiatric: affect is normal, does not appear anxious or depressed Triage Information Reviewed: Yes Vital Signs On Initial Exam: Initial Vitals Temp Pulse Resp BP Pulse Ox 100.9 F 76 18 138/63 95 12/21/18 19:10 12/21/18 19:10 12/21/18 19:10 12/21/18 19:10 12/21/18 19:10 Vital Signs Reviewed: Yes Diagnostics - Vital Signs Vital Signs Temp Pulse Resp BP Pulse Ox 12/21/18 19:14 79 22 138/63 95 12/21/18 19:11 73 95 12/21/18 19:10 100.9 F 76 18 138/63 95 - Laboratory Lab Statement: Any lab studies that have been ordered have been reviewed, and results considered in the medical decision making process. GIGU Course/Dx - Course Assessment/Plan: This patient is a 83 year old female brought in by ambulance to [facility] with a chief complaint of N/V/D since several days ago. Patient was transferred from [facility] for evaluation and hospitalization for diverticulities. Patient notes that she also has lower abd pain. The pain is rated 3/10 in severity. We discussed patient care with Dr. Rogers (Hospitalist) at 1927 and they agreed to accept the patient. Patient will be admitted with a dx of diverticulitis. The patient is agreeable with this plan. - Diagnoses Provider Diagnoses: Acute diverticulitis - Physician Notifications Discussed Care Of Patient With: Bj Rogers - Hospitalist Time Discussed With Above Provider: 19:27 - We discussed patient care with Dr. Rogers (Hospitalist) at 192 and they agreed to accept the patient. Discharge - Sign-Out/Discharge Documenting (check all that apply): Patient Departure Patient Received Moderate/Deep Sedation with Procedure: No - Discharge Plan Condition: Stable Disposition: ADMITTED TO [facility] Referrals: Rojelio Mcnulty, [Primary Care Provider] - - Billing Disposition and Condition Condition: STABLE Disposition: Admitted to [facility] - Attestation Statements Document Initiated by George: Yes Documenting Scribe: Marino Rodney Provider For Whom George is Documenting (Include Credential): Yuan Ho MD Scribe Attestation: Marino Shook scribed for Yuan Ho MD on 12/21/18 at 2001. Scribe Documentation Reviewed: Yes Provider Attestation: The documentation as recorded by the Marino zimmerman accurately reflects the service I personally performed and the decisions made by , Yuan Ho MD Status of Scribe Document: Viewed
--- OUTSIDE RECORDS SUMMARY | 2018-12-21 19:51 | XMS REPORT | Continuity of Care Document ---
:1935 External Reference #:[id number] Author Name Carmelita White Care Team Providers Name Role Phone Rojelio Mcnulty D.O. Primary Care Physician Unavailable Payers Date Identification Numbers Payment Provider Subscriber Policy Number: [id number] Medicare Blue Ppo Areli Baxter Group Number: [id number] [address] [address] PayID: [id number] AlexandraGOKUL [id number] [id number] Advance Directives Description No Information Available Problems Active Problems Provider Date Restrictive cardiomyopathy secondary Cardiology Doctor Loc 39 Onset: 2012 to granulomas Mitral valve disorder Cardiology Doctor Loc 39 Onset: 04/18/2013 Electrocardiogram abnormal Cardiology Doctor Loc 39 Onset: 04/18/2013 Hyperlipidemia Cardiology Doctor Loc 39 Onset: 04/18/2013 Chest pain Cardiology Doctor Loc 39 Onset: 04/18/2013 Aortic valve disorder Cardiology Doctor Loc 39 Onset: 04/18/2013 Obstructive sleep apnea syndrome Polly Bruno DNP, RN, Onset: 10/30/2016 [facility] Chronic obstructive lung disease Maddie Finch NP Onset: 07/19/2018 Essential hypertension Maddie Finch NP Onset: 07/19/2018 Dyspnea Maddie Finch NP Onset: 07/19/2018 Family History Date Family Member(s) Observation Comments Father due to ID () - 69 Mother Hypothyroidism Mother due to Stroke () First Son ID First Son Atrial Fibrillation First Daughter Alive And Well Siblings 2 Siblings 1 dec with ID at 39 (brother) 1 sister dec of MS First Brother due to ID () - 49 First Sister due to [...] quit 1986 Unknown smoker Smoking Status Reviewed: 12/10/18 Patient is a former quit 1987 smoker Exercise Type/Frequency Exercises regularly active, cleans, garden, walks around Allergies, Adverse Reactions, Alerts Active Allergies Reaction Severity Comments Date Niacin rash 04/16/2013 Medications Active Medications SIG Qnty Indications Ordering Date Provider Isosorbide Mononitrate 1 by mouth every 90tabs Qutaybeh S. 11/17/2018 ER day Migue Lo 30mg Tablets ER 24HR Zetia 1 by mouth every 90tabs Lorene Campbell, 10/21/2018 10mg Tablets day N.P. Lipitor Take 1 by mouth 90tabs I25.110 Lorene Campbell, 08/29/2018 80mg Tablets daily N.P. Clopidogrel Bisulfate 1 by mouth every 90tabs Lorene Campbell, 08/29/2018 day N.P. 75mg Tablets Carvedilol 1 tablet by mouth 60tabs R06.02 Lorene Campbell, 08/02/2018 6.25mg Tablets in in the morning N.P. and 1 tab in at night Lisinopril 1 by mouth every 90tabs I42.9 Lorene Campbell, 11/28/2017 5mg Tablets day N.P. Lorazepam twice daily by Unknown 0.5mg mouth as needed for anxiety Nitroglycerin 1 sl q5mins x3 as Unknown 0.4mg needed for chest Tablets Sub pain Spironolactone 1 by mouth Tu, Unknown 25mg Giselle, Sat, Sun Tablets Xopenex HFA 2 puffs inhaled Unknown 45mcg/Act every 6h as Aerosol needed for shortness of breath. Calcium Citrate + D 1 tablet daily Unknown 315-200mg Tablets Spiriva Respimat 2 puffs every day Unknown 2.5mcg/Act Aerosol Furosemide 1 by mouth Mon, Unknown 20mg Tablets Wed, Sun Oxygen please use o2 at Unknown Misc 2l/min hs Cpap at hs Unknown Device Colace 1 po daily Unknown Capsules Ocuvite daily Unknown Tablets Meclizine HCL 1 po tid prn 90tabs Unknown 25mg Tablets Lexapro 1 po qd 90tabs Unknown 20mg Tablets Probiotic 2 capsules every 30caps Unknown Capsules am Aspirin 1 po qd Unknown 81mg Tablets History Medications Clopidogrel 1 tab by mouth qd Unknown 08/28/2018 - Powder 08/29/2018 Nitro-Dur apply 1 daily and 30unit R06.02 Lorene S. 08/02/2018 - 0.2mg/HR Patches remove at bedtime s Adrian, N.P. 08/29/2018 24HR Nitro-Dur apply 1 patch daily 30unit I42.9 Lorene S. 11/28/2017 - 0.1mg/HR Patches 12 hours and remove s Adrian, N.P. 08/02/2018 24HR at bedtime. Lisinopril 1 by mouth every day 90tabs Qutaybeh S. 06/26/2017 - 5mg Tablets [facility], 10/29/2017 Migue Carvedilol 1 tab by mouth twice Unknown 10/29/2016 - 25mg Tablets a day 10/29/2017 Escitalopram 1 by mouth every day Unknown - 20mg Tablets 06/14/2016 Fluzone High-Dose intramuscular Unknown - .5ml syringe 03/21/2017 Tumeric 1 po qd prn Unknown - 05/24/2018 Vegetable Laxative 1 po qd Unknown - 11/27/2017 Escitalopram Oxalate 2 by mouth daily Unknown - 10mg 03/21/2017 Tablets Levalbuterol HCL as needed Unknown - 1.25mg/3ML 10/29/2017 Nebulizer Lipitor 1 by mouth every Unknown - 80mg Tablets night at bedtime 08/01/2018 Isosorbide Dinitrate 1 tab tid Unknown - 5mg 11/28/2017 Tablets Aldactone 1 by mouth , Sun, Unknown - 25mg Tablets Sat, Sun 08/29/2018 Calcium 600 2 by mouth every day Unknown - 600mg Tablets 05/24/2018 Lisinopril 1 by mouth every day Unknown - 10mg Tablets 11/28/2017 Omeprazole 1 by mouth every day Unknown - 20mg Capsules 08/01/2018 Isordil Titradose 1 tablet orally tid Unknown - 5mg 08/01/2018 Tablets Pantoprazole Sodium 1 by mouth every day Unknown - 40mg 11/17/2018 Tablets Prochlorperazine Unknown - Maleate 12/09/2018 10mg Tablets Coq10 once daily Unknown - 200mg Capsules 10/29/2017 Carvedilol 1 po bid Unknown - 25mg Tablets 06/14/2016 Biotin 1 po qd Unknown - 10mg Capsules 01/01/2018 Claritin 1 po qd prn 30tabs Unknown - 10mg Tablets 06/11/2016 Co-Enzyme Q10 po qd Unknown - 100mg 06/02/2016 Capsules Xopenex HFA 2 puffs qid prn 1units Unknown - 45mcg/Act 06/11/2016 Aerosol Combivent 2 puffs po prn 1units Unknown - 18-103mcg/Act 04/18/2013 Aerosol Alpha Lipoic Acid daily Unknown - 200mg 06/11/2016 Capsules Colace 2 po qd 90caps Unknown - 100mg Capsules 06/12/2016 Citracal Plus Daily Unknown - Tablets 04/18/2013 Symbicort 2 puffs inhaled bid 1units Unknown - 80-4.5mcg/Act 10/29/2017 Aerosol [place] 3 3 po qd. 100cap Unknown - 1000mg Capsules s 06/11/2016 Vitamin D-3 1 po qd Unknown - 2000Unit 06/02/2016 Tablets Magnesium 1 po qd 30tabs Unknown - 500mg Tablets 06/11/2016 Coreg 1 tab with food bid 180tab Unknown - 3.125 Tablets s 08/02/2018 Simvastatin 1 po qd 90tabs Unknown - 20mg Tablets 06/11/2016 Immunizations Description No Information Available Vital Signs Date Vital Result Comment 12/10/2018 3:47pm Height 61 inches 5'1" Weight 127.25 lb Clothes/shoes Heart Rate 62 /min Radial BP Systolic Sitting 110 mmHg Rue reg cuff BP Diastolic Sitting 50 mmHg Rue reg cuff BP Systolic Standing 98 mmHg Rue reg cuff BP Diastolic Standing 50 mmHg Rue reg cuff BMI (Body Mass Index) 24.0 kg/m2 Ejection Fraction 40-45% Echo 09/20/2018 11/18/2018 1:31pm Height 61 inches 5'1" Weight 127.25 lb Heart Rate 64 /min BP Systolic Sitting 108 mmHg LA, reg BP Diastolic Sitting 62 mmHg LA, reg BP Systolic Standing 122 mmHg LA< reg BP Diastolic Standing 68 mmHg LA< reg BMI (Body Mass Index) 24.0 kg/m2 Ejection Fraction 40%-45% 09/20/18 echo 08/29/2018 9:57am Height 61 inches 5'1" Weight 124.00 lb with shoes Heart Rate 52 /min lt radial, regular BP Systolic Sitting 138 mmHg lt arm BP Diastolic Sitting 58 mmHg lt arm BP Systolic Recheck 125 mmHg lt arm, HR 60 on standing, no dizziness BP Diastolic Recheck 55 mmHg lt arm, HR 60 on standing, no dizziness BMI (Body Mass Index) 23.4 kg/m2 08/02/2018 8:54am Height 61 inches 5'1" Weight [...] BMI (Body Mass Index) 21.7 kg/m2 Results Test Date Facility Test Result H/L Range Note Laboratory test 08/08/2018 [facility] Poc Activated 396 seconds [address] [address] [phone] Laboratory test 08/08/2018 [facility] Poc Activated 266 seconds [address] [place] [address] [phone] Laboratory test 08/08/2018 [facility] Poc Activated 274 seconds [address] [place] [address] [phone] Basic Metabolic 08/08/2018 [facility] Sodium 135 mmol/L N 135- [address] [place] [address] [phone] Potassium 4.3 mmol/L N 3.5-5.0 Chloride 103 mmol/L N 101-111 Co2 Carbon Dioxide 25 mmol/L N 22-32 Anion Gap 7 mmol/L N 2-11 Glucose 115 mg/dL High 70-100 Blood Urea Nitrogen 21 mg/dL N 6-24 Creatinine 1.02 mg/dL High 0.51-0.95 BUN/Creatinine Ratio 20.6 High 8-20 Calcium 9.7 mg/dL N 8.6-10.3 Egfr Non- 51.8 >60 Egfr 62.6 >60 4 1 Crimp Setter: [id number] Reference Range: 74-125 seconds 2 Crimp Setter: [id number] Reference Range: 74-125 seconds 3 Crimp Setter: [id number] Reference Range: 74-125 seconds 4 Because ethnic data is not always readily available, this report includes an eGFR for both -Americans and non- Americans. The National Kidney Disease Education Program (NKDEP) does not endorse the use of the MDRD equation for patients that are not between the ages of 18 and 70, are , have extremes of body size, muscle mass, or nutritional status, or are non- or non-. According to the National Kidney Foundation, irrespective of diagnosis, the stage of the disease is based on the level of kidney function: Stage Description GFR(mL/min/1.73 m(2)) 1 Kidney damage with normal or decreased GFR 90 2 Kidney damage with mild decrease in GFR 60-89 3 Moderate decrease in GFR 30-59 4 Severe decrease in GFR 15-29 5 Kidney failure <15 (or dialysis) Procedures Date Code Description Status 09/20/2018 04800 ECHO Transthoracic, Real-Time 2D With Doppler And Color Completed Flow 09/20/2018 36750 ECHO Transthoracic, Real-Time 2D With Doppler And Color Completed Flow 08/29/2018 09687 EKG Tracing & Interpretation Completed 08/26/2018 33335 Treadmill Interp/Report Only Completed 08/26/2018 23257 Stress Test Supervsn W/Out I/R Completed 08/25/2018 56539 EKG, Interpretation Only Completed 08/23/2018 36663 EKG, Interpretation Only Completed 08/09/2018 24749 ECHO Transthorasic Realtime 2D W Doppler & Color Flow Hosp Completed 08/09/2018 40320 EKG, Interpretation Only Completed 08/08/2018 77246 Cath PLMT&NJX L Ventriculog Img S&I Completed 08/08/2018 03315 EKG, Interpretation Only Completed 08/02/2018 95647 EKG Tracing & Interpretation Completed 07/19/2018 90008 ECHO Transthorasic Realtime 2D W Doppler & Color Flow Hosp Completed 11/21/2017 80035 ECHO Transthoracic, Real-Time 2D With Doppler And Color Completed Flow 11/21/2017 33033 ECHO Transthoracic, Real-Time 2D With Doppler And Color Completed Flow 10/30/2017 88863 EKG Tracing & Interpretation Completed 10/05/2017 42221 EKG, Interpretation Only Completed 10/04/2017 48729 EKG, Interpretation Only Completed 10/03/2017 42635 ECHO Transthorasic Realtime 2D W Doppler & Color Flow Hosp Completed 10/03/2017 48245 EKG, Interpretation Only Completed 10/02/2017 66928 EKG, Interpretation Only Completed 08/02/2017 40552 Echocardiogram, Limited Study Completed 08/02/2017 15547 Echocardiogram, Limited Study Completed 06/26/2017 08164 EKG Tracing & Interpretation Completed 06/19/2017 39926 EKG, Interpretation Only Completed 06/18/2017 58416 ECHO Transthorasic Realtime 2D W Doppler & Color Flow Hosp Completed 06/18/2017 34352 EKG, Interpretation Only Completed 03/27/2017 74145 Polysomnography Sleep Staging 4+ Parameters W/Cpap Completed 03/22/2017 75085 EKG Tracing & Interpretation Completed 07/19/2016 18581 ECHO Transthoracic, Real-Time 2D With Doppler And Color Completed Flow 07/12/2016 63189 Treadmill Interp/Report Only Completed 07/12/2016 70611 Stress Test Supervsn W/Out I/R Completed 07/05/2016 78709 ECG Monitor/Recording W/Visual Superimposition Scanning Completed 07/05/2016 41893 Holter Monitor Review (24 hr)dr review & interp only Completed 07/05/2016 58334 Holter Monitor Review (24 hr)dr review & interp only Completed 07/04/2016 28752 ECG Monitor/Recording W/Visual Superimposition Scanning Completed 06/15/2016 38765 EKG Tracing & Interpretation Completed 05/15/2013 26399 Treadmill Interp/Report Only Completed 05/15/2013 11746 Stress Test Supervsn W/Out I/R Completed 04/25/2013 00558 ECHO Stress Test Incl Perf Contiuous ekg Monitoring W/Phys Completed Superv 04/18/2013 97864 EKG Tracing & Interpretation Completed 04/10/2013 64507 Color Flow Doppler/Interp & Reprt Completed 04/10/2013 66961 Pulse Wave/Continuous-Interp.RPT Completed 04/10/2013 11187 ECHO Transthorasic Realtime 2D W Doppler & Color Flow Hosp Completed Encounters Type Date Location Provider Dx Diagnosis Office Visit 11/18/2018 [facility] Lorene Campbell, R07.9 Chest pain , 1:30p N.P. 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 unspecified I42.5 Other restrictive cardiomyopathy I34.0 Nonrheumatic mitral (valve) insufficiency I25.10 Athscl heart disease of [place] coronary artery w/o ang pctrs Office Visit 08/29/2018 10:00a [facility] Lorene Miranda I25.110 Athscl heart Adrian, N.P. disease of [place] cor art w unstable ang pctrs I25.2 Old myocardial infarction J44.9 Chronic obstructive pulmonary disease, unspecified Z98.61 Coronary angioplasty status I42.9 Cardiomyopathy, unspecified Office Visit 08/26/2018 8:48a [place] Chencho Pian I25.119 Athscl heart Of Fabiana Joshi M.D. disease of [place] cor art w unsp ang pctrs Office Visit 08/26/2018 10:10a [facility] Anupam R55 Syncope and Assoc,daniel Alicia M.D. collapse Hospitalists E04.1 Nontoxic single thyroid nodule I10 Essential (primary) hypertension I25.119 Athscl heart disease of [place] cor art w unsp ang pctrs Office Visit 08/25/2018 4:22p [facility] Ariadna Porras, I25.119 Athscl heart Of [place] M.D. disease of [place] cor art w unsp ang pctrs I42.9 Cardiomyopathy, unspecified D64.9 Anemia, unspecified J44.9 Chronic obstructive pulmonary disease, unspecified Office Visit 08/25/2018 10:07a [facility] Miguel Bai R55 Syncope and Assoc,daniel Nickerson MD collapse Hospitalists E04.1 Nontoxic single thyroid nodule I25.10 Athscl heart disease of [place] coronary artery w/o ang pctrs I10 Essential (primary) hypertension Office Visit 08/24/2018 4:21p [facility] Ariadna Porras, I25.119 Athscl heart Of [facility] M.D. disease of [place] cor art w unsp ang pctrs I42.9 Cardiomyopathy, unspecified D64.9 Anemia, unspecified J44.9 Chronic obstructive pulmonary disease, unspecified Office Visit 08/24/2018 10:05a [facility] Miguel Bai R55 Syncope and Assoc,daniel Nickerson MD collapse Hospitalists E04.1 Nontoxic single thyroid nodule I25.10 Athscl heart disease of [place] coronary artery w/o ang pctrs I10 Essential (primary) hypertension G47.33 Obstructive sleep apnea (adult) (pediatric) J44.9 Chronic obstructive pulmonary disease, unspecified Office Visit 08/23/2018 7:00a [facility] Yogi Miranda R06.02 Shortness of Magmollyydah, M.D. 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 R09.89 Oth symptoms and signs involving the circ and resp systems I34.0 Nonrheumatic mitral (valve) insufficiency Office Visit 08/22/2018 10:01a [facility] Peter Holcomb, R55 Syncope and Assoc,daniel OCAMPO collapse Hospitalists I10 Essential (primary) hypertension E78.5 Hyperlipidemia, unspecified J44.9 Chronic obstructive pulmonary disease, unspecified Office Visit 08/09/2018 9:00a [facility] Tavo Poon, I25.119 Athscl heart Of [place] [facility], disease of [facility] pauma cor art w unsp ang pctrs Z98.61 Coronary angioplasty status Office Visit 08/09/2018 3:48p [facility] Tavo Poon, I25.110 Athscl heart Of [place] [facility], disease of [facility] pauma cor art w unstable ang pctrs I25.2 Old myocardial infarction J44.9 Chronic obstructive pulmonary disease, unspecified Office Visit 08/02/2018 9:00a [facility] Lorene S. R07.9 Chest pain, Foster, N.P. 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 R06.02 Shortness of breath I10 Essential (primary) hypertension J44.9 Chronic obstructive pulmonary disease, unspecified Office Visit 07/19/2018 [facility] Maddie R07.9 Chest pain, 10:50a Assoc,pc Josette, [employer]SEM[employer]ER unspecified Hospitalists R06.02 Shortness of breath I10 Essential (primary) hypertension J44.9 Chronic obstructive pulmonary disease, unspecified Office Visit 05/28/2018 9:00a Pulmonology & Leanne J44.9 Chronic Sleep Services AT MD Isiah obstructive Shailesh pulmonary disease, unspecified G47.33 Obstructive sleep apnea (adult) (pediatric) Office Visit 01/02/2018 9:30a [facility] Lorene S. I34.0 Nonrheumatic mitral Foster, N.P. (valve) insufficiency I42.9 Cardiomyopathy, unspecified G47.33 Obstructive sleep apnea (adult) (pediatric) E78.5 Hyperlipidemia, unspecified I25.2 Old myocardial infarction Office Visit 11/28/2017 10:30a [facility] Lorene S. I27.20 Pulmonary Cardiology Foster, N.P. hypertension, unspecified I34.0 Nonrheumatic mitral (valve) insufficiency I50.9 Heart failure, unspecified I42.9 Cardiomyopathy, unspecified G47.33 Obstructive sleep apnea (adult) (pediatric) E78.5 Hyperlipidemia, unspecified I25.2 Old myocardial infarction Office Visit 10/30/2017 [facility] Yogi S. I27.20 Pulmonary 10:00a Cardiology Migue Lo hypertension, unspecified I34.0 Nonrheumatic mitral (valve) insufficiency I50.9 Heart failure, unspecified I42.9 Cardiomyopathy, unspecified R06.02 Shortness of breath G47.33 Obstructive sleep apnea (adult) (pediatric) R94.31 Abnormal electrocardiogram [ECG] [EKG] Office Visit 10/06/2017 8:32a [facility] Robinson Oneil, I21.4 Non-St elevation daniel Sinha MD (teoh) Hospitalists myocardial infarction I50.21 Acute systolic (congestive) heart failure R07.9 Chest pain, unspecified I34.0 Nonrheumatic mitral (valve) insufficiency Office Visit 10/06/2017 [place] Ariadna Chiquita, I27.20 Pulmonary 1:54p Cardiology Lucien Camarena hypertension, [place] unspecified I34.0 Nonrheumatic mitral (valve) insufficiency Office Visit 10/05/2017 3:00p Abhinav Calix S. I50.9 Heart failure, Cardiology Migue Lo unspecified I34.0 Nonrheumatic mitral (valve) insufficiency I42.9 Cardiomyopathy, unspecified J18.9 Pneumonia, unspecified organism Z66 Do not resuscitate Office Visit 10/05/2017 8:29a [facility] Robinson Oneil, I21.4 Non-St elevation daniel Sinha MD (teoh) Hospitalists myocardial infarction I50.21 Acute systolic (congestive) heart failure R07.9 Chest pain, unspecified I34.0 Nonrheumatic mitral (valve) insufficiency Office Visit 10/04/2017 8:28a [facility] Robinson Oneil, I21.4 Non-St elevation daniel Sinha MD (Nsteoh) Hospitalists myocardial infarction I34.0 Nonrheumatic mitral (valve) insufficiency I50.21 Acute systolic (congestive) heart failure R07.9 Chest pain, unspecified Office Visit 10/04/2017 [place] Calix SSathya I42.9 Cardiomyopathy, 2:54p Cardiology Migue Lo unspecified I34.0 Nonrheumatic mitral (valve) insufficiency I21.4 Non-St elevation (Nstemi) myocardial infarction I50.9 Heart failure, unspecified Office Visit 10/03/2017 8:27a [facility] Robinson Oneil MD R74.8 Abnormal levels Assoc,pc of other serum Hospitalists enzymes R07.9 Chest pain, unspecified I48.0 Paroxysmal atrial fibrillation J18.9 Pneumonia, unspecified organism Office Visit 10/03/2017 1:53p [facility] Ariadna Porras, I50.9 Heart failure, Of Fabiana Camarena unspecified I34.0 Nonrheumatic mitral (valve) insufficiency R94.31 Abnormal electrocardiogram [ECG] [EKG] Office Visit 10/02/2017 8:25a [facility] Renate Roberts R74.8 Abnormal Assoc,daniel Mathews NP levels of Hospitalists other serum enzymes R07.9 Chest pain, unspecified I48.0 Paroxysmal atrial fibrillation J18.9 Pneumonia, unspecified organism Office Visit 07/11/2017 [facility] Nurse Visit cc I42.9 Cardiomyopathy, 9:00a Cardiology unspecified Office Visit 06/26/2017 [facility] Yogi Miranda G47.33 Obstructive sleep 4:20p Cardiology michael Lo (adult) Migue (pediatric) I42.9 Cardiomyopathy, unspecified I34.0 Nonrheumatic mitral (valve) insufficiency E78.5 Hyperlipidemia, unspecified R94.31 Abnormal electrocardiogram [ECG] [EKG] [facility] Assoc,daniel Heard D.O. failure with Hospitalists hypoxia J18.9 Pneumonia, unspecified organism J44.9 Chronic obstructive pulmonary disease, unspecified R74.8 Abnormal levels of other serum enzymes Office Visit 06/21/2017 6[facility] Acute respiratory Assoc,daniel Heard D.O. failure with Hospitalists hypoxia J18.9 Pneumonia, unspecified organism R74.8 Abnormal levels of other serum enzymes J44.9 Chronic obstructive pulmonary disease, unspecified Office Visit 06/20/2017 6:58[facility] Acute respiratory Assoc,daniel Heard D.O. failure with Hospitalists hypoxia J18.9 Pneumonia, unspecified organism J44.9 Chronic obstructive pulmonary disease, unspecified R74.8 Abnormal levels of other serum enzymes Office Visit 06/19/2017 [facility] Ruslan Dukes I50.31 Acute diastolic 6:57a Assoc,daniel RIZZO M.D. (congestive) Hospitalists heart failure R74.8 Abnormal levels of other serum enzymes J18.9 Pneumonia, unspecified organism J44.9 Chronic obstructive pulmonary disease, unspecified Office Visit 06/18/2017 6:56a [facility] Allison J18.9 Pneumonia, Assoc,daniel Heard D.O. unspecified Hospitalists organism R74.8 Abnormal levels of other serum enzymes J44.9 Chronic obstructive pulmonary disease, unspecified F32.9 Major depressive disorder, single episode, unspecified Office Visit 03/29/2017 10:00a Pulmonology & Leanne G47.33 Obstructive sleep Sleep Services AT MD Isiah apnea (adult) Shailesh (pediatric) Office Visit 03/22/2017 11:20a [facility] Qutaybeh S. G47.33 Obstructive sleep michael Lo (adult) Migue (pediatric) I42.9 Cardiomyopathy, unspecified I34.0 Nonrheumatic mitral (valve) insufficiency E78.5 Hyperlipidemia, unspecified R94.31 Abnormal electrocardiogram [ECG] [EKG] I35.1 Nonrheumatic aortic (valve) insufficiency Office Visit 10/30/2016 [facility] And Polly G47.33 Obstructive sleep 9:15a [facility] Bruno, ERIKA, apnea (adult) [facility] (pediatric) Office Visit 08/01/2016 [facility] Quazaelybeh S. I42.9 Cardiomyopathy , 3:40p Migue Lo unspecified I34.0 Nonrheumatic mitral (valve) insufficiency E78.5 Hyperlipidemia, unspecified Office Visit 06/15/2016 [facility] Quazaelybeh S. I42.9 Cardiomyopathy, 3:00p Chencho Lo M.D. unspecified R94.31 Abnormal electrocardiogram [ECG] [EKG] R07.9 Chest pain, unspecified I34.0 Nonrheumatic mitral (valve) insufficiency I10 Essential (primary) hypertension R00.1 Bradycardia, unspecified Office Visit 05/15/2013 [facility] Quazaelybeh S. 425.9 Cardiomyopathy 9:30a Chencho Lo M.D. Secondary Unspecified 794.31 Electrocardiogram (ECG) (EKG) Abnormal 786.50 Pain Chest Unspec Office Visit 04/25/2013 [facility] 425.9 Cardiomyopathy 10:20a Cardiology Doctor Loc 39 Secondary Unspecified 424.0 Mitral Valve Disorder 794.31 Electrocardiogram (ECG) (EKG) Abnormal 272.4 Hyperlipidemia Other Unspec 786.50 Pain Chest Unspec Office Visit 04/18/2013 [facility] 425.9 Cardiomyopathy 9:45a Cardiology Doctor Loc 39 Secondary Unspecified 424.0 Mitral Valve Disorder 794.31 Electrocardiogram (ECG) (EKG) Abnormal 272.4 Hyperlipidemia Other Unspec 786.50 Pain Chest Unspec 424.1 Aortic Valve Disorder Plan of Treatment 12/10/2018 - Yogi Lo M.D.I10 Essential (primary) [id number] Obstructive sleep apnea (adult) (pediatric)I25.110 Atherosclerotic heart disease of [place] coronary artery withI42.9 Cardiomyopathy , unspecifiedNew Orders:Echocardiogram, Ordered: 12/10/18Follow up:9 months ovI34.0 Nonrheumatic mitral (valve) [id number] Shortness of breath
[2018-12-21] MEDS ORDERED: Acetaminophen TAB* 325 MG PO PRN (20:28)
[2018-12-21] MEDS ORDERED: Meclizine TAB* 12.5 MG PO PRN (20:31)
[2018-12-21] MEDS ORDERED: Piperacillin/Tazobac ADVAN(*) 3.375 GM in NS 0.9% 100 ML* 100 ML IVPB ONE (20:37)
[2018-12-21] MEDS ORDERED: Albuterol/Ipratropium NEB.SOL* Albuterol 2.5 MG/Ipratropium 0.5 MG 3 ML INH PRN (20:50)
[2018-12-21] MEDS ORDERED: Zosyn per Pharmacy* NOTE FOLLOW UP SCH (21:00)
--- NOTE | 2018-12-21 22:38 | HP ---
CC: Dr. Rojelio Mcnulty * ADMISSION HISTORY AND PHYSICAL: DATE OF ADMISSION: 12/21/18 PRIMARY CARE PROVIDER: Dr. Rojelio Mcnulty. MY ATTENDING WHILE IN THE HOSPITAL: Dr. Bj Rogers.* (DICTATED BY DAMARIS PATRICIO) CHIEF COMPLAINT: Abdominal pain x3 weeks, fevers. HISTORY OF PRESENT ILLNESS: Ms. Baxter is an 83-year-old female with past medical history significant for coronary artery disease, COPD; on oxygen at night, hypertension, hyperlipidemia who has had a complicated history. The patient's first record of being seen at the [facility] was on 11/21/18, at which time she had a CAT scan of abdomen and pelvis, which showed acute diverticulitis in the rectosigmoid colon. The patient at that time was treated with 10 days of ciprofloxacin and metronidazole. The patient had some improvement in her abdominal pain, but no resolution. The patient then returned to the emergency department, was given Augmentin and took 5 days of that without relief of her abdominal pain. The patient again returned to the emergency department and had a CT scan of her abdomen and pelvis, which was negative for diverticulitis which was on 12/13/18. The patient, however, continued to have abdominal pain and feelings of constipation. The patient and her are unclear on the exact timeline of this; however, it appears to have taken place over approximately 1 month with numerous trips to the emergency department. The patient then again returned. The patient on her most recent trip to the emergency department 2 days before her admission was told that she was likely just constipated and told to take Milk of Magnesia. The patient did and began having frequent bowel movements again with abdominal cramping without blood in her stool. The patient states she felt like she had to go to the bathroom approximately every 10 minutes, but did not go every time. The patient states today that she has only had 2 bowel movements and was unable to provide a bowel movement for a C. diff sample at [facility]. The patient at the [facility] had a fever of unknown intensity. The patient has been on docusate daily. The patient in the [facility] had an elevated white blood cell count, rule out tachycardia, and was given ertapenem due to presumed previous failure of multiple treatments for the patient's diverticulitis. There was no bed available at [facility] and the patient was transferred from the emergency department at [facility] to the emergency department at [facility]. In the emergency department of [facility], she had a temperature of 100.9, pulse rate 76, normal blood pressure. Due to concern for recurrent diverticulitis, we were asked to evaluate the patient for admission to the hospital. PAST MEDICAL HISTORY: Coronary artery disease, hypertension, mitral regurgitation, hyperlipidemia, COPD. PAST SURGICAL HISTORY: Atherectomy in late 2018, catheterization x2, and low back surgery. MEDICATIONS: Per patient's , list of medications: 1. Meclizine 25 mg p.o. q.8 hours as needed. 2. Docusate 100 mg p.o. b.i.d. 3. Aspirin 81 mg p.o. daily. 4. Vitamin D3 with calcium 600 one tab p.o. b.i.d. with meals. 5. Lactobacillus acidophilus 2 tabs p.o. daily. 6. Lisinopril 5 mg p.o. daily. 7. Tiotropium bromide 2 puffs inhalation daily. 8. Lexapro 20 mg p.o. daily. 9. Spironolactone 25 mg p.o. Sunday, , Sunday, and Sunday. 10. Furosemide 20 mg p.o. Sunday, Sunday, and Sunday. 11. Carvedilol 6.25 mg p.o. b.i.d. 12. Ocuvite 1 tab p.o. daily. 13. Lipitor 20 mg p.o. daily. 14. Clopidogrel 75 mg p.o. daily. 15. Ezetimibe 1 tab p.o. daily. 16. Imdur 30 mg p.o. daily. ALLERGIES: NIACIN. FAMILY HISTORY: The patient's father and brother of MIs. The patient's mother of an aneurysm. The patient's sister of complications of hydrocephalus secondary to stroke. SOCIAL HISTORY: The patient quit smoking greater than 30 years ago. The patient drinks occasional alcohol, generally wine with dinner. The patient denies illicit drug use. 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 The patient is , has 2 children and 5 stepchildren. Her surrogate decision maker is her , Neno Baxter. REVIEW OF SYSTEMS: A 14-point review of systems was reviewed and is negative, except as above in the HPI. PHYSICAL EXAMINATION GENERAL: The patient is an 83-year-old female who appears stated age and is sitting comfortably in bed, in no acute distress. VITAL SIGNS: Temperature 100.9, pulse rate 76, respiratory rate 20, oxygen saturation 95% on 1 L, blood pressure 135/63. HEENT: Head: Normocephalic, atraumatic. Sclerae anicteric. No conjunctival injection. Nasal mucosa moist. Oral mucosa moist. No pharyngeal erythema, discharge, or exudate. NECK: Supple, nontender. No lymphadenopathy. No carotid bruits auscultated. No JVD. RESPIRATORY: Clear to auscultation bilaterally. No wheezes, rales, or rhonchi. Good air exchange bilaterally. CARDIAC: Regular rate and rhythm. No clicks, murmurs, gallops, or rubs. Pulses are 2+ in the bilateral dorsalis pedis, posterior tibialis and radial areas. ABDOMEN: Soft, tender to palpation in the bilateral lower quadrants. No rebound. No guarding. Bowel sounds present and normoactive in all 4 quadrants. No hepatosplenomegaly. No abdominal bruits auscultated. No hepatojugular reflux. GENITOURINARY: No suprapubic or CVA tenderness. NEURO: Cranial nerves II through XII intact. No focal deficits. Alert and oriented x3. PSYCHIATRIC: Pleasant and cooperative. SKIN: Clean, dry, and intact. No rash. DIAGNOSTIC STUDIES/LAB DATA: Laboratory data from [facility]: White blood cell count 13.38, hemoglobin 11.2, platelet count 279. Sodium 137, potassium 3.8, chloride 100, carbon dioxide 26, anion gap 11, BUN 11, creatinine 1.1, calcium 8.7. Bilirubin 0.4, AST 23, ALT 28, alkaline phosphatase 45. Protein 6.2, albumin 2.9, globulin 3.3. Amylase 41. Studies from [facility]: CT scan from 12/21/18 shows findings compatible with acute diverticulitis in the distal sigmoid colon. Follow up with CT in 4 to 6 weeks after completion of treatment to exclude underlying lesion. CT scan from [facility] from 12/13/18 read as atherosclerotic changes with multiple areas of possible hemodynamically significant visceral artery stenosis involving the celiac, superior mesenteric and bilateral renal arteries with suggestion of mild left adrenal hyperplasia, diverticulosis without acute inflammation. CT from [facility] on 11/21/18 read as sigmoid wall thickening representing acute or chronic inflammation with focal edema of proximal retrosigmoid colon suggesting diverticulitis. ASSESSMENT AND PLAN: Impression: Ms. Baxter is an 83-year-old female with past medical history significant for coronary artery disease, chronic obstructive pulmonary disease, hypertension who presents to the emergency department with a complicated 1-month course of abdominal pain, treatment with antibiotics, and 2 days ago the beginnings of frequent diarrhea with persistent abdominal pain. The patient has had fevers, elevated white blood cell count at [facility], and transferred to [facility] for admission for diverticulitis. 1. Acute diverticulitis. The patient has a CT scan showing acute diverticulitis. The patient had a CT scan as recently as 12/13/18 which showed no diverticulitis. The patient had an elevated white blood cell count, elevated temperature and will be admitted to the hospital for IV antibiotics. The patient received ertapenem at an outside hospital due to failure of previous treatment for diverticulitis; however, the treatment failure for diverticulitis is not clear given the patient did have a CT scan without diverticulitis on . This is likely recurrence of diverticulitis in the same area. There is no reason to believe that this recurrence would be due to resistant organism. The patient will be started on Zosyn, dose per pharmacy. The patient at this time is afebrile. The patient does not meet criteria for severe sepsis. The patient had no elevated lactic acid. The patient has no tachycardia or hypotension. The patient should outpatient have a colonoscopy after the acute phase of her diverticulitis has resolved to assess for underlying lesion or other inflammation involving the retrosigmoid colon. GI consultation inpatient should be considered if the patient fails to improve or has other atypical symptoms. 2. Coronary artery disease. The patient currently has no signs of acute coronary syndrome. Continue the patient's aspirin, Plavix, and statin. 3. Chronic obstructive pulmonary disease. Continue the patient's home inhalers. The patient will have DuoNebs as needed. The patient is currently not in exacerbation. 4. Hypertension. The patient is currently normotensive. Continue the patient' s home antihypertensives. 5. DVT prophylaxis: The patient will have heparin subcu. 6. FEN: The patient will have a soft diet and will have no fluids as she is normotensive. 7. Code status: The patient would like to be a full code. TIME SPENT: Approximately 60 minutes were spent on the admission of this patient, 30 of which were spent [id number] with the patient obtaining history and physical and discussing treatment plan. This plan was discussed with my attending, Dr. Bj Rogers, and he is in agreement. DAMARIS PATRICIO [id number]/CPS #: [id number] MTDD
[2018-12-21] MEDS: Ondansetron INJ* 2 MG/ML VIAL IV PRN (23:06)
[2018-12-21] MEDS: Docusate CAP* 100 MG PO SCH (23:25)
[2018-12-21] MEDS: VITAMIN E PO SCH (23:25)
[2018-12-21] MEDS: ASCORBIC ACID PO SCH (23:25)
[2018-12-21] MEDS: LUTEIN PO SCH (23:25)
[2018-12-21] MEDS: ZEAXANTHIN PO SCH (23:25)
[2018-12-21] MEDS: ZINC PO SCH (23:25)
[2018-12-21] MEDS: Carvedilol TAB* 6.25 MG PO SCH (23:27)
[2018-12-21] MEDS: Heparin VIAL(*) 5000 UNITS/ML VIAL (FIVE THOUSAND) SUBCUT SCH (23:28)
[2018-12-22] MEDS: ZOSYN 3.375 GM Q8H per EXTENDED INFUSION IVPB SCH ×6 (01:00→16:07)
[2018-12-22] MEDS: Heparin VIAL(*) 5000 UNITS/ML VIAL (FIVE THOUSAND) SUBCUT SCH ×3 (05:44→20:15)
[2018-12-22 06:06] LABS: ABS Lymphocytes 0.9 10^3/ul (1.0-4.8); ABS Monocytes 0.6 10^3/ul (0-0.8); ABS Neutrophils 11.2 10^3/ul (1.5-7.7); Eosinophil % 0.1 %; Hematocrit 31 % (35-47); Hemoglobin 10.4 g/dL (12.0-16.0); Lymphocyte % 6.8 %; Mean Corpuscular HGB Conc 33 g/dL (31-36); Mean Corpuscular Hemoglobin 32 pg (27-31); Mean Corpuscular Volume 95 fL (80-97); Platelet Count 257 10^3/uL (150-450); Red Blood Count 3.28 10^6 /uL (3.70-4.87); Red Cell Distribution Width 14 % (10.5-15); White Blood Count 12.7 10^3/uL (3.5-10.8)
[2018-12-22 06:24] LABS: Calcium 8.1 mg/dL (8.6-10.3); EGFR African American 64.1 (>60); Magnesium 1.9 mg/dL (1.9-2.7); Potassium 3.4 mmol/L (3.5-5.0)
[2018-12-22] MEDS: Ondansetron INJ* 2 MG/ML VIAL IV PRN (06:56)
[2018-12-22] MEDS: Spironolactone TAB* 25 MG PO SCH ×2 (07:05→08:49)
[2018-12-22] MEDS ORDERED: Potassium Chlor TAB* 20 MEQ TAB.ER PO ONE (07:52)
[2018-12-22] MEDS ORDERED: PROCHLORPERAZINE INJ 5 MG/ML 2 ML VIAL IV PRN (07:53)
[2018-12-22] MEDS: Tiotropium Respimt 2.5 mcg(NF) 1 PUFF MDI INH SCH (08:15)
[2018-12-22] MEDS: Escitalopram * 20 MG TABLET PO SCH (08:20)
[2018-12-22] MEDS: Clopidogrel TAB* 75 MG PO SCH (08:20)
[2018-12-22] MEDS: Aspirin EC TAB* 81 MG TAB.EC PO SCH (08:20)
[2018-12-22] MEDS: Lactobacillus Acidophilus* 1 TAB PO SCH (08:20)
[2018-12-22] MEDS: Isosorbide Mononitrate ER TAB* 30 MG PO SCH (08:20)
[2018-12-22] MEDS: Ezetimibe TAB* 10 MG PO SCH (08:20)
[2018-12-22] MEDS: Calcium/Vitamin D TAB 250/125* TAB PO SCH ×2 (08:20→16:08)
[2018-12-22] MEDS: Carvedilol TAB* 6.25 MG PO SCH ×2 (08:20→20:15)
[2018-12-22] MEDS: Lisinopril TAB* 5 MG PO SCH (08:21)
[2018-12-22] MEDS: Docusate CAP* 100 MG PO SCH ×2 (08:26→20:12)
[2018-12-22] MEDS: ASCORBIC ACID PO SCH ×2 (08:28→20:12)
[2018-12-22] MEDS: VITAMIN E PO SCH ×2 (08:28→20:12)
[2018-12-22] MEDS: ZEAXANTHIN PO SCH ×2 (08:28→20:12)
[2018-12-22] MEDS: LUTEIN PO SCH ×2 (08:28→20:12)
[2018-12-22] MEDS: ZINC PO SCH ×2 (08:28→20:12)
[2018-12-22] MEDS ORDERED: Morphine 4 MG/ML VIAL (1 ml) 4 MG/ML VIAL IV PRN (09:48)
[2018-12-22 10:36] LABS: C Reactive Protein 90.54 mg/L (<8.01)
[2018-12-22] MEDS ORDERED: oxyCODONE TAB* 5 MG TAB PO PRN (11:52)
[2018-12-22] MEDS ORDERED: Midazolam* 1 MG/ML 10 ML VIAL (10 MG) ONE (12:07)
[2018-12-22] MEDS ORDERED: fentaNYL* 50 MCG/ML 2 ML VIAL (100 MCG VIAL) ONE (12:07)
--- NOTE | 2018-12-22 12:26 | PN ---
Subjective Date of Service: 12/22/18 Interval History: Patient is having rather significant abdominal pain. Patient states it is like a pressure and is present in her lower abdomen. Patient states she continues to have diarrhea with fecal urgency and frequency. Patient remains a very poor historian as does her . Patient denies F/C, N/V, CP, SOB, dysuria, urinary frequency. Patient has intermittent severe nausea which improves with medication. Family History: Unchanged from Admission Social History: Unchanged from Admission Past Medical History: Unchanged from Admission Objective Active Medications: Acetaminophen (Tylenol Tab*) 650 mg PO Q6H PRN PRN Reason: FEVER/PAIN Last Admin: 12/22/18 04:36 Dose: 650 mg Albuterol/Ipratropium (Duoneb (Albuterol 2.5 Mg/Ipratropium 0.5 Mg)) 1 neb INH Q6H PRN PRN Reason: SOB/WHEEZING Aspirin (Aspirin Ec Tab*) 81 mg PO DAILY [facility] Last Admin: 12/22/18 08:20 Dose: 81 mg Atorvastatin Calcium (Lipitor*) 20 mg PO 1700 [facility] Calcium/Vitamin D (Oscal D Tab 250/125*) 1 tab PO BID WITH MEALS [facility] Last Admin: 12/22/18 08:20 Dose: 1 tab Carvedilol (Coreg Tab*) 6.25 mg PO BID [facility] Last Admin: 12/22/18 08:20 Dose: 6.25 mg Clopidogrel Bisulfate (Plavix Tab*) 75 mg PO DAILY [facility] Last Admin: 12/22/18 08:20 Dose: 75 mg Docusate Sodium (Colace Cap*) 100 mg PO BID [facility] Last Admin: 12/22/18 08:26 Dose: Not Given Ezetimibe (Zetia Tab*) 10 mg PO DAILY [facility] Last Admin: 12/22/18 08:20 Dose: 10 mg Escitalopram Oxalate (Lexapro *) 20 mg PO DAILY [facility] Last Admin: 12/22/18 08:20 Dose: 20 mg Furosemide (Lasix Tab*) 20 mg PO MoWeFr [facility] Heparin Sodium (Porcine) (Heparin Vial(*)) 5,000 units SUBCUT Q8HR [facility] Last Admin: 12/22/18 05:44 Dose: 5,000 units Piperacillin Sod/Tazobactam (Sod 3.375 gm/ Sodium Chloride) 100 mls @ 25 mls/ hr IVPB Q8H [facility] Last Admin: 12/22/18 08:26 Dose: 25 mls/hr Isosorbide Mononitrate (Imdur Er Tab*) 30 mg PO DAILY [facility] Last Admin: 12/22/18 08:20 Dose: 30 mg Lactobacillus Rhamnosus (Lactobacillus Acidophilus*) 2 tab PO DAILY [facility] Last Admin: 12/22/18 08:20 Dose: 2 tab Lisinopril (Prinivil Tab*) 5 mg PO DAILY [facility] Last Admin: 12/22/18 08:21 Dose: 5 mg Morphine Sulfate (Morphine 4 Mg/Ml Vial (1 Ml)) 1 mg IV Q2H PRN PRN Reason: PAIN Last Admin: 12/22/18 10:06 Dose: 1 mg Nf: (Vit C/E/Zinc/Lutein/Zeaxanthin [ Ocuvite [facility] Gummies] 1 Chw) 1 chw PO BID [facility] Last Admin: 12/22/18 08:28 Dose: Not Given Ondansetron HCl (Zofran Inj*) 4 mg IV Q6H PRN PRN Reason: NAUSEA Last Admin: 12/22/18 06:56 Dose: 4 mg Oxycodone HCl (Roxycodone Tab*) 5 mg PO Q6H PRN PRN Reason: PAIN Pharmacy Consult (Zosyn Per Pharmacy*) 1 note FOLLOW UP .ZOSYN PER PHARMACY [facility] Prochlorperazine Edisylate (Compazine Inj*) 5 mg IV Q6H PRN PRN Reason: NAUSEA/VOMITING Last Admin: 12/22/18 08:10 Dose: 5 mg Spironolactone (Aldactone Tab*) 25 mg PO SuTuThSa [facility] Last Admin: 12/22/18 08:49 Dose: 25 mg Tiotropium [place] (Spiriva Respimat 2.5 Mcg(Nf)) 2 puff INH DAILY [facility] Last Admin: 12/22/18 08:15 Dose: Not Given Vancomycin HCl (Vancomycin Cap*) 125 mg PO QID [facility] Vital Signs - 8 hr 12/22/18 12/22/18 12/22/18 07:53 10:06 10:57 Temperature 100.1 F Pulse Rate 80 Respiratory 20 18 18 Rate Blood Pressure 138/57 (mmHg) O2 Sat by Pulse 96 Oximetry Oxygen Devices in Use Now: None Appearance: Patient is an 83yo female who appears stated age and is sitting in the bed in [facility]. Eyes: No Scleral Icterus, PERRLA Ears/Nose/Mouth/Throat: NL Teeth, Lips, Gums, Clear Oropharnyx, Mucous Membranes Moist Neck: NL Appearance and Movements; NL JVP, Trachea Midline Respiratory: Symmetrical Chest Expansion and Respiratory Effort, Clear to Auscultation Cardiovascular: NL Sounds; No Murmurs; No JVD, RRR, No Edema Abdominal: - - Hyperactive bowel sounds, Bloating with hypertympany to percussion, tenderness to palpation in B/L Lower quadrants. No rebound or guarding. Lymphatic: No Cervical Adenopathy Extremities: No Edema, No Clubbing, Cyanosis Skin: No Rash or Ulcers, No Nodules or Sclerosis Neurological: Alert and Oriented x 3, NL Sensation, NL Muscle Strength and Tone , - - CN II-XII intact. Result Diagrams: 12/22/18 05:35 12/22/18 05:35 Microbiology and Other Data: Microbiology 12/22/18 09:55 Stool Gross Appearance - Final Stool C. difficile DNA Amplification - Final 027 Presumptive NEGATIVE Toxigenic C.diff POSITIVE Assess/Plan/Problems-Billing Assessment: Patient is an 83yo female with a PMH for HTN, HLD, CAD, COPD, and 1 month of intemittent abdominal pain with diagnosis of diverticulitis and constipation and is now admitted or sepsis and diarrhea with a question of C. diff. - Patient Problems (1) Diverticulitis Current Visit: Yes Status: Acute Code(s): K57.92 - DVTRCLI OF INTEST, PART UNSP, W/O PERF OR ABSCESS W/O BLEED SNOMED Code(s): 393944500 Comment: - Had CT findings consistent with diverticulitis, was treated with 10 days Cipro /flagyl starting on 11/21 and then 5 days augmentin starting on 12/13 - Persistent abdominal pain throughout with alternating diarrhea/constipation - Came in with Fever/Leukocytosis concerning for infection, given Ertapenum at OSH - Stop zosyn due to findings consistent with C. Diff - Appreciate GI consult, Sigmoidoscopy shows no signs of diverticulitis (2) C. difficile colitis Current Visit: Yes Status: Acute Comment: - Positive test for C. Diff. Diarrhea seems to only have occurred after taking Mag Citrate x2 before admission. - Was on antibiotics for the last month - Treat with Vancomycin at this time per GI. - Sigmoidoscopy findings consistent with C. diff (3) CAD (coronary artery disease) Current Visit: No Status: Acute Code(s): I25.10 - ATHSCL HEART DISEASE OF [place] CORONARY ARTERY W/O ANG PCTRS SNOMED Code(s): 42704435 Comment: - No signs of ASC - Continue ASA, statin, plavix, carvedilol, lisinopril, and spirinolactone - Follows with Dr. Lo outpatient (4) COPD (chronic obstructive pulmonary disease) Current Visit: No Status: Acute Code(s): J44.9 - CHRONIC OBSTRUCTIVE PULMONARY DISEASE, UNSPECIFIED SNOMED Code(s): 73800841 Comment: - Continue home inhalers, not in exacerbation (5) HTN (hypertension) Current Visit: No Status: Acute Code(s): I10 - ESSENTIAL (PRIMARY) HYPERTENSION SNOMED Code(s): 63195192 Comment: - Normotensive - Continue current meds (6) DVT prophylaxis Current Visit: No Status: Acute Priority: Low Code(s): IYW2821 - SNOMED Code(s): 040451505 Comment: - HSQ and Ambulate Status and Disposition: Inpatient for treatment of C. Diff
--- NOTE | 2018-12-22 13:56 | CONS ---
GASTROENTEROLOGY CONSULT: DATE: 12/22/18 CONSULTING PHYSICIANS: Nayla Sims MD; Rojelio Mcnulty DO. REASON FOR CONSULTATION: Bowel habit changes from constipation to diarrhea back again twice over a couple of weeks with multiple courses of antibiotics directed at diverticulitis because of CT scan findings at [place] [facility]. She is as of today known to be C. diff toxin positive. HISTORY: This 83-year-old woman was transferred from [facility] because of abdominal distress and a CT scan showing apparent diverticulitis. That scan and report are not currently available. She had just been in [facility] 11/13/18 for complaint of chest pain with her nitrate medication adjusted. Today, she says her chief complaint began with constipation about two weeks ago. She then apologized for her poor memory and asked her and daughter to provide the history and it turns out that none of them individually or in combination can really remember anything with much clarity. They were, however, uniform in saying that the problem that she went to the emergency room for at [place] 11/23/18 was constipation and abdominal pain. CT scan apparently showed diverticulitis and she was placed on Cipro and Flagyl. After that was completed possibly with some untreated time she was placed on Augmentin. She took that probably not for the full course. She perceived constipation and took Milk of Magnesia on her own 3 to 4 days ago. She was seen at her primary office 2 days ago and another dose of Milk of Magnesia endorsed. She then went to the emergency room yesterday, and per report, the CAT scan suggested diverticulitis again, but then today, she is reporting multiple loose stools. The first stool sent was positive for C. diff. She has a history of diverticulitis in the remote past. She had had a colonoscopy by Dr Coleman at [facility]. There are no gastroenterology reports here yet. She is not on any special diet. PAST MEDICAL HISTORY: 1. Coronary disease - right coronary stenting and atherectomy in [place], July 2018. 2. COPD. 3. Cognitive impairment. 4. Sleep apnea. 5. Dyslipidemia. 6. Hypertension. 7. Back surgeries more than 15 years ago. MEDICATIONS: Sixteen listed and including: Plavix 75 Aspirin 81 Zetia Lipitor 20 Spironolactone 4 days a week Furosemide 3 days a week. Lisinopril 5 Docusate 100 b.i.d. This list is submitted by her whose grasp of her medical details is somewhat suspect. ALLERGIES: NIACIN - rash. SOCIAL HISTORY: She has 4 daughters in the area and about half of her outpatient appointments are attended by one of them. REVIEW OF SYSTEMS: No history of seizure. Recent syncope (syncope admission August 2018), CVA, TIA, atrial fibrillation, TB, hemoptysis, bronchoscopy, hepatitis, liver impairment, abdominal surgery. She has had anemia for number of years with hemoglobin highly variable over the last 3 years. MCV 95 most recent, generally 95 to 10; and B12 level 400, 05/10/16. No iron levels available. LFTs have been normal with the exception of one elevation of ALT to 63, 04/01/18. Celiac panel, October 2010, was negative. EXAM: She is an elderly woman in bed, accompanied by her and daughter. She does not appear in acute distress. She is afebrile. HEENT exam is unremarkable. There is no icterus. Temp is 100.1, blood pressure 138/57. Lungs are clear with diminished breath sounds equally. Heart sounds are regular. The abdomen is of average configuration, symmetric with normal bowel sounds and there is some minimal deep tenderness that seems appropriate at the level of probing. Perianal inspection showed zinc oxide, slightly diminished tone, smooth mucosa and no specimen. Extremities showed no edema. LABS: CBC 12/22/18 showed hemoglobin 10.4, white count 12.7, MCV 95. Sodium 134, potassium 3.4, creatinine 1.0, BUN 9, CRP 90.54, albumin 3 weeks ago 4.0. IMPRESSION: This 83-year-old woman with coronary disease (recent stent) and cognitive impairment with a history of diverticulitis in the remote past and then recently bowel habit changes and CT scans interpreted as diverticulitis sometime in the last month. The patient, however, for the most part has been complaining of constipation and then some diarrhea and ineffective use of Milk of Magnesia. She is C. diff positive with somewhat unclear history and no findings on physical exam. A sigmoidoscopy may help in decision making as now whether to treat both conditions simultaneously is unclear. [id number]/[facility] #: [id number] MTDD
[2018-12-22] MEDS: Vancomycin CAP* 125 MG CAP PO SCH ×3 (13:59→20:15)
--- NOTE | 2018-12-22 15:01 | PRO ---
DATE: 12/22/18 REFERRING PHYSICIANS: Nayla Sims MD; Rojelio Mcnulty DO. PROCEDURE: Flexible sigmoidoscopy to 50 cm INDICATION: This 83-year-old woman has complained of multiple symptoms. She initially mentioned constipation not helped by MOM twice this week and her validated that. They had initially 5 weeks ago been in the emergency room at [place] where a CT scan had findings for which she was given Cipro and Flagyl. A second course of antibiotics of Augmentin were given. They believe (both frankly admit their memories are poor) the original symptom back 5 weeks ago was abdominal pain and cannot recall her bowel situation. That was 10 days after an admission here for chest pain where the DC summary does not mention GI concerns. Given the history, the interpretation of her positive C. diff toxin was in question. ENDOSCOPIST: Dr. Hassan MEDICATIONS: Midazolam 1.5, fentanyl 25 with good comfort. FINDINGS: She is an elderly woman appearing chronically ill, in no acute distress at this time. Her breathing is stable. She was positioned left side down and moderate sedation induced. Initial views show rectal edema, minimal erythema and clear pseudomembranes that are typical. They are found throughout and confluent up to limited exam at 50. The exam was easy to this level and was continued to help interpret the question of focal diverticulitis. There was no evidence of any focal abnormality based on tolerance of the exam or edema or difficult advancement. IMPRESSION: Diverticulosis - a moderate number seen above 20 cm with no focal difficulty suggesting acute diverticulitis. Pseudomembranous colitis - vancomycin and would discontinue Zosyn. [id number]/CPS #: [id number] [facility]
[2018-12-22] MEDS ORDERED: Atorvastatin* 20 MG TAB PO SCH (17:00)
[2018-12-23] MEDS: ZOSYN 3.375 GM Q8H per EXTENDED INFUSION IVPB SCH ×4 (00:16→08:41)
[2018-12-23] MEDS: Heparin VIAL(*) 5000 UNITS/ML VIAL (FIVE THOUSAND) SUBCUT SCH (05:29)
[2018-12-23 07:27] LABS: ABS Eosinophils 0.1 10^3/ul (0-0.6); ABS Lymphocytes 1.6 10^3/ul (1.0-4.8); ABS Monocytes 0.4 10^3/ul (0-0.8); ABS Neutrophils 11.4 10^3/ul (1.5-7.7); Eosinophil % 1.1 %; Hematocrit 30 % (35-47); Hemoglobin 9.8 g/dL (12.0-16.0); Lymphocyte % 11.8 %; Mean Corpuscular HGB Conc 33 g/dL (31-36); Mean Corpuscular Hemoglobin 31 pg (27-31); Mean Corpuscular Volume 95 fL (80-97); Mean Platelet Volume 6.8 fL (7.4-10.4); Platelet Count 250 10^3/uL (150-450); Red Blood Count 3.16 10^6 /uL (3.70-4.87); Red Cell Distribution Width 14 % (10.5-15); White Blood Count 13.6 10^3/uL (3.5-10.8)
[2018-12-23 08:01] LABS: BUN/Creatinine Ratio 9.4 (8-20); EGFR African American 67.2 (>60); EGFR Non-African American 55.5 (>60); Potassium 3.7 mmol/L (3.5-5.0)
[2018-12-23 08:13] VITALS: BP 140/54
[2018-12-23] MEDS: Tiotropium Respimt 2.5 mcg(NF) 1 PUFF MDI INH SCH (08:18)
[2018-12-23] MEDS: LUTEIN PO SCH (08:35)
[2018-12-23] MEDS: ZEAXANTHIN PO SCH (08:35)
[2018-12-23] MEDS: ZINC PO SCH (08:35)
[2018-12-23] MEDS: ASCORBIC ACID PO SCH (08:35)
[2018-12-23] MEDS: VITAMIN E PO SCH (08:35)
[2018-12-23] MEDS: Isosorbide Mononitrate ER TAB* 30 MG PO SCH (08:39)
[2018-12-23] MEDS: Ezetimibe TAB* 10 MG PO SCH (08:39)
[2018-12-23] MEDS: Lactobacillus Acidophilus* 1 TAB PO SCH (08:39)
[2018-12-23] MEDS: Vancomycin CAP* 125 MG CAP PO SCH (08:40)
[2018-12-23] MEDS: Lisinopril TAB* 5 MG PO SCH (08:40)
[2018-12-23] MEDS: Escitalopram * 20 MG TABLET PO SCH (08:41)
[2018-12-23] MEDS: Carvedilol TAB* 6.25 MG PO SCH (08:41)
[2018-12-23] MEDS: Aspirin EC TAB* 81 MG TAB.EC PO SCH (08:41)
[2018-12-23] MEDS: Clopidogrel TAB* 75 MG PO SCH (08:41)
[2018-12-23] MEDS: Calcium/Vitamin D TAB 250/125* TAB PO SCH (08:41)
[2018-12-23] MEDS ORDERED: Furosemide TAB* 20 MG PO SCH (09:00)
[2018-12-23] MEDS: Docusate CAP* 100 MG PO SCH (09:03)
--- NOTE | 2018-12-24 04:17 | DS ---
CC: Dr. Mcnulty; Dr. Hassan * DISCHARGE SUMMARY: DATE OF ADMISSION: 12/21/18 DATE OF DISCHARGE: To home, 12/23/18. PRIMARY CARE PROVIDER: Dr. Mcnulty from [facility]. DISCHARGE DIAGNOSIS: Clostridium difficile colitis. SECONDARY DIAGNOSES: 1. History of recent diagnosis of diverticulitis, had treatment with multiple antibiotics. Please see history and physical for details. 2. History of coronary artery disease. 3. Hypertension. 4. Mitral regurgitation. 5. Dyslipidemia. 6. COPD. MEDICATIONS ON DISCHARGE: Include 1. Vancomycin 125 mg p.o. 4 times a day for a total of 14 days. The remaining medications that are unchanged. 1. Aspirin 81 daily. 2. Calcium carbonate with vitamin D 1 tablet b.i.d. 3. Coreg 6.25 mg b.i.d. 4. Lexapro 20 mg daily. 5. Ezetimibe 10 mg daily. 6. Furosemide 20 mg on Mondays, Sunday, and Fridays. 7. Lactobacillus 2 capsules daily. 8. Lisinopril 5 mg daily. 9. Meclizine 25 mg every 8 hours p.r.n. 10. Aldactone 25 mg on Tuesdays, , Saturdays, and Sundays. 11. Spiriva Respimat 2 puffs inhalation daily. 12. Vitamin C, E, zinc, and lutein 1 capsule b.i.d. 13. Lipitor 20 mg daily. 14. Plavix 75 mg daily. 15. Imdur ER 30 mg daily. LABORATORY DATA AND STUDIES PERFORMED DURING THE HOSPITAL STAY: On 12/23/18, white blood cell count 13.6, hemoglobin 9.8, hematocrit 30, and platelet count 50. Sodium was 138, potassium 3.7, chloride 108, carbon dioxide 25, BUN 19, creatinine 0.96. CT was obtained in [facility]. Please see history and physical for details. PROCEDURES PERFORMED DURING THE HOSPITAL STAY: Dr. Hassan performed flexible sigmoidoscopy to 50 cm on 12/22/18 with impression: "Diverticulosis. A moderate number seen above 20 cm with no focal difficulty suggesting acute diverticulitis. Pseudomembranous colitis. Vancomycin and we will discontinue Zosyn." CONSULTATIONS DURING THE HOSPITAL STAY: Dr. Hassan from [facility]. CONDITION ON DISCHARGE: Stable. HOSPITALIZATION COURSE: Areli Baxter is an 83-year-old female with history of recent diverticulitis for which she was treated with multiple antibiotics in the past couple of months, who presented to us as a transfer from [facility], where there were no beds to treat the patient for her acute diverticulitis noted on the CT scan performed on [place]. Here, her stool for C. diff was positive. Her antibiotics were stopped and the patient was started on p.o. vancomycin. Also, flexible sigmoidoscopy was performed by Dr. Hassan on 12/22/18 showed pseudomembranous colitis consistent with the microbiology report. The patient was treated with vancomycin for more than 24 hours. Her diarrhea resolved and her abdominal pain resolved. She still has mild distention, but tolerates soft diet without any problems. with soft diet for the next couple of days and then advance to regular as tolerated. She is going to be discharged on 14-day course of vancomycin p.o. The patient is recommended to follow up with the primary care provider in 4 to [address] Hassan in approximately 1 to 2 weeks. PHYSICAL EXAM AT THE TIME OF DISCHARGE: Blood pressure 140/54, heart rate of 68 and regular, respiratory rate of 20, oxygen saturation 98% on room air, temperature 97.4. General: The patient is a very pleasant 83-year-old female, who is in no acute distress. Alert, awake, and oriented x3. HEENT: Head: Atraumatic, normocephalic. Eyes: Pupils are equal and reactive to light and accommodation. Oropharynx is clear. Mucosa is moist. Neck: Supple. No JVD. No bruits bilaterally. Cardiovascular: Regular rate and rhythm. No murmur. Respiratory: Clear to auscultation bilaterally. Abdomen: Soft and nontender. Bowel sounds are present in all 4 quadrants. Extremities: There is no edema. Pulses are +2 bilaterally. There is no clubbing or cyanosis. On neuro evaluation, speech is clear. Cranial nerves II through XII grossly intact. Motor strength is 5/5 bilaterally. Please note that this is a short summary of the patient's hospitalization. Please refer to further medical records for details. TIME SPENT: Approximately 40 minutes was spent on the patient's discharge. [id number]/[facility] #: [id number] [facility]
== END 2018-12-23 10:40 | disposition home or self-care (01) | DRG 372 ==
LOC: ED 18:56 → MEDTELE 20:28 → OBSVTOIN 12-22 07:52
PROVIDERS: ADMIT Internal Medicine; ATTEND Internal Medicine
PROC: 0DJD8ZZ Inspection of Lower Intestinal Tract, Via Natural or Artificial Opening Endoscopic (ICD-10-PCS; principal; 2018-12-22)
DX: A04.72 Enterocolitis due to Clostridium difficile, not specified as recurrent (principal); K57.32 Diverticulitis of large intestine without perforation or abscess without bleeding; Z99.81 Dependence on supplemental oxygen; J44.9 Chronic obstructive pulmonary disease, unspecified; I34.0 Nonrheumatic mitral (valve) insufficiency; I25.10 Atherosclerotic heart disease of native coronary artery without angina pectoris; I10 Essential (primary) hypertension; E78.5 Hyperlipidemia, unspecified; G31.84 Mild cognitive impairment of uncertain or unknown etiology; G47.30 Sleep apnea, unspecified; Z79.82 Long term (current) use of aspirin; Z79.899 Other long term (current) drug therapy; Z88.8 Allergy status to other drugs, medicaments and biological substances; Z82.49 Family history of ischemic heart disease and other diseases of the circulatory system; Z82.3 Family history of stroke; Z87.891 Personal history of nicotine dependence; Z95.5 Presence of coronary angioplasty implant and graft; Z79.02 Long term (current) use of antithrombotics/antiplatelets
CPT/HCPCS: 36415; 80048; 83735; 85025; 86140; 87493; 99156; 99284; A9270-GY; J0780; J1644; J2250; J2270; J2405; J2543; J3010

== ENCOUNTER → 2018-12-30 17:53 | Emergency (ER) | payer MEDICARE ==
[~2018-12-30 17:53] MED LIST: Morphine 4 MG/ML VIAL (1 ml) 4 MG/ML VIAL IV ONE; NS 0.9% 1000 ML** 1,000 ML IV ONE; Ondansetron INJ* 2 MG/ML VIAL IV ONE; diPHENhydraMINE IV* 50 MG/ML 1 ml VIAL (BENADRYL) IV ONE
[2018-12-30 19:41] LABS: ABS Basophils 0.1 10^3/ul (0-0.2); ABS Eosinophils 0.1 10^3/ul (0-0.6); ABS Lymphocytes 2.5 10^3/ul (1.0-4.8); ABS Monocytes 0.6 10^3/ul (0-0.8); ABS Neutrophils 3.8 10^3/ul (1.5-7.7); Eosinophil % 1.9 %; Hematocrit 35 % (35-47); Hemoglobin 11.5 g/dL (12.0-16.0); Lymphocyte % 35.3 %; Mean Corpuscular HGB Conc 33 g/dL (31-36); Mean Corpuscular Hemoglobin 31 pg (27-31); Mean Corpuscular Volume 95 fL (80-97); Mean Platelet Volume 6.6 fL (7.4-10.4); Nucleated Red Blood Cells % 0.1; Platelet Count 324 10^3/uL (150-450); Red Blood Count 3.66 10^6 /uL (3.70-4.87); Red Cell Distribution Width 15 % (10.5-15); White Blood Count 7.1 10^3/uL (3.5-10.8)
--- NOTE | 2018-12-30 19:51 | ED ---
Abdominal Pain/Female - HPI Summary HPI Summary: Pt is an 83 y/o female who presents to the ED c/o abdominal pain. She was treated for diverticulitis at the end of November 2018 with antibiotics. On 12/22/18 she was diagnosed with C. diff and was admitted to [facility]. Pt is still having mid abdominal pain, nausea, and diarrhea. Pain is described as cramping and is rated a 5/10 in severity. Pt denies any vomiting or appetite change. She states she is only having about one BM per day. PMHx diverticulitis, GERD. - History of Current Complaint Chief Complaint: EDAbdPain Stated Complaint: ABD PAINS PER PT Time Seen by Provider: 12/30/18 19:44 Hx Obtained From: Patient Onset/Duration: Gradual Onset, Lasting Weeks - 1, Still Present Timing: Constant Severity Currently: Moderate Pain Intensity: 5 Pain Scale Used: 0-10 Numeric Location: Other - Mid abdomen Character: Cramping Associated Signs and Symptoms: Positive: Nausea, Diarrhea. Negative: Decreased Appetite, Vomiting Simlar Episode/Dx as:: diverticulitis, C. diff Allergies/Adverse Reactions: Allergies Allergy/AdvReac Type Severity Reaction Status Date / Time niacin Allergy Intermediate Rash Verified 12/21/18 19:13 PMH/Surg Hx/FS Hx/Imm Hx Endocrine/Hematology History: Reports: Hx Anticoagulant Therapy - ASA, Brilinta Denies: Hx Diabetes Comment Only: Other Endocrine/Hematological Disorders - anemia Cardiovascular History: Reports: Hx Angina, Hx Congestive Heart Failure, Hx Coronary Artery Disease, Hx Hypercholesterolemia, Hx Hypertension, Hx Syncope, Other Cardiovascular Problems/Disorders - mitral regurgitation, cardiomyopathy Denies: Hx Myocardial Infarction, Hx Pacemaker/ICD, Hx Valvular Heart Disease Respiratory History: Reports: Hx Chronic Obstructive Pulmonary Disease (COPD) - 2 - 3 L O2 @home, Hx Pneumonia - feburary 2017, Hx Sleep Apnea - cpap 2-3L Denies: Hx Asthma GI History: Reports: Hx Diverticulosis, Hx Gastroesophageal Reflux Disease Musculoskeletal History: Reports: Hx Arthritis - hands and neck, Hx Back Problems - 2 back surgeries 2002, spinal stenosis, Hx Osteoporosis Sensory History: Reports: Hx Contacts or Glasses, Hx Macular Degeneration, Hx Deafness - R ear Denies: Hx Hearing Aid Opthamlomology History: Reports: Hx Contacts or Glasses, Hx Macular Degeneration Neurological History: Reports: Hx Dementia - short term memory issue, Other Neuro Impairments/Disorders - peripheral neuroptathy Psychiatric History: Reports: Hx Anxiety Denies: Hx Panic Disorder - Surgical History Surgery Procedure, Year, and Place: 2 BACK SURGERIES (SPINAL STENOSIS). CATARACT. CARDIAC CATHETERIZATION Hx Anesthesia Reactions: No - Immunization History Date of Tetanus Vaccine: utd Date of Influenza Vaccine: fall 2017 Infectious Disease History: Yes Infectious Disease History: Denies: Traveled Outside the [place] in Last 30 Days - Family History Known Family History: Positive: Cardiac Disease - Social History Alcohol Use: None Hx Substance Use: No Substance Use Type: Reports: None Hx Tobacco Use: Yes - not currently Smoking Status (MU): Former Smoker Type: Cigarettes Have You Smoked in the Last Year: No Review of Systems Negative: Other - appetite change Positive: Abdominal Pain, Diarrhea, Nausea. Negative: Vomiting All Other Systems Reviewed And Are Negative: Yes Physical Exam - Summary Physical Exam Summary: Appearance: well appearing, no pain distress Skin: warm, dry, reflects adequate perfusion Head/face: normal Eyes: EOMI, TUCKER ENT: mucous membranes moist Neck: supple, non-tender Respiratory: CTA, breath sounds present Cardiovascular: RRR, pulses symmetrical Abdomen: non-tender, soft, non-distended Bowel Sounds: hyperactive Musculoskeletal: normal, strength/ROM intact Neuro: normal, sensory motor intact, A&Ox3 Triage Information Reviewed: Yes Vital Signs On Initial Exam: Initial Vitals Temp Pulse Resp BP Pulse Ox 97.2 F 63 18 156/83 96 12/30/18 18:08 12/30/18 18:08 12/30/18 18:08 12/30/18 18:08 12/30/18 18:08 Vital Signs Reviewed: Yes Diagnostics - Vital Signs Vital Signs Temp Pulse Resp BP Pulse Ox 12/30/18 18:08 97.2 F 63 18 156/83 96 - Laboratory Lab Results: Lab Results 12/30/18 Range/Units 19:25 WBC 7.1 (3.5-10.8) 10^3/uL RBC 3.66 L (3.70-4.87) 10^6 /uL Hgb 11.5 L (12.0-16.0) g/dL Hct 35 (35-47) % MCV 95 (80-97) fL MCH 31 (27-31) pg MCHC 33 (31-36) g/dL RDW 15 (10.5-15) % Plt Count 324 (150-450) 10^3/uL MPV 6.6 L (7.4-10.4) fL Neut % (Auto) 53.3 % Lymph % (Auto) 35.3 % Williams % (Auto) 8.5 % Eos % (Auto) 1.9 % Baso % (Auto) 1.0 % Absolute Neuts (auto) 3.8 (1.5-7.7) 10^3/ul Absolute Lymphs (auto) 2.5 (1.0-4.8) 10^3/ul Absolute Monos (auto) 0.6 (0-0.8) 10^3/ul Absolute Eos (auto) 0.1 (0-0.6) 10^3/ul Absolute Basos (auto) 0.1 (0-0.2) 10^3/ul Absolute Nucleated RBC 0.0 10^3/ul Nucleated RBC % 0.1 Result Diagrams: 12/30/18 19:25 12/30/18 19:25 Lab Statement: Any lab studies that have been ordered have been reviewed, and results considered in the medical decision making process. - Radiology Abdomen XR Radiology Interpretation Completed By: ED Physician Summary of Radiographic Findings: Non-obstructive bowel gas pattern. Pending official radiology report. Re-Evaluation - Re-Evaluation First Eval Re-Evaluation Time: 20:55 Change: Worse Comment: Pt is slightly nauseated. Second Eval Re-Evaluation Time: 21:20 Change: Improved Comment: Pt now feels better. Abdominal Pain Fem Course/Dx - Course Course Of Treatment: Patient with recent C. difficile colitis complains of increased bowel sounds and cramping without fever or diarrhea. Abdomen is soft and benign but she has increased bowel sounds. She is treated with Benadryl and a small dose of morphine with improvement. Her bowel sounds of calmed. She remains without pain. X-ray shows no evidence of obstructive pattern. She is discharged on probiotic and Levsin and will follow up closely with her primary care physician. - Diagnoses Differential Diagnosis: Positive: Other - Recurrent colitis, irritable bowel, abdominal abscess, bowel obstruction Provider Diagnoses: History of Clostridium difficile colitis, Abdominal cramping, Dehydration Discharge - Sign-Out/Discharge Documenting (check all that apply): Patient Departure - Discharge Patient Received Moderate/Deep Sedation with Procedure: No - Discharge Plan Condition: Improved Disposition: HOME Prescriptions: Hyoscyamine Sulfate [Levsin-Sl] 0.125 mg SL Q4H PRN #30 tab.subl PRN Reason: abdominal cramping L.acidophilus,Helvet/B.bifidum [Ra Probiotic Complex] 1 cap PO BID #40 cap Patient Education Materials: Irritable Bowel Syndrome (ED) Referrals: Rojelio Mcnulty DO [Primary Care Provider] - Additional Instructions: Call first thing in the morning to schedule a follow-up appointment with your doctor. Return with nausea, continual diarrhea, abdominal pain, worse, new symptoms or other concerns. Stay well-hydrated such that you urinate several times each day and that the urine does not turned dark yellow. - Billing Disposition and Condition Condition: IMPROVED Disposition: Home - Attestation Statements Document Initiated by George: Yes Documenting Scribe: Rayna Linton Provider For Whom George is Documenting (Include Credential): Ziyad Olsen MD Scribe Attestation: Rayna Shook, scribed for Ziyad Olsen MD on 12/31/18 at 0541. Scribe Documentation Reviewed: Yes Provider Attestation: The documentation as recorded by the Rayna zimmerman accurately reflects the service I personally performed and the decisions made by me, Ziyad Olsen MD Status of [place] Document: Viewed
[2018-12-30 19:55] LABS: Albumin 3.9 g/dL (3.2-5.2); Albumin/Globulin Ratio 1.4 (1-3); BUN/Creatinine Ratio 15.1 (8-20); Calcium 10.6 mg/dL (8.6-10.3); EGFR African American 49.1 (>60); EGFR Non-African American 40.6 (>60); Globulin 2.7 g/dL (2-4); Potassium 4.6 mmol/L (3.5-5.0); Total Bilirubin 0.5 mg/dL (0.2-1.0); Total Protein 6.6 g/dL (6.4-8.9)
[2018-12-30 21:30] VITALS: BP 119/88
== END | disposition home or self-care (01) ==
LOC: ED 17:53
DX: R10.9 Unspecified abdominal pain (principal); E86.0 Dehydration; R11.0 Nausea; F41.9 Anxiety disorder, unspecified; I25.10 Atherosclerotic heart disease of native coronary artery without angina pectoris; I50.9 Heart failure, unspecified; J44.9 Chronic obstructive pulmonary disease, unspecified; Z86.19 Personal history of other infectious and parasitic diseases; Z87.891 Personal history of nicotine dependence
CPT/HCPCS: 36415; 74019; 80053; 83605; 85025; 96361; 96365; 96375; 99285; J1200; J2270; J2405

== ENCOUNTER 2019-01-15 09:03 | Observation (INO) | payer MEDICARE ==
--- NOTE | 2019-01-15 09:21 | ED ---
HPI Chest Pain - HPI Summary HPI Summary: The patient is a 83 year old F brought in to [facility] by EMS for L anterior chest pressure and SOB since 0700 this morning. The pt took 1 SL of Nitro before calling EMS. En route to the hospital EMS gave the pt 1 SL Nitro and 324 ASA. The pt stated that the chest pressure resolved prior to arriving to [facility], but she states that she still is SOB and has a cough. The pt denies any fever or chills. Her symptoms were aggravated by nothing but were alleviated from medications. - History of Current Complaint Chief Complaint: EDChestPainROMI Time Seen by Provider: 01/15/19 09:09 Hx Obtained From: Patient, EMS Onset/Duration: Started Hours Ago - 0700 Time of Onset: 07:00 Timing: Constant Current Severity: None Pain Intensity: 0 Pain Scale Used: 0-10 Numeric Chest Pain Location: Left Anterior Character: Heaviness, Pressure/Squeezing Aggravating Factor(s): Nothing Alleviating Factor(s): NTG 123, OTC Meds - Per EMS baby asprin. 324 mg Associated Signs and Symptoms: Positive: Chest Pain - described as pressure and heaviness, Shortness of Breath, Cough. Negative: Fever, Chills - Additional Pertinent History Primary Care Physician: JEYSON - Allergy/Home Medications Allergies/Adverse Reactions: Allergies Allergy/AdvReac Type Severity Reaction Status Date / Time niacin Allergy Intermediate Rash Verified 01/15/19 09:11 Home Medications: Home Medications Atorvastatin* [Lipitor*] 80 mg PO DAILY 01/15/19 [History Confirmed 01/15/19] B-Complex with Vitamin C [B-Complex with C] 1 tab PO DAILY 01/15/19 [History Confirmed 01/15/19] Docusate CAP* [Colace Cap*] 100 mg PO BID 01/15/19 [History Confirmed 01/15/19] Ezetimibe TAB* [Zetia TAB*] 10 mg PO DAILY 01/15/19 [History Confirmed 01/15/19] LORazepam TAB(*) [Ativan 0.5 MG TAB (*)] 0.5 mg PO BID PRN 01/15/19 [History Confirmed 01/15/19] Levalbuterol HFA INHALER* [Xopenex Hfa Inhaler*] 2 puff INH Q6H PRN 01/15/19 [ History Confirmed 01/15/19] Nitroglycerin TAB 0.4 MG* 0.4 mg SL Q5M PRN 01/15/19 [History Confirmed 01/15/19 ] PMH/Surg Hx/FS Hx/Imm Hx Previously Healthy: No Endocrine/Hematology History: Reports: Hx Anticoagulant Therapy - ASA, Brilinta Denies: Hx Diabetes Comment Only: Other Endocrine/Hematological Disorders - anemia Cardiovascular History: Reports: Hx Angina, Hx Congestive Heart Failure, Hx Coronary Artery Disease, Hx Hypercholesterolemia, Hx Hypertension, Hx Syncope, Other Cardiovascular Problems/Disorders - mitral regurgitation, cardiomyopathy Denies: Hx Myocardial Infarction, Hx Pacemaker/ICD, Hx Valvular Heart Disease Respiratory History: Reports: Hx Chronic Obstructive Pulmonary Disease (COPD) - 2 - 3 L O2 @home, Hx Pneumonia - feburary 2017, Hx Sleep Apnea - cpap 2-3L Denies: Hx Asthma GI History: Reports: Hx Diverticulosis, Hx Gastroesophageal Reflux Disease Musculoskeletal History: Reports: Hx Arthritis - hands and neck, Hx Back Problems - 2 back surgeries 2002, spinal stenosis, Hx Osteoporosis Sensory History: Reports: Hx Contacts or Glasses, Hx Macular Degeneration, Hx Deafness - R ear Denies: Hx Hearing Aid Opthamlomology History: Reports: Hx Contacts or Glasses, Hx Macular Degeneration Neurological History: Reports: Hx Dementia - short term memory issue, Other Neuro Impairments/Disorders - peripheral neuroptathy Psychiatric History: Reports: Hx Anxiety Denies: Hx Panic Disorder - Surgical History Surgery Procedure, Year, and Place: 2 BACK SURGERIES (SPINAL STENOSIS). CATARACT. CARDIAC CATHETERIZATION Hx Anesthesia Reactions: No - Immunization History Date of Tetanus Vaccine: utd Date of Influenza Vaccine: fall 2017 Infectious Disease History: No Infectious Disease History: Denies: Traveled Outside the [place] in Last 30 Days - Family History Known Family History: Positive: Cardiac Disease - Social History Alcohol Use: None Hx Substance Use: No Substance Use Type: Reports: None Hx Tobacco Use: Yes - not currently Smoking Status (MU): Former Smoker Type: Cigarettes Have You Smoked in the Last Year: No Review of Systems Negative: Fever, Chills Positive: Chest Pain - Described as pressure/heaviness Positive: Shortness Of Breath All Other Systems Reviewed And Are Negative: Yes Physical Exam - Summary Physical Exam Summary: Constitutional: Well-developed, Well-nourished, Alert. (-) Distressed Skin: Warm, Dry HENT: Normocephalic; Atraumatic Eyes: Conjunctiva normal Neck: Musculoskeletal ROM normal neck. (-) JVD, (-) Stridor, (-) Tracheal deviation Cardio: Rhythm regular, rate normal, Heart sounds normal; Intact distal pulses; The pedal pulses are 2+ and symmetric. Radial pulses are 2+ and symmetric. (-) Murmur Pulmonary/Chest wall: Effort normal. (-) Respiratory distress, (-) Wheezes, (-) Rales Abd: Soft, suprapubic tenderness, (-) Distension, (-) Guarding, (-) Rebound Musculoskeletal: (-) Edema Lymph: (-) Cervical adenopathy Neuro: Alert, Oriented x3 Psych: Mood and affect Normal Triage Information Reviewed: Yes Vital Signs On Initial Exam: Initial Vitals Temp Pulse Resp BP Pulse Ox 98.6 F 56 18 152/68 95 01/15/19 09:08 01/15/19 09:08 01/15/19 09:08 01/15/19 09:08 01/15/19 09:08 Vital Signs Reviewed: Yes Diagnostics - Vital Signs Vital Signs Temp Pulse Resp BP Pulse Ox 01/15/19 09:15 97 01/15/19 09:08 98.6 F 56 18 152/68 95 - Laboratory Result Diagrams: 01/15/19 09:25 01/15/19 09:25 Lab Statement: Any lab studies that have been ordered have been reviewed, and results considered in the medical decision making process. - Radiology CXR Radiology Interpretation Completed By: Radiologist Summary of Radiographic Findings: Stigmata of obstructive lung disease. No acute pulmonary or cardiac process evident. ED Physician has reviewed this report. - EKG 0923 Cardiac Rate: Bradycardia - 58 BPM EKG Rhythm: Sinus Bradycardia EKG Comparison: No Significant Change - 11/11/18 Summary of EKG Findings: Sinus bradycardia rhythm at 58 bpm, normal TN, normal QRS, normal QTc normal axis, ST midly depressed V5 and V6, normal T-waves, nonspecific EKG, unchanged from 11/11/18. Re-Evaluation - Re-Evaluation First Eval Re-Evaluation Time: 09:30 Chest Pain Course/Dx - Course Assessment/Plan: The patient is a 71 year old F brought in to [facility] by EMS for L anterior chest pressure and SOB since 0700 this morning. The pt received a CXR which showed stigmata of obstructive lung disease. No acute pulmonary or cardiac process evident. The pt also had an EKG that showed sinus bradycardia rhythm at 58 bpm, normal TN, normal QRS, normal QTc normal axis, ST midly depressed V5 and V6, normal T-waves, nonspecific EKG, unchanged from 11/11/18. The pt had abnormal findings in RBC of 3.58 L, Hgb of 11.3 L, Hct of 34 L, MCH of 32 H, MPV of 6.7 L, Glucose of 101 H, B-Natriuretic Peptide 202 H, and Total Protein 6.2 L. The pt also had 3 troponin levels whiched showed .01, .03, .01. The pt was given 2 plavix tabs for a total of 300 mgs. - Diagnoses Provider Diagnoses: Chest pain Discharge - Sign-Out/Discharge Documenting (check all that apply): Patient Departure - admitted - Discharge Plan Condition: Stable Disposition: ADMITTED TO [facility] - Billing Disposition and Condition Condition: STABLE Disposition: Admitted to [facility] - Attestation Statements Document Initiated by George: Yes Documenting Scribe: Alfa Weinstein Provider For Whom George is Documenting (Include Credential): Helena Pope MD Scribe Attestation: I, Alfa Weinstein, scribed for Helena Peoples MD on 01/15/19 at 1902. Scribe Documentation Reviewed: Yes Provider Attestation: The documentation as recorded by the Alfa zimmerman accurately reflects the service I personally performed and the decisions made by me, Helena Peoples MD Status of Scribe Document: Viewed
[2019-01-15 09:37] LABS: ABS Eosinophils 0.1 10^3/ul (0-0.6); ABS Monocytes 0.5 10^3/ul (0-0.8); ABS Neutrophils 5.6 10^3/ul (1.5-7.7); Eosinophil % 1.2 %; Hematocrit 34 % (35-47); Hemoglobin 11.3 g/dL (12.0-16.0); Lymphocyte % 14.1 %; Mean Corpuscular HGB Conc 33 g/dL (31-36); Mean Corpuscular Hemoglobin 32 pg (27-31); Mean Corpuscular Volume 95 fL (80-97); Mean Platelet Volume 6.7 fL (7.4-10.4); Platelet Count 190 10^3/uL (150-450); Red Blood Count 3.58 10^6 /uL (3.70-4.87); Red Cell Distribution Width 15 % (10.5-15); White Blood Count 7.2 10^3/uL (3.5-10.8)
[2019-01-15 09:57] LABS: Albumin 3.6 g/dL (3.2-5.2); Albumin/Globulin Ratio 1.4 (1-3); BUN/Creatinine Ratio 15.8 (8-20); EGFR Non-African American 56.2 (>60); Globulin 2.6 g/dL (2-4); Potassium 3.9 mmol/L (3.5-5.0); Total Bilirubin 0.6 mg/dL (0.2-1.0); Total Protein 6.2 g/dL (6.4-8.9)
[2019-01-15 09:58] LABS: Troponin I 0.01 ng/mL (<0.04)
[2019-01-15] MEDS ORDERED: Clopidogrel TAB* 75 MG PO ONE ×2 (15:21→16:10)
[2019-01-15] MEDS ORDERED: Nitroglycerin TAB 0.4 MG* 0.4 MG TAB SL PRN (16:47)
[2019-01-15] MEDS ORDERED: Levalbuterol HFA INHALER* 1 PUFF MDI INH PRN (16:47)
[2019-01-15] MEDS ORDERED: Meclizine TAB* 12.5 MG PO PRN (16:47)
[2019-01-15] MEDS ORDERED: LORazepam TAB(*) 0.5 MG PO PRN (16:47)
[2019-01-15] MEDS ORDERED: Furosemide TAB* 20 MG PO SCH (17:00)
--- NOTE | 2019-01-15 17:13 | CONS ---
CC: Dr. Lo CONSULTATION REPORT: DATE OF CONSULT: 01/15/19 REASON FOR CONSULT: Chest pain and known coronary artery disease. HISTORY OF PRESENT ILLNESS: Mrs. Baxter is an 83-year-old woman followed by my partner, Dr. Mino langford. She underwent stenting earlier this year and since the stenting, she has had chest discomfort. In October of this year, she was admitted with anginal discomfort. Initially, an outpatient stress te st had been scheduled; however, this was cancelled by the office. The patient got up this morning and soon after getting up developed crushing chest pain in the left s gretel of the chest. It did respond to nitroglycerin. She is chest pain-free now and troponins were ne gative x3. The patient was present with her and family. It turns out that she has not taken her Plavix in quite some time, they are not sure how many days, once the Plavix had one renewal and when that re newal ran out, they did not call for additional renewals, they thought that the course was completed. PAST MEDICAL HISTORY: The patient has a past medical history of: 1. Coronary artery disease (rotational atherectomy and drug-eluting stent in July 2018). 2. Ischemic cardiomyopathy. 3. Mitral insufficiency. 4. Hypertension. 5. Dyslipidemia. 6. COPD. 7. Obstructive sleep apnea with CPAP. 8. Degenerative arthritis. 9. Recurrent pneumonia. OUTPATIENT MEDICATIONS: Include: 1. Zetia 10 mg a day. 2. B and C complex. 3. Ativan p.r.n. 4. Nitroglycerin sublingual p.r.n. 5. Spironolactone 25 mg a day. 6. Levalbuterol inhaler. 7. Tiotropium (Spiriva) 2 puffs daily inhaler. 8. Lasix 20 mg a day. 9. Calcium and vitamin D 1 tab b.i.d. 10. MultiVit for eye health. 11. Meclizine p.r.n. 12. Colace 100 mg b.i.d. 13. Lactobacillus 2 tabs daily. 14. Lexapro 20 mg a day. 15. Aspirin 81 mg a day. 16. Lisinopril 5 mg a day. 17. Plavix (stopped). 18. Coreg 6.25 mg b.i.d. 19. Lipitor 80 mg a day. ALLERGIES: She is allergic/intolerant to NIACIN. FAMILY HISTORY: Positive for coronary artery disease, her brother of an CO at age 49, her mothe r has a history of a stroke. SOCIAL HISTORY: The patient is , lives with her . Stopped smoking 3 to 4 decades ago. Occasional alcohol intake. No history of recreational drug abuse or alcohol abuse. REVIEW OF SYSTEMS: Negative for recent fevers, chills, sweats. No change in bowel or bladder habits . She has been going to cardiac rehab. Compliant with her medications except for the inadvertent di scontinuation of Plavix as above. It was positive for arthritic pain in the hands and left neck, all these pains are different from what she presented with today. She denies orthopnea or PND. All oth er 14-point review of systems is negative. PHYSICAL EXAM: The patient is 5 feet 1 inch, weighs 125 pounds with a BMI of 24. Vital signs on arri kaur in the emergency room this morning, blood pressure 152/68, pulse was 56 and regular, afebrile, ox ygen saturation on room air 95%. Current vital signs; blood pressure 138/63, pulse of 62, respirator y rate is 18, oxygen saturation on room air 96%. General Appearance: Petite, elderly woman, lying i n bed about 20 degrees. and 2 other family members in the room. Appears comfortable. Psych ologically, pleasant and cooperative. Neurologically, a bit of hard of hearing. Cranial nerves appe ar otherwise intact. She follows commands and moves normally in the bed. Skin: Warm, dry. Age cristian ropriate changes without appreciable cyanosis or rashes. HEENT: Mucous membranes moist. Neck witho ut increased JVP. No thyromegaly. Breath sounds clear, rare crackles that cleared with coughing. C oronary: S1, S2, regular without murmurs or rubs. Abdomen: Active bowel sounds and soft. Lower ext remities were free of edema. Musculoskeletal: Hands show changes consistent with degenerative arthri tis. Neck: Without significant tightening of muscles, unable to reproduce the chest pain with palpat ion. DIAGNOSTIC STUDIES/LAB DATA: Studies: The patient's chest x-ray shows stigmata of obstructive lung disease, no acute process. Labs: Sodium 137, potassium 3.9, glucose 101, BUN 15, creatinine 0.95. Troponin #1 of 0.01, #2 of 0 .03, #3 of 0.01. BNP of 202. White count 7, hematocrit 34, platelets 190. A 12-lead ECG shows normal sinus rhythm, 58 beats a minute, QRS axis 0, normal AV and IV conduction t imes. She has subtle ST depression in the lateral leads V4 through V6, but this is unchanged from pr ior EKGs (11/11/18). Echocardiogram from 08/09/18 showed an ejection fraction of 40% to 45%, right ventricular hypertrophy , moderate mitral insufficiency. Cardiac catheterization from 08/09/18, left main 15% to 20% occlusion, LAD mid 60% occlusion, multipl e small diagonal branches with diagonal 60% occlusion. Mid LAD had 85% occlusion. Circumflex calcif ied with 35% to 40% occlusion. Right coronary artery was dominant, diffuse calcification, ulceration with 35% to 40% and followed by an 85% to 90% occlusion in the posterior descending. Locally, it wa s unsuccessful stenting to the right coronary artery (transferred). Lipids from 12/04/18 shows total cholesterol 114, triglycerides 122, LDL cholesterol of 43, HDL benita sterol of 47. IMPRESSION AND PLAN: In summary, Areli Baxter is an 83-year-old woman who underwent stenting to a tight right coronary artery in late July 2018, complex procedure requiring atherectomy. She has mild to moderate disease in other areas of the heart. The patient presents with crushing left chest pain and negative troponins and she has been off of her Plavix for an uncertain duration. I recommend resuming her Plavix with a load of 300 mg now and then resumption of 75 mg a day, startin g tomorrow. We will plan on a stress test, either exercise Myoview or Lexiscan Myoview depending on her ability t o ambulate. In terms of atherosclerotic risk, the patient's lipids are well controlled, but blood pressure was el evated on arrival. There would be an option to add Norvasc for a blood pressure control and also vas odilation of her mild to moderate atherosclerotic plaque. Additional recommendations will be made, pending her clinical course in response to the above measure s. [id number]/[facility] #: [id number]
[2019-01-15] MEDS: amLODIPine TAB* 5 MG PO SCH (17:17)
[2019-01-15] MEDS: Enoxaparin(*) 40 MG/0.4 ML SYR SUBCUT SCH (18:14)
--- NOTE | 2019-01-15 18:28 | HP ---
CC: Dr. Mcnulty; Dr. Lo; Dr. Ramirez* HISTORY AND PHYSICAL: DATE OF ADMISSION: 01/15/19 PRIMARY CARE PROVIDER: Dr. Mcnulty. FEEDER OPERATOR: Dr. Lo. ATTENDING PHYSICIAN: Dr. Ramirez* (dictated by DAMARIS Rocha). CHIEF COMPLAINT: Chest pain. HISTORY OF PRESENT ILLNESS: Ms. Baxter is an 83-year-old female with a past medical history of cardiomyopathy with ejection fraction 40% to 45%, NSTEMI in September 2017, mild , moderate to severe MR, and hypertension, who presents to the ER today with complaints of a chest pain that she describes as a pressure in the left upper chest area. She is somewhat confused about the details, but states that she either woke with the chest pain or woke up, started to ambulate and then chest pain occurred. She notes that she took 3 nitro for this pain, 1 every 5 minutes. She does not believe that this helped the pain, which prompted her to call the ambulance. At that time, she was diaphoretic and short of breath. Of importance is that the patient's clopidogrel prescription ran out sometime recently, the patient is unclear when , but she believes it was approximately 1 week ago. She came to the ER and was given clopidogrel 75 mg. Currently, the patient does not have any chest pain. She does note intermittent chest heaviness, but this has not occurred for a while. She denies chest pressure, shortness of breath, diaphoresis. She denies fever, cough, abdominal pain, nausea, vomiting, diarrhea, or constipation. In the ER, the patient received clopidogrel 75 mg. She also received full workup which included EKG, chest x-ray, and blood work. Hospitalist team was asked to evaluate the patient for admission. The patient notes recent cardiac catheterization on 08/09/18, which reveals significant coronary artery disease involving the mid and distal right coronary artery, moderate disease in the mid LAD area as well. Cardiac stress testing in August reveals no evidence for stress-induced ischemia or infarct. Worsening of septal, inferior wall, and apical hypokinesia/akinesia compared with 2016 exam, mildly abnormal estimated left ventricular ejection fraction of 45%. PAST MEDICAL HISTORY: 1. Restrictive cardiomyopathy, EF 40% to 45%. 2. Coronary artery disease, NSTEMI in September 2017. 3. Hypertension. 4. Hyperlipidemia. 5. Moderate to severe mitral regurgitation, mild aortic stenosis. 6. COPD, on nocturnal O2. 7. Obstructive sleep apnea. 8. Osteoarthritis. PAST SURGICAL HISTORY: Back x2. HOME MEDICATIONS: 1. Aspirin EC 81 mg p.o. daily. 2. Atorvastatin 80 mg p.o. daily. 3. B-complex with vitamin C 1 tab p.o. daily. 4. Calcium carbonate/vitamin D3 one tab p.o. b.i.d. with meals. 5. Carvedilol 6.25 mg p.o. b.i.d. 6. Clopidogrel 75 mg p.o. daily. 7. Docusate 100 mg p.o. b.i.d. 8. Escitalopram 20 mg p.o. daily. 9. Ezetimibe 10 mg p.o. daily. 10. Furosemide 20 mg p.o. Sunday, Sunday, Sunday. 11. Spironolactone 25 mg p.o. Sunday, Sunday, , Sunday. 12. Lactobacillus acidophilus 2 caps p.o. daily. 13. Levalbuterol HFA inhaler 2 puffs inhalation q.6 hours p.r.n. 14. Lisinopril 5 mg p.o. daily. 15. Lorazepam 0.5 mg p.o. b.i.d. p.r.n. 16. Meclizine 25 mg p.o. t.i.d. p.r.n. 17. Nitro tabs 0.4 mg sublingual q.5 minutes p.r.n. 18. Tiotropium bromide 2 puff inhalation daily. 19. [facility] Gummies 1 chew p.o. b.i.d. DRUG ALLERGIES: NIACIN leads to rash. FAMILY HISTORY: Positive for heart disease. Brother and father of CO. Denies history of CVA, cancer, diabetes. SOCIAL HISTORY: The patient is a former tobacco user, she quit approximately 30 years ago, prior to that she smoked approximately 1.5 packs per day for about 30 years. She occasionally uses alcohol, stating that she drinks less than weekly. She does not use any illicit drugs. She lives at home with her . In the event that she is unable to make her own medical decisions, she has appointed her , Garry Baxter, to be her surrogate decision maker. REVIEW OF SYSTEMS: A 10-point review of systems was performed and all the pertinent positives and negatives are in the HPI. All other systems are negative. PHYSICAL EXAMINATION GENERAL: Ms. Baxter is a well-developed, well-nourished, elderly white woman , who is sitting up in bed. Her family is in the room with her. She appears well. She appears to be in no acute distress. VITAL SIGNS: Temperature 98.6 temporal, heart rate 61, respiratory rate 18, oxygen saturation 96% on room air, blood pressure 138/53. HEENT: PERRL. EOMI. Nonicteric sclerae. Hearing grossly intact. Oral mucous membranes are moist. There are no lesions. The pharynx is clear. RESPIRATORY: Symmetrical chest expansion. There is no use of accessory muscles. Breath sounds are slightly diminished. Lungs are clear to auscultation without rhonchi, wheezes, or rubs. CARDIOVASCULAR: Regular rate and rhythm. S1, S2 present without murmurs, rubs , clicks, or gallops. There is no JVD. Chest wall nontender to palpation. ABDOMEN: Bowel sounds noted in all quadrants. The abdomen is soft. There is no tenderness to palpation. There is no hepatosplenomegaly. MUSCULOSKELETAL: The patient is able to move all extremities. EXTREMITIES: Skin is warm and smooth bilaterally. There is no clubbing, cyanosis, or edema. Radial and pedal pulses are palpable. NEURO: The patient is awake. She is alert and oriented x3, although occasionally confused about details in the recent past. She is able to move all of her extremities. DIAGNOSTIC STUDIES/LAB DATA: ECG, 01/15/19, sinus bradycardia 58 beats per minute, no ST elevation, slight ST depression in V5. Chest x-ray, 01/15/19, impression: Stigmata of obstructive lung disease. No acute pulmonary or cardiac process evident. RBC 3.58, HGB 11.3, HCT 34. Troponin 0.01, 0.03, 0.01. BNP 202. ASSESSMENT AND PLAN: Ms. Baxter is an 83-year-old female with a past medical history of restrictive cardiomyopathy, non-ST elevation myocardial infarction in September 2017, hypertension, hyperlipidemia, who presented to the ER today with complaints of chest pain. The patient will be admitted to observation for: 1. Chest pain. The patient states chest pain has decreased, although she does note intermittent heaviness which has not occurred recently. Her troponins are negative x3. There is no ST elevation on EKG. The patient will be admitted on telemetry. Nitro p.r.n. pain continued. As suggested by Cardiology, the patient will be loaded on clopidogrel with 225 more mg to total 300 mg clopidogrel. She will then continue clopidogrel 75 mg daily. The patient will be scheduled for an exercise stress test in the morning. She feels that she will be able to perform this. She will be n.p.o. after midnight. 2. Cardiomyopathy. Last ejection fraction from 08/08/18 shows EF 40% to 45% plus diastolic dysfunction. The patient will continue her home medications, carvedilol, furosemide, spironolactone, lisinopril. 3. Hypertension. Continue home medications. Norvasc 2.5 p.o. added, starting now. 4. Hyperlipidemia. Continue atorvastatin, aspirin. 5. Chronic obstructive pulmonary disease. Continue Spiriva and Xopenex. 6. FEN: Heart-healthy diet with no caffeine. N.p.o. after midnight. 7. DVT prophylaxis: According to the DVT Risk Assessment, the patient scores 3 and is categorized as high risk. The patient will be started on Lovenox 40 q.24 hours for DVT prophylaxis. TIME SPENT: Approximately 60 minutes was spent on this admission; greater than half that time was spent with the patient and caregiver obtaining history, performing physical, and reviewing the plan of care. The case has been reviewed with my attending, Dr. Ramirez, who is in agreement with the plan of care. DAMARIS SOLORIO [id number]/[facility] #: [id number] AKASH
[2019-01-15] MEDS: Carvedilol TAB* 6.25 MG PO SCH (21:20)
[2019-01-15] MEDS: Docusate CAP* 100 MG PO SCH (21:20)
[2019-01-16] MEDS: Carvedilol TAB* 6.25 MG PO SCH (08:40)
[2019-01-16] MEDS: amLODIPine TAB* 5 MG PO SCH (08:41)
[2019-01-16] MEDS: Docusate CAP* 100 MG PO SCH (08:41)
[2019-01-16] MEDS ORDERED: Ezetimibe TAB* 10 MG PO SCH (09:00)
[2019-01-16] MEDS ORDERED: Aspirin EC TAB* 81 MG TAB.EC PO SCH (09:00)
[2019-01-16] MEDS ORDERED: Lisinopril TAB* 5 MG PO SCH (09:00)
[2019-01-16] MEDS ORDERED: Clopidogrel TAB* 75 MG PO SCH (09:00)
[2019-01-16] MEDS ORDERED: Lactobacillus Acidophilus* 1 TAB PO SCH (09:00)
[2019-01-16] MEDS ORDERED: Tiotropium Respimt 2.5 mcg(NF) 1 PUFF MDI INH SCH (09:00)
[2019-01-16] MEDS ORDERED: Atorvastatin* 80 MG TAB PO SCH (09:00)
[2019-01-16] MEDS ORDERED: ESCITALOPRAM 20 MG PO SCH (09:00)
[2019-01-16] MEDS ORDERED: Spironolactone TAB* 25 MG PO SCH (09:00)
[2019-01-16] MEDS ORDERED: Ondansetron ODT TAB* 4 MG PO ONE ×2 (10:33→15:44)
[2019-01-16] MEDS ORDERED: Ondansetron ODT TAB* 4 MG ONE (10:35)
[2019-01-16] MEDS ORDERED: Aminophylline IV* 25 MG/ML 10 ML VIAL ONE (11:56)
[2019-01-16] MEDS ORDERED: Regadenoson* 0.4 MG/5 ML SYRINGE ONE (11:56)
[2019-01-16 13:58] LABS: ABS Lymphocytes 1.1 10^3/ul (1.0-4.8); ABS Monocytes 0.7 10^3/ul (0-0.8); ABS Neutrophils 9.8 10^3/ul (1.5-7.7); Eosinophil % 0.3 %; Hematocrit 37 % (35-47); Hemoglobin 12.4 g/dL (12.0-16.0); Lymphocyte % 9.4 %; Mean Corpuscular HGB Conc 33 g/dL (31-36); Mean Corpuscular Hemoglobin 32 pg (27-31); Mean Corpuscular Volume 96 fL (80-97); Mean Platelet Volume 6.8 fL (7.4-10.4); Platelet Count 217 10^3/uL (150-450); Red Blood Count 3.92 10^6 /uL (3.70-4.87); Red Cell Distribution Width 15 % (10.5-15); White Blood Count 11.7 10^3/uL (3.5-10.8)
[2019-01-16 14:21] LABS: BUN/Creatinine Ratio 19.1 (8-20); Calcium 8.9 mg/dL (8.6-10.3); EGFR African American 68.8 (>60); EGFR Non-African American 56.9 (>60); Potassium 3.8 mmol/L (3.5-5.0)
[2019-01-16] MEDS: Enoxaparin(*) 40 MG/0.4 ML SYR SUBCUT SCH (16:09)
[2019-01-16 16:43] VITALS: BP 114/47
--- NOTE | 2019-01-16 22:06 | DS ---
CC: Dr. Mcnulty; Dr. Lo* DISCHARGE SUMMARY: DATE OF ADMISSION: 01/15/19 DATE OF DISCHARGE: 01/16/19 PRIMARY CARE PROVIDER: Dr. Mcnulty. OUTPATIENT CURING BIN OPERATOR: Dr. Lo. ATTENDING PHYSICIAN: Dr. Nayla Sims* (dictated by Tavon Garcia NP). PRIMARY DIAGNOSIS: Chest pain. SECONDARY DIAGNOSES: 1. Restrictive cardiomyopathy, EF 40% to 45%. 2. Coronary artery disease, STEMI in September 2017. 3. Cardiac cath in June 2018 for intervention of stenosis in [facility]. 4. Hypertension. 5. Hyperlipidemia. 6. Moderate to severe mitral regurgitation and moderate aortic stenosis. 7. Chronic obstructive pulmonary disease, on nocturnal O2. 8. Obstructive sleep apnea. 9. Osteoarthritis. PROCEDURES WHILE IN THE HOSPITAL: Stress test. DISCHARGE HOME MEDICATIONS: Continued home medications: 1. Zetia 10 mg p.o. daily. 2. B complex 1 tab p.o. daily. 3. Lorazepam 0.5 mg p.o. b.i.d. p.r.n. 4. Nitroglycerin 0.5 mg sublingual q.5 minutes p.r.n. 5. Aldactone 25 mg p.o. Sunday, Sunday, , Sunday. 6. Xopenex 2 puffs inhalation q.6 hours p.r.n. 7. Spiriva Respimat 2 puffs inhalation daily. 8. Lasix 20 mg p.o. Sunday, Sunday, and Sunday. 9. Calcium carbonate/vitamin D 1 tab p.o. b.i.d. with meals. 10. [facility] gummies, 1 chew p.o. b.i.d. 11. Meclizine 25 mg p.o. t.i.d. p.r.n. 12. Colace 100 mg p.o. b.i.d. 13. Lactobacillus acidophilus 2 caps p.o. dally. 14. Lexapro 20 mg p.o. daily. 15. Aspirin 81 mg p.o. daily. 16. Lisinopril 5 mg p.o. daily. 17. Clopidogrel 75 mg p.o. daily. 18. Coreg 6.25 mg p.o. b.i.d. 19. Atorvastatin 80 mg p.o. daily. New home medications: Norvasc 2.5 mg p.o. daily. HISTORY OF PRESENT ILLNESS/HOSPITAL COURSE: Ms. Baxter is an 83-year-old female with a past medical history significant for cardiomyopathy, ejection fraction of 40% to 45%; NSTEMI, September 2017; mild ; moderate to severe MR; CAD; hypertension, who presented to the emergency department on 01/15/19 with complaints of chest pain that she described as a pressure in the upper left chest area. Please see history and physical dictated by DAMARIS Rocha for for complete summary of events leading up to hospitalization, but in short, the patient had 2 episodes of chest pressure, 1 on Sunday and 1 on day of presentation to the emergency room. She was evaluated in the emergency room and had an EKG, which revealed sinus bradycardia, no ST elevation. She had chest x-ray that revealed stigmata of obstructive lung disease, but no acute cardiopulmonary process. Given the patient's symptoms and cardiac history, she was admitted to telemetry for further evaluation. While on Telemetry, the patient has remained in sinus rhythm. The patient has remained free from chest pain or pressure. The patient had serial troponins, which were 0.01, 0.03, 0.01. The patient underwent a nuclear stress test, which was a low risk. The patient's echocardiogram was not repeated as her last one was done on July 2018, it showed EF of 40% to 45% plus diastolic dysfunction. EF reported on the nuclear med scan revealed 56% at rest. The patient is stable for discharge home today. Vital Signs: Temp 97.8, HR 63, RR 17, O2 saturation 94% on room air, BP 154/57. REVIEW OF SYSTEMS: The patient denies chest pain/pressure, shortness of breath , diaphoresis, dizziness, palpitations. The patient reports mild nausea after eating, which is baseline for her over the past several years. A 14-point review of systems was completed and all others were negative. PHYSICAL EXAM: General: Ms. Baxter is an 83-year-old female, who is sitting in bed. She appears to be in no acute distress. She appears her stated age. HEENT: EOMs intact. PERRLA. Oral mucosa is moist without lesions. Posterior pharynx is clear. Neck: Supple. No lymphadenopathy. Respiratory: Lungs are clear to auscultation. No wheezes, rhonchi, or rubs. Good aeration. Cardiac: S1, S2 present. No murmur, rubs, or gallops. Regular rate and rhythm. Abdomen: Soft, nontender. Bowel sounds normoactive throughout. Extremities: No edema. No clubbing or cyanosis. Pedal pulses 2+ bilaterally. Musculoskeletal: No pain or deformities. Skin: Skin is grossly intact without lesions. Neuro: Neuro exam is within normal limits. No focal deficits or weakness noted. DIAGNOSTIC STUDIES/LAB DATA: WBC 11.7, hemoglobin 12.4, hematocrit 37, platelets 217. Sodium 136, potassium 3.8, chloride 104, carbon dioxide 23, BUN 18, creatinine 0.94, glucose 101, magnesium 2.0. DISCHARGE PLAN/FOLLOWUP: 1. Chest pain: As mentioned above, the patient had a negative stress test, negative troponins x3, and normal EKGs. The patient has been chest pain-free since her admission to the hospital. We suspect that the patient's chest pain could be GI related given that she has this nausea after eating, which could be acid reflex. Either way, given her history, I have stressed the importance of following up with her pocket assembler next week. I have also stressed the importance of coming back to the hospital if she had any recurrent symptoms. 2. Cardiomyopathy: Last ejection fraction 08/08/18 shows EF of 40% to 45% plus diastolic dysfunction. The patient should continue her home medications of Coreg, furosemide, spironolactone and lisinopril. 3. Coronary artery disease: As mentioned above, the patient has a coronary artery disease with an NSTEMI in September 2017 and a recent cardiac catheterization on 08/09/18, which revealed significant coronary artery disease involving the mid and distal right coronary artery, moderate disease and a mild LAD as well. Given these findings, the patient was transferred to [place] at that time and underwent a stent and atherectomy of the right RCA on 08/15/18. Since that time, the patient has been on Plavix. It should be mentioned that on the patient's presentation to the emergency department, she did admit to missing approximately a week of her Plavix. The patient was given 300 mg of Plavix while in the emergency department. The patient has been educated on the importance of continuing her Plavix 75 mg daily without interruption. The patient states understanding. The patient will be discharged home with Plavix and refill. 4. Hypertension: The patient should continue her home medications with the addition of the Norvasc 2.5 mg p.o. daily. 5. Hyperlipidemia: The patient should continue her aspirin and atorvastatin. 6. Chronic obstructive pulmonary disease: The patient should continue her inhalers of Spiriva and Xopenex. 7. Obstructive sleep apnea: The patient to continue the use of her CPAP and nocturnal O2. 8. Followup: I have encouraged the patient to follow up with her primary care next week for review of her hospital stay and also for the discussion regarding possible GI related symptoms such as acid reflux. I have also encouraged the patient to follow up with her primary pocket assembler, Dr. Dr. Lo next week for further evaluation and update him of her hospital stay. 9. Education: The patient and family were educated on signs and symptoms of new or worsening condition and when to return to the emergency department. Both stated understanding. Both state that they feel safe for discharge home today. TIME SPENT: Approximately 35 minutes was spent on this discharge, greater than half of the time was spent [id number] with the patient discussing discharge plans and instructions. This is a summarized report of a complex medical history and hospital stay. For further details, please see the entire medical record. This plan was discussed with my attending, Dr. Nayla Sims who is in agreement with my plan of care. TAVON GARCIA NP [id number]/[facility] #: [id number] AKASH
== END 2019-01-16 18:30 | disposition home or self-care (01) ==
LOC: ED 09:03 → MEDTELE 16:45
PROVIDERS: ADMIT Internal Medicine; ATTEND Internal Medicine
DX: R07.9 Chest pain, unspecified (principal); I42.5 Other restrictive cardiomyopathy; I25.10 Atherosclerotic heart disease of native coronary artery without angina pectoris; I25.2 Old myocardial infarction; Z95.5 Presence of coronary angioplasty implant and graft; I10 Essential (primary) hypertension; E78.5 Hyperlipidemia, unspecified; I34.0 Nonrheumatic mitral (valve) insufficiency; I35.0 Nonrheumatic aortic (valve) stenosis; J44.9 Chronic obstructive pulmonary disease, unspecified; G47.33 Obstructive sleep apnea (adult) (pediatric); M19.90 Unspecified osteoarthritis, unspecified site; Z79.82 Long term (current) use of aspirin; Z87.01 Personal history of pneumonia (recurrent); Z82.49 Family history of ischemic heart disease and other diseases of the circulatory system
CPT/HCPCS: 36415; 71045; 78452; 80048; 80053; 83605; 83735; 83880; 84484; 85025; 93005; 93017; 96372; 99285; A9270-GY; A9502; G0378; J0280; J1650; J2785

== ENCOUNTER 2019-02-04 07:41 | Emergency (ER) | payer MEDICARE ==
--- OUTSIDE RECORDS SUMMARY | 2019-02-04 07:53 | XMS REPORT | Continuity of Care Document ---
:1935 External Reference #:[id number] Author Name Amanda Morse Care Team Providers Name Role Phone Rojelio Mcnulty D.O. Primary Care Physician Unavailable Payers Date Identification Numbers Payment Provider Subscriber Policy Number: [id number] Medicare Blue Ppo Areli Baxter Group Number: [id number] [address] [address] PayID: [id number] [place] [address] Problems Active Problems Provider Date Restrictive cardiomyopathy secondary Cardiology Doctor Loc 39 Onset: 2012 to granulomas Mitral valve disorder Cardiology Doctor Loc 39 Onset: 04/18/2013 Hyperlipidemia Cardiology Doctor Loc 39 Onset: 04/18/2013 Chest pain Cardiology Doctor Loc 39 Onset: 04/18/2013 Aortic valve disorder Cardiology Doctor Loc 39 Onset: 04/18/2013 Obstructive sleep apnea syndrome Polly Bruno DNP, RN, Onset: 10/30/2016 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- Essential hypertension Maddie Finch NP Onset: 07/19/2018 Chronic obstructive lung disease Maddie Finch NP Onset: 07/19/2018 Inactive Problems Electrocardiogram abnormal Cardiology Doctor Loc 39 Onset: 04/18/2013 Inactive: 01/20/2019 Dyspnea Maddie Finch NP Onset: 07/19/2018 Inactive: 01/20/2019 Family History Date Family Member(s) Observation Comments Father due to IN () - 69 Mother Hypothyroidism Mother due to Stroke () First Son IN First Son Atrial Fibrillation First Daughter Alive And Well Siblings 2 Siblings 1 dec with IN at 39 (brother) 1 sister dec of MS First Brother due to IN () - 49 First Sister due to [...] quit 1986 Unknown smoker Smoking Status Reviewed: 01/27/19 Patient is a former quit 1987 smoker Exercise Type/Frequency Exercises regularly active, cleans, garden, walks around Allergies, Adverse Reactions, Alerts Active Allergies Reaction Severity Comments Date Niacin rash 04/16/2013 Medications Active Medications SIG Qnty Indications Ordering Date Provider [facility] Daily Alexis Felder 01/20/2019 Preeti Hassan MD Isosorbide Mononitrate 1 by mouth every 90tabs Qutaybeh S. 11/17/2018 ER day Migue Lo 30mg Tablets ER 24HR Zetia 1 by mouth every 90tabs Lorene Campbell, 10/21/2018 10mg Tablets day N.P. Clopidogrel Bisulfate 1 by mouth every 90tabs Lorene Campbell, 08/29/2018 75mg day N.P. Tablets Carvedilol 1 tablet by 60tabs R06.02 Lorene Campbell, 08/02/2018 6.25mg Tablets mouth in in the N.P. morning and 1 tab in at night Lisinopril Take 1 Tablet 90tabs I42.9 Lorene Campbell, 11/28/2017 5mg Tablets Every Day N.P. Clonazepam take 1 to 2 Unknown 0.25mg Tablets tablets about 30 Dispers minutes before event Vitamin B Complex-C 1 tab by mouth Unknown daily Capsules Amlodipine Besylate 1 by mouth every Unknown 2.5mg day Tablets Calcium take one tablet Unknown Carbonate-Vitamin D by mouth twice a day [id number] Tablets Lipitor 1 every at night I25.110 Unknown 20mg Tablets Nitroglycerin 1 sl q5mins x3 Unknown 0.4mg Tablets as needed for Sub chest pain Spironolactone 1 by mouth Tu, Unknown 25mg Tablets Giselle, Sat, Sun Calcium Citrate + D 1 tablet daily Unknown 315-200mg Tablets Spiriva Respimat 2 puffs every Unknown 2.5mcg/Act day Aerosol Furosemide 1 by mouth Mon, Unknown 20mg Tablets Sun, Sun Oxygen please use o2 at Unknown Misc 2l/min hs Cpap at hs Unknown Device Colace 1 po daily Unknown Capsules Meclizine HCL 1 po tid prn 90tabs Unknown 25mg Tablets Lexapro 1 po qd 90tabs Unknown 20mg Tablets Probiotic 2 capsules every 30caps Unknown Capsules am Aspirin 1 po qd Unknown 81mg Tablets History Medications Lipitor Take 1 by mouth 90tabs I25.110 Lorene S. 08/29/2018 - 80mg Tablets daily Adrian, N.P. 12/25/2018 Clopidogrel 1 tab by mouth qd Unknown 08/28/2018 - Powder 08/29/2018 Nitro-Dur apply 1 daily and 30units R06.02 Lorene S. 08/02/2018 - 0.2mg/HR remove at bedtime Adrian, N.P. 08/29/2018 Patches 24HR Nitro-Dur apply 1 patch daily 30units I42.9 Lorene S. 11/28/2017 - 0.1mg/HR 12 hours and remove Adrian, N.P. 08/02/2018 Patches 24HR at bedtime. Lisinopril 1 by mouth every 90tabs Qutaybeh S. 06/26/2017 - 5mg Tablets day [facility], 10/29/2017 [place]igue Carvedilol 1 tab by mouth Unknown 10/29/2016 - 25mg Tablets twice a day 10/29/2017 Ocuvite daily Unknown - Tablets 01/26/2019 Tumeric 1 po qd prn Unknown - 05/24/2018 Vegetable Laxative 1 po qd Unknown - 11/27/2017 Escitalopram Oxalate 2 by mouth daily Unknown - 10mg 03/21/2017 Tablets Levalbuterol HCL as needed Unknown - 10/29/2017 1.25mg/3ML Nebulizer Lipitor 1 by mouth every Unknown - 80mg Tablets night at bedtime 08/01/2018 Isosorbide Dinitrate 1 tab tid Unknown - 5mg 11/28/2017 Tablets Aldactone 1 by mouth Tu, Giselle, Unknown - 25mg Tablets Sat, Sun 08/29/2018 Calcium 600 2 by mouth every Unknown - 600mg Tablets day 05/24/2018 Lisinopril 1 by mouth every Unknown - 10mg Tablets day 11/28/2017 Omeprazole 1 by mouth every Unknown - 20mg Capsules day 08/01/2018 DR Hitchcocknex HFA 2 puffs inhaled Unknown - 45mcg/Act every 6h as needed 01/26/2019 Aerosol for shortness of breath. Isordil Titradose 1 tablet orally tid Unknown - 5mg 08/01/2018 Tablets Pantoprazole Sodium 1 by mouth every Unknown - 40mg day 11/17/[address] Blackorperazine Unknown - Maleate 12/09/2018 10mg Tablets Lorazepam twice daily by Unknown - 0.5mg mouth as needed for 01/26/2019 anxiety Vancomycin HCL 1 po tid x 14 days, Unknown - 125mg 1 po bid x 14 days, 01/26/2019 Capsules 1 po qd x 14 days, 1 po qod x 10 doses, 1 po q 3 days x 10 doses Simvastatin 1 po qd 90tabs Unknown - 20mg Tablets 06/11/2016 Coreg 1 tab with food bid 180tabs Unknown - 3.125 Tablets 08/02/2018 Magnesium 1 po qd 30tabs Unknown - 500mg Tablets 06/11/2016 Vitamin D-3 1 po qd Unknown - 2000Unit 06/02/2016 Tablets [place] 3 3 po qd. 100caps Unknown - 1000mg Capsules 06/11/2016 Symbicort 2 puffs inhaled bid 1units Unknown - 80-4.5mcg/Act 10/29/2017 Aerosol Citracal Plus Daily Unknown - Tablets 04/18/2013 Colace 2 po qd 90caps Unknown - 100mg Capsules 06/12/2016 Alpha Lipoic Acid daily Unknown - 200mg 06/11/2016 Capsules Combivent 2 puffs po prn 1units Unknown - 18-103mcg/Act 04/18/2013 Aerosol Xopenex HFA 2 puffs qid prn 1units Unknown - 45mcg/Act 06/11/2016 Aerosol Co-Enzyme Q10 po qd Unknown - 100mg 06/02/2016 Capsules Claritin 1 po qd prn 30tabs Unknown - 10mg Tablets 06/11/2016 Biotin 1 po qd Unknown - 10mg Capsules 01/01/2018 Carvedilol 1 po bid Unknown - 25mg Tablets 06/14/2016 Coq10 once daily Unknown - 200mg Capsules 10/29/2017 Escitalopram 1 by mouth every Unknown - 20mg Tablets day 06/14/2016 Fluzone High-Dose intramuscular Unknown - .5ml syringe 03/21/2017 Vital Signs Date Vital Result Comment 01/27/2019 11:35am Height 61 inches 5'1" Weight 123.12 lb Clothes/shoes Heart Rate 56 /min Radial BP Systolic Sitting 120 mmHg Lue reg cuff BP Diastolic Sitting 60 mmHg Lue reg cuff BP Systolic Standing 110 mmHg Lue reg cuff BP Diastolic Standing 58 mmHg Lue reg cuff O2 % BldC Oximetry 93 % BMI (Body Mass Index) 23.3 kg/m2 Ejection Fraction 40-45% Echo 09/20/2018 01/20/2019 2:00pm Height 61 inches 5'1" Weight 121.50 lb Heart Rate 52 /min BP Systolic Sitting 122 mmHg BP Diastolic Sitting 52 mmHg Body Temperature 99.4 F O2 % BldC Oximetry 94 % BMI (Body Mass Index) 23.0 kg/m2 12/10/2018 3:47pm Height 61 inches 5'1" Weight [...] Result H/L Range Note Laboratory test 08/08/2018 [facility] Poc Activated 396 seconds [address] [place] [address] [phone] Laboratory test 08/08/2018 [facility] Poc Activated 266 seconds [address] [place] [address] [phone] Laboratory test 08/08/2018 [facility] Poc Activated 274 seconds [address] [place] [address] [phone] Basic Metabolic 08/08/2018 [facility] Sodium 135 mmol/L N 135- [address] [place] [address] [phone] Potassium 4.3 mmol/L N 3.5-5.0 Chloride 103 mmol/L N 101-111 Co2 Carbon Dioxide 25 mmol/L N 22-32 Anion Gap 7 mmol/L N 2-11 Glucose 115 mg/dL High 70-100 Blood Urea Nitrogen 21 mg/dL N 6-24 Creatinine 1.02 mg/dL High 0.51-0.95 BUN/Creatinine Ratio 20.6 High 8-20 Calcium 9.7 mg/dL N 8.6-10.3 Egfr Non- 51.8 >60 Egfr 62.6 >60 4 1 Dealmaker: [id number] Reference Range: 74-125 seconds 2 Dealmaker: [id number] Reference Range: 74-125 seconds 3 Dealmaker: [id number] Reference Range: 74-125 seconds 4 Because ethnic [...] (or dialysis) Procedures Date Code Description Status 01/27/2019 21830 EKG Tracing & Interpretation Completed 01/16/2019 49707 Treadmill Interp/Report Only Completed 01/16/2019 86316 Stress Test Supervsn W/Out I/R Completed 12/22/2018 22057 Sigmoidoscopy Diagnostic Completed 09/20/2018 59849 ECHO Transthoracic, Real-Time 2D With Doppler And Color Completed Flow 09/20/2018 37648 ECHO Transthoracic, Real-Time 2D With Doppler And Color Completed Flow 08/29/2018 96695 EKG Tracing & Interpretation Completed 08/26/2018 97388 Treadmill Interp/Report Only Completed 08/26/2018 07209 Stress Test Supervsn W/Out I/R Completed 08/25/2018 40472 EKG, Interpretation Only Completed 08/23/2018 97136 EKG, Interpretation Only Completed 08/09/2018 06891 EKG, Interpretation Only Completed 08/09/2018 20442 ECHO Transthorasic Realtime 2D W Doppler & Color Flow Hosp Completed 08/08/2018 88130 Cath PLMT&NJX L Ventriculog Img S&I Completed 08/08/2018 55367 EKG, Interpretation Only Completed 08/02/2018 64286 EKG Tracing & Interpretation Completed 07/19/2018 75527 ECHO Transthorasic Realtime 2D W Doppler & Color Flow Hosp Completed 11/21/2017 97900 ECHO Transthoracic, Real-Time 2D With Doppler And Color Completed Flow 11/21/2017 40719 ECHO Transthoracic, Real-Time 2D With Doppler And Color Completed Flow 10/30/2017 95378 EKG Tracing & Interpretation Completed 10/05/2017 51726 EKG, Interpretation Only Completed 10/04/2017 84424 EKG, Interpretation Only Completed 10/03/2017 12144 ECHO Transthorasic Realtime 2D W Doppler & Color Flow Hosp Completed 10/03/2017 84994 EKG, Interpretation Only Completed 10/02/2017 05320 EKG, Interpretation Only Completed 08/02/2017 50583 Echocardiogram, Limited Study Completed 08/02/2017 79720 Echocardiogram, Limited Study Completed 06/26/2017 21999 EKG Tracing & Interpretation Completed 06/19/2017 57957 EKG, Interpretation Only Completed 06/18/2017 64339 ECHO Transthorasic Realtime 2D W Doppler & Color Flow Hosp Completed 06/18/2017 82521 EKG, Interpretation Only Completed 03/27/2017 94394 Polysomnography Sleep Staging 4+ Parameters W/Cpap Completed 03/22/2017 80536 EKG Tracing & Interpretation Completed 07/19/2016 34182 ECHO Transthoracic, Real-Time 2D With Doppler And Color Completed Flow 07/12/2016 15892 Treadmill Interp/Report Only Completed 07/12/2016 95265 Stress Test Supervsn W/Out I/R Completed 07/05/2016 53692 ECG Monitor/Recording W/Visual Superimposition Scanning Completed 07/05/2016 02747 Holter Monitor Review (24 hr)dr review & interp only Completed 07/05/2016 37665 Holter Monitor Review (24 hr)dr review & interp only Completed 07/04/2016 66607 ECG Monitor/Recording W/Visual Superimposition Scanning Completed 06/15/2016 42279 EKG Tracing & Interpretation Completed 05/15/2013 65190 Treadmill Interp/Report Only Completed 05/15/2013 22894 Stress Test Supervsn W/Out I/R Completed 04/25/2013 15422 ECHO Stress Test Incl Perf Contiuous ekg Monitoring W/Phys Completed Superv 04/18/2013 39239 EKG Tracing & Interpretation Completed 04/10/2013 48255 Color Flow Doppler/Interp & Reprt Completed 04/10/2013 08018 Pulse Wave/Continuous-Interp.RPT Completed 04/10/2013 87451 ECHO Transthorasic Realtime 2D W Doppler & Color Flow Hosp Completed Encounters Type Date Location Provider Dx Diagnosis Office Visit 01/20/2019 [facility] Gastroenterology Alexis Felder K31.89 Other diseases 2:00p MD Mo of stomach and duodenum K58.0 Irritable bowel syndrome with diarrhea A04.72 Enterocolitis d/t Clostridium difficile, not spcf as recur I10 Essential (primary) hypertension J44.9 Chronic obstructive pulmonary disease, unspecified I25.10 Athscl heart disease of [place] coronary artery w/o ang pctrs Office Visit 01/15/2019 3:06p [facility] Ariadna Porras, R07.9 Chest pain, Of Fabiana Camarena unspecified 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 Clostridium Hospitalists difficile, not spcf as recur I10 Essential (primary) hypertension I34.0 Nonrheumatic mitral (valve) insufficiency E78.5 Hyperlipidemia, unspecified J44.9 Chronic obstructive pulmonary disease, unspecified Z87.19 Personal history of other diseases of the digestive system Z86.79 Personal history of other diseases of the circulatory system Office 12/22/2018 [facility] Gastroenterology Alexis Felder A04.72 Enterocolitis d/t Visit 7:00a MD Mo Clostridium difficile, not spcf as recur R19.4 Change in bowel habit K59.00 Constipation, unspecified R19.7 Diarrhea, unspecified Office Visit 12/22/2018 8:59a [facility] Peter K57.92 Dvtrcli of Assoc,DAMARIS Chairez intest, part Hospitalists unsp, w/o perf or abscess w/o bleed A04.72 Enterocolitis d/t Clostridium difficile, not spcf as recur I25.10 Athscl heart disease of [place] coronary artery w/o ang pctrs J44.9 Chronic obstructive pulmonary disease, unspecified I10 Essential (primary) hypertension Office Visit 12/21/2018 8:59a [facility] Peter K57.00 Dvtrcli of sm int Assoc,DAMARIS Chairez w perforation and Hospitalists abscess w/o bleeding I25.10 Athscl heart disease of [place] coronary artery w/o ang pctrs J44.9 Chronic obstructive pulmonary disease, unspecified I10 Essential (primary) hypertension Office Visit 12/10/2018 4:00p [facility] Yogi Miranda I10 Essential [place] (primary) hypertension G47.33 Obstructive sleep apnea (adult) (pediatric) I25.110 Athscl heart disease of [place] cor art w unstable ang pctrs I42.9 Cardiomyopathy, unspecified I34.0 Nonrheumatic mitral (valve) insufficiency R06.02 Shortness of breath Office Visit 11/18/2018 1:30p [facility] Lorene S. R07.9 Chest pain, Foster, N.P. unspecified I10 Essential (primary) hypertension G47.33 Obstructive sleep apnea (adult) (pediatric) I25.110 Athscl heart disease of [place] cor art w unstable ang pctrs R94.31 Abnormal electrocardiogram [ECG] [EKG] Z98.61 Coronary angioplasty status Office Visit 11/13/2018 9:24a [facility] Selina R07.9 Chest pain, Assoc,daniel Rivero, unspecified Hospitalists [employer] Z86.79 Personal history of other diseases of the circulatory system J44.9 Chronic obstructive pulmonary disease, unspecified I10 Essential (primary) hypertension G47.33 Obstructive sleep apnea (adult) (pediatric) Office Visit 11/12/2018 [facility] Bj Pina I20.8 Other forms of 9:24a Assoc,daniel Rogers M.D.,FACP angina pectoris Hospitalists Office Visit 11/12/2018 [facility] Pina R07.9 Chest pain, 11:10a Of Fabiana Joshi M.D. unspecified I42.5 Other restrictive cardiomyopathy I34.0 Nonrheumatic mitral (valve) insufficiency I25.10 Athscl heart disease of [place] coronary artery w/o ang pctrs Office Visit 08/29/2018 10:00a [facility] Lorene SSathya I25.110 Athscl heart Foster, N.P. disease of [place] cor art w unstable ang pctrs I25.2 Old myocardial infarction J44.9 Chronic obstructive pulmonary disease, unspecified Z98.61 Coronary angioplasty status I42.9 Cardiomyopathy, unspecified Office Visit 08/26/2018 8:48a [facility] Pina I25.119 Athscl heart Of Fabiana Joshi M.D. disease of [place] cor art w unsp ang pctrs Office Visit 08/26/2018 10:10a [facility] Anupam R55 Syncope and Assoc,daniel Alicia M.D. 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 disease of [place] cor art w unsp ang pctrs I42.9 Cardiomyopathy, unspecified D64.9 Anemia, unspecified J44.9 Chronic obstructive pulmonary disease, unspecified Office Visit 08/24/2018 4:21p [facility] Ariadna Porras, I25.119 Athscl heart Of [facility] M.D. disease of [place] cor art w unsp ang pctrs I42.9 Cardiomyopathy, unspecified D64.9 Anemia, unspecified J44.9 Chronic obstructive pulmonary disease, unspecified Office Visit 08/24/2018 10:05a [facility] Miguel Bai R55 Syncope and Assoc,daniel Nickerson MD collapse Hospitalists E04.1 Nontoxic single thyroid nodule I25.10 Athscl heart disease of [place] coronary artery w/o ang pctrs I10 Essential (primary) hypertension G47.33 Obstructive sleep apnea (adult) (pediatric) J44.9 Chronic obstructive pulmonary disease, unspecified Office Visit 08/23/2018 7:00a [facility] Qutaybeh S. R06.02 Shortness of MagMarjan roseD. 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 [place] cor art w unstable ang pctrs I25.2 Old myocardial infarction J44.9 Chronic obstructive pulmonary disease, unspecified Office Visit 08/09/2018 9:00a [facility] Tavo Cleve, I25.119 Athscl heart Of [employer] AT [facility] MEnid., [facility], disease of [facility] [place] cor art w unsp ang pctrs Z98.61 Coronary angioplasty status Office Visit 08/02/2018 9:00a [facility] Lorene S. R07.9 Chest pain, Foster, N.P. unspecified R06.02 Shortness of breath I10 Essential (primary) hypertension I34.0 Nonrheumatic mitral (valve) insufficiency E78.5 Hyperlipidemia, unspecified I25.2 Old myocardial infarction Office Visit 07/20/2018 10:51a [facility] Selina R07.9 Chest pain, Assoc,pc Luis Antonio Rivero, unspecified Hospitalists [employer]CHN[employer]IAN R06.02 Shortness of breath I10 Essential (primary) hypertension J44.9 Chronic obstructive pulmonary disease, unspecified Office Visit 07/19/2018 [facility] Maddie R07.9 Chest pain, 10:50a Assoc,daniel Finch, [employer]IAN unspecified Hospitalists R06.02 Shortness of breath I10 Essential (primary) hypertension J44.9 Chronic obstructive pulmonary disease, unspecified Office Visit 05/28/2018 9:00a Pulmonology & Leanne J44.9 Chronic Sleep Services AT MD Isiah obstructive [place] pulmonary disease, unspecified G47.33 Obstructive sleep apnea (adult) (pediatric) Office Visit 01/02/2018 9:30a [facility] Lorene S. I34.0 Nonrheumatic mitral Foster, N.P. (valve) insufficiency I42.9 Cardiomyopathy, unspecified G47.33 Obstructive sleep apnea (adult) (pediatric) E78.5 Hyperlipidemia, unspecified I25.2 Old myocardial infarction Office Visit 11/28/2017 10:30a [facility] Lorene S. I27.20 Pulmonary Cardiology Foster, N.P. hypertension, unspecified I34.0 Nonrheumatic mitral (valve) insufficiency I50.9 Heart failure, unspecified I42.9 Cardiomyopathy, unspecified G47.33 Obstructive sleep apnea (adult) (pediatric) E78.5 Hyperlipidemia, unspecified I25.2 Old myocardial infarction Office Visit 10/30/2017 [facility] Yogi S. I27.20 Pulmonary 10:00a Cardiology [place] hypertension, unspecified I34.0 Nonrheumatic mitral (valve) insufficiency I50.9 Heart failure, unspecified I42.9 Cardiomyopathy, unspecified R06.02 Shortness of breath G47.33 Obstructive sleep apnea (adult) (pediatric) R94.31 Abnormal electrocardiogram [ECG] [EKG] Office Visit 10/06/2017 8:32a [facility] Robinson Oneil, I21.4 Non-St elevation daniel Sinha MD (tear) Hospitalists myocardial infarction I50.21 Acute systolic (congestive) heart failure R07.9 Chest pain, unspecified I34.0 Nonrheumatic mitral (valve) insufficiency Office Visit 10/06/2017 [facility] Ariadna Porras, I27.20 Pulmonary 1:54p Cardiology Lucien Camarena hypertension, [employer] unspecified I34.0 Nonrheumatic mitral (valve) insufficiency Office Visit 10/05/2017 8:29a [facility] Robinson Oneil, I21.4 Non-St elevation daniel Sinha MD (tear) Hospitalists myocardial infarction I50.21 Acute systolic (congestive) heart failure R07.9 Chest pain, unspecified I34.0 Nonrheumatic mitral (valve) insufficiency Office Visit 10/05/2017 3:00p [place]. I50.9 Heart failure, Cardiology [place] unspecified I34.0 Nonrheumatic mitral (valve) insufficiency I42.9 Cardiomyopathy, unspecified J18.9 Pneumonia, unspecified organism Z66 Do not resuscitate Office Visit 10/04/2017 8:28a [facility] Robinson Oneil I21.4 Non-St elevation daniel Sinha MD (tear) Hospitalists myocardial infarction I34.0 Nonrheumatic mitral (valve) insufficiency I50.21 Acute systolic (congestive) heart failure R07.9 Chest pain, unspecified Office Visit 10/04/2017 [facility] Yogi Wu. I42.9 Cardiomyopathy, 2:54p Cardiology [place] Lo unspecified I34.0 Nonrheumatic mitral (valve) insufficiency I21.4 Non-St elevation (Nstemi) myocardial infarction I50.9 Heart failure, unspecified Office Visit 10/03/2017 8:27a [facility] Robinson Oneil MD R74.8 Abnormal levels Assoc,pc of other serum Hospitalists enzymes R07.9 Chest pain, unspecified I48.0 Paroxysmal atrial fibrillation J18.9 Pneumonia, unspecified organism Office Visit 10/03/2017 1:53p [facility] Ariadna Porras, I50.9 Heart failure, Of Fabiana Camarena unspecified I34.0 Nonrheumatic mitral (valve) insufficiency R94.31 Abnormal electrocardiogram [ECG] [EKG] Office Visit 10/02/2017 8:25a [facility] Renate Roberts R74.8 Abnormal Assoc,pc MAN Mathews levels of Hospitalists other serum enzymes R07.9 Chest pain, unspecified I48.0 Paroxysmal atrial fibrillation J18.9 Pneumonia, unspecified organism Office Visit 07/11/2017 [facility] Nurse Visit cc I42.9 Cardiomyopathy, 9:00a Cardiology unspecified Office Visit 06/26/2017 [facility] Qutaybnam S. G47.33 Obstructive sleep 4:20p Cardiology michael Lo (adult) Migue (pediatric) I42.9 Cardiomyopathy, unspecified I34.0 Nonrheumatic mitral (valve) insufficiency E78.5 Hyperlipidemia, unspecified R94.31 Abnormal electrocardiogram [ECG] [EKG] Office Visit 06/22/2017 [facility] J96.01 Acute respiratory Assoc,daniel Heard D.O. failure with Hospitalists hypoxia J18.9 Pneumonia, unspecified organism J44.9 Chronic obstructive pulmonary disease, unspecified R74.8 Abnormal levels of other serum enzymes Office Visit 06/21/2017 6:58a [facility] J96.01 Acute respiratory Assoc,daniel Heard D.O. failure with Hospitalists hypoxia J18.9 Pneumonia, unspecified organism R74.8 Abnormal levels of other serum enzymes J44.9 Chronic obstructive pulmonary disease, unspecified Office Visit 06/20/2017 6:58a [facility] J96.01 Acute respiratory Assoc,daniel Heard D.O. failure with Hospitalists hypoxia J18.9 Pneumonia, unspecified organism J44.9 Chronic obstructive pulmonary disease, unspecified R74.8 Abnormal levels of other serum enzymes Office Visit 06/19/2017 [facility] Ruslan Frankenberg I50.31 Acute diastolic 6:57a Assdaniel fregoso II, M.D. (congestive) Hospitalists heart failure R74.8 Abnormal levels of other serum enzymes J18.9 Pneumonia, unspecified organism J44.9 Chronic obstructive pulmonary disease, unspecified Office Visit 06/18/2017 6:56a [facility] Allison J18.9 Pneumonia, Assoc,daniel Heard D.O. unspecified Hospitalists organism R74.8 Abnormal levels of other serum enzymes J44.9 Chronic obstructive pulmonary disease, unspecified F32.9 Major depressive disorder, single episode, unspecified Office Visit 03/29/2017 10:00a Pulmonology & Leanne G47.33 Obstructive sleep Sleep Services AT MD Isiah apnea (adult) Shailesh (pediatric) Office Visit 03/22/2017 11:20a [facility] Qutaybeh S. G47.33 Obstructive sleep michael Lo (adult) Migue (pediatric) I42.9 Cardiomyopathy, unspecified I34.0 Nonrheumatic mitral (valve) insufficiency E78.5 Hyperlipidemia, unspecified R94.31 Abnormal electrocardiogram [ECG] [EKG] I35.1 Nonrheumatic aortic (valve) insufficiency Office Visit 10/30/2016 Pulmonology And Polly G47.33 Obstructive sleep 9:15a [facility] Bruno RN, [facility]2016 [facility] Qutaybeh S. I42.9 Cardiomyopathy , 3:40p Migue Lo unspecified I34.0 Nonrheumatic mitral (valve) insufficiency E78.5 Hyperlipidemia, unspecified Office Visit 06/15/2016 [place] Qutaybeh S. I42.9 Cardiomyopathy, 3:00p Cardiology Migue Lo unspecified R94.31 Abnormal electrocardiogram [ECG] [EKG] R07.9 Chest pain, unspecified I34.0 Nonrheumatic mitral (valve) insufficiency I10 Essential (primary) hypertension R00.1 Bradycardia, unspecified Office Visit 05/15/2013 Abhinav Miranda 425.9 Cardiomyopathy 9:30a Cardiology Migue Lo Secondary Unspecified 794.31 Electrocardiogram (ECG) (EKG) Abnormal 786.50 Pain Chest Unspec Office Visit 04/25/2013 [facility] 425.9 Cardiomyopathy 10:20a Cardiology Doctor Loc 39 Secondary Unspecified 424.0 Mitral Valve Disorder 794.31 Electrocardiogram (ECG) (EKG) Abnormal 272.4 Hyperlipidemia Other Unspec 786.50 Pain Chest Unspec Office Visit 04/18/2013 [facility] 425.9 Cardiomyopathy 9:45a Cardiology Doctor Loc 39 Secondary Unspecified 424.0 Mitral Valve Disorder 794.31 Electrocardiogram (ECG) (EKG) Abnormal 272.4 Hyperlipidemia Other Unspec 786.50 Pain Chest Unspec 424.1 Aortic Valve Disorder Plan of Treatment Future Appointment(s):05/27/2019 11:30 am - Leanne Joyce MD at Pulmonology & amp; Sleep Services AT [facility]33/10/2019 - Yogi Lo M.D.I10 Essential (primary) mgbuspjragysB51.9 Chronic obstructive pulmonary disease, gajeuefpvktK99.10 Atherosclerotic heart disease of [place] coronary artery withFollow up:one yr ovZ98.61 Coronary angioplasty status
--- NOTE | 2019-02-04 08:05 | ED ---
HPI Chest Pain - HPI Summary HPI Summary: The patient is an 83 year old F brought in by EMS to [facility] accompanied by her daughter for CP and difficulty breathing per EMS since 0630 this morning. The CC is described as chest heaviness and she is currently SOB with painful breathing and coughing. Per daughter she has had a nonproductive cough for the past week in the morning. She states that her CP is located to her left anterior chest and is rated a 6/10 in severity. Her symptoms aggravated by positional changing and movement early in the morning. Symptoms alleviated by nothing. Pt denies any fever, chills, erythema of eyes, sore throat, abdominal pain, N/V, dysuria, hematuria, myalgia, edema, rash, or dizziness. She also denies any abnormal swelling in the legs and any past swelling in the legs. Pt s information technology program manager is Dr. Lo. The patient has a PMHx of CAD with one stent and a previous cardiac catheterization. She was a previous smoker and also had a STEMI in September of 2017. - History of Current Complaint Time Seen by Provider: 02/04/19 07:49 Hx Obtained From: Patient, Family/Services Advisor - daughter Onset/Duration: Started Hours Ago - 0630 this morning, Started Weeks Ago - Daughter reports cough with CP for the past week, Still Present Time of Onset: 06:30 Timing: Intermittent - reported feeling better upon arrival, when evaluated the pt reported the pain had increased to a 6/10 Initial Severity: Moderate Current Severity: Moderate Pain Intensity: 6 Pain Scale Used: 0-10 Numeric Chest Pain Location: Left Anterior Chest Pain Radiates: No Character: Pressure/Squeezing Aggravating Factor(s): Movement, Other: - positional changes Alleviating Factor(s): Nothing Associated Signs and Symptoms: Positive: Negative - Pt denies any fever, chills , erythema of eyes, sore throat, abdominal pain, N/V, dysuria, hematuria, myalgia, edema, rash, or dizziness. She also denies any abnormal swelling in the legs and any past swelling in the legs., Chest Pain, Shortness of Breath, Cough - nonproductive - Additional Pertinent History Primary Care Physician: JEYSON - Allergy/Home Medications Allergies/Adverse Reactions: Allergies Allergy/AdvReac Type Severity Reaction Status Date / Time niacin Allergy Intermediate Rash Verified 01/15/19 09:11 PMH/Surg Hx/FS Hx/Imm Hx Previously Healthy: No Endocrine/Hematology History: Reports: Hx Anticoagulant Therapy - ASA, Brilinta Denies: Hx Diabetes Comment Only: Other Endocrine/Hematological Disorders - anemia Cardiovascular History: Reports: Hx Angina, Hx Congestive Heart Failure, Hx Coronary Artery Disease, Hx Hypercholesterolemia, Hx Hypertension, Hx Syncope, Hx Valvular Heart Disease, Other Cardiovascular Problems/Disorders - mitral regurgitation, cardiomyopathy Denies: Hx Myocardial Infarction, Hx Pacemaker/ICD Respiratory History: Reports: Hx Chronic Obstructive Pulmonary Disease (COPD) - 2 L O2 @ home at night, Hx Pneumonia - feburary 2017, Hx Sleep Apnea - cpap 2-3L Denies: Hx Asthma GI History: Reports: Hx Diverticulosis, Hx Gastroesophageal Reflux Disease Musculoskeletal History: Reports: Hx Arthritis - hands and neck, Hx Back Problems - 2 back surgeries 2002, spinal stenosis, Hx Osteoporosis Sensory History: Reports: Hx Contacts or Glasses, Hx Macular Degeneration, Hx Deafness - R ear Denies: Hx Hearing Aid Opthamlomology History: Reports: Hx Contacts or Glasses, Hx Macular Degeneration Neurological History: Reports: Hx Dementia - short term memory issue, Other Neuro Impairments/Disorders - peripheral neuroptathy Psychiatric History: Reports: Hx Anxiety Denies: Hx Panic Disorder - Surgical History Surgery Procedure, Year, and Place: 2 BACK SURGERIES (SPINAL STENOSIS). CATARACT. CARDIAC CATHETERIZATION Hx Anesthesia Reactions: No - Immunization History Date of Tetanus Vaccine: utd Date of Influenza Vaccine: fall 2017 Infectious Disease History: Reports: Hx Clostridium Difficile - hx - not current Denies: Traveled Outside the [place] in Last 30 Days - Family History Known Family History: Positive: Cardiac Disease - Social History Alcohol Use: None Hx Substance Use: No Substance Use Type: Reports: None Hx Tobacco Use: Yes - not currently Smoking Status (MU): Former Smoker Type: Cigarettes Have You Smoked in the Last Year: No Review of Systems Negative: Fever, Chills Negative: Erythema Negative: Sore Throat Positive: Chest Pain Positive: Shortness Of Breath, Cough - nonproductive Negative: Abdominal Pain, Vomiting, Nausea Negative: dysuria, hematuria Negative: Myalgia, Edema Negative: Rash Neurological: Other - NEGATIVE: Dizziness All Other Systems Reviewed And Are Negative: Yes Physical Exam - Summary Physical Exam Summary: Constitutional: Well-developed, Well-nourished, Alert. (-) Distressed Skin: Warm, Dry HENT: Normocephalic; Atraumatic Eyes: Conjunctiva normal Neck: Musculoskeletal ROM normal neck. (-) JVD, (-) Stridor, (-) Tracheal deviation Cardio: Rhythm regular, rate normal, Heart sounds normal; Intact distal pulses; The pedal pulses are 2+ and symmetric. Radial pulses are 2+ and symmetric. (-) Murmur Pulmonary/Chest wall: Effort normal. (-) Respiratory distress, (-) Wheezes, (-) Rales Abd: Soft, (-) tenderness, (-) Distension, (-) Guarding, (-) Rebound Musculoskeletal: (-) Edema Lymph: (-) Cervical adenopathy Neuro: Alert, Oriented x3 Psych: Mood and affect Normal Triage Information Reviewed: Yes Vital Signs Reviewed: Yes Diagnostics - Laboratory Result Diagrams: 02/04/19 07:57 02/04/19 07:57 Lab Statement: Any lab studies that have been ordered have been reviewed, and results considered in the medical decision making process. - Radiology CXR Radiology Interpretation Completed By: Radiologist Summary of Radiographic Findings: HYPERINFLATION. NO ACTIVE CARDIOPULMONARY DISEASE. ED Physician has reviewed this report. - EKG 0835 Cardiac Rate: Bradycardia - 57 BPM EKG Rhythm: Sinus Bradycardia Summary of EKG Findings: EKG was read at 0835 02/04/19 which shows Sinus bradycardia with a rate of 57 BPM and no STEMI. EKG was interpreted by Dr. Daniel MD. 1100 Cardiac Rate: Bradycardia - 57 BPM EKG Rhythm: Sinus Bradycardia ST Segment: Normal Ectopy: None Summary of EKG Findings: EKG read at 1100 on 02/04/19 which shows sinus bradycardia with a rate of 57 BPM, no STEMI, and normal ST segments. Interpreted by Dr. Daniel MD. Re-Evaluation - Re-Evaluation First Eval Re-Evaluation Time: 09:12 Change: Worse Comment: Pt reports being in being pain and stressed. She will be given Lorazaepam. Second Eval Re-Evaluation Time: 09:45 Change: Improved Comment: Pt is feeling much better and her CP has decreased after being given Lorazepam. Her other daughter is now in the room. Dr. Heard was contacted who agreed to evaluate the pt. Third Eval Re-Evaluation Time: 13:03 Change: Worse Comment: Pt stated that the pain in her chest retured and she did not feel safe being discharged at this moment. Pt will remain in the ED for further observation. Chest Pain Course/Dx - Course Course Of Treatment: The patient is an 83 year old F brought in by EMS to [facility] accompanied by her daughter for CP and difficulty breathing per EMS since 0630 this morning. The CC is described as chest heaviness and she is currently SOB with painful breathing and coughing. Per daughter she has had a nonproductive cough for the past week in the morning. She states that her CP is located to her left anterior chest and is rated a 6/10 in severity. Her symptoms aggravated by positional changing and movement early in the morning. Her PE showed no abnormal findings. EKG was read at 0835 02/04/19 which shows Sinus bradycardia with a rate of 57 BPM and no STEMI. She received another EKG which was read at 1100 on 02/04/19 which shows sinus bradycardia with a rate of 57 BPM , no STEMI, and normal ST segments. She also received a CXR which found that she had HYPERINFLATION. NO ACTIVE CARDIOPULMONARY DISEASE. Her first Troponin level showed a .02. She will receive two more troponin tests before a clear diagnosis will be made. Pt was evaluated by Dr. Heard who recommended discharging the pt home after her 2 Troponin tests came back negative. She will be discharged with a Dx of Chest pain unspecified. She will be insturcted to corn picker Mucinex-ER from the pharmacy to help with her cough which could be the source of her Chest Pain. - Diagnoses Provider Diagnoses: Chest pain, unspecified Discharge - Sign-Out/Discharge Documenting (check all that apply): Patient Departure Patient Received Moderate/Deep Sedation with Procedure: No - Discharge Plan Condition: Good Disposition: HOME Patient Education Materials: Angina (ED) Referrals: Rojelio Mcnulty, [Primary Care Provider] - 2 Days Additional Instructions: Please follow up with your primary care provider in 2-3 days and return to the emergency room for any new or worsening symptoms. The pt and her family are still refusing cardiac management. She still has a persistent cough, please corn picker mucinex-er from the pharmacy - Billing Disposition and Condition Condition: GOOD Disposition: Home - Attestation Statements Document Initiated by Scribe: Yes Documenting Scribe: Alfa Weinstein Provider For Whom Scribe is Documenting (Include Credential): Chavo Sanchez MD Scribe Attestation: I, Alfa Weinstein, scribed for Chavo Sanchez MD on 02/06/19 at 1035. Scribe Documentation Reviewed: Yes Provider Attestation: The documentation as recorded by the scribe, Alfa Weinstein accurately reflects the service I personally performed and the decisions made by me, Chavo Sanchez MD Status of Scribe Document: Viewed Consult Consult: Dr. Heard was contacted who agreed to evaluate the pt at 0945. Pt was evaluated by Dr. Heard who recommended discharging the pt home after her 2 Troponin tests came back negative. She will be discharged with a Dx of Chest pain unspecified.
[2019-02-04 08:06] LABS: ABS Basophils 0.1 10^3/ul (0-0.2); ABS Eosinophils 0.1 10^3/ul (0-0.6); ABS Lymphocytes 1.5 10^3/ul (1.0-4.8); ABS Monocytes 0.4 10^3/ul (0-0.8); ABS Neutrophils 3.7 10^3/ul (1.5-7.7); Eosinophil % 1.9 %; Hematocrit 33 % (35-47); Hemoglobin 11.3 g/dL (12.0-16.0); Lymphocyte % 25.6 %; Mean Corpuscular HGB Conc 34 g/dL (31-36); Mean Corpuscular Hemoglobin 32 pg (27-31); Mean Corpuscular Volume 96 fL (80-97); Platelet Count 220 10^3/uL (150-450); Red Cell Distribution Width 16 % (10-15); White Blood Count 5.7 10^3/uL (3.5-10.8)
[2019-02-04 08:24] LABS: Albumin/Globulin Ratio 1.5 (1-3); BUN/Creatinine Ratio 21.4 (8-20); Calcium 9.5 mg/dL (8.6-10.3); EGFR African American 61.9 (>60); EGFR Non-African American 51.2 (>60); Globulin 2.7 g/dL (2-4); Potassium 4.2 mmol/L (3.5-5.0); Total Bilirubin 0.5 mg/dL (0.2-1.0); Total Protein 6.7 g/dL (6.4-8.9)
[2019-02-04 08:26] LABS: Troponin I 0.02 ng/mL (<0.04)
[2019-02-04] MEDS ORDERED: Aspirin 81 mg CHEW TAB* 81 MG TAB.CHEW PO ONE (08:48)
[2019-02-04] MEDS ORDERED: Nitroglycerin TAB 0.4 MG* 0.4 MG TAB SL ONE (08:51)
[2019-02-04] MEDS ORDERED: LORazepam INJ* 2 MG/ML 1 ML VIAL IV PUSH ONE (09:15)
[2019-02-04] MEDS ORDERED: Lorazepam PYXIS KEY PRN (09:15)
[2019-02-04] MEDS ORDERED: Lorazepam PYXIS KEY ONE (09:29)
[2019-02-04 13:29] VITALS: BP 134/66
--- NOTE | 2019-02-05 14:09 | CONS ---
CC: Dr. Mcnulty; Dr. Lo * CONSULTATION REPORT: DATE OF CONSULT: 02/04/19 - EMERGENCY DEPT PRIMARY CARE PROVIDER: Dr. Mcnulty. RECORDS MANAGEMENT TECHNICIAN: Dr. Lo. CHIEF COMPLAINT: Chest pain and shortness of breath. HISTORY OF PRESENT ILLNESS: Ms. Baxter is an 83-year-old female who has a history of probable cognitive impairment, COPD, hypertension, YONY, and coronary artery disease, status post most recent stenting procedure in July 2018, who presents to the emergency room today with complaints of chest pain and shortness of breath. Most of the history is obtained from the patient's . He states that he woke up this morning and approximately 15 minutes after getting up, she felt as if she was short of breath. She put her oxygen on. The patient then chimed in that she felt as if the shortness of breath progressed rapidly and triggered some anxiety. She states the shortness of breath worsened and she developed chest pain. This has been occurring almost on a daily basis for the last couple of weeks. It is also noted that the shortness of breath typically is triggered by violent coughing to try to bring up secretions that are stuck in her throat that she wakes up with. She previously was able to have the chest pain resolved within several minutes. However, today it seemed to be more intense and lasted longer. The patient has been using her oxygen with sleep as ordered. She has no other acute issues at this point. She states that she feels back to her baseline. Of note, the patient was seen by Dr. Lo on 01/27/19, following hospitalization on , for chest pain. At the time of her followup with Dr. Lo, it was not completely clear that the chest pain symptoms that she has been presenting with are in fact cardiac in nature. It was recommended to continue maximal medical treatment. Cardiac catheterization was offered and she and her declined. Again, we discussed today what could be offered for evaluation of her chest pain. Two troponins have been negative. Her EKGs were unchanged and with the negative stress test just approximately 3 weeks ago, it was felt that not much more than cardiac catheterization could be done to evaluate the cause of her chest pain. The patient does have known residual coronary artery disease. It is not amenable to stenting based on prior reports. She also has a moderate stenosis that did not feel to be in need of intervention, at least as of July 2018. With the negative stress test on 01/16/19, it was felt that at this point the patient could return home to follow up with her PCP and with Dr. Lo. After I had performed my consultation on the patient and she left the emergency room, Dr. Lo was able to return my call. We discussed possibly adjusting her amlodipine or nitrates. However, again, she had left the emergency room by the time I received the phone call back from Dr. Lo. PHYSICAL EXAM: Blood pressure 146/55, pulse 57, respirations 12, temp 98.2, O2 sat 98% on room air. General: The patient is a well-developed elderly female seen sitting in the stretcher in no acute distress. HEENT: Pupils are equal, round. Extraocular muscles are intact. Oropharynx is clear. Oral mucosa is moist. There is no submandibular, cervical or supraclavicular adenopathy. Cardiac: Normal S1, S2. Heart rate is bradycardic, but regular. There is no lower extremity edema. Pulmonary: Breath sounds are symmetric and clear in all lung cai. Abdomen: Bowel sounds present. Abdomen is soft, nontender, nondistended. Musculoskeletal: There is no cyanosis or clubbing of the digits. There is full active range of motion of all 4 extremities. Skin is warm and dry. There are no rashes. Neuro: Cranial nerves II through XII are grossly intact. Sensation is intact to light touch throughout. Strength is 5/5 and symmetric in both upper and lower extremities bilaterally. Psych: The patient is alert. She is generally a poor historian now. DIAGNOSTIC STUDIES/LAB DATA: WBC 5.7, hemoglobin 11.3, hematocrit 33, and platelets 220,000. D-dimer less than 200. Sodium 138, potassium 4.2, chloride 106, CO2 of 26. BUN 22, creatinine 1.03. Glucose 107. Lactic acid 1.7. Calcium 9.5. Bilirubin 0.5, AST 18, ALT 15, alk phos 50. Troponin 0.02 to 0.01. Albumin 4.0. EKG reveals sinus bradycardia with nonspecific T-wave changes in lead III, unchanged from prior. ASSESSMENT AND PLAN: At this time, I recommended to the patient and her family that they continue the medical therapy as ordered by Dr. Lo at current doses. We discussed initiating Mucinex ER twice daily to see if this helps thin out the secretions that then has been triggering the very violent coughing and shortness of breath which may be then precipitating her chest pain. Her PCP had previously recommended that she use nebulizer twice daily to see if this helps as well. She has been instructed to return to the emergency room if she develops chest pain that is out of her usual pattern. The patient and her family are all in agreement with this plan. Her reiterates that he does not want to pursue cardiac catheterization at this time as it has previously been expressed that there is nothing to intervene upon. My discussion with the patient and her family was relayed to Dr. Sanchez in the emergency room. He is agreeable to discharging the patient from the emergency room. TIME SPENT: Sixty minutes were spent on this consultation. [id number]/CPS #: [id number] MTDD
== END 2019-02-04 13:24 | disposition home or self-care (01) ==
LOC: ED 07:41
DX: R07.9 Chest pain, unspecified (principal); I50.9 Heart failure, unspecified; I25.10 Atherosclerotic heart disease of native coronary artery without angina pectoris; I11.0 Hypertensive heart disease with heart failure; J44.9 Chronic obstructive pulmonary disease, unspecified; Z87.891 Personal history of nicotine dependence
CPT/HCPCS: 36415; 71045; 80053; 83605; 84484; 85025; 85379; 93005; 96374; 99284; A9270-GY; J2060

== ENCOUNTER 2019-02-06 14:03 | Emergency (ER) | payer MEDICARE ==
[2019-02-06 14:36] LABS: ABS Eosinophils 0.1 10^3/ul (0-0.6); ABS Lymphocytes 2.2 10^3/ul (1.0-4.8); ABS Monocytes 0.3 10^3/ul (0-0.8); ABS Neutrophils 2.4 10^3/ul (1.5-7.7); Eosinophil % 1.8 %; Hematocrit 31 % (35-47); Hemoglobin 10.3 g/dL (12.0-16.0); Lymphocyte % 42.8 %; Mean Corpuscular HGB Conc 33 g/dL (31-36); Mean Corpuscular Hemoglobin 32 pg (27-31); Mean Corpuscular Volume 96 fL (80-97); Mean Platelet Volume 7.1 fL (7.4-10.4); Nucleated Red Blood Cells % 0.1; Platelet Count 212 10^3/uL (150-450); Red Blood Count 3.24 10^6 /uL (3.70-4.87); Red Cell Distribution Width 16 % (10-15)
[2019-02-06 14:43] LABS: INR 1.03 (0.82-1.09)
[2019-02-06 14:57] LABS: Albumin 3.8 g/dL (3.2-5.2); Albumin/Globulin Ratio 1.5 (1-3); BUN/Creatinine Ratio 18.4 (8-20); Calcium 9.3 mg/dL (8.6-10.3); EGFR African American 55.1 (>60); EGFR Non-African American 45.5 (>60); Globulin 2.5 g/dL (2-4); Potassium 3.5 mmol/L (3.5-5.0); Total Bilirubin 0.5 mg/dL (0.2-1.0); Total Protein 6.3 g/dL (6.4-8.9)
[2019-02-06 14:58] LABS: Troponin I 0.01 ng/mL (<0.04)
--- NOTE | 2019-02-06 17:32 | ED ---
Back Pain - HPI Summary HPI Summary: This patient is a 83 year old F presenting to [facility] accompanied by her with a chief complaint of upper back pain between the shoulder blades since a couple of hours ago. The patient rates the pain 2/10 in severity. Symptoms aggravated by nothing. Symptoms alleviated by nothing. There was no change in pain with movement. The patient was home with her when she began to feel the pain between her shoulder blades. She soon became anxious about the symptoms and began to be SOB as a result. She notes she never had pain in that area of her back before and that the pain has resolved. The patient took NTG and was on oxygen prior to coming to the ED to see if doing so would alleviate the symptoms. Patient denies any fever, chills, erythema of eyes, sore throat, CP, cough, abdominal pain, N/V, dysuria, hematuria, myalgia, edema, rash, or dizziness. She has a heart stent, hx of [place], and previously did not want to do catheterization because she did not think it would help. - History of Current Complaint Chief Complaint: EDShortnessOfBreath Stated Complaint: DIFFICULTY BREATHING [place] PT Time Seen by Provider: 02/06/19 15:44 Hx Obtained From: Patient, Family/Senior Chemical Engineer - Onset/Duration: Sudden Onset, Lasting Hours - 2, Resolved Onset/Duration: Started Hours Ago - 2, Resolved Severity Initially: Mild Severity Currently: Mild Pain Intensity: 2 Pain Scale Used: 0-10 Numeric Aggravating Symptom(s): Nothing Alleviating Symptom(s): Nothing Associated Signs And Symptoms: Negative: Swelling, Redness, Fever, Abdominal Pain - Allergies/Home Medications Allergies/Adverse Reactions: Allergies Allergy/AdvReac Type Severity Reaction Status Date / Time niacin Allergy Intermediate Rash Verified 02/06/19 14:13 PMH/Surg Hx/FS Hx/Imm Hx Endocrine/Hematology History: Reports: Hx Anticoagulant Therapy - ASA, Brilinta Denies: Hx Diabetes Comment Only: Other Endocrine/Hematological Disorders - anemia Cardiovascular History: Reports: Hx Angina, Hx Congestive Heart Failure, Hx Coronary Artery Disease, Hx Hypercholesterolemia, Hx Hypertension, Hx Myocardial Infarction, Hx Syncope, Hx Valvular Heart Disease, Other Cardiovascular Problems/Disorders - mitral regurgitation, cardiomyopathy Denies: Hx Pacemaker/ICD Respiratory History: Reports: Hx Chronic Obstructive Pulmonary Disease (COPD) - 2 L O2 @ home at night, Hx Pneumonia - feburary 2017, Hx Sleep Apnea - cpap 2-3L Denies: Hx Asthma GI History: Reports: Hx Diverticulosis, Hx Gastroesophageal Reflux Disease Musculoskeletal History: Reports: Hx Arthritis - hands and neck, Hx Back Problems - 2 back surgeries 2002, spinal stenosis, Hx Osteoporosis Sensory History: Reports: Hx Contacts or Glasses, Hx Macular Degeneration, Hx Deafness - R ear Denies: Hx Hearing Aid Opthamlomology History: Reports: Hx Contacts or Glasses, Hx Macular Degeneration Neurological History: Reports: Hx Dementia - short term memory issue, Other Neuro Impairments/Disorders - peripheral neuroptathy Psychiatric History: Reports: Hx Anxiety Denies: Hx Panic Disorder - Surgical History Surgical History: Yes Surgery Procedure, Year, and Place: 2 BACK SURGERIES (SPINAL STENOSIS). CATARACT. CARDIAC CATHETERIZATION Hx Anesthesia Reactions: No - Immunization History Date of Tetanus Vaccine: utd Date of Influenza Vaccine: fall 2017 Infectious Disease History: No Infectious Disease History: Reports: Hx Clostridium Difficile - hx - not current Denies: Traveled Outside the [place] in Last 30 Days - Family History Known Family History: Positive: Cardiac Disease - Social History Alcohol Use: Rare Hx Substance Use: No Substance Use Type: Reports: None Hx Tobacco Use: Yes - not currently Smoking Status (MU): Former Smoker Type: Cigarettes Have You Smoked in the Last Year: No Review of Systems Negative: Fever, Chills Negative: Erythema Negative: Sore Throat Negative: Chest Pain Positive: Shortness Of Breath. Negative: Cough Negative: Abdominal Pain, Vomiting, Nausea Negative: dysuria, hematuria Positive: Other - back pain between shoulder blades. Negative: Myalgia, Edema Negative: Rash Neurological: Other - negative - dizziness Positive: Anxious All Other Systems Reviewed And Are Negative: Yes Physical Exam - Summary Physical Exam Summary: Constitutional: Well-developed, Well-nourished, Alert. (-) Distressed Skin: Warm, Dry HENT: Normocephalic; Atraumatic Eyes: Conjunctiva normal Neck: Musculoskeletal ROM normal neck. (-) JVD, (-) Stridor, (-) Tracheal deviation Cardio: Rhythm regular, rate normal, Heart sounds normal; Intact distal pulses; The pedal pulses are 2+ and symmetric. Radial pulses are 2+ and symmetric. (-) Murmur Pulmonary/Chest wall: Effort normal. (-) Respiratory distress, (-) Wheezes, (-) Rales Abd: Soft, (-) tenderness, (-) Distension, (-) Guarding, (-) Rebound Musculoskeletal: (-) Edema, No reproducible pain Lymph: (-) Cervical adenopathy Neuro: Alert, Oriented x3 Psych: Mood and affect Normal Triage Information Reviewed: Yes Vital Signs On Initial Exam: Initial Vitals Temp Pulse Resp BP Pulse Ox 99.6 F 63 20 131/62 96 02/06/19 14:06 02/06/19 14:06 02/06/19 14:06 02/06/19 14:06 02/06/19 14:06 Vital Signs Reviewed: Yes Diagnostics - Vital Signs Vital Signs Temp Pulse Resp BP Pulse Ox 02/06/19 14:06 99.6 F 63 20 131/62 96 - Laboratory Lab Results: Lab Results 02/06/19 02/06/19 02/06/19 Range/Units 14:25 14:25 14:25 WBC 5.0 (3.5-10.8) 10^3/uL RBC 3.24 L (3.70-4.87) 10^6 /uL Hgb 10.3 L (12.0-16.0) g/dL Hct 31 L (35-47) % MCV 96 (80-97) fL MCH 32 H (27-31) pg MCHC 33 (31-36) g/dL RDW 16 H (10-15) % Plt Count 212 (150-450) 10^3/uL MPV 7.1 L (7.4-10.4) fL Neut % (Auto) 48.1 % Lymph % (Auto) 42.8 % Mchenry % (Auto) 6.3 % Eos % (Auto) 1.8 % Baso % (Auto) 1.0 % Absolute Neuts (auto) 2.4 (1.5-7.7) 10^3/ul Absolute Lymphs (auto) 2.2 (1.0-4.8) 10^3/ul Absolute Monos (auto) 0.3 (0-0.8) 10^3/ul Absolute Eos (auto) 0.1 (0-0.6) 10^3/ul Absolute Basos (auto) 0.0 (0-0.2) 10^3/ul Absolute Nucleated RBC 0.0 10^3/ul Nucleated RBC % 0.1 INR (Anticoag Therapy) 1.03 (0.82-1.09) Sodium 138 (135-145) mmol/L Potassium 3.5 (3.5-5.0) mmol/L Chloride 105 (101-111) mmol/L Carbon Dioxide 24 (22-32) mmol/L Anion Gap 9 (2-11) mmol/L BUN 21 (6-24) mg/dL Creatinine 1.14 H (0.51-0.95) mg/dL Est GFR ( Amer) 55.1 (>60) Est GFR (Non-Af Amer) 45.5 (>60) BUN/Creatinine Ratio 18.4 (8-20) Glucose 142 H (70-100) mg/dL Calcium 9.3 (8.6-10.3) mg/dL Total Bilirubin 0.50 (0.2-1.0) mg/dL AST 20 (13-39) U/L ALT 15 (7-52) U/L Alkaline Phosphatase 52 (34-104) U/L Troponin I 0.01 (<0.04) ng/mL Total Protein 6.3 L (6.4-8.9) g/dL Albumin 3.8 (3.2-5.2) g/dL Globulin 2.5 (2-4) g/dL Albumin/Globulin Ratio 1.5 (1-3) Result Diagrams: 02/06/19 14:25 02/06/19 14:25 Lab Statement: Any lab studies that have been ordered have been reviewed, and results considered in the medical decision making process. - Radiology CXR Radiology Interpretation Completed By: Radiologist Summary of Radiographic Findings: IMPRESSION: 1. SMALL RIGHT BASILAR INFILTRATE AND SMALL BILATERAL PLEURAL EFFUSIONS. 2. COPD. These findings were reviewed by Dr. Sanchez. - EKG 1420 Cardiac Rate: NL - 60 BPM EKG Rhythm: Sinus Rhythm Summary of EKG Findings: 60 BPM, sinus rhythm, no STEMI Re-Evaluation - Re-Evaluation First Eval Re-Evaluation Time: 17:45 Comment: I discussed discharge procedure with patient. Patient is agreeable. Back Pain Course/Dx - Course Course Of Treatment: This patient is a 83 year old F presenting to [facility] accompanied by her with a chief complaint of upper back pain between the shoulder blades since a couple of hours ago. The patient rates the pain 2/ 10 in severity. Symptoms aggravated by nothing. Symptoms alleviated by nothing. There was no change in pain with movement. The patient was home with her when she began to feel the pain between her shoulder blades. She soon became anxious about the symptoms and began to be SOB as a result. She notes she never had pain in that area of her back before and that the pain has resolved. The patient took NTG and was on oxygen prior to coming to the ED to see if doing so would alleviate the symptoms. Patient denies any fever, chills, erythema of eyes, sore throat, CP, cough, abdominal pain, N/V, dysuria, hematuria, myalgia, edema, rash, or dizziness. She has a heart stent, hx of [place], and previously did not want to do catheterization because she did not think it would help. Physical Exam findings show no reproducible pain. Lab results show RBC 3.24, Hgb 10.3, Hct 31, MCH 32, RDW 16, MPV 7.1, creatinine 1.14, glucose 142, total protein 6.3. CXR IMPRESSION: 1. SMALL RIGHT BASILAR INFILTRATE AND SMALL BILATERAL PLEURAL EFFUSIONS. 2. COPD. EKG at 1420: 60 BPM, sinus rhythm, no STEMI. During the ED Course, the patient was given Troponin I. Patient had 2 negative troponins, chest and scapula pain. I do not suspect pulmonary embolism. She does not have features of aortic dissection. She has no history of aortic aneurysm. Final diagnosis is upper back pain. Patient will be discharged to home. Patient was told to follow-up with her special programs director in 2-3 days and to return to the ED for new or worsening conditions. Patient is agreeable. - Diagnoses Provider Diagnoses: Upper back pain - Provider Notifications Discussed Care Of Patient With: Yoig Lo - special programs director Time Discussed With Above Provider: 17:40 Instructed by Provider To: Other - I discussed the patient's case with Dr. Lo, special programs director. He says there is no indication for emergency cardiac catheterization. The patient had a normal nuclear stress test 1 month ago. Cardiac catheterization would have limited efficacy. He recommends NTG 1 inch paced at night and for patient to follow-up with him in 2-3 days. Discharge - Sign-Out/Discharge Documenting (check all that apply): Patient Departure - discharge Patient Received Moderate/Deep Sedation with Procedure: No - Discharge Plan Condition: Stable Disposition: HOME Prescriptions: Nitro 2% OINT* (Nitroglycerin) [Nitroglycerin 2% OINT*] 1 applic TOPICAL SEE INSTRUCTIONS #14 rosita Patient Education Materials: Back Pain (ED) Referrals: Yogi Lo MD [Medical Doctor] - 3 Days Additional Instructions: Follow-up with your special programs director in 2-3 days. RETURN TO THE EMERGENCY DEPARTMENT FOR CHANGING OR WORSENING SYMPTOMS - Billing Disposition and Condition Condition: STABLE Disposition: Home - Attestation Statements Document Initiated by Scribe: Yes Documenting Scribe: Boris Green Provider For Whom Scribe is Documenting (Include Credential): Dr. Chavo Sanchez MD Scribe Attestation: Brois Shook, scribed for Dr. Chavo Sanchez MD on 02/06/19 at 2106. Status of Scribe Document: Ready
[2019-02-06 17:58] VITALS: BP 152/64
== END 2019-02-06 17:58 | disposition home or self-care (01) ==
LOC: ED 14:03
DX: M54.9 Dorsalgia, unspecified (principal); Z79.82 Long term (current) use of aspirin; Z79.01 Long term (current) use of anticoagulants; I50.9 Heart failure, unspecified; I11.0 Hypertensive heart disease with heart failure; I25.10 Atherosclerotic heart disease of native coronary artery without angina pectoris; J44.9 Chronic obstructive pulmonary disease, unspecified; Z87.891 Personal history of nicotine dependence; J90 Pleural effusion, not elsewhere classified
CPT/HCPCS: 36415; 71045; 80053; 84484; 85025; 85610; 93005; 99283

== ENCOUNTER 2019-02-10 11:17 | Emergency (ER) | payer MEDICARE ==
--- OUTSIDE RECORDS SUMMARY | 2019-02-10 11:33 | XMS REPORT | Continuity of Care Document ---
:1935 External Reference #:[id number] Author Name Melquiades Nickerson Care Team Providers Name Role Phone Rojelio Mcnulty D.O. Primary Care Physician Unavailable Payers Date Identification Numbers Payment Provider Subscriber Policy Number: [id number] Medicare Blue Ppo Areli Baxter Group Number: [id number] [address] [address] PayID: [id number] [place] [address] Problems Active Problems Provider Date Restrictive cardiomyopathy secondary Cardiology Doctor Loc 39 Onset: 2012 to granulomas Mitral valve disorder Cardiology Doctor Loc 39 Onset: 04/18/2013 Hyperlipidemia Cardiology Doctor Loc 39 Onset: 04/18/2013 Chest pain Cardiology Doctor Loc 39 Onset: 04/18/2013 Aortic valve disorder Cardiology Doctor Loc 39 Onset: 04/18/2013 Obstructive sleep apnea syndrome Polly Bruno DNP, RN, Onset: 10/30/2016 NC MANAGER- Essential hypertension Maddie Finch NP Onset: 07/19/2018 Chronic obstructive lung disease Maddie Finch NP Onset: 07/19/2018 Inactive Problems Electrocardiogram abnormal Cardiology Doctor Loc 39 Onset: 04/18/2013 Inactive: 01/20/2019 Dyspnea Maddie Finch NP Onset: 07/19/2018 Inactive: 01/20/2019 Family History Date Family Member(s) Observation Comments Father due to CA () - 69 Mother Hypothyroidism Mother due to Stroke () First Son CA First Son Atrial Fibrillation First Daughter Alive And Well Siblings 2 Siblings 1 dec with CA at 39 (brother) 1 sister dec of MS First Brother due to CA () - 49 First Sister due to [...] Medications SIG Qnty Indications Ordering Date Provider [facility] Daily Alexis Felder 01/20/2019 [...] Carbonate-Vitamin D by mouth twice a day [id number] Tablets Lipitor 1 every at night I25.110 [...] Qutaybeh S. 06/26/2017 - 5mg Tablets day [facility], 10/29/2017 [place] Carvedilol 1 tab by mouth [...] po qd Unknown - 2000Unit 06/02/2016 Tablets Nelson 3 3 po qd. 100caps Unknown - [...] Result H/L Range Note Laboratory test 08/08/2018 [facility] Poc Activated 396 seconds [address] [place] [address] [phone] Laboratory test 08/08/2018 [facility] Activated 266 seconds [address] [place] [address] [phone] Laboratory test 08/08/2018 [facility] Activated 274 seconds [address] [place] [address] [phone] Basic Metabolic 08/08/2018 [facility] Sodium 135 mmol/L N 135- [address] [place] [address] [phone] Potassium 4.3 mmol/L N 3.5-5.0 Chloride 103 mmol/L N 101-111 Co2 Carbon Dioxide 25 mmol/L N 22-32 Anion Gap 7 mmol/L N 2-11 Glucose 115 mg/dL High 70-100 Blood Urea Nitrogen 21 mg/dL N 6-24 Creatinine 1.02 mg/dL High 0.51-0.95 BUN/Creatinine Ratio 20.6 High 8-20 Calcium 9.7 mg/dL N 8.6-10.3 Egfr Non- 51.8 >60 Egfr 62.6 >60 4 1 Company Manager: [id number] Reference Range: 74-125 seconds 2 Company Manager: [id number] Reference Range: 74-125 seconds 3 Company Manager: [id number] Reference Range: 74-125 seconds 4 Because ethnic [...] dialysis) Procedures Date Code Description Status 01/27/2019 07700 EKG Tracing & Interpretation Completed 01/16/2019 59818 Treadmill Interp/Report Only Completed 01/16/2019 34368 Stress Test Supervsn W/Out I/R Completed 12/22/2018 42001 Sigmoidoscopy Diagnostic Completed 09/20/2018 06610 ECHO Transthoracic, Real-Time 2D With Doppler And Color Completed Flow 09/20/2018 53298 ECHO Transthoracic, Real-Time 2D With Doppler And Color Completed Flow 08/29/2018 01774 EKG Tracing & Interpretation Completed 08/26/2018 75303 Treadmill Interp/Report Only Completed 08/26/2018 57466 Stress Test Supervsn W/Out I/R Completed 08/25/2018 50671 EKG, Interpretation Only Completed 08/23/2018 62196 EKG, Interpretation Only Completed 08/09/2018 65023 EKG, Interpretation Only Completed 08/09/2018 02966 ECHO Transthorasic Realtime 2D W Doppler & Color Flow Hosp Completed 08/08/2018 00496 Cath PLMT&NJX L Ventriculog Img S&I Completed 08/08/2018 03624 EKG, Interpretation Only Completed 08/02/2018 28108 EKG Tracing & Interpretation Completed 07/19/2018 65425 ECHO Transthorasic Realtime 2D W Doppler & Color Flow Hosp Completed 11/21/2017 17050 ECHO Transthoracic, Real-Time 2D With Doppler And Color Completed Flow 11/21/2017 04150 ECHO Transthoracic, Real-Time 2D With Doppler And Color Completed Flow 10/30/2017 99814 EKG Tracing & Interpretation Completed 10/05/2017 81691 EKG, Interpretation Only Completed 10/04/2017 35499 EKG, Interpretation Only Completed 10/03/2017 36863 ECHO Transthorasic Realtime 2D W Doppler & Color Flow Hosp Completed 10/03/2017 75114 EKG, Interpretation Only Completed 10/02/2017 79916 EKG, Interpretation Only Completed 08/02/2017 11417 Echocardiogram, Limited Study Completed 08/02/2017 79446 Echocardiogram, Limited Study Completed 06/26/2017 44324 EKG Tracing & Interpretation Completed 06/19/2017 41089 EKG, Interpretation Only Completed 06/18/2017 75229 ECHO Transthorasic Realtime 2D W Doppler & Color Flow Hosp Completed 06/18/2017 63472 EKG, Interpretation Only Completed 03/27/2017 62140 Polysomnography Sleep Staging 4+ Parameters W/Cpap Completed 03/22/2017 03518 EKG Tracing & Interpretation Completed 07/19/2016 29708 ECHO Transthoracic, Real-Time 2D With Doppler And Color Completed Flow 07/12/2016 58045 Treadmill Interp/Report Only Completed 07/12/2016 03492 Stress Test Supervsn W/Out I/R Completed 07/05/2016 43313 ECG Monitor/Recording W/Visual Superimposition Scanning Completed 07/05/2016 25066 Holter Monitor Review (24 hr)dr review & interp only Completed 07/05/2016 85899 Holter Monitor Review (24 hr)dr review & interp only Completed 07/04/2016 61501 ECG Monitor/Recording W/Visual Superimposition Scanning Completed 06/15/2016 39492 EKG Tracing & Interpretation Completed 05/15/2013 84917 Treadmill Interp/Report Only Completed 05/15/2013 25662 Stress Test Supervsn W/Out I/R Completed 04/25/2013 62720 ECHO Stress Test Incl Perf Contiuous ekg Monitoring W/Phys Completed Superv 04/18/2013 33012 EKG Tracing & Interpretation Completed 04/10/2013 82411 Color Flow Doppler/Interp & Reprt Completed 04/10/2013 16767 Pulse Wave/Continuous-Interp.RPT Completed 04/10/2013 21581 ECHO Transthorasic Realtime 2D W Doppler & Color Flow Hosp Completed Encounters Type Date Location Provider Dx Diagnosis Office Visit 01/27/2019 [facility] Yogi Miranda R07.9 Chest pain, 11:40a Maylin Lo. 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 I10 Essential (primary) hypertension E78.5 Hyperlipidemia, unspecified R94.31 Abnormal electrocardiogram [ECG] [EKG] Office Visit 01/20/2019 [facility] Gastroenterology Alexis Felder K31.89 Other diseases 2:00p MD Mo of stomach and duodenum K58.0 Irritable bowel syndrome with diarrhea A04.72 Enterocolitis d/t Clostridium difficile, not spcf as recur I10 Essential (primary) hypertension J44.9 Chronic obstructive pulmonary disease, unspecified I25.10 Athscl heart disease of [place] coronary artery w/o ang pctrs Office Visit 01/16/2019 10:35a [facility] R07.9 Chest pain, Assoc,daniel Dean NP unspecified Hospitalists I42.5 Other restrictive cardiomyopathy I25.10 Athscl heart disease of [place] coronary artery w/o ang pctrs Z98.61 Coronary angioplasty status I10 Essential (primary) hypertension E78.5 Hyperlipidemia, unspecified I34.0 Nonrheumatic mitral (valve) insufficiency I35.0 Nonrheumatic aortic (valve) stenosis J44.9 Chronic obstructive pulmonary disease, unspecified G47.33 Obstructive sleep apnea (adult) (pediatric) Office Visit 01/15/2019 [facility] Laura R07.9 Chest pain, 10:34a Assoc,DAMARIS Riley unspecified Hospitalists I42.9 Cardiomyopathy, unspecified I10 Essential (primary) hypertension E78.5 Hyperlipidemia, unspecified J44.9 Chronic obstructive pulmonary disease, unspecified Office Visit 01/15/2019 3:06p [facility] Ariadna Porras, R07.9 Chest pain, Of Fabiana Camarena unspecified I25.10 Athscl heart disease of [place] coronary artery w/o ang pctrs Z98.61 Coronary angioplasty status Office Visit 12/23/2018 [facility] Nayla A04.72 Enterocolitis d/t 9:01a Assoc,daniel Sims M.D. Clostridium Hospitalists difficile, not spcf as recur I10 Essential (primary) hypertension I34.0 Nonrheumatic mitral (valve) insufficiency E78.5 Hyperlipidemia, unspecified J44.9 Chronic obstructive pulmonary disease, unspecified Z87.19 Personal history of other diseases of the digestive system Z86.79 Personal history of other diseases of the circulatory system Office 12/22/2018 [facility] G[facility]enterology Peter T. A04.72 Enterocolitis d/t Visit 7:00a MD Mo Clostridium difficile, not spcf as recur R19.4 Change in bowel habit K59.00 Constipation, unspecified R19.7 Diarrhea, unspecified Office Visit 12/22/2018 8:59a [facility] Peter K57.92 Dvtrcli of Assoc,DAMARIS Chairez intest, part Hospitalists unsp, w/o perf or abscess w/o bleed A04.72 Enterocolitis d/t Clostridium difficile, not spcf as recur I25.10 Athscl heart disease of [place] coronary artery w/o ang pctrs J44.9 Chronic obstructive pulmonary disease, unspecified I10 Essential (primary) hypertension Office Visit 12/21/2018 8:59a [facility] Peter K57.00 Dvtrcli of sm int Assoc,DAMARIS Chairez w perforation and Hospitalists abscess w/o bleeding I25.10 Athscl heart disease of [place] coronary artery w/o ang pctrs J44.9 Chronic obstructive pulmonary disease, unspecified I10 Essential (primary) hypertension Office Visit 12/10/2018 4:00p [facility] Qukelly S. I10 Essential [place] Lo (primary) hypertension G47.33 Obstructive sleep apnea (adult) (pediatric) I25.110 Athscl heart disease of [place] cor art w unstable ang pctrs I42.9 Cardiomyopathy, unspecified I34.0 Nonrheumatic mitral (valve) insufficiency R06.02 Shortness of breath Office Visit 11/18/2018 1:30p [facility] Lorene S. R07.9 Chest pain, Foster, N.P. unspecified I10 Essential (primary) hypertension G47.33 Obstructive sleep apnea (adult) (pediatric) I25.110 Athscl heart disease of [place] cor art w unstable ang pctrs R94.31 Abnormal electrocardiogram [ECG] [EKG] Z98.61 Coronary angioplasty status Office Visit 11/13/2018 9:24a [facility] Selina R07.9 Chest pain, Assoc,pc Luis Antonio Rivero, unspecified Hospitalists SEEING EYE DOG TRAINER Z86.79 Personal history of other diseases of the circulatory system J44.9 Chronic obstructive pulmonary disease, unspecified I10 Essential (primary) hypertension G47.33 Obstructive sleep apnea (adult) (pediatric) Office Visit 11/12/2018 [facility] Bj Pina I20.8 Other forms of 9:24a Assoc,daniel Rogers M.D.,FACP angina pectoris Hospitalists Office Visit 11/12/2018 [facility] Bashir Pina R07.9 Chest pain, 11:10a Of Fabiana Joshi M.D. unspecified I42.5 Other restrictive cardiomyopathy I34.0 Nonrheumatic mitral (valve) insufficiency I25.10 Athscl heart disease of [place] coronary artery w/o ang pctrs Office Visit 08/29/2018 10:00a [facility] Lorene Miranda I25.110 Athscl heart Amarilis Campbell disease of [place] cor art w unstable ang pctrs I25.2 Old myocardial infarction J44.9 Chronic obstructive pulmonary disease, unspecified Z98.61 Coronary angioplasty status I42.9 Cardiomyopathy, unspecified Office Visit 08/26/2018 8:48a [facility] Bashir Pina I25.119 Athscl heart Of Fabiana Joshi M.D. disease of [place] cor art w unsp ang pctrs Office Visit 08/26/2018 10:10a [facility] Anupam R55 Syncope and Assoc,daniel Alicia M.D. collapse Hospitalists E04.1 Nontoxic single thyroid nodule I10 Essential (primary) hypertension I25.119 Athscl heart disease of [place] cor art w unsp ang pctrs Office Visit 08/25/2018 4:22p [facility] Ariadna Porras I25.119 Athscl heart Of Fabiana Camarena disease of [place] cor art w unsp ang pctrs I42.9 Cardiomyopathy, unspecified D64.9 Anemia, unspecified J44.9 Chronic obstructive pulmonary disease, unspecified Office Visit 08/25/2018 10:07a [facility] Miguel Bai R55 Syncope and Assoc,daniel Nickerson MD collapse Hospitalists E04.1 Nontoxic single thyroid nodule I25.10 Athscl heart disease of [place] coronary artery w/o ang pctrs I10 Essential (primary) hypertension Office Visit 08/24/2018 4:21p [facility] Ariadna Chiquita, I25.119 Athscl heart Of [facility] M.D. disease of [place] cor art w unsp ang pctrs I42.9 Cardiomyopathy, unspecified D64.9 Anemia, unspecified J44.9 Chronic obstructive pulmonary disease, unspecified Office Visit 08/24/2018 10:05a [facility] Miguel Bai R55 Syncope and Assoc,pc MD Krishan collapse Hospitalists E04.1 Nontoxic single thyroid nodule I25.10 Athscl heart disease of [place] coronary artery w/o ang pctrs I10 Essential (primary) hypertension G47.33 Obstructive sleep apnea (adult) (pediatric) J44.9 Chronic obstructive pulmonary disease, unspecified Office Visit 08/23/2018 7:00a [facility] Qutaadama S. R06.02 Shortness of Maghayddwight, M.D. 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 R09.89 Oth symptoms and signs involving the circ and resp systems I34.0 Nonrheumatic mitral (valve) insufficiency Office Visit 08/22/2018 10:01a [facility] Peter Holcomb R55 Syncope and Assoc,daniel OCAMPO collapse Hospitalists I10 Essential (primary) hypertension E78.5 Hyperlipidemia, unspecified J44.9 Chronic obstructive pulmonary disease, unspecified Office Visit 08/09/2018 3:48p [facility] Tavo Poon, I25.110 Athscl heart Of Neurosurgery Physician AT [facility].D[facility], disease of [facility] [place] cor art w unstable ang pctrs I25.2 Old myocardial infarction J44.9 Chronic obstructive pulmonary disease, unspecified Office Visit 08/09/2018 9:00a [facility] Tavo Poon, I25.119 Athscl heart Of Neurosurgery Physician AT [facility].D., [facility], disease of [facility] [place] cor art w unsp ang pctrs Z98.61 Coronary angioplasty status Office Visit 08/02/2018 9:00a [facility] Lorene S. R07.9 Chest pain, Foster, N.P. unspecified R06.02 Shortness of breath I10 Essential (primary) hypertension I34.0 Nonrheumatic mitral (valve) insufficiency E78.5 Hyperlipidemia, unspecified I25.2 Old myocardial infarction Office Visit 07/20/2018 10:51a [facility] Selina R07.9 Chest pain, Assoc,pc Luis Antonio Rivero, unspecified Hospitalists SEEING EYE DOG TRAINER R06.02 Shortness of breath I10 Essential (primary) hypertension J44.9 Chronic obstructive pulmonary disease, unspecified Office Visit 07/19/2018 [facility] Maddie R07.9 Chest pain, 10:50a Assoc,daniel Finch, SEEING EYE DOG TRAINER unspecified Hospitalists R06.02 Shortness of breath I10 Essential (primary) hypertension J44.9 Chronic obstructive pulmonary disease, unspecified Office Visit 05/28/2018 9:00a Pulmonology & Leanne J44.9 Chronic Sleep Services AT MD Isiah obstructive Shailesh pulmonary disease, unspecified G47.33 Obstructive sleep apnea (adult) (pediatric) Office Visit 01/02/2018 9:30a [facility] Lorene S. I34.0 Nonrheumatic mitral Adrian, N.P. (valve) insufficiency I42.9 Cardiomyopathy, unspecified G47.33 Obstructive sleep apnea (adult) (pediatric) E78.5 Hyperlipidemia, unspecified I25.2 Old myocardial infarction Office Visit 11/28/2017 10:30a [facility] Lorene S. I27.20 Pulmonary Cardiology Adrian, N.P. hypertension, unspecified I34.0 Nonrheumatic mitral (valve) insufficiency I50.9 Heart failure, unspecified I42.9 Cardiomyopathy, unspecified G47.33 Obstructive sleep apnea (adult) (pediatric) E78.5 Hyperlipidemia, unspecified I25.2 Old myocardial infarction Office Visit 10/30/2017 [facility] Qukelly S. I27.20 Pulmonary 10:00a Cardiology [place] Lo hypertension, unspecified I34.0 Nonrheumatic mitral (valve) insufficiency I50.9 Heart failure, unspecified I42.9 Cardiomyopathy, unspecified R06.02 Shortness of breath G47.33 Obstructive sleep apnea (adult) (pediatric) R94.31 Abnormal electrocardiogram [ECG] [EKG] Office Visit 10/06/2017 8:32a [facility] Robinson Oneil, I21.4 Non-St elevation Assoc,daniel CHAPA (Nstemi) Hospitalists myocardial infarction I50.21 Acute systolic (congestive) heart failure R07.9 Chest pain, unspecified I34.0 Nonrheumatic mitral (valve) insufficiency Office Visit 10/06/2017 [facility] Porras, I27.20 Pulmonary 1:54p Cardiology Lucien Carlisle. hypertension, Neurosurgery Physician unspecified I34.0 Nonrheumatic mitral (valve) insufficiency Office Visit 10/05/2017 8:29a [facility] Robinson Oneil, I21.4 Non-St elevation daniel Sinha MD (Nstemi) Hospitalists myocardial infarction I50.21 Acute systolic (congestive) heart failure R07.9 Chest pain, unspecified I34.0 Nonrheumatic mitral (valve) insufficiency Office Visit 10/05/2017 3:00p [facility] Yogi SSathya I50.9 Heart failure, Cardiology [place] Lo unspecified I34.0 Nonrheumatic mitral (valve) insufficiency I42.9 Cardiomyopathy, unspecified J18.9 Pneumonia, unspecified organism Z66 Do not resuscitate Office Visit 10/04/2017 8:28a [facility] Robinson Oneil, I21.4 Non-St elevation daniel Sinha MD (Nstemi) Hospitalists myocardial infarction I34.0 Nonrheumatic mitral (valve) insufficiency I50.21 Acute systolic (congestive) heart failure R07.9 Chest pain, unspecified Office Visit 10/04/2017 [facility] Yogi Miranda I42.9 Cardiomyopathy, 2:54p Cardiology [place] Lo unspecified I34.0 Nonrheumatic mitral (valve) insufficiency I21.4 Non-St elevation (Nstemi) myocardial infarction I50.9 Heart failure, unspecified Office Visit 10/03/2017 8:27a [facility] Robinson Oneil MD R74.8 Abnormal levels Assoc,pc of other serum Hospitalists enzymes R07.9 Chest pain, unspecified I48.0 Paroxysmal atrial fibrillation J18.9 Pneumonia, unspecified organism Office Visit 10/03/2017 1:53p [facility] Ariadna Porras, I50.9 Heart failure, Of Fabiana Camarena unspecified I34.0 Nonrheumatic mitral (valve) insufficiency R94.31 Abnormal electrocardiogram [ECG] [EKG] Office Visit 10/02/2017 8:25a [facility] Renate Roberts R74.8 Abnormal Assoc,pc MAN Mathews levels of Hospitalists other serum enzymes R07.9 Chest pain, unspecified I48.0 Paroxysmal atrial fibrillation J18.9 Pneumonia, unspecified organism Office Visit 07/11/2017 [facility] Nurse Visit cc I42.9 Cardiomyopathy, 9:00a Cardiology unspecified Office Visit 06/26/2017 [facility] Yogi Miranda G47.33 Obstructive sleep 4:20p Cardiology michael Lo (adult) Migue (pediatric) I42.9 Cardiomyopathy, unspecified I34.0 Nonrheumatic mitral (valve) insufficiency E78.5 Hyperlipidemia, unspecified R94.31 Abnormal electrocardiogram [ECG] [EKG] Office Visit 06/22/2017 6:59a [facility] J96.01 Acute respiratory Assoc,daniel Heard D.O. failure with Hospitalists hypoxia J18.9 Pneumonia, unspecified organism J44.9 Chronic obstructive pulmonary disease, unspecified R74.8 Abnormal levels of other serum enzymes Office Visit 06/21/2017 6:58a [facility] J96.01 Acute respiratory Assoc,daniel Heard D.O. failure with Hospitalists hypoxia J18.9 Pneumonia, unspecified organism R74.8 Abnormal levels of other serum enzymes J44.9 Chronic obstructive pulmonary disease, unspecified Office Visit 06/20/2017 6:58a [facility] J96.01 Acute respiratory Assoc,Yovani CordonO. failure with Hospitalists hypoxia J18.9 Pneumonia, unspecified organism J44.9 Chronic obstructive pulmonary disease, unspecified R74.8 Abnormal levels of other serum enzymes Office Visit 06/19/2017 [facility] Ruslan Dukes I50.31 Acute diastolic 6:57a Assoc,daniel RIZZO M.D. (congestive) Hospitalists heart failure R74.8 Abnormal levels of other serum enzymes J18.9 Pneumonia, unspecified organism J44.9 Chronic obstructive pulmonary disease, unspecified Office Visit 06/18/2017 6:56a [facility] J18.9 Pneumonia, Assoc,Yovani CordonO. unspecified Hospitalists organism R74.8 Abnormal levels of other serum enzymes J44.9 Chronic obstructive pulmonary disease, unspecified F32.9 Major depressive disorder, single episode, unspecified Office Visit 03/29/2017 10:00a Pulmonology & Leanne G47.33 Obstructive sleep Sleep Services AT MD Isiah apnea (adult) Shailesh (pediatric) Office Visit 03/22/2017 11:20a [facility] Yogi Miranda G47.33 Obstructive sleep michael Lo (adult) Migue (pediatric) I42.9 Cardiomyopathy, unspecified I34.0 Nonrheumatic mitral (valve) insufficiency E78.5 Hyperlipidemia, unspecified R94.31 Abnormal electrocardiogram [ECG] [EKG] I35.1 Nonrheumatic aortic (valve) insufficiency Office Visit 10/30/2016 [facility] And Polly G47.33 Obstructive sleep 9:15a Sleep Services Of CORTNEY Bruno, ERIKA, apnea (adult) [facility] NC MANAGER-BC (pediatric) Office Visit 08/01/2016 [facility] Chencho Miranda I42.9 Cardiomyopathy , 3:40p [place] Lo unspecified I34.0 Nonrheumatic mitral (valve) insufficiency E78.5 Hyperlipidemia, unspecified Office Visit 06/15/2016 [facility] I42.9 Cardiomyopathy, 3:00p Cardiology [place] Lo unspecified R94.31 Abnormal electrocardiogram [ECG] [EKG] R07.9 Chest pain, unspecified I34.0 Nonrheumatic mitral (valve) insufficiency I10 Essential (primary) hypertension R00.1 Bradycardia, unspecified Office Visit 05/15/2013 Abhinav Miranda 425.9 Cardiomyopathy 9:30a Cardiology [place] Lo Secondary Unspecified 794.31 Electrocardiogram (ECG) (EKG) Abnormal 786.50 Pain Chest Unspec Office Visit 04/25/2013 [facility] 425.9 Cardiomyopathy 10:20a Cardiology Doctor Loc 39 Secondary Unspecified 424.0 Mitral Valve Disorder 794.31 Electrocardiogram (ECG) (EKG) Abnormal 272.4 Hyperlipidemia Other Unspec 786.50 Pain Chest Unspec Office Visit 04/18/2013 [facility] 425.9 Cardiomyopathy 9:45a Cardiology Doctor Loc 39 Secondary Unspecified 424.0 Mitral Valve Disorder 794.31 Electrocardiogram (ECG) (EKG) Abnormal 272.4 Hyperlipidemia Other Unspec 786.50 Pain Chest Unspec 424.1 Aortic Valve Disorder Plan of Treatment Future Appointment(s):05/27/2019 11:30 am - Leanne Joyce MD at Pulmonology & amp; Sleep Services AT Rvzgztrj57/10/2019 - Yogi Lo M.D.R07.9 Chest pain, iavfkzufowbM12.9 Cardiomyopathy, xwswliaqpgwJ86.2 Old myocardial ivrbhcpfzrX82.10 Atherosclerotic heart disease [place] coronary artery withFollow up:one yr ovZ98.61 Coronary angioplasty fxasoxF29 Essential (primary ) qwddsmjznoxqA46.5 Hyperlipidemia, glvbczslpelR11.31 Abnormal electrocardiogram [ECG] [EKG]
--- OUTSIDE RECORDS SUMMARY | 2019-02-10 11:33 | XMS REPORT | Continuity of Care Document ---
:1935 External Reference #:[id number] Author Name Melquiades Nickerson Care Team Providers Name Role Phone Rojelio Mcnulty D.O. Primary Care Physician Unavailable Payers Date Identification Numbers Payment Provider Subscriber Policy Number: [id number] Medicare Blue Ppo Areli [employer] Number: [id number] [address] [address] PayID: [id number] [place] [address] Problems Active Problems Provider Date Restrictive cardiomyopathy secondary Cardiology Doctor Loc 39 Onset: 2012 to granulomas Mitral valve disorder Cardiology Doctor Loc 39 Onset: 04/18/2013 Hyperlipidemia Cardiology Doctor Loc 39 Onset: 04/18/2013 Chest pain Cardiology Doctor Loc 39 Onset: 04/18/2013 Aortic valve disorder Cardiology Doctor Loc 39 Onset: 04/18/2013 Obstructive sleep apnea syndrome Polly Bruno DNP, RN, Onset: 10/30/2016 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- Essential hypertension Maddie Finch NP Onset: 07/19/2018 Chronic obstructive lung disease Maddie Finch NP Onset: 07/19/2018 Inactive Problems Electrocardiogram abnormal Cardiology Doctor Loc 39 Onset: 04/18/2013 Inactive: 01/20/2019 Dyspnea Maddie Finch NP Onset: 07/19/2018 Inactive: 01/20/2019 Family History Date Family Member(s) Observation Comments Father due to [place] () - 69 Mother Hypothyroidism Mother due to Stroke () First Son [place] First Son Atrial Fibrillation First Daughter Alive And Well Siblings 2 Siblings 1 dec with [place] at 39 (brother) 1 sister dec of [place] First Brother due to [place] () - 49 First Sister due to [...] Medications SIG Qnty Indications Ordering Date Provider [facility] Daily Alexis Felder 01/20/2019 [...] Carbonate-Vitamin D by mouth twice a day [id number] Tablets Lipitor 1 every at night I25.110 [...] Qutaybeh S. 06/26/2017 - 5mg Tablets day [facility], 10/29/2017 [place] Carvedilol 1 tab by mouth [...] po qd Unknown - 2000Unit 06/02/2016 Tablets [place] 3 3 po qd. 100caps Unknown - [...] Result H/L Range Note Laboratory test 08/08/2018 [facility]oc Activated 396 seconds [address] [place] [address] [phone] Laboratory test 08/08/2018 [facility] Activated 266 seconds [address] [place] [address] [phone] Laboratory test 08/08/2018 [facility] Activated 274 seconds [address] [place] [address] [phone] Basic Metabolic 08/08/2018 [facility] Sodium 135 mmol/L N 135- [address] [place] [address] [phone] Potassium 4.3 mmol/L N 3.5-5.0 Chloride 103 mmol/L N 101-111 Co2 Carbon Dioxide 25 mmol/L N 22-32 Anion Gap 7 mmol/L N 2-11 Glucose 115 mg/dL High 70-100 Blood Urea Nitrogen 21 mg/dL N 6-24 Creatinine 1.02 mg/dL High 0.51-0.95 BUN/Creatinine Ratio 20.6 High 8-20 Calcium 9.7 mg/dL N 8.6-10.3 Egfr Non- 51.8 >60 Egfr 62.6 >60 4 1 [place]: [id number] Reference Range: 74-125 seconds 2 [place]: [id number] Reference Range: 74-125 seconds 3 [place]: [id number] Reference Range: 74-125 seconds 4 Because ethnic [...] dialysis) Procedures Date Code Description Status 01/27/2019 03255 EKG Tracing & Interpretation Completed 01/16/2019 35591 Treadmill Interp/Report Only Completed 01/16/2019 76666 Stress Test Supervsn W/Out I/R Completed 12/22/2018 18637 Sigmoidoscopy Diagnostic Completed 09/20/2018 20088 ECHO Transthoracic, Real-Time 2D With Doppler And Color Completed Flow 09/20/2018 12307 ECHO Transthoracic, Real-Time 2D With Doppler And Color Completed Flow 08/29/2018 01786 EKG Tracing & Interpretation Completed 08/26/2018 06936 Treadmill Interp/Report Only Completed 08/26/2018 52253 Stress Test Supervsn W/Out I/R Completed 08/25/2018 33661 EKG, Interpretation Only Completed 08/23/2018 56873 EKG, Interpretation Only Completed 08/09/2018 48308 EKG, Interpretation Only Completed 08/09/2018 51103 ECHO Transthorasic Realtime 2D W Doppler & Color Flow Hosp Completed 08/08/2018 31798 Cath PLMT&NJX L Ventriculog Img S&I Completed 08/08/2018 91953 EKG, Interpretation Only Completed 08/02/2018 43987 EKG Tracing & Interpretation Completed 07/19/2018 61573 ECHO Transthorasic Realtime 2D W Doppler & Color Flow Hosp Completed 11/21/2017 82769 ECHO Transthoracic, Real-Time 2D With Doppler And Color Completed Flow 11/21/2017 96605 ECHO Transthoracic, Real-Time 2D With Doppler And Color Completed Flow 10/30/2017 52792 EKG Tracing & Interpretation Completed 10/05/2017 46367 EKG, Interpretation Only Completed 10/04/2017 19266 EKG, Interpretation Only Completed 10/03/2017 40775 ECHO Transthorasic Realtime 2D W Doppler & Color Flow Hosp Completed 10/03/2017 78992 EKG, Interpretation Only Completed 10/02/2017 92179 EKG, Interpretation Only Completed 08/02/2017 93005 Echocardiogram, Limited Study Completed 08/02/2017 24326 Echocardiogram, Limited Study Completed 06/26/2017 81278 EKG Tracing & Interpretation Completed 06/19/2017 79828 EKG, Interpretation Only Completed 06/18/2017 32320 ECHO Transthorasic Realtime 2D W Doppler & Color Flow Hosp Completed 06/18/2017 98340 EKG, Interpretation Only Completed 03/27/2017 55214 Polysomnography Sleep Staging 4+ Parameters W/Cpap Completed 03/22/2017 95343 EKG Tracing & Interpretation Completed 07/19/2016 07565 ECHO Transthoracic, Real-Time 2D With Doppler And Color Completed Flow 07/12/2016 46057 Treadmill Interp/Report Only Completed 07/12/2016 76093 Stress Test Supervsn W/Out I/R Completed 07/05/2016 37426 ECG Monitor/Recording W/Visual Superimposition Scanning Completed 07/05/2016 93139 Holter Monitor Review (24 hr)dr review & interp only Completed 07/05/2016 61911 Holter Monitor Review (24 hr)dr review & interp only Completed 07/04/2016 66136 ECG Monitor/Recording W/Visual Superimposition Scanning Completed 06/15/2016 82405 EKG Tracing & Interpretation Completed 05/15/2013 45715 Treadmill Interp/Report Only Completed 05/15/2013 81735 Stress Test Supervsn W/Out I/R Completed 04/25/2013 12634 ECHO Stress Test Incl Perf Contiuous ekg Monitoring W/Phys Completed Superv 04/18/2013 96687 EKG Tracing & Interpretation Completed 04/10/2013 17057 Color Flow Doppler/Interp & Reprt Completed 04/10/2013 25984 Pulse Wave/Continuous-Interp.RPT Completed 04/10/2013 40720 ECHO Transthorasic Realtime 2D W Doppler & Color Flow Hosp Completed Encounters Type Date Location Provider Dx Diagnosis Office Visit 01/27/2019 [facility] Yogi Miranda R07.9 Chest pain, 11:40a Maylin Lo. 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 I10 Essential (primary) hypertension E78.5 Hyperlipidemia, unspecified R94.31 Abnormal electrocardiogram [ECG] [EKG] Office Visit 01/20/2019 [facility] Alexis Felder K31.89 Other diseases 2:00p MD Mo of stomach and duodenum K58.0 Irritable bowel syndrome with diarrhea A04.72 Enterocolitis d/t Clostridium difficile, not spcf as recur I10 Essential (primary) hypertension J44.9 Chronic obstructive pulmonary disease, unspecified I25.10 Athscl heart disease of [place] coronary artery w/o ang pctrs Office Visit 01/16/2019 10:35a [facility] R07.9 Chest pain, Assoc,daniel Dean NP unspecified Hospitalists I42.5 Other restrictive cardiomyopathy I25.10 Athscl heart disease of [place] coronary artery w/o ang pctrs Z98.61 Coronary angioplasty status I10 Essential (primary) hypertension E78.5 Hyperlipidemia, unspecified I34.0 Nonrheumatic mitral (valve) insufficiency I35.0 Nonrheumatic aortic (valve) stenosis J44.9 Chronic obstructive pulmonary disease, unspecified G47.33 Obstructive sleep apnea (adult) (pediatric) Office Visit 01/15/2019 [facility] Laura R07.9 Chest pain, 10:34a Assoc,DAMARIS Riley unspecified Hospitalists I42.9 Cardiomyopathy, unspecified I10 Essential (primary) hypertension E78.5 Hyperlipidemia, unspecified J44.9 Chronic obstructive pulmonary disease, unspecified Office Visit 01/15/2019 3:06p [facility] Ariadna Porras, R07.9 Chest pain, Of Fabiana Camarena unspecified I25.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 Clostridium Hospitalists difficile, not spcf as recur I10 Essential (primary) hypertension I34.0 Nonrheumatic mitral (valve) insufficiency E78.5 Hyperlipidemia, unspecified J44.9 Chronic obstructive pulmonary disease, unspecified Z87.19 Personal history of other diseases of the digestive system Z86.79 Personal history of other diseases of the circulatory system Office 12/22/2018 [facility] Peter T. A04.72 Enterocolitis d/t Visit 7:00a MD Mo Clostridium difficile, not spcf as recur R19.4 Change in bowel habit K59.00 Constipation, unspecified R19.7 Diarrhea, unspecified Office Visit 12/22/2018 8:59a [facility] Peter K57.92 Dvtrcli of Assoc,DAMARIS Chairez intest, part Hospitalists unsp, w/o perf or abscess w/o bleed A04.72 Enterocolitis d/t Clostridium difficile, not spcf as recur I25.10 Athscl heart disease of [place] coronary artery w/o ang pctrs J44.9 Chronic obstructive pulmonary disease, unspecified I10 Essential (primary) hypertension Office Visit 12/21/2018 8:59a [facility] Peter K57.00 Dvtrcli of sm int Assoc,DAMARIS Chairez w perforation and Hospitalists abscess w/o bleeding I25.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 I10 Essential [place] Lo (primary) hypertension G47.33 Obstructive sleep apnea (adult) (pediatric) I25.110 Athscl heart disease of [place] cor art w unstable ang pctrs I42.9 Cardiomyopathy, unspecified I34.0 Nonrheumatic mitral (valve) insufficiency R06.02 Shortness of breath Office Visit 11/18/2018 1:30p [facility] Lorene S. R07.9 Chest pain, Foster, N.P. 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 disease of [place] cor art w unsp ang pctrs Office Visit 08/26/2018 10:10a [facility] Anupam R55 Syncope and Assoc,daniel Alicia M.D. collapse Hospitalists E04.1 Nontoxic single thyroid nodule I10 Essential (primary) hypertension I25.119 Athscl heart disease of [place] cor art w unsp ang pctrs Office Visit 08/25/2018 4:22p [facility] Ariadna Porras I25.119 Athscl heart Of Fabiana Camarena disease of [place] cor art w unsp ang pctrs I42.9 Cardiomyopathy, unspecified D64.9 Anemia, unspecified J44.9 Chronic obstructive pulmonary disease, unspecified Office Visit 08/25/2018 10:07a [facility] Miguel Bai R55 Syncope and Assoc,daniel Nickerson MD collapse Hospitalists E04.1 Nontoxic single thyroid nodule I25.10 Athscl heart disease of [place] coronary artery w/o ang pctrs I10 Essential (primary) hypertension Office Visit 08/24/2018 4:21p [facility] Ariadna Chiquita, I25.119 Athscl heart Of [facility] M.D. disease of [place] cor art w unsp ang pctrs I42.9 Cardiomyopathy, unspecified D64.9 Anemia, unspecified J44.9 Chronic obstructive pulmonary disease, unspecified Office Visit 08/24/2018 10:05a [facility] Miguel Bai R55 Syncope and Assoc,pc MD Krishan collapse Hospitalists E04.1 Nontoxic single thyroid nodule I25.10 Athscl heart disease of [place] coronary artery w/o ang pctrs I10 Essential (primary) hypertension G47.33 Obstructive sleep apnea (adult) (pediatric) J44.9 Chronic obstructive pulmonary disease, unspecified Office Visit 08/23/2018 7:00a [facility] Qutaadama S. R06.02 Shortness of Maghayddwight, M.D. 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 R09.89 Oth symptoms and signs involving the circ and resp systems I34.0 Nonrheumatic mitral (valve) insufficiency Office Visit 08/22/2018 10:01a [facility] Peter Holcomb R55 Syncope and Assoc,daniel OCAMPO collapse Hospitalists I10 Essential (primary) hypertension E78.5 Hyperlipidemia, unspecified J44.9 Chronic obstructive pulmonary disease, unspecified Office Visit 08/09/2018 3:48p [facility] Tavo Poon, I25.110 Athscl heart Of Communication Equipment Mechanic AT [facility].D., [facility], disease of [facility] [place] cor art w unstable ang pctrs I25.2 Old myocardial infarction J44.9 Chronic obstructive pulmonary disease, unspecified Office Visit 08/09/2018 9:00a [facility] Tavo Poon, I25.119 Athscl heart Of Communication Equipment Mechanic AT [facility].D., [facility], disease of [facility] [place] cor art w unsp ang pctrs Z98.61 Coronary angioplasty status Office Visit 08/02/2018 9:00a [facility] Lorene S. R07.9 Chest pain, Foster, N.P. 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 R06.02 Shortness of breath I10 Essential (primary) hypertension J44.9 Chronic obstructive pulmonary disease, unspecified Office Visit 07/19/2018 [facility] Maddie R07.9 Chest pain, 10:50a Assoc,daniel Finch, RISK PROFESSIONAL unspecified Hospitalists R06.02 Shortness of breath I10 Essential (primary) hypertension J44.9 Chronic obstructive pulmonary disease, unspecified Office Visit 05/28/2018 9:00a Pulmonology & Leanne J44.9 Chronic Sleep Services AT MD Isiah obstructive Shailesh pulmonary disease, unspecified G47.33 Obstructive sleep apnea (adult) (pediatric) Office Visit 01/02/2018 9:30a [facility] Lorene S. I34.0 Nonrheumatic mitral Adrian, N.P. (valve) insufficiency I42.9 Cardiomyopathy, unspecified G47.33 Obstructive sleep apnea (adult) (pediatric) E78.5 Hyperlipidemia, unspecified I25.2 Old myocardial infarction Office Visit 11/28/2017 10:30a [facility] Lorene S. I27.20 Pulmonary Cardiology Adrian, N.P. hypertension, unspecified I34.0 Nonrheumatic mitral (valve) insufficiency I50.9 Heart failure, unspecified I42.9 Cardiomyopathy, unspecified G47.33 Obstructive sleep apnea (adult) (pediatric) E78.5 Hyperlipidemia, unspecified I25.2 Old myocardial infarction Office Visit 10/30/2017 [facility] Qukelly S. I27.20 Pulmonary 10:00a Cardiology [place] Lo hypertension, unspecified I34.0 Nonrheumatic mitral (valve) insufficiency I50.9 Heart failure, unspecified I42.9 Cardiomyopathy, unspecified R06.02 Shortness of breath G47.33 Obstructive sleep apnea (adult) (pediatric) R94.31 Abnormal electrocardiogram [ECG] [EKG] Office Visit 10/06/2017 8:32a [facility] Robinson Oneil, I21.4 Non-St elevation Assoc,daniel CHAPA (Nstemi) Hospitalists myocardial infarction I50.21 Acute systolic (congestive) heart failure R07.9 Chest pain, unspecified I34.0 Nonrheumatic mitral (valve) insufficiency Office Visit 10/06/2017 Lilo Porras, I27.20 Pulmonary 1:54p Cardiology Lucien Carlisle. hypertension, Communication Equipment Mechanic unspecified I34.0 Nonrheumatic mitral (valve) insufficiency Office Visit 10/05/2017 8:29a [facility] Robinson Oneil, I21.4 Non-St elevation daniel Sinha MD (Nstemi) Hospitalists myocardial infarction I50.21 Acute systolic (congestive) heart failure R07.9 Chest pain, unspecified I34.0 Nonrheumatic mitral (valve) insufficiency Office Visit 10/05/2017 3:00p [facility] Yogi SSathya I50.9 Heart failure, Cardiology [place] Lo unspecified I34.0 Nonrheumatic mitral (valve) insufficiency I42.9 Cardiomyopathy, unspecified J18.9 Pneumonia, unspecified organism Z66 Do not resuscitate Office Visit 10/04/2017 8:28a [facility] Robinson Oneil, I21.4 Non-St elevation daniel Sinha MD (Nstemi) Hospitalists myocardial infarction I34.0 Nonrheumatic mitral (valve) insufficiency I50.21 Acute systolic (congestive) heart failure R07.9 Chest pain, unspecified Office Visit 10/04/2017 [place] Ygoi Miranda I42.9 Cardiomyopathy, 2:54p Cardiology [place] Lo unspecified I34.0 Nonrheumatic mitral (valve) insufficiency I21.4 Non-St elevation (Nstemi) myocardial infarction I50.9 Heart failure, unspecified Office Visit 10/03/2017 8:27a [facility] Robinson Oneil MD R74.8 Abnormal levels Assoc,pc of other serum Hospitalists enzymes R07.9 Chest pain, unspecified I48.0 Paroxysmal atrial fibrillation J18.9 Pneumonia, unspecified organism Office Visit 10/03/2017 1:53p [facility] Ariadna Porras, I50.9 Heart failure, Of Fabiana Camarena unspecified I34.0 Nonrheumatic mitral (valve) insufficiency R94.31 Abnormal electrocardiogram [ECG] [EKG] Office Visit 10/02/2017 8:25a [facility] Renate Roberts R74.8 Abnormal Assoc,pc MAN Mathews levels of Hospitalists other serum enzymes R07.9 Chest pain, unspecified I48.0 Paroxysmal atrial fibrillation J18.9 Pneumonia, unspecified organism Office Visit 07/11/2017 [facility] Nurse Visit cc I42.9 Cardiomyopathy, 9:00a Cardiology unspecified Office Visit 06/26/2017 [place] Yogi Miranda G47.33 Obstructive sleep 4:20p Cardiology michael Lo (adult) Migue (pediatric) I42.9 Cardiomyopathy, unspecified I34.0 Nonrheumatic mitral (valve) insufficiency E78.5 Hyperlipidemia, unspecified R94.31 Abnormal electrocardiogram [ECG] [EKG] Office Visit 06/22/2017 6:59a [facility] J96.01 Acute respiratory Assoc,daniel Heard D.O. failure with Hospitalists hypoxia J18.9 Pneumonia, unspecified organism J44.9 Chronic obstructive pulmonary disease, unspecified R74.8 Abnormal levels of other serum enzymes Office Visit 06/21/2017 6:58a [facility] J96.01 Acute respiratory Assoc,daniel Heard D.O. failure with Hospitalists hypoxia J18.9 Pneumonia, unspecified organism R74.8 Abnormal levels of other serum enzymes J44.9 Chronic obstructive pulmonary disease, unspecified Office Visit 06/20/2017 6:58a [facility] J96.01 Acute respiratory Assoc,Yovani CordonO. failure with Hospitalists hypoxia J18.9 Pneumonia, unspecified organism J44.9 Chronic obstructive pulmonary disease, unspecified R74.8 Abnormal levels of other serum enzymes Office Visit 06/19/2017 [facility] Ruslan Dukes I50.31 Acute diastolic 6:57a Assoc,daniel RIZZO M.D. (congestive) Hospitalists heart failure R74.8 Abnormal levels of other serum enzymes J18.9 Pneumonia, unspecified organism J44.9 Chronic obstructive pulmonary disease, unspecified [facility] Pneumonia, Assoc,Yovani CordonO. unspecified Hospitalists organism R74.8 Abnormal levels of other serum enzymes J44.9 Chronic obstructive pulmonary disease, unspecified F32.9 Major depressive disorder, single episode, unspecified Office Visit 03/29/2017 10:00a Pulmonology & Leanne G47.33 Obstructive sleep Sleep Services AT MD Isiah apnea (adult) Shailesh (pediatric) Office Visit 03/22/2017 11:20a [facility] Yogi Miranda G47.33 Obstructive sleep michael Lo (adult) [place] (pediatric) I42.9 Cardiomyopathy, unspecified I34.0 Nonrheumatic mitral (valve) insufficiency E78.5 Hyperlipidemia, unspecified R94.31 Abnormal electrocardiogram [ECG] [EKG] I35.1 Nonrheumatic aortic (valve) insufficiency Office Visit 10/30/2016 [facility] And Polly G47.33 Obstructive sleep 9:15a [facility] Bruno, ERIKA, apnea (adult) [facility] 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-BC (pediatric) Office Visit 08/01/2016 [place] Chencho Miranda I42.9 Cardiomyopathy , 3:40p [place] Lo unspecified I34.0 Nonrheumatic mitral (valve) insufficiency E78.5 Hyperlipidemia, unspecified Office Visit 06/15/2016 [facility] I42.9 Cardiomyopathy, 3:00p Cardiology [place] Lo [...] at Pulmonology & amp; Sleep Services AT [facility]26/10/2019 - Yogi Lo M.D.R07.9 Chest pain, ycvzervnypsU72.9 Cardiomyopathy, iaweabllbisZ29.2 Old myocardial jvnhdqrexnN54.10 Atherosclerotic heart disease of [place] coronary artery withFollow up:one yr ovZ98.61 Coronary angioplasty [id number] Essential (primary ) txrtxqwhcbilT54.5 Hyperlipidemia, eolzxaqaitgJ18.31 Abnormal electrocardiogram [ECG] [EKG]
[2019-02-10] MEDS ORDERED: ALPRAZolam TAB* 0.5 MG PO ONE (13:45)
--- NOTE | 2019-02-10 13:47 | ED ---
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 Per , the patient often has anxiety with tremors that last for approximately 15-30 minutes and are resolved with rx of Xanax for dx of anxiety, but today the attack has persisted for longer despite usual preventative measures. She additionally reports tachypnea that has since resolved, but the body tremors are still present. She denies change in diet, sleep disturbance, fever, chills, erythema of eyes, sore throat, CP, SOB, cough, abdominal pain, N/V, increased urinary frequency, dysuria, hematuria, myalgia, edema, rash, and dizziness. Hx of angina, CHF, CAD, HLD, HTN, NC, syncope, COPD, PNA, sleep apnea, diverticulosis, GERD, arthritis, dementia, peripheral neuropathy, anxiety. Current medications include Norvasc, NTG, Lisinopril, Ativan, Lasix, Lexapro, Plavix, Coreg, Lipitor. Former smoker, no EtOH, no substance use. - History Of Current Complaint Chief Complaint: EDPsychosocial Time Seen by Provider: 02/10/19 13:37 Hx Obtained From: Patient Onset/Duration: Sudden Onset, Lasting Hours - starting at 1100, Still Present Timing: Hours Severity Initially: Moderate Severity Currently: Moderate Character: Anxious Aggravating Factor(s): Nothing Alleviating Factor(s): Nothing - Xanax did not relieve anxiety Associated Signs And Symptoms: Negative: Sleep Disturbance, Appetite Change - Allergies/Home Medications Allergies/Adverse Reactions: Allergies Allergy/AdvReac Type Severity Reaction Status Date / Time niacin Allergy Intermediate Rash Verified 02/10/19 11:26 PMH/Surg Hx/FS Hx/Imm Hx Endocrine/Hematology History: Reports: Hx Anticoagulant Therapy - ASA, Brilinta Denies: Hx Diabetes Comment Only: Other Endocrine/Hematological Disorders - anemia Cardiovascular History: Reports: Hx Angina, Hx Congestive Heart Failure, Hx Coronary Artery Disease, Hx Hypercholesterolemia, Hx Hypertension, Hx Myocardial Infarction, Hx Syncope, Hx Valvular Heart Disease, Other Cardiovascular Problems/Disorders - mitral regurgitation, cardiomyopathy Denies: Hx Pacemaker/ICD Respiratory History: Reports: Hx Chronic Obstructive Pulmonary Disease (COPD) - 2 L O2 @ home at night, Hx Pneumonia - feburary 2017, Hx Sleep Apnea - cpap 2-3L Denies: Hx Asthma GI History: Reports: Hx Diverticulosis, Hx Gastroesophageal Reflux Disease Musculoskeletal History: Reports: Hx Arthritis - hands and neck, Hx Back Problems - 2 back surgeries 2002, spinal stenosis, Hx Osteoporosis Sensory History: Reports: Hx Contacts or Glasses, Hx Macular Degeneration, Hx Deafness - R ear Denies: Hx Hearing Aid Opthamlomology History: Reports: Hx Contacts or Glasses, Hx Macular Degeneration Neurological History: Reports: Hx Dementia - short term memory issue, Other Neuro Impairments/Disorders - peripheral neuroptathy Psychiatric History: Reports: Hx Anxiety Denies: Hx Panic Disorder - Surgical History Surgery Procedure, Year, and Place: 2 BACK SURGERIES (SPINAL STENOSIS). CATARACT. CARDIAC CATHETERIZATION Hx Anesthesia Reactions: No - Immunization History Date of Tetanus Vaccine: utd Date of Influenza Vaccine: fall 2017 Infectious Disease History: No Infectious Disease History: Reports: Hx Clostridium Difficile - hx - not current Denies: Traveled Outside the [place] in Last 30 Days - Family History Known Family History: Positive: Cardiac Disease - Social History Alcohol Use: Rare Hx Substance Use: No Substance Use Type: Reports: None Hx Tobacco Use: Yes - not currently Smoking Status (MU): Former Smoker Type: Cigarettes Have You Smoked in the Last Year: No Review of Systems Negative: Fever, Chills Negative: Erythema Negative: Sore Throat Negative: Chest Pain Positive: Other - tachypnea. Negative: Shortness Of Breath, Cough Positive: Other - NEGATIVE: change in diet. Negative: Abdominal Pain, Vomiting , Nausea Negative: dysuria, frequency - no increase in urinary output, hematuria Negative: Myalgia, Edema Negative: Rash Neurological: Other - NEGATIVE: dizziness, sleep disturbance Psychological: Other - body tremors Positive: Anxious All Other Systems Reviewed And Are Negative: Yes Physical Exam - Summary Physical Exam Summary: Constitutional: Well-developed, Well-nourished, Alert. (-) Distressed Skin: Warm, Dry HENT: Normocephalic; Atraumatic Eyes: Conjunctiva normal Neck: Musculoskeletal ROM normal neck. (-) JVD, (-) Stridor, (-) Tracheal deviation Cardio: Rhythm regular, rate normal, Heart sounds normal; Intact distal pulses; The pedal pulses are 2+ and symmetric. Radial pulses are 2+ and symmetric. (-) Murmur Pulmonary/Chest wall: Effort normal. (-) Respiratory distress, (-) Wheezes, (-) Rales Abd: Soft, (-) tenderness, (-) Distension, (-) Guarding, (-) Rebound Musculoskeletal: (-) Edema Lymph: (-) Cervical adenopathy Neuro: Alert, Oriented x3 Psych: Anxious appearing, somewhat tremulous Triage Information Reviewed: Yes Vital Signs On Initial Exam: Initial Vitals Temp Pulse Resp BP Pulse Ox 98.1 F 71 18 103/77 97 02/10/19 11:23 02/10/19 11:23 02/10/19 11:23 02/10/19 11:23 02/10/19 11:23 Vital Signs Reviewed: Yes Diagnostics - Vital Signs Vital Signs Temp Pulse Resp BP Pulse Ox 02/10/19 11:23 98.1 F 71 18 103/77 97 - Laboratory Result Diagrams: 02/10/19 14:01 02/10/19 14:01 Lab Statement: Any lab studies that have been ordered have been reviewed, and results considered in the medical decision making process. Re-Evaluation - Re-Evaluation First Eval Re-Evaluation Time: 15:50 Comment: Patient is medically clear. 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 Per , the patient often has anxiety with tremors that last for approximately 15-30 minutes and are resolved with rx of Xanax for dx of anxiety, but today the attack has persisted for longer despite usual preventative measures. She additionally reports tachypnea (resolved) and body tremors. She denies change in diet, sleep disturbance, fever, chills, erythema of eyes, sore throat, CP, SOB, cough, abdominal pain, N/V, increased urinary frequency, dysuria, hematuria , myalgia, edema, rash, and dizziness. Hx of angina, CHF, CAD, HLD, HTN, NC, syncope, COPD, PNA, sleep apnea, diverticulosis, GERD, arthritis, dementia, peripheral neuropathy, anxiety. Current medications include Norvasc, NTG, Lisinopril, Ativan, Lasix, Lexapro, Plavix, Coreg, Lipitor. Former smoker, no EtOH, no substance use. Upon physical exam, the patient appears to be anxious and somewhat tremulous. In the ED course, the patient was administered Xanax. Blood work reveals RBC of 3.59, hgb of 11.6, hct of 34, MCH of 32, RDW of 16, MPV of 6.9, and creatinine of 1.05. She is medically clear at 1550. At 1900, mental health marine cargo inspector Yasmin Brand reports that the patient does not want a MHE , and she wants to be discharged. She will be discharged with dx of panic attack and follow up with PCP in 2-3 days. She agrees with this plan and understands the need for return to the ED for any new or worsening symptoms. - Differential Dx/Clinical Impression Provider Diagnosis: Panic attack - Physician Notifications Discussed Care Of Patient With: Yasmin Brand - mental health marine cargo inspector Time Discussed With Above Provider: 19:00 Instructed by Provider To: Other - Yasmin Brand reports that the patient does not want a MHE and wants to be discharged. Discharge - Sign-Out/Discharge Documenting (check all that apply): Patient Departure - Patient will be discharged home. Patient Received Moderate/Deep Sedation with Procedure: No - Discharge Plan Condition: Stable Disposition: HOME Patient Education Materials: Panic Attack (ED) Referrals: Rojelio Mcnulty DO [Primary Care Provider] - 3 Days Additional Instructions: Follow up with your primary care provider. RETURN TO THE EMERGENCY DEPARTMENT FOR ANY NEW OR WORSENING SYMPTOMS. - Billing Disposition and Condition Condition: STABLE Disposition: Home - Attestation Statements Document Initiated by Scribe: Yes Documenting Scribe: Lilian Ku Provider For Whom George is Documenting (Include Credential): Dr. Chavo Sanchez MD Scribe Attestation: Lilian Shook scribed for Dr. Chavo Sanchez MD on 02/10/19 at 1955. Status of Scribe Document: Ready
[2019-02-10 14:07] LABS: Hematocrit 34 % (35-47); Hemoglobin 11.6 g/dL (12.0-16.0); Mean Corpuscular HGB Conc 34 g/dL (31-36); Mean Corpuscular Hemoglobin 32 pg (27-31); Mean Corpuscular Volume 96 fL (80-97); Mean Platelet Volume 6.9 fL (7.4-10.4); Platelet Count 221 10^3/uL (150-450); Red Blood Count 3.59 10^6 /uL (3.70-4.87); Red Cell Distribution Width 16 % (10-15); White Blood Count 7.9 10^3/uL (3.5-10.8)
[2019-02-10 14:25] LABS: Albumin 4.3 g/dL (3.2-5.2); Albumin/Globulin Ratio 1.5 (1-3); BUN/Creatinine Ratio 13.3 (8-20); Calcium 9.9 mg/dL (8.6-10.3); EGFR African American 60.6 (>60); EGFR Non-African American 50.1 (>60); Globulin 2.8 g/dL (2-4); Potassium 3.9 mmol/L (3.5-5.0); Total Bilirubin 0.6 mg/dL (0.2-1.0); Total Protein 7.1 g/dL (6.4-8.9)
[2019-02-10 15:08] LABS: TSH (Thyroid Stimulating Horm) 0.42 mcIU/mL (0.34-5.60)
[2019-02-10 15:10] LABS: Free T4 0.92 ng/dL (0.61-1.12)
[2019-02-10 20:28] VITALS: BP 132/49
== END 2019-02-10 20:25 | disposition home or self-care (01) ==
LOC: ED 11:17
DX: F41.0 Panic disorder [episodic paroxysmal anxiety] (principal); F41.9 Anxiety disorder, unspecified; Z79.01 Long term (current) use of anticoagulants; I50.9 Heart failure, unspecified; I25.10 Atherosclerotic heart disease of native coronary artery without angina pectoris; I10 Essential (primary) hypertension; I25.2 Old myocardial infarction; J44.9 Chronic obstructive pulmonary disease, unspecified; K21.9 Gastro-esophageal reflux disease without esophagitis; Z87.891 Personal history of nicotine dependence
CPT/HCPCS: 36415; 80053; 84439; 84443; 85027; 99284; A9270-GY

== ENCOUNTER 2021-01-21 13:14 | Inpatient (IN) ==
[2021-01-21] MEDS ORDERED: NS 0.9% 1000 ml BAG 1,000 ML IV ONE (13:42)
[2021-01-21 13:51] LABS: ABS Basophils 0.1 10^3/ul (0-0.2); ABS Eosinophils 0.1 10^3/ul (0-0.6); ABS Lymphocytes 1.7 10^3/ul (1.0-4.8); ABS Monocytes 0.8 10^3/ul (0-0.8); ABS Neutrophils 10.8 10^3/ul (1.5-7.7); Eosinophil % 0.8 %; Hematocrit 32 % (35-47); Hemoglobin 10.3 g/dL (12.0-16.0); Lymphocyte % 12.4 %; Mean Corpuscular HGB Conc 33 g/dL (31-36); Mean Corpuscular Hemoglobin 30 pg (27-31); Mean Corpuscular Volume 92 fL (80-97); Mean Platelet Volume 7.3 fL (7.4-10.4); Platelet Count 318 10^3/uL (150-450); Red Blood Count 3.44 10^6 /uL (3.70-4.87); Red Cell Distribution Width 16 % (10-15); White Blood Count 13.3 10^3/uL (3.5-10.8)
[2021-01-21 14:07] LABS: Activated Partial Thrombo Time 28.2 seconds (26.0-38.0); INR 1.23 (0.82-1.09)
[2021-01-21 14:13] LABS: Albumin 3.3 g/dL (3.2-5.2); Anion Gap 8 mmol/L (2-11); CO2 Carbon Dioxide 27 mmol/L (22-32); Calcium 8.9 mg/dL (8.6-10.3); Chloride 100 mmol/L (101-111); Potassium 3.2 mmol/L (3.5-5.0); Sodium 135 mmol/L (135-145)
[2021-01-21 14:19] LABS: ALT 6 U/L (7-52); AST 13 U/L (13-39); Albumin/Globulin Ratio 1.2 (1-3); Alkaline Phosphatase 62 U/L (35-149); Blood Urea Nitrogen 22 mg/dL (6-24); C Reactive Protein 184.27 mg/L (<8.01); EGFR African American 63.8 (>60); EGFR Non-African American 52.7 (>60); Globulin 2.8 g/dL (2-4); Glucose 160 mg/dL (70-100); Total Protein 6.1 g/dL (6.4-8.9)
[2021-01-21] MEDS ORDERED: Iodixanol (CONTRAST) 320 MG/ML 100 ML SDV IV ONE ×2 (14:35→15:13)
[2021-01-21 14:37] LABS: Troponin I 0.03 ng/mL (<0.03)
[2021-01-21] MEDS ORDERED: Albuterol/Ipratropium NEB.SOL (2.5/0.5 MG) 3 ML NEB.SOLN INH PRN (16:05)
[2021-01-21 17:39] LABS: Hematocrit 29 % (35-47); Hemoglobin 9.6 g/dL (12.0-16.0)
[2021-01-21] MEDS ORDERED: Potassium Chlor 20 meq TAB.ER PO ONE (17:58)
[2021-01-21] MEDS: KCL 20 MEQ/100 ML IVPREMIX 20 MEQ/100 ML BAG IV SCH ×2 (19:02→21:20)
[2021-01-21] MEDS: Mometasone/Formoter 200/5 MDI INH SCH (19:38)
[2021-01-21] MEDS: DULoxetine DR 60 mg CAP PO SCH (20:36)
[2021-01-21] MEDS ORDERED: Pantoprazole VIAL 40 MG VIAL IV SCH (21:00)
[2021-01-21 23:56] LABS: Hematocrit 26 % (35-47); Hemoglobin 8.8 g/dL (12.0-16.0)
[2021-01-22] MEDS: KCL 20 MEQ/100 ML IVPREMIX 20 MEQ/100 ML BAG IV SCH ×2 (02:44→05:05)
[2021-01-22 05:43] LABS: Hematocrit 26 % (35-47); Hemoglobin 8.8 g/dL (12.0-16.0)
[2021-01-22 06:01] LABS: Calcium 8.5 mg/dL (8.6-10.3); EGFR African American 76.9 (>60); EGFR Non-African American 63.6 (>60)
[2021-01-22 09:13] LABS: Magnesium 1.8 mg/dL (1.9-2.7)
[2021-01-22] MEDS: Isosorbide Mononit ER 60mg TAB PO SCH (09:17)
[2021-01-22] MEDS: Mometasone/Formoter 200/5 MDI INH SCH ×2 (10:05→19:52)
[2021-01-22] MEDS: Polyethylene Glycol 3350 17 GM PACKET PO SCH (10:44)
[2021-01-22] MEDS: Senna TAB 8.6 mg TAB PO SCH ×2 (10:44→20:54)
[2021-01-22] MEDS ORDERED: Potassium Phosphate IV 10 MMOLE in NS 0.9% 250 ml 250 ML IVPB ONE (12:00)
[2021-01-22] MEDS ORDERED: Aspirin EC 81 mg TAB.EC (enteric coated) ONE (13:37)
[2021-01-22] MEDS: Aspirin EC 81 mg TAB.EC (enteric coated) PO SCH (13:39)
[2021-01-22 14:21] LABS: Mean Corpuscular HGB Conc 32 g/dL (31-36); Mean Corpuscular Hemoglobin 30 pg (27-31); Mean Corpuscular Volume 93 fL (80-97); Mean Platelet Volume 7.5 fL (7.4-10.4); Platelet Count 268 10^3/uL (150-450); Red Blood Count 2.92 10^6 /uL (3.70-4.87); Red Cell Distribution Width 16 % (10-15); White Blood Count 7.4 10^3/uL (3.5-10.8)
[2021-01-22 19:55] LABS: Hematocrit 24 % (35-47)
[2021-01-22] MEDS: DULoxetine DR 60 mg CAP PO SCH (20:54)
[2021-01-22] MEDS: Haloperidol 5 mg/ml SDV IV/IM 5 MG/ML AMP IV SLOW PU PRN (23:28)
[2021-01-23 03:42] LABS: Hematocrit 28 % (35-47); Hemoglobin 9.1 g/dL (12.0-16.0); Mean Corpuscular HGB Conc 33 g/dL (31-36); Mean Corpuscular Hemoglobin 30 pg (27-31); Mean Corpuscular Volume 91 fL (80-97); Mean Platelet Volume 7.1 fL (7.4-10.4); Platelet Count 303 10^3/uL (150-450); Red Blood Count 3.02 10^6 /uL (3.70-4.87); Red Cell Distribution Width 16 % (10-15)
[2021-01-23] MEDS ORDERED: Labetalol IV 5 MG/ML 20 ml VIAL IV PUSH ONE (03:43)
[2021-01-23] MEDS: NS 0.9% 1000 ml BAG 1,000 ML IV SCH ×2 (03:52→18:02)
[2021-01-23 03:57] LABS: EGFR African American 94.7 (>60); EGFR Non-African American 78.2 (>60); Potassium 3.8 mmol/L (3.5-5.0)
[2021-01-23] MEDS: Haloperidol 5 mg/ml SDV IV/IM 5 MG/ML AMP IV SLOW PU PRN ×2 (05:38→17:50)
[2021-01-23] MEDS: Mometasone/Formoter 200/5 MDI INH SCH ×2 (07:12→19:01)
[2021-01-23] MEDS: Senna TAB 8.6 mg TAB PO SCH ×2 (08:07→20:09)
[2021-01-23] MEDS: Isosorbide Mononit ER 60mg TAB PO SCH (08:08)
[2021-01-23] MEDS: Aspirin EC 81 mg TAB.EC (enteric coated) PO SCH (08:08)
[2021-01-23] MEDS: Polyethylene Glycol 3350 17 GM PACKET PO SCH (08:09)
[2021-01-23] MEDS: DULoxetine DR 60 mg CAP PO SCH (20:09)
[2021-01-24] MEDS ORDERED: Labetalol IV 5 MG/ML 20 ml VIAL IV PUSH ONE (01:08)
[2021-01-24] MEDS: NS 0.9% 1000 ml BAG 1,000 ML IV SCH ×2 (04:01→12:11)
[2021-01-24] MEDS: Isosorbide Mononit ER 60mg TAB PO SCH (07:57)
[2021-01-24] MEDS: Senna TAB 8.6 mg TAB PO SCH ×2 (07:57→20:09)
[2021-01-24] MEDS: Aspirin EC 81 mg TAB.EC (enteric coated) PO SCH (07:57)
[2021-01-24] MEDS: Polyethylene Glycol 3350 17 GM PACKET PO SCH (07:59)
[2021-01-24 08:36] LABS: Hematocrit 26 % (35-47); Hemoglobin 8.7 g/dL (12.0-16.0); Mean Corpuscular HGB Conc 34 g/dL (31-36); Mean Corpuscular Hemoglobin 30 pg (27-31); Mean Corpuscular Volume 91 fL (80-97); Mean Platelet Volume 7.5 fL (7.4-10.4); Platelet Count 310 10^3/uL (150-450); Red Blood Count 2.87 10^6 /uL (3.70-4.87); Red Cell Distribution Width 15 % (10-15); White Blood Count 6.9 10^3/uL (3.5-10.8)
[2021-01-24 08:53] LABS: Calcium 8.7 mg/dL (8.6-10.3); EGFR Non-African American 85.1 (>60); Magnesium 1.8 mg/dL (1.9-2.7); Potassium 3.3 mmol/L (3.5-5.0)
[2021-01-24] MEDS ORDERED: KCL 10 MEQ/50 ML IVPREMIX 10 MEQ/50 ML BAG IV ONE (09:50)
[2021-01-24] MEDS: Mometasone/Formoter 200/5 MDI INH SCH ×2 (10:01→20:02)
[2021-01-24] MEDS ORDERED: Magnesium Sulfate IV 3 GM in NS 0.9% 100 ml BAG 100 ML IVPB ONE (11:00)
[2021-01-24] MEDS: KCL 10 MEQ/50 ML IVPREMIX 10 MEQ/50 ML BAG IV SCH ×3 (13:46→18:35)
[2021-01-24 15:45] LABS: Urine Appearance Clear; Urine Bilirubin Negative (Negative); Urine Blood 3+ (Negative); Urine Color Yellow; Urine Glucose Negative (Negative); Urine Ketones Trace (Negative); Urine Nitrite Negative (Negative); Urine Protein Negative (Negative); Urine Specific Gravity 1.009 (1.002-1.030); Urine Urobilinogen Negative (Negative)
[2021-01-24 16:01] LABS: Urine Bacteria Absent (Absent); Urine Red Blood Cell Trace(0-2/hpf) (Absent); Urine Squamous Epithelial Cell Present (Absent); Urine White Blood Cell Trace(0-5/hpf) (Absent)
[2021-01-24] MEDS ORDERED: hydrALAZINE 20 mg/ml 1 ML Vial IV IV SLOW PU PRN (19:23)
[2021-01-24] MEDS: DULoxetine DR 60 mg CAP PO SCH (20:09)
[2021-01-25] MEDS: Aspirin EC 81 mg TAB.EC (enteric coated) PO SCH (08:02)
[2021-01-25] MEDS: Isosorbide Mononit ER 60mg TAB PO SCH (08:02)
[2021-01-25] MEDS: Polyethylene Glycol 3350 17 GM PACKET PO SCH (08:05)
[2021-01-25] MEDS: Senna TAB 8.6 mg TAB PO SCH (08:05)
[2021-01-25 08:10] LABS: ABS Eosinophils 0.1 10^3/ul (0-0.6); ABS Lymphocytes 1.1 10^3/ul (1.0-4.8); ABS Monocytes 0.5 10^3/ul (0-0.8); ABS Neutrophils 5.4 10^3/ul (1.5-7.7); Eosinophil % 0.7 %; Hematocrit 28 % (35-47); Hemoglobin 9.4 g/dL (12.0-16.0); Mean Corpuscular HGB Conc 34 g/dL (31-36); Mean Corpuscular Hemoglobin 31 pg (27-31); Mean Corpuscular Volume 91 fL (80-97); Mean Platelet Volume 7.4 fL (7.4-10.4); Platelet Count 342 10^3/uL (150-450); Red Blood Count 3.03 10^6 /uL (3.70-4.87); Red Cell Distribution Width 16 % (10-15)
[2021-01-25 08:21] LABS: Anion Gap 9 mmol/L (2-11); Blood Urea Nitrogen 9 mg/dL (6-24); CO2 Carbon Dioxide 25 mmol/L (22-32); Calcium 8.7 mg/dL (8.6-10.3); Chloride 103 mmol/L (101-111); EGFR African American 81.3 (>60); EGFR Non-African American 67.2 (>60); Glucose 123 mg/dL (70-100); Potassium 3.3 mmol/L (3.5-5.0); Sodium 137 mmol/L (135-145)
[2021-01-25 08:35] LABS: % Iron Saturation 19 % (15-55); Iron 40 ug/dL (50-212); Total Iron Binding Capacity 207 mcg/dL (250-450); Transferrin 148 mg/dL (203-362); Unsaturated Iron Binding < 192 ug/dL
[2021-01-25 08:56] LABS: Ferritin 141.5 ng/mL (11-307)
[2021-01-25] MEDS ORDERED: Potassium Chlor 20 meq TAB.ER PO SCH ×2 (09:00→11:00)
[2021-01-25] MEDS ORDERED: Magnesium Sulfate IV 3 GM in NS 0.9% 100 ml BAG 100 ML IVPB ONE (09:00)
[2021-01-25] MEDS: Mometasone/Formoter 200/5 MDI INH SCH (09:27)
[2021-01-25 11:45] VITALS: BP 172/79
== END 2021-01-25 16:11 | disposition home or self-care (01) ==
LOC: ED 13:14 → ICU 16:00 → MEDTELE 01-22 14:11
PROVIDERS: ADMIT Internal Medicine; ATTEND Hospitalist

== ENCOUNTER 2021-02-08 11:23 | Inpatient (IN) ==
[2021-02-08] MEDS ORDERED: NS 0.9% 1000 ml BAG 1,000 ML IV ONE (11:50)
[2021-02-08 12:10] LABS: ABS Lymphocytes 1.2 10^3/ul (1.0-4.8); ABS Monocytes 0.5 10^3/ul (0-0.8); ABS Neutrophils 6.5 10^3/ul (1.5-7.7); Eosinophil % 0.3 %; Hematocrit 34 % (35-47); Lymphocyte % 14.2 %; Mean Corpuscular HGB Conc 33 g/dL (31-36); Mean Corpuscular Hemoglobin 30 pg (27-31); Mean Corpuscular Volume 92 fL (80-97); Mean Platelet Volume 7.5 fL (7.4-10.4); Nucleated Red Blood Cells % 0.1; Platelet Count 393 10^3/uL (150-450); Red Blood Count 3.65 10^6 /uL (3.70-4.87); Red Cell Distribution Width 17 % (10-15); White Blood Count 8.2 10^3/uL (3.5-10.8)
[2021-02-08 12:36] LABS: Troponin I 0.04 ng/mL (<0.03)
[2021-02-08] MEDS ORDERED: Diltiazem IV push/loading dose 5 MG/ML 5 ML vial (25 mg) IV SLOW PU ONE (12:53)
[2021-02-08 12:57] LABS: Albumin 3.5 g/dL (3.2-5.2); Anion Gap 10 mmol/L (2-11); CO2 Carbon Dioxide 25 mmol/L (22-32); Calcium 9.2 mg/dL (8.6-10.3); Chloride 101 mmol/L (101-111); Magnesium 2.1 mg/dL (1.9-2.7); Potassium 3.5 mmol/L (3.5-5.0); Sodium 136 mmol/L (135-145)
[2021-02-08 13:02] LABS: ALT 6 U/L (7-52); AST 17 U/L (13-39); Albumin/Globulin Ratio 1.1 (1-3); Alkaline Phosphatase 79 U/L (35-149); Blood Urea Nitrogen 18 mg/dL (6-24); EGFR African American 88.9 (>60); EGFR Non-African American 73.4 (>60); Globulin 3.3 g/dL (2-4); Glucose 114 mg/dL (70-100); Total Protein 6.8 g/dL (6.4-8.9)
[2021-02-08 13:13] LABS: TSH Ultra Thyroid Stim Horm 0.44 mcIU/mL (0.34-5.60)
[2021-02-08] MEDS: Diltiazem (ADVAN VIAL) 100 MG/100 ML ADDV.BAG IV SCH ×2 (14:27→20:31)
[2021-02-08] MEDS ORDERED: Ondansetron 4 mg VIAL 2 MG/ML 2 ml VIAL IV ONE (14:38)
[2021-02-08] MEDS ORDERED: Morphine 2 MG/ML SYRINGE IV ONE (14:39)
[2021-02-08] MEDS: KCL 20 MEQ/100 ML IVPREMIX 20 MEQ/100 ML BAG IV SCH ×2 (15:02→17:37)
[2021-02-08 15:27] LABS: Phosphorus 2.6 mg/dL (2.5-5.0)
[2021-02-08] MEDS ORDERED: Albuterol/Ipratropium NEB.SOL (2.5/0.5 MG) 3 ML NEB.SOLN INH PRN (16:48)
[2021-02-08 17:23] LABS: Troponin I 0.03 ng/mL (<0.03)
[2021-02-08] MEDS: Magnesium Hydroxide LIQ 30 ML UDC PO PRN (17:59)
[2021-02-08] MEDS: Senna TAB 8.6 mg TAB PO PRN (17:59)
[2021-02-08 20:08] LABS: Urine Appearance Cloudy; Urine Bilirubin Negative (Negative); Urine Blood 1+ (Negative); Urine Color Yellow; Urine Glucose Negative (Negative); Urine Ketones 1+ (Negative); Urine Nitrite Negative (Negative); Urine Protein 1+(30 mg/dL) (Negative); Urine Specific Gravity 1.013 (1.002-1.030); Urine Urobilinogen Negative (Negative)
[2021-02-08 20:11] LABS: Urine Bacteria Absent (Absent); Urine Red Blood Cell Trace(0-2/hpf) (Absent); Urine Squamous Epithelial Cell Present (Absent); Urine White Blood Cell Trace(0-5/hpf) (Absent)
[2021-02-08] MEDS ORDERED: Mometasone/Formoter 200/5 MDI INH SCH (21:00)
[2021-02-09] MEDS: Morphine 2 MG/ML SYRINGE IV PRN ×3 (01:12→20:04)
[2021-02-09 05:17] LABS: ABS Basophils 0.1 10^3/ul (0-0.2); ABS Eosinophils 0.1 10^3/ul (0-0.6); ABS Lymphocytes 1.4 10^3/ul (1.0-4.8); ABS Monocytes 0.4 10^3/ul (0-0.8); ABS Neutrophils 3.9 10^3/ul (1.5-7.7); Eosinophil % 1.1 %; Hematocrit 27 % (35-47); Lymphocyte % 24.2 %; Mean Corpuscular HGB Conc 33 g/dL (31-36); Mean Corpuscular Hemoglobin 30 pg (27-31); Mean Corpuscular Volume 92 fL (80-97); Mean Platelet Volume 7.3 fL (7.4-10.4); Platelet Count 325 10^3/uL (150-450); Red Blood Count 2.96 10^6 /uL (3.70-4.87); Red Cell Distribution Width 16 % (10-15); White Blood Count 5.8 10^3/uL (3.5-10.8)
[2021-02-09 05:33] LABS: Blood Urea Nitrogen 16 mg/dL (6-24); CO2 Carbon Dioxide 25 mmol/L (22-32); Calcium 8.5 mg/dL (8.6-10.3); Chloride 106 mmol/L (101-111); EGFR African American 101.2 (>60); EGFR Non-African American 83.7 (>60); Glucose 113 mg/dL (70-100); Magnesium 2.1 mg/dL (1.9-2.7); Phosphorus 2.7 mg/dL (2.5-5.0); Sodium 136 mmol/L (135-145)
[2021-02-09 05:45] LABS: Anion Gap 5 mmol/L (2-11)
[2021-02-09] MEDS: Diltiazem (ADVAN VIAL) 100 MG/100 ML ADDV.BAG IV SCH (07:27)
[2021-02-09] MEDS: Senna TAB 8.6 mg TAB PO PRN (08:32)
[2021-02-09] MEDS: Magnesium Hydroxide LIQ 30 ML UDC PO PRN (08:32)
[2021-02-09 15:13] LABS: ABS Basophils 0.1 10^3/ul (0-0.2); ABS Monocytes 0.4 10^3/ul (0-0.8); ABS Neutrophils 5.5 10^3/ul (1.5-7.7); Eosinophil % 0.5 %; Hematocrit 28 % (35-47); Hemoglobin 9.2 g/dL (12.0-16.0); Lymphocyte % 13.9 %; Mean Corpuscular HGB Conc 33 g/dL (31-36); Mean Corpuscular Hemoglobin 31 pg (27-31); Mean Corpuscular Volume 93 fL (80-97); Mean Platelet Volume 7.5 fL (7.4-10.4); Platelet Count 373 10^3/uL (150-450); Red Blood Count 3.03 10^6 /uL (3.70-4.87); Red Cell Distribution Width 17 % (10-15)
[2021-02-09] MEDS ORDERED: Lactated Ringers 1000 ml BAG 1,000 ML IV ONE (16:13)
[2021-02-09] MEDS ORDERED: Digoxin IV 0.5 MG/2 ML AMP (0.25 MG/ML) IV SLOW PU ONE ×2 (17:15→22:00)
[2021-02-10] MEDS ORDERED: Isosorbide Mononit ER 60mg TAB PO SCH (03:00)
[2021-02-10 04:49] LABS: ABS Eosinophils 0.1 10^3/ul (0-0.6); ABS Monocytes 0.4 10^3/ul (0-0.8); ABS Neutrophils 3.8 10^3/ul (1.5-7.7); Eosinophil % 1.3 %; Hematocrit 27 % (35-47); Hemoglobin 8.8 g/dL (12.0-16.0); Lymphocyte % 19.1 %; Mean Corpuscular HGB Conc 32 g/dL (31-36); Mean Corpuscular Hemoglobin 30 pg (27-31); Mean Corpuscular Volume 93 fL (80-97); Mean Platelet Volume 7.3 fL (7.4-10.4); Nucleated Red Blood Cells % 0.1; Platelet Count 330 10^3/uL (150-450); Red Blood Count 2.94 10^6 /uL (3.70-4.87); Red Cell Distribution Width 17 % (10-15); White Blood Count 5.2 10^3/uL (3.5-10.8)
[2021-02-10 05:04] LABS: Calcium 8.7 mg/dL (8.6-10.3); EGFR African American 94.7 (>60); EGFR Non-African American 78.2 (>60); Magnesium 2.3 mg/dL (1.9-2.7); Phosphorus 2.9 mg/dL (2.5-5.0); Potassium 4.2 mmol/L (3.5-5.0)
[2021-02-10 05:26] LABS: Ferritin 64.4 ng/mL (11-307)
[2021-02-10 05:30] LABS: Folate 12.38 ng/mL (5.90-24.80)
[2021-02-10] MEDS: Morphine 2 MG/ML SYRINGE IV PRN ×2 (09:11→16:38)
[2021-02-10] MEDS: Morphine ORAL.SOLN 10 mg 2 mg/ml UDC 5 ml (10 mg) PO PRN (22:02)
[2021-02-11] MEDS ORDERED: Aspirin EC 81 mg TAB.EC (enteric coated) PO SCH ×2 (09:00)
[2021-02-11] MEDS ORDERED: Metoprolol Tartrate 5 mg VIAL 5 ml VIAL (1 mg/ml) ONE (10:20)
[2021-02-11] MEDS: Morphine ORAL.SOLN 10 mg 2 mg/ml UDC 5 ml (10 mg) PO PRN (11:40)
[2021-02-11 14:37] VITALS: BP 84/62
== END 2021-02-11 12:45 | disposition hospice, home (50) | DRG 308 ==
LOC: ED 11:23 → ICU 15:29
PROVIDERS: ADMIT Internal Medicine; ATTEND Internal Medicine